=== PATIENT | female | born 2005 | race Caucasian/White ===

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

== ENCOUNTER 2024-06-04 12:37 | Emergency (ER) | payer OTHER, SELFPAY ==
--- NOTE | 2024-06-04 12:45 | ED.URI ---
HPI - URI/Sore Throat General Chief Complaint: Upper Respiratory Infection Stated Complaint: URI Time Seen by Provider: 06/04/24 12:44 Source: patient Mode of arrival: ambulatory Limitations: no limitations History of Present Illness HPI Narrative: Patient is a 18-year-old female with cough and congestion and sore throat for the past week. 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 No chest pain or shortness of breath. MD elicited complaint: cough, sore throat, rhinorrhea and nasal congestion Pertinent past history: other ( None) Onset (ago): week(s) (1) Consistency: constant Severity: mild Pain scale (0-10): 0 Description of mucous: clear and watery Able to tolerate fluids by mouth: Yes Exacerbating factors: nothing Relieving factors: nothing Context: other ( patient has symptoms for the past week and specifically sore throat and came to ER) Associated symptoms: voice changes, rhinorrhea, nasal congestion, sore throat and cough Treatments prior to arrival: none Related Data Home Medications ?Medication ?Instructions ?Recorded ?Confirmed ?Last Taken ?Type betaxolol 10 mg tablet 5 mg PO HS 06/23/20 06/04/24 Unknown History Allergies Allergy/AdvReac Type Severity Reaction Status Date / Time bupropion (From Wellbutrin) Allergy Unknown Verified 06/04/24 12:43 ibuprofen AdvReac Other Verified 06/04/24 12:43 Review of Systems Review of Systems: All systems reviewed & are unremarkable except as noted in HPI and below Constitutional: Constitutional: Reports no additional constitutional complaints Eyes: Eyes: Reports no additional eye complaints ENT: Reports system reviewed and no additional complaints, except as documented Cardiovascular: Cardiovascular: Reports no additional cardiovascular complaints Respiratory: Respiratory: Reports no additional respiratory complaints Gastrointestinal: Gastrointestinal: Reports no additional gastrointestinal complaints Genitourinary: Genitourinary: Reports no additional female genitourinary complaints Musculoskeletal: Musculoskeletal: Reports no additional musculoskeletal complaints Integumentary/Breasts: Skin/Breast: Reports system reviewed and no additional complaints, except as docu Neurologic: Reports system reviewed and no additional complaints, except as documented Psychiatric: Psychiatric: Reports no additional psychiatric complaints Endocrine: Endocrine: Reports no additional endocrine complaints Hematologic/Lymphatic: Hematologic/Lymphatic: Reports no additional hematologic/lymphatic complaints Allergic/Immunologic: Allergic/Immunologic: Reports no additional allergic/immunologic complaints COUNT INCLUDES THE [facility] Past Medical History Medical History Long QT syndrome Surgical History Surgical History History of loop recorder Social History Social History Smoking status: Never smoker Exam Const: General: healthy appearing Nutritional Appearance: well nourished Orientation/consciousness: patient oriented x3 Limitations: no limitations HENMT: Head: normal to inspection Ears: external ears normal Face/Nose/Sinus: Normal external nose present Other: red oropharynx with bilateral 1+ tonsillar hypertrophy without pus Eyes: Conjunctivae: conjunctivae normal Pupils: Equal, round and reactive pupils present EOM: EOMs intact bilaterally Direct Ophthalmoscopy: no photophobia Neck: Neck: normal visual inspection Chest: Chest palpation & inspection: normal inspection of the chest Resp: Effort & Inspection: normal respiratory effort and not labored Auscultation: clear to auscultation bilaterally and no crackles Cardio: Rate: regular rate Rhythm: regular rhythm Heart sounds: no murmurs GI: Inspection: non-distended GI Palp: Yes Soft to palpation and No Tenderness to palpation present (GI) Auscultation: normal bowel sounds : General: Yes bladder normal to palpation Back/Spine/Pelvis: Back: no CVA tenderness Skin: General skin exam: normal color Rashes: no rashes Wounds: no wounds Neuro: General: patient oriented x3 Cranial nerves: Yes Nystagmus not present Speech: normal speech Gait exam (Neuro): Normal gait present Extrem: General: normal to inspection Psych: Mental Status: mental status grossly normal Affect: normal affect Attitude: cooperative Course Vital Signs Vital signs: Vital Signs Oxygen Delivery Room Air 06/04/24 12:40 Temperature 36.6 C 06/04/24 12:46 Pulse Rate 94 06/04/24 12:46 Respiratory Rate 18 06/04/24 12:46 Blood Pressure 108/78 06/04/24 12:46 Pulse Oximetry 100 06/04/24 12:46 Oxygen Delivery Room Air 06/04/24 12:46 MDM - URI/Sore Throat MDM Narrative Medical decision making narrative: patient is a 18-year-old female with upper respiratory symptoms in here for evaluation. We will do COVID panel testing. RSV positive. Lab Data Attestation: I reviewed the patient's lab results. Labs: Lab Results 06/04/24 Range/Units 12:45 Influenza A (RT-PCR) Negative (Negative) Influenza B (RT-PCR) Negative (Negative) RSV (RT-PCR) Positive A (Negative) SARS-CoV-2 RNA (RT-PCR) Negative (Negative) Group A Strep (PCR) Not detected (Negative) Discharge Plan Discharge Clinical Impression: Respiratory syncytial virus (RSV) Qualifiers: RSV infection type: acute bronchiolitis Qualified Code(s): J21.0 - Acute bronchiolitis due to respiratory syncytial virus Pharyngitis Qualifiers: Pharyngitis/tonsillitis etiology: other specified organisms Qualified Code(s): J02.8 - Acute pharyngitis due to other specified organisms Patient Disposition: Home, Self-Care Condition: Stable Instructions: Pharyngitis (ED), RSV (Respiratory Syncytial Virus) Infection (ED) Additional Instructions: please follow-up with the primary doctor in the next week. You may start the antibiotics tomorrow if continued sore throat. Patient Language: Micronesian Prescriptions: New amoxicillin-pot clavulanate [Augmentin] 500-125 mg tablet 1 tablet PO BID 10 Days Qty: 20 0RF No Action betaxolol 10 mg tablet 5 mg PO HS Follow-up/Referrals: Anthony Bruno MD [Primary Care Provider] - Stand Alone Forms: Work/School Release IP Time of Disposition: 13:49
[2024-06-04 12:46] VITALS: BP 108/78; PULSE 94; RESP 18; TEMP 36.6; O2SAT 100
--- NOTE | 2024-06-04 12:49 | PC.NURSE ---
Covid culture sent to lab
[2024-06-04 13:13] LABS: Strep Group A RT-PCR NOT DETECTED (Negative)
[2024-06-04 13:22] LABS: SARS-CoV-2 RNA PCR Negative (Negative)
[2024-06-04 13:30] LABS: Influenza A QL RT-PCR Negative (Negative); Influenza B QL RT-PCR Negative (Negative); RSV RNA, RT-PCR Positive (Negative)
[2024-06-04] MEDS: predniSONE 20 MG TABLET PO (14:01)
[2024-06-04 14:05] VITALS: BP 110/70; PULSE 78; RESP 18; O2SAT 98
--- OUTSIDE RECORDS SUMMARY | 2024-06-11 08:23 | XMS_ITS | Continuity of Care Document ---
Author Name [facility] Organization [facility] Care Team Providers Care Cupola Patcher Helper Name Role Phone [facility] Unavailable Unavailable Problems Combined list of problems from Department of Defense and Veterans Affairs facilities. It does not include entries that were removed or entered in error. Problem Status Onset Date Problem Type Date of Resolution Comments Source otitis externa acute right ear Inactive Condition DoD eustachian tube dysfunction Active Condition DoD Need For Vaccination Hepatitis B Inactive Condition DoD pharyngitis Inactive Condition DoD routine history and physical preschool (3 - 6 yrs) Active Condition DoD visit for: administrative purpose Active Condition DoD skin abscess of buttocks Inactive Condition DoD visit for: well child visit Active Condition DoD Need For Vaccination Polio Active Condition DoD visit for: issue repeat prescription for medication Inactive Condition zytrec one tsp daily DoD Need For Vaccination Against DTP Active Condition DoD Need For Vaccination Hepatitis A Active Condition DoD otitis media suppurative right ear Inactive Condition DoD visit for: 12-month visit Inactive Condition normal examination. RTC in 3-6 months. DoD Need For Vaccination MMR Active Condition DoD Need For Vaccination Chickenpox (Active) Active Condition DoD sinusitis acute Inactive Condition DoD Fever Inactive Condition DoD otitis media left ear Inactive Condition Discussed possible viral nature of illness. Discussed option of Abx for AOM. Parents understand and request Abx. Pt to f/u in 2-3 wks to re-eval ear. Dr Conway available. Ensure adequate hydration, use humidifier in room, return precautions given. DoD Need For Vaccination Haemophilus Influenzae Type B Inactive Condition DoD Need For Vaccination Against Combinations Of Diseases Inactive Condition DoD Need For Vaccination Pneumococcal Inactive Condition DoD Parent Education: Immunizations Active Condition DoD routine history and physical well-baby (28 days - 2 yrs) Inactive Condition DoD upper respiratory infection Inactive Condition DoD Medications Combined list of outpatient medications from Department of Defense and Veterans Affairs facilities.Medications provided include 1) outpatient medications from the last 15 months, and 2) patient-reported medications. Medication Details Route Status Patient Instructions Prescription Expires Prescription Number Last Dispense Date Ordering Provider Order Date Order Qty Source BETAXOLOL HCL (BETAXOLOL HCL), 10MG, TABLET, ORAL, STACK [employer] 100 ea. BOTTLE Active [id number] 2023 45 Pharmac y Data Transac tion Service Facilit y BETAXOLOL HCL (BETAXOLOL HCL), 10MG, TABLET, ORAL, [employer] 100 ea. BOTTLE Active [id number] 2023 45 Pharmac y Data Transac tion Service Facilit y Allergies, Adverse Reactions, Alerts Combined list of allergies from Department of Defense and Veterans Affairs facilities. It does not include entries that were removed or entered in error. Substance Category Reaction Severity Reaction type Status Date Reported Comments Source NO OUTPUT FOR NCID [id number] Drug allergy (disorder) active 02/05/2007 [facility] Immunizations Combined list of available immunizations from the Department of Defense and Veterans Affairs facilities. Immunization Series Date Given Administered By Site Reaction Lot Number CVX Code Drug Water Treatment Plant Operator Status Comments Source COVID-19, mRNA, LNP-S, PF, 30 mcg/0.3 mL dose 2021 AL[facility], () Not Given COVID-19, mRNA, LNP-S, PF, 30 mcg/0.3 mL dose DoD COVID-19, mRNA, LNP-S, PF, 30 mcg/0.3 mL dose 2021 ALUL, () Not Given COVID-19, mRNA, LNP-S, PF, 30 mcg/0.3 mL dose DoD COVID-19, mRNA, LNP-S, PF, 30 mcg/0.3 mL dose 2020 [facility], () Not Given COVID-19, mRNA, LNP-S, PF, 30 mcg/0.3 mL dose DoD hepatitis B vaccine, pediatric or pediatric/ado lescent dosage 1 2009 RAE DERAS [id number] Asl Analytical (B) complet ed hepatitis B vaccine, pediatric or pediatric /adolesce nt dosage DoD measles, mumps and rubella virus vaccine 1 2008 ALLA ARITA [id number] Merck (MSD) complet ed measles, mumps and rubella virus vaccine DoD poliovirus vaccine, inactivated 1 2008 ALLA ARITA [id number] Sanofi Pasteur ([facility]) complet ed polioviru s vaccine, inactivat ed DoD diphtheria, tetanus toxoids and acellular pertu is vaccine 2 2008 ALLA ARITA [id number] 20 SmithKline (SKB) complet ed diphtheri a, tetanus toxoids and acellular pertussis vaccine DoD varicella virus vaccine 1 2008 ALLA ARITA [id number] 21 Merck (MSD) complet ed varicella virus vaccine DoD hepatitis A vaccine, pediatric dosage, unspecified formulation 1 2008 ALLA ARITA [id number] 31 SmithKline (SKB) complet ed hepatitis A vaccine, pediatric dosage, unspecifi ed formulati on DoD hepatitis A vaccine, pediatric/ado lescent dosage, 2 dose schedule 1 2006 DINAH HYATT [id number] [id number] 83 SmithKline (SKB) complet ed hepatitis A vaccine, pediatric /adolesce nt dosage, 2 dose schedule DoD diphtheria, tetanus toxoids and acellular pertu is vaccine 1 2006 DINAH HYATT [id number] 20 SmithKline (SKB) complet ed diphtheri a, tetanus toxoids and acellular pertussis vaccine DoD Haemophilus influenzae type b vaccine, PRP-OMP conjugate 2 2006 DINAH HYATT [id number] 49 Merck (MSD) complet ed Haemophil us influenza e type b vaccine, PRP-OMP conjugate DoD Haemophilus influenzae type b vaccine, PRP-OMP conjugate 1 2004 Unknown, Provider [id number] 49 Merck (MSD) complet ed Haemophil us influenza e type b vaccine, PRP-OMP conjugate DoD pneumococcal conjugate vaccine, 7 valent 1 2004 DINAH HYATT [id number] GiovannyIla ([facility]) complet ed pneumococ gi conjugate vaccine, 7 valent DoD DTaP-hepatiti s B and poliovirus vaccine 1 2004 DINAH HYATT [id number] [id number] 110 SmithKline (SKB) complet ed DTaP-hepa titis B and polioviru s vaccine DoD Encounters Combined list of: 1) Encounters from Department of Veterans Affairs facilities going back up to thelast 18 months. 2) Encounters from the Department of Defense facilities going back up to 280 months. Location Location Details Encounter Type Encounter Number Reason For Visit Attending Provider ADM Date DC Date Status Disposition Source [facility]PENDING S[facility] TO [facility] M05A [facility] Dut) OUTPATIENT [id number] WELL BABY/PH YSICAL EXAM/SC FRANKO QUINCY GE 11/24 Released w/o Limitations [facility]AM H M05A [facility] Dut) [facility]PENDING [facility] M05A [facility] Dut) OUTPATIENT [id number] WELL BABY CHECK/6 [facility] QUINCY GE 02/10 Released w/o Limitations [facility]AM H M05A [facility] Dut) [facility]PENDING SALE TO [facility] M05A WFM Dut) OUTPATIENT [id number] Immuniz STEVE Smith Surya 02/24 Released w/o Limitations [facility]AM H M05A W[facility] Dut) [facility]PENDING SALE TO [facility] M05A WFM Dut) OUTPATIENT [id number] COUGH/F EVER KAI CAICEDO 05/25 Released w/o Limitations [facility])(AM H M05A WFM Dut) [facility] AMI Cl) TELE CONSULT [id number] Fever LUCIA PABON 06/17 [facility] AMIC Cl) [facility]PEND[facility] S[facility] M05A WFM Dut) OUTPATIENT [id number] fever 103 QUINCY GE 06/27 Released w/o Limitations [facility]AM H M05A WFM Dut) [facility]PEND[facility] S[facility] TO [facility] M05A WFM Dut) OUTPATIENT [id number] 12month WBC JOY PARTIDA 09/04 Released w/o Limitations [facility]AM H M05A W[facility] Dut) [facility]PEND[facility] S[facility] M05D WFM Int) OUTPATIENT [id number] fever ear pain QUINCY GE 07/16 Released w/o Limitations [facility]AM H M05D WFM Int) [facility] [employer]) OUTPATIENT [id number] IMMElza MATHISALLA Elio 08/20 Released w/o Limitations [facility] ) [facility] M05D WFM Int) TELE CONSULT [id number] Prescri ption request QUINCY GE 02/05 [facility]AM H M05D WFM Int) [facility] M05A [facility] Dut) OUTPATIENT [id number] imm [place]IR[place] ADAIRSTACY Torres 10/02 Released w/o Limitations [facility]AM H M05A W[facility] Dut) [facility] M05D WFM Int) OUTPATIENT [id number] QUINCY Gaspar 01/19 Released w/o Limitations [facility]AM H M05D WFM Int) [facility] M05D WFM Int) OUTPATIENT [id number] rash on buttock s QUINCY GE 03/26 Released w/o Limitations [facility]AM H M05D WFM Int) [facility] M05D WFM Int) TELE CONSULT [id number] labs QUINCY GE 03/29 [facility]AM H M05D WFM Int) [facility] M05D WFM Int) TELE CONSULT [id number] Pt's father called and asked for meds for leg infecti on NIRU DANIEL S 07/20 [facility]AM [facility] M05D WFM Int) [facility] M[facility]D WFM Int) TELE CONSULT [id number] Infecte d bug bite NIRU DANIEL S 10/11 [facility]AM H M05D WFM Int) [facility] M05D WFM Int) OUTPATIENT [id number] REBOOK/ KINDERG ARTEN PHYSICA L NIRU DANIEL S 12/09 Released w/o Limitations [facility]AM H M05D WFM Int) [facility] Cl) OUTPATIENT [id number] 4 yr old female w/fever ;sore throat DARIUS WOOD 01/19 Released w/o Limitations [facility] Cl) [facility]PENDING SALE TO [facility] M05A WFM Dut) OUTPATIENT [id number] hep B RAE DERAS 02/21 Released w/o Limitations [facility]AM H M05A WFM Dut) [facility]PEND[facility] S[facility] M05D WFM Int) OUTPATIENT [id number] sore throat and fever NIRU DANIEL S 07/05 Released w/o Limitations [facility]AM H M05D WFM Int) [facility]PEND[facility] S[facility] M05D WFM Int) OUTPATIENT [id number] congest ion QUINCY GE 11/15 Released w/o Limitations [facility]AM H M05D WFM Int) [facility]PEND[facility] S[facility] M05D WFM Int) TELE CONSULT [id number] right ear pain MINA QUINCY MON 11/28 [facility]AM H M05D WFM Int) Procedures Combined list of: 1) Procedures from Department of Veterans Affairs facilities going back up to thelast 18 months, not all VA non-surgical procedures are included; 2) All procedures from the Department of Defense facilities. Procedure Procedure Type Code Date Perfomer Comments Sourc e Hepatitis B Vaccine (Active); [place] To 11 Years Hepatitis B Vaccine (Active); To 11 Years 25719 02/22/20 10 RAE DERAS Immunization Administration By Injection, One Vaccine Immunization Administration By Injection, One Vaccine 66660 02/22/20 10 RAE DERAS [facility] Vaccines Viral Polio, Inactivated Vaccines Viral Polio, Inactivated 29457 10/03/19 09 ALLA ARITA [facility] Vaccines Viral Measles, Mumps and Rubella, Live Vaccines Viral Measles, Mumps and Rubella, Live 18025 10/03/19 09 ALLA ARITA [facility] DTaP Vaccine DTaP Vaccine 01631 10/03/19 09 ALLA ARITA Vaccines Viral Varicella (Active) Vaccines Viral Varicella (Active) 58669 10/03/19 09 ALLA ARITA Hepatitis A Vaccine Adult Dosage (Intramuscular Use) Hepatitis A Vaccine Adult Dosage (Intramuscular Use) 74162 10/03/19 09 ALLA ARITA Immunization Administration By Injection, Each Additional Vaccine 10/03/19 09 ALLA ARITA [facility] Immunization Administration By Injection, One Vaccine Immunization Administration By Injection, One Vaccine 66952 10/03/19 ALLA ARITA Hep A Vac Ped/Adol Dosage (Intramusc Use) 2 Dose Schedule Hep A Vac Ped/Adol Dosage (Intramusc Use) 2 Dose Schedule 00023 08/21/19 07 TACHO, DINAH given by Ms Hyatt [facility] Immunization Administration By Injection, Each Additional Vaccine 08/21/19 07 DINAH TITUS DTaP Vaccine DTaP Vaccine 36189 08/21/19 TACHO, DINAH given by Ms LemosHyatt [facility] Immunization Administration By Injection, One Vaccine Immunization Administration By Injection, One Vaccine 16840 08/21/19 TACHO, DINAH [facility] Hemophil Influ B Vac PRP-OMP Conjugate (3 Dose) For IM Use Hemophil Influ B Vac PRP-OMP Conjugate (3 Dose) For IM Use 72489 08/21/19 TACHO, DINAH given By Ms Hyatt [facility] Vaccines Viral Measles, Mumps and Rubella, Live Vaccines Viral Measles, Mumps and Rubella, Live 41963 09/05/19 06 CHANG JASON [facility] Vaccines Viral Varicella (Active) Vaccines Viral Varicella (Active) 79858 09/05/19 06 CHANG JASON Pt given the following shots SQ as directed for 12 months well baby visit: MMR 0.5ml Varivax 0.5ml DoD Immunization Administration By Injection, One Vaccine Immunization Administration By Injection, One Vaccine 96441 02/25/20 TACHO, DINAH Barragan DTaP + Hep B + IPV DTaP + Hep B + IPV 97121 05 TACHO DINAH [facility] Immunization Administration By Injection, Each Additional Vaccine 02/25/20 05 TACHODINAH Yung Pneumococcal Conjugate Vaccine, Polyvalent, IM Use Pneumococcal Conjugate Vaccine, Polyvalent, IM Use 39199 02/25/20 05 TACHODINAH Yung Hemophil Influ B Vac PRP-OMP Conjugate (3 Dose) For IM Use Hemophil Influ B Vac PRP-OMP Conjugate (3 Dose) For IM Use 04750 02/25/20 05 DINAH TITUS 6 moths vaccine given mother verified patient id mother no know any drug allergies Pediarix 0.5ml im RT leg Hib 0.5 ml im left leg Prevnar 0.5 ml im left thigh patient edcation given to mother patient left clinic after been monitor for 15 minutes zero adverse reaction noted DoD DTaP + Hep B + IPV DTaP + Hep B + IPV 40850 05 TACHO DINAH Barragan Pneumococcal Conjugate Vaccine, Polyvalent, IM Use Pneumococcal Conjugate Vaccine, Polyvalent, IM Use 25470 11/25/19 05 DINAH TITUS Hemophil Influ B Vac PRP-OMP Conjugate (3 Dose) For IM Use Hemophil Influ B Vac PRP-OMP Conjugate (3 Dose) For IM Use 22151 11/25/19 05 IDNAH TITUS patient here for 4 months immunization. patient identification verified per mother. 1530Pediarix 0.5ml im rigth leg, Hib 0.5ml im right thigh. prevnar 0.5ml im left leg,patient tolerated all vaccine well. Mother instructed to remin in clinic for 15. 1545 patient left from clinic in stable condition zero adverse reaction noted DoD Social History Combined list of available smoking, tobacco, and other social history from Department of Defense and Veterans Affairs facilities. Social History Type Response Date Comment Sour e This section is an empty social history section. DoD
--- OUTSIDE RECORDS SUMMARY | 2024-06-11 08:24 | XMS_ITS | Encounter Summary ---
Author Organization [facility] Address [address] [place] [address] Phone Care Team Providers Care Griddle Cook Name Role Phone Anthony Bruno MD Primary Care Provider [phone] Ethel Casanova MD Unavailable [phone] Encounter Details Date Type Department Care Team (Late st Contact Info) Description 12/12/2021 Orders Only [facility] Pediatric Cardiology One [facility] 2nd [place] [address] [place] [address] Alyson Conner PA 1 [facility] [address] [place], [place] [id number] Social History Tobacco Use Types Packs/Day Years Used Date Smoking Tobacco: Light Smoker Cigarettes Vaping Smokeless Tobacco: Never Comments:smokes/vapes only o ccasionally with friends Alcohol Use Standard Drinks/Week Comments Not Currently 0 (1 standard drink = 0.6 oz pur e alcohol) Comments No Sex and Gender Information Value Date Recorded Sex Assigned at Not on file Legal 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 Gender Identity Not on file Sexual Orientation Not on file documented as of this encounter Plan of Treatment Not on file documented as of this encounter Procedures Procedure Name Priority Date/Time Associated Diagnosis Comments PED DEVICE CHECK - REMOTE Routine 12/12/2021 4:56 AM CDT documented in this encounter Results * Pediatric Device Check - Remote (12/12/2021 4:56 AM CDT) Anatomical Region Laterality Modality Other 12/12/2021 4:56 AM CDT Narrative 12/13/2021 3:50 PM CDT see PDF for result Procedure Note Alyson Conner PA - 12/13/2021 see PDF for result Alyson BONILLA [facility] PROCEDU RES Final Result documented in this encounter Visit Diagnoses Not on filedocumented in this encounter Care Teams Griddle Cook Relationship Specialty Start Date End Date Anthony Bruno MD PCP - General 05/16/17 Ethel Casanova MD 1 [facility] [place] [address] Referring Physician Cardiology 05/12/21 documented as of this encounter
--- OUTSIDE RECORDS SUMMARY | 2024-06-11 08:24 | XMS_ITS | Encounter Summary ---
Author Organization [facility] Address [address] [place] [address] Phone Care Team Providers Care Vamp Presser Name Role Phone Anthony Bruno MD Primary Care Provider Ethel Casanova MD Unavailable [phone] Reason for Referral * Cardiology (Routine) - Closed Specialty Diagnoses / Procedures Referred By Adrianoac t Referred To Contact Diagnoses Long Q-T syndrome Palpitations Procedures Pediatric Device Check - In Office Ethel Casanova MD [address] [address] Phone: tel: fax: [facility] (All Locations) Referral ID Status Reason Start Date Expiration Date Visits Re quested Visits Authorized [id number] Closed 02/27/2022 03/29/2023 1 1 * Cardiology (Routine) - Closed Specialty Diagnoses / Procedures Referred By Contgeorgina sims Referred To Contact Diagnoses Long Q-T syndrome Palpitations Procedures ECG 12 lead Ethel Casanova MD [address] [address] Phone: tel: fax: [facility] (All Locations) Referral ID Status Reason Start Date Expiration Date Visits Re quested Visits Authorized [id number] Closed 02/27/2022 03/29/2023 1 1 Reason for Visit * Cardiology (Routine) - Closed Specialty Diagnoses / Procedures Referred By Cristopher t Referred To Contact Diagnoses Long Q-T syndrome Palpitations Procedures ECG 12 lead Ethel Casanova MD [address] [place] [address] [address] [place] [address] Phone: tel: fax: [facility] (All Locations) Referral ID Status Reason Start Date Expiration Date Visits Re quested Visits Authorized [id number] Closed 02/27/2022 03/29/2023 1 1 Encounter Details Date Type Department Care Team (Latest Contact Info) Description 03/02/2022 1:00 PM CDT - 03/02/2022 11:59 PM CDT Hospital Encounter [facility] Pediatric Cardiology One [facility] [address] [place] [phone] Long Q-T syndrome; Palpitations Discharge Disposition: Discharge to home or self care Social History Tobacco Use Types Packs/Day Years Used Date Smoking Tobacco: Light Smoker Cigarettes Vaping Smokeless Tobacco: Never Comments:smokes/vapes only o ccasionally with friends Alcohol Use Standard Drinks/Week Comments Not Currently 0 (1 standard drink = 0.6 oz pur e alcohol) Comments No Sex and Gender Information Value Date Recorded Sex Assigned at Not on file 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 Gender Identity Not on file Sexual Orientation Not on file documented as of this encounter Medications at Time of Discharge drospirenone-ethi nyl estradioL (ELIAS,GIANVI) 3-0.02 mg per tablet 02/14/2021 betaxoloL (KERLONE) 10 mg tabletIndications :hypertension Take 0.5 tablets (5 mg total) by mouth nightly 45 tablet 03/02/2022 07/17/2022 documented as of this encounter Discharge Disposition Disposition Code Departure Means Destination Discharge to home or self care documented in this encounter Plan of Treatment Not on file documented as of this encounter Procedures Procedure Name Priority Date/Time Associated Diagnosis Comments ECG 12-LEAD Routine 03/02/2022 1:42 PM CDT Long Q-T syndrome Palpitations PED DEVICE CHECK - IN OFFICE Routine 03/02/2022 1:15 PM CDT Long Q-T syndrome Palpitations documented in this encounter Results * ECG 12 lead (03/02/2022 1:42 PM CDT) Ventricular Rate EKG/Min [address] [facility] Atrial Rate 64 BPM [facility] SC-Interval (MSEC) 136 ms [facility] QRS-Interval (MSEC) 82 ms [facility] QT-Interval (MSEC) 420 ms [facility] QTc 445 ms [facility] P Mesa 64 degrees [facility] R Mesa 66 degrees [facility] T Mesa 51 degrees [facility] Diagnosis Normal sinus rhythm with sinus arrhythmia Normal ECG When compared with ECG of 03-MAR-2021 14:57, No significant change was found Confirmed by MD CASANOVA JENNIFER ([id number]) on 03/02/2022 1:29:57 PM [facility] 03/02/2022 1:04 PM CDT 03/02/2022 1:29 PM CDT us Ethel Casanova MD ECG ORDERABLES Final Resul t [facility] * Pediatric Device Check - In Office (03/02/2022 1:15 PM CDT) Anatomical Region Laterality Modality Other 03/02/2022 2:00 AM CDT Narrative 03/02/2022 1:21 PM CDT Interpretation Summary: Provider Comments: MODEL: Medtronic, LINQ SERIAL:[id number] /IMPLANTED ON: 01/31/[address] Ethel Casanova HISTORY: Long QT IMPLANT SITE EXAM: (L): pre pectoral, left breast BATTERY STATUS: ??OK PROGRAMMED SETTINGS Auto records for 75 sec for the following: -heart rates >200 bpm for 16 consecutive beats -heart rates < 30 bpm for 4 consecutive beats -pauses of 3 sec or more ?? EPISODES Symptoms - 0 Tachy - 0 Fran - 0 Pause - 0 AT/AF - 0 Interpretation: ??No events Interpretation by: Shital Conner PA-C Procedure Note Alyson Conner PA - 03/02/2022 Interpretation Summary: Provider Comments: MODEL: Medtronic, LINQ SERIAL:[id number] /IMPLANTED ON: 01/31/[address] Ethel Casanova HISTORY: Long QT IMPLANT SITE EXAM: (L): pre pectoral, left breast BATTERY STATUS: OK PROGRAMMED SETTINGS Auto records for 75 sec for the following: -heart rates >200 bpm for 16 consecutive beats -heart rates < 30 bpm for 4 consecutive beats -pauses of 3 sec or more EPISODES Symptoms - 0 Tachy - 0 Fran - 0 Pause - 0 AT/AF - 0 Interpretation: No events Interpretation by: Shital Conner PA-C us Ethel Casanova MD [facility] C[facility] PROCEDU RES Final Result documented in this encounter Visit Diagnoses Diagnosis Long Q-T syndrome Long QT syndrome Palpitations documented in this encounter Care Teams Vamp Presser Relationship Specialty Start Date End Date Anthony Bruno MD PCP - General 05/16/17 Ethel Casanova MD 1 [facility] [place] [address] Referring Physician Cardiology 05/12/21 documented as of this encounter
--- OUTSIDE RECORDS SUMMARY | 2024-06-11 08:24 | XMS_ITS | Encounter Summary ---
Author Organization [facility] Address [address] [place] [address] Phone Care Team Providers Care Unmanned Aircraft Systems Roboticist Name Role Phone Anthony Bruno MD Primary Care Provider [phone] Ethel Casanova MD Unavailable [phone] Encounter Details Date Type Department Care Team (Late st Contact Info) Description 02/02/2023 Orders Only [facility] Pediatric Cardiology One [facility] 2nd [place] [address] [place] [address] Alyson Conner PA 1 [facility] [address] [place] [address] Long QT syndrome (Primary Dx) Social History Tobacco Use Types Packs/Day Years Used Date Smoking Tobacco: Light Smoker Cigarettes Vaping Smokeless Tobacco: Never Comments:smokes/vapes only o ccasionally with friends Alcohol Use Standard Drinks/Week Comments Not Currently 0 (1 standard drink = 0.6 oz pur e alcohol) Comments No Sex and Gender Information Value Date Recorded Sex Assigned at Not on file 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 [employer] Gender Identity Not on file Sexual Orientation Not on file documented as of this encounter Plan of Treatment Not on file documented as of this encounter Visit Diagnoses Diagnosis Long QT syndrome- Primary documented in this encounter Orders Case Request Count Last Ordered Date First Orde red Date CASE REQUEST EP LAB 1 02/02/2023 documented in this encounter Care Teams Unmanned Aircraft Systems Roboticist Relationship Specialty Start Date End Date Anthony Bruno MD PCP - General 05/16/17 Ethel Casanova MD 1 [facility] [place] [address] Referring Physician Cardiology 05/12/21 documented as of this encounter
--- OUTSIDE RECORDS SUMMARY | 2024-06-11 08:24 | XMS_ITS | Encounter Summary ---
Author Organization [facility] Address [address] [place] [address] Phone Care Team Providers Care Boat Deckhand Name Role Phone Anthony Bruno MD Primary Care Provider [phone] Ethel Casanova MD Unavailable [phone] Reason for Referral * Cardiology (Routine) - Closed Specialty Diagnoses / Procedures Referred By Adrianoac t Referred To Contact Diagnoses Long Q-T syndrome Palpitations Procedures Pediatric Device Check - In Office Ethel Casanova MD [address] [address] Phone: tel: fax: [facility] (All Locations) Referral ID Status Reason Start Date Expiration Date Visits Re quested Visits Authorized [id number] Closed 02/27/2022 03/29/2023 1 1 * Cardiology (Routine) - Closed Specialty Diagnoses / Procedures Referred By Contgeorgina sims Referred To Contact Diagnoses Long Q-T syndrome Palpitations Procedures ECG 12 lead Ethel Casanova MD [address] [address] Phone: tel: fax: [facility] (All Locations) Referral ID Status Reason Start Date Expiration Date Visits Re quested Visits Authorized [id number] Closed 02/27/2022 03/29/2023 1 1 Reason for Visit * Cardiology (Routine) - Closed Specialty Diagnoses / Procedures Referred By Cristopher t Referred To Contact Pediatric Cardiology Diagnoses Long Q-T syndrome 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 Palpitations Abnormal electrocardiography Long QT syndrome Anthony Bruno MD Phone: tel: fax: [facility] Pediatric Cardiology One [facility] 2nd [place] [address] [place] [address] Phone: tel: fax: Referral ID Status Reason Start Date Expiration Date V isits Requested Visits Authorized [id number] Closed Continuity of Care 02/25/2021 03/27/2022 4 4 Encounter Details Date Type Department Care Team (Late st Contact Info) Description 03/02/2022 1:20 PM CDT Office Visit [facility] Pediatric Cardiology [facility] 2nd [place] [address] [place] [address] Ethel Casanova MD 1 [facility] [address] [place] [address] Long Q-T syndrome (Primary Dx); Palpitations Social History Tobacco Use Types Packs/Day Years Used Date Smoking Tobacco: Light Smoker Cigarettes Vaping Smokeless Tobacco: Never Comments:smokes/vapes only o ccasionally with friends Alcohol Use Standard Drinks/Week Comments Not Currently 0 (1 standard drink = 0.6 oz pur e alcohol) Comments No Sex and Gender Information Value Date Recorded Sex Assigned at Not on file Legal Sex Female 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 Gender Identity Not on file Sexual Orientation Not on file documented as of this encounter Last Filed Vital Signs Vital Sign Reading Time Taken Comments Blood Pressure 106/76 03/02/2022 1:06 PM CDT Pulse 93 03/02/2022 1:06 PM CDT Temperature 36.8 ??C (98.2 ??F) 03/02/2022 1:06 PM CD T Respiratory Rate 20 03/02/2022 1:06 PM CDT Oxygen Saturation 99% 03/02/2022 1:06 PM CDT Inhaled Oxygen Concentration - - Weight 56 kg (123 lb 7.3 oz) 03/02/2022 1:06 PM CDT Height 165.6 cm (5' 5.2 ) 03/02/2022 1:06 PM CDT Body Mass Index 20.42 03/02/2022 1:06 PM CDT Body Mass Index Percentile 40.39% 03/02/2022 1:0 6 PM CDT Growth Chart: FOR[facility] NAMED [facility] (Girls, 2- 20 Years) documented in this encounter Patient Instructions * Patient Instructions* Ethel Casanova MD - 03/02/2022 1:20 PM CDT Tests & Labs: I personally reviewed the following data: 1. ELECTROCARDIOGRAM. 03/02/2022: NSR. QTc 445msec 03/03/2021: NSR at 70 bpm, QT 430msec 01/22/2020: NSR at 67 bpm, a borderline prolonged QT at 431msec 02/14/2019: NSR at 83 bpm, a borderline prolonged QT at 448msec (down from a previous ECG QTc of 457msec). 2. DEVICE CHECK. MODEL: OrSense, LINQ SERIAL:[id number] /IMPLANTED ON: 01/31/[address] Ethel Casanova [...] 0 Pause - 0 AT/AF - 0 PARENT INFORMATION: Please continue to send monthly and symptomatic transmissions. Assessment: 1. FHx SCD (brother) -- suspicion for LQTS for Grecia Ballard. Maintained on betaxolol B. Has ICM in place -- no documented arrhythmias Plan: Grecia is a now 16 y.o. who I am deeply suspicious of LQTS, s/p ICM generator change in 2019. Shehas a family history of sudden arrhythmic of her brother and abnormal ECGs c/w that diagnosis. She is maintained on beta- blockers, currently on betaxolol 5mg PO qDay. My plan for Grecia is: 1) Continue Betaxolol 5mg PO qDay. Refills were ordered today. 2) Grecia is restricted from timed or coached sports or PE activities. She may participate in PE activities that allow her to stop at her own level of activity tolerance. A note for school was given to family. 3) There is a list of medications to avoid for people with Long QT. I gave family the website for this list today. It is: www.qtdrugs.org 4) Follow up in 12 months. 5) If the ICM battery expires, we have talked about removal versus removal & replacement of theICM. Parents will discuss with Grecia and get back to me with their thoughts. Thank you very much for allowing me to be involved in the care of this young lady. Please feel freeto call me if you have any questions. Thank you for allowing me to participate in the care of your patient. If there are any additional questions or concerns, please do not hesitate to call our office at [phone]. Cardiovascular instructions and follow-up: SBE Prophylaxis (antibiotics): No RSV Prophylaxis Recommended: N/A Patient Cleared For: Anesthesia, Dental Work and Surgery--continue to avoid drugs that push out theQT interval Activity: May participate in entire physical education program but restricted from varsity athletics and strenuous activity Pending Tests: None Tests Next Visit: EKG and ILR download Does patient qualify for adolescent management protocol: No documented in this encounter Ordered Prescriptions Prescription Sig Dispense Quantity Refills Last Filled Start Date End Date betaxoloL (KERLONE) 10 mg tabletIndications: hypertension Take 0.5 tablets (5 mg total) by mouth nightly 45 tablet 03/02/2022 3 documented in this encounter Progress Notes * Ethel Casanova MD - 03/02/2022 1:20 PM CDT HPI: I had the pleasure of seeing Grecia Villa who is a 16 y.o. female here for a return visitfor what I suspect to be LQTS. Grecia was seen today, 03/02/22 at the [facility] father. She is here today with her parents. Please allow me to review for my records. Grecia's family relocated to the [facility] from [place]. Sadly, her brother suddenly in July 2014 of suspected cardiac arrhythmia. He was 14yr old at the time with no previous history concerning for cardiac disease or arrhythmia. He was anathlete and had past ECGs that were read as normal. Parents tell me Juan did have an autopsy; no genetic testing was done to their knowledge. They say his heart was sent to a pathology lab and no abnormalities were identified. As such they called his cause of was Sudden Arrhythmic Syndrome. He was not on any routine medications or sick at the time of . He had taken one Sudafed the day he for sinus pressure after being outside sledding all day. He had received his 3rd Gardasil vaccination 17 days prior to his . Grecia had an extensive cardiac evaluation at [facility] in [facility] last September. Anechocardiogram showed a structurally normal heart with normal coronary arteries. An electrocardiogram showed normal sinus rhythm and there was no suspicion reported for cardiac channelopathy. A 24 hour Holter monitor showed normal sinus rhythm with normal heart rate variability. There was one ventricular couplet at maximum heart rate of 193 bpm. An exercise test was subsequently performed which showed normal response to exercise with no arrhythmias. Cardiac follow up was recommended in 6 months. Here in [facility], she has had serially abnormal ECGs demosntrating LQT intervals, and an epinephrine challenge showed abnormal paradoxial prolongation of the QT interval. She was implanted with an ILR (06/22/2015) and started on nadolol. On 01/31/2019, she had her previous ILR explanted and new ILR implanted. Today, Grecia and her parents deny a history of palpitations, chest pain (with or without exercise), dizziness, syncope, or seizure for Grecia. She is taking her betaxolol well without concerns. No side effects of medication. She is also taking Paxil--Dad reports that it is helping. Grecia isnot able to tell the difference. There are no new cardiac concerns to speak of. ROS: General: negative with no weight loss or weight gain Cardiac: negative with no murmur, no palpitations, no chest pain, no pre- syncope, no syncope Pulmonary: negative with no history of asthma, no respiratory issues GI: negative with no constipation or diarrhea. Renal: negative with no change in urine output. No history of kidney abnormalities Heme: negative with no easy bruising or prolonged bleeding Neuro: Negative with no history of seizures, developmental delay or brain abnormalities Skin: negative with no rash, jaundice or cyanosis HEENT: negative with no ear or eye abnormalities, normal dentition Musculoskeletal: negative, no joint deformities or edema. History: Allergies Allergen Reactions Wellbutrin [Bupropion] Hives Current Outpatient Medications Medication Sig Dispense Refill betaxoloL (KERLONE) 10 mg tablet Take 0.5 tablets (5 mg total) by mouth nightly 45 tablet 0 drospirenone-ethinyl estradioL (ELIAS,GIANVI) 3-0.02 mg per tablet PARoxetine (PAXIL) 20 mg tablet Take 1 tablet (20 mg total) by mouth nightly 30 tablet 11 No current facility-administered medications for this visit. Past Medical History: Diagnosis Date Abnormal electrocardiogram Abnormal ECG - (Added by TW Conv) Anxiety Depression Genetic susceptibility to other disease 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 - (Added by TW Conv) Long Q-T syndrome Palpitations Palpitations - (Added by TW Conv) Self-injurious behavior Suicide attempt (CMS/HCC) (HCC) No past surgical history on file. Family History Problem Relation Age of Onset Sudden Cardiac Brother 14 sudden arrhythmic Bipolar disorder Father's Sister Depression Mother's Brother Depression Maternal Grandmother Bipolar disorder Paternal Grandmother Family history of premature ventricular contractions: Mother (V17.49) (Z82.49) Family history of sudden cardiac (SCD): Brother (V17.41) (Z82.41) Other than her brother, Juan, there is no family history of sudden . They deny family historyof congenital deafness, drowning or near drowning, single car accidents or seizure disorder. Grecia's maternal grandfather had atrial fibrillation that was diagnosed when he was in his 70s. He last week of advanced prostrate cancer. A maternal grandmother has a h/o hypercholesterolemia and coronary artery disease after age 60. Paternal grandfather had some type of congenital heart disease; dad said an artery leaving his heart was too small and was surgically repaired. PGF had an OR at age 42 and had hypercholesterolemia; he had a pacemaker implanted at age 64. Grecia's mother,Kacy, has a history of PVCs. She is unsure of the burden percentage; she feels them frequently onsome days but not at all other times. She has never had dizzy spells, syncope, or prolonged tachycardia. Social History Socioeconomic History Marital status: Single Spouse name: Not on file Number of children: Not on file Years of education: Not on file Highest education level: Not on file Occupational History Not on file Tobacco Use Smoking status: Light Tobacco Smoker Types: Cigarettes, Vaping Smokeless tobacco: Never Used Tobacco comment: smokes/vapes only occasionally with friends Vaping Use Vaping Use: Some days Passive vaping exposure Yes Substance and Sexual Activity Alcohol use: Not Currently Drug use: Yes Types: Marijuana Comment: 1x every few months or so Sexual activity: Not Currently Partners: Male control/protection: None Other Topics Concern Not on file Social History Narrative Lives with parents : (Added by ELVA Conv) Brother : (Added by ELVA Conv) Social Determinants of Health Financial Resource Strain: Difficulty of Paying Living Expenses: Not on file Food Insecurity: Worried About Running Out of Food in the Last Year: Not on file Ran Out of Food in the Last Year: Not on file Transportation Needs: Lack of Transportation (Medical): Not on file Lack of Transportation (Non-Medical): Not on file Physical Activity: Days of Exercise per Week: Not on file Minutes of Exercise per Session: Not on file Stress: Feeling of Stress : Not on file Intimate Partner Violence: Fear of Current or Ex-Partner: Not on file Emotionally Abused: Not on file Physically Abused: Not on file Sexually Abused: Not on file Physical Exam: BP 106/76 (BP Location: Right arm, Patient Position: Sitting) Pulse 93 Temp 36.8 ??C (98.2 ??F)(Temporal) Resp 20 Ht 165.6 cm (5' 5.2 ) Wt 56 kg (123 lb 7.3 oz) SpO2 99% BMI 20.42 kg/m?? Weight: 56 kg (123 lb 7.3 oz) Height: 165.6 cm (5' 5.2 ) General: non-dysmorphic, no distress HEENT: normocephalic, atraumatic, normal external nose, normally set ears, normal sclerae, conjunctivae and lids Neck: Supple, no masses cyanosis, clubbing or edema. Chest: The chest wall was symmetric and tender to palpitation. There was well healed ILR implant scar . Steristrips were removed today. Lungs: Normal work of breathing. Lungs clear to auscultation bilaterally with good aeration. No rales, no retractions. Cardiac: There was quiet precordial activity. The heart rate was regular with a normal S1 and normal S2. She had no systolic murmur and no diastolic murmur. There was no click, rub or gallop. The radial and femoral pulses were full and equal. There was no significant cyanosis, clubbing or edema. There was no significant cyanosis, clubbing or edema. Abdomen: The abdomen was benign. Non-distended. The liver was not enlarged. The spleen was not enlarged. No masses. Skin: No rash or cyanosis Extremities: no joint deformities. Musculoskeletal: normal muscle mass and normal strength in extremities. Neurologic: No focal deficits, normal tone, no abnormal movements Tests & Labs: I personally reviewed the following data: 1. ELECTROCARDIOGRAM. 03/02/2022: NSR. QTc 445msec 03/03/2021: NSR at 70 bpm, QT 430msec 01/22/2020: NSR at 67 bpm, a borderline prolonged QT at 431msec 02/14/2019: NSR at 83 bpm, a borderline prolonged QT at 448msec (down from a previous ECG QTc of 457msec). 2. DEVICE CHECK. MODEL: OrSense, LINQ SERIAL:[id number] /IMPLANTED ON: 01/31/[address] Ethel Casanova [...] 0 Pause - 0 AT/AF - 0 PARENT INFORMATION: Please continue to send monthly and symptomatic transmissions. Assessment: 1. FHx SCD (brother) -- suspicion for LQTS for Grecia Blanchard Maintained on betaxolol B. Has ICM in place -- no documented arrhythmias Plan: Grecia is a now 16 y.o. who I am deeply suspicious of LQTS, s/p ICM generator change in 2019. Shehas a family history of sudden arrhythmic of her brother and abnormal ECGs c/w that diagnosis. She is maintained on beta- blockers, currently on betaxolol 5mg PO qDay. My plan for Grecia is: 1) Continue Betaxolol 5mg PO qDay. Refills were ordered today. 2) Grecia is restricted from timed or coached sports or PE activities. She may participate in PE activities that allow her to stop at her own level of activity tolerance. A note for school was given to family. 3) There is a list of medications to avoid for people with Long QT. I gave family the website for this list today. It is: www.qtdrugs.org 4) Follow up in 12 months. 5) If the ICM battery expires, we have talked about removal versus removal & replacement of theICM. Parents will discuss with Grecia and get back to me with their thoughts. Thank you very much for allowing me to be involved in the care of this young lady. Please feel freeto call me if you have any questions. Thank you for allowing me to participate in the care of your patient. If there are any additional questions or concerns, please do not hesitate to call our office at [phone]. Cardiovascular instructions and follow-up: SBE Prophylaxis (antibiotics): No RSV Prophylaxis Recommended: N/A Patient Cleared For: Anesthesia, Dental Work and Surgery--continue to avoid drugs that push out theQT interval Activity: May participate in entire physical education program but restricted from varsity athletics and strenuous activity Pending Tests: None Tests Next Visit: EKG and ILR download Does patient qualify for adolescent management protocol: No documented in this encounter Plan of Treatment Not on file documented as of this encounter Results * ECG 12 lead (03/02/2022 1:42 PM CDT) Ventricular Rate EKG/Min 64 BPM [facility] Atrial Rate 64 BPM [facility] [place]-Interval (MSEC) 136 ms [facility] QRS-Interval (MSEC) 82 ms [facility] QT-Interval (MSEC) 420 ms [facility] QTc 445 ms [facility] P [place] 64 degrees [facility] R [place] 66 degrees [facility] T [place] 51 degrees [facility] Diagnosis Normal sinus rhythm with sinus arrhythmia Normal ECG When compared with ECG of 03-MAR-2021 14:57, No significant change was found Confirmed by MD CASANOVA JENNIFER ([id number]) on 03/02/2022 1:29:57 PM [facility] [employer] 03/02/2022 1:04 PM CDT 03/02/2022 1:29 PM CDT us Ethel Casanova MD ECG ORDERABLES Final Resul t [facility] [employer] [facility] * Pediatric Device Check - In Office (03/02/2022 1:15 PM CDT) Anatomical Region Laterality Modality Other 03/02/2022 2:00 AM CDT Narrative 03/02/2022 1:21 PM CDT Interpretation Summary: Provider Comments: MODEL: Medtronic, LINQ SERIAL:[id number] /IMPLANTED ON: 01/31/[address] Ethel Casanova [...] Interpretation Summary: Provider Comments: MODEL: Medtronic, LINQ SERIAL:[id number] /IMPLANTED ON: 01/31/[address] Ethel Casanova [...] No events Interpretation by: Shital Conner PA-C Ethel Casanova MD [facility] RES Final Result documented in this encounter Visit Diagnoses Diagnosis Long Q-T syndrome- Primary Long QT syndrome Palpitations documented in this encounter Discontinued Medications Medication Sig Discontinue Reason Start Date End Da te betaxoloL (KERLONE) 10 mg tabletIndications:hypert ension Take 0.5 tablets (5 mg total) by mouth nightly Reorder 01/02/2022 03/02/2022 documented as of this encounter Care Teams Boat Deckhand Relationship Specialty Start Date End Date Anthony Bruno MD PCP - General 05/16/17 Ethel Casanova MD 1 [facility] [place] [address] Referring Physician Cardiology 05/12/21 documented as of this encounter
--- OUTSIDE RECORDS SUMMARY | 2024-06-11 08:24 | XMS_ITS | Encounter Summary ---
Author Organization [facility] Address [address] [place] [address] Phone Care Team Providers Care Systems Analyst Engineer Name Role Phone Anthony Bruno MD Primary Care Provider [phone] Ethel Casanova MD Unavailable [phone] Encounter Details Date Type Department Care Team (Late st Contact Info) Description 10/13/2021 Orders Only [facility] Pediatric Cardiology One [facility] 2nd [place] [address] [place] [address] Alyson Conner PA 1 [facility] [address] [place], [place] [id number] Social History Tobacco Use Types Packs/Day Years Used Date Smoking Tobacco: Light Smoker Cigarettes Vaping Smokeless Tobacco: Never Comments:smokes/vapes only o ccasionally with friends Alcohol Use Standard Drinks/Week Comments Not Currently 0 (1 standard drink = 0.6 oz pur e alcohol) Comments No Sex and Gender Information Value Date Recorded Sex Assigned at Not on file 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 Gender Identity Not on file Sexual Orientation Not on file documented as of this encounter Plan of Treatment Not on file documented as of this encounter Procedures Procedure Name Priority Date/Time Associated Diagnosis Comments PED DEVICE CHECK - REMOTE Routine 10/13/2021 4:55 AM CDT documented in this encounter Results * Pediatric Device Check - Remote (10/13/2021 4:55 AM CDT) Anatomical Region Laterality Modality Other 10/13/2021 4:55 AM CDT Narrative 10/13/2021 11:08 AM CDT see PDF for result Procedure Note Alyson Conner PA - 10/13/2021 see PDF for result Alyson BONILLA [facility]ED[facility] RES Final Result documented in this encounter Visit Diagnoses Not on filedocumented in this encounter Care Teams Systems Analyst Engineer Relationship Specialty Start Date End Date Anthony Bruno MD PCP - General 05/16/17 Ethel Casanova MD 1 [facility] [address] Referring Physician Cardiology 05/12/21 documented as of this encounter
--- OUTSIDE RECORDS SUMMARY | 2024-06-11 08:24 | XMS_ITS | Encounter Summary ---
Author Organization [facility] Address [address] [place] [address] Phone Care Team Providers Care Underbaster Name Role Phone Anthony Bruno MD Primary Care Provider [phone] Ethel Casanova MD Unavailable [phone] Encounter Details Date Type Department Care Team (Late st Contact Info) Description 01/11/2022 Orders Only [facility] Pediatric Cardiology One [facility] 2nd [place] [address] [place] [address] Alyson Conner PA [address] [place], [place] [id number] Social History Tobacco Use Types Packs/Day Years Used Date Smoking Tobacco: Light Smoker Cigarettes Vaping Smokeless Tobacco: Never Comments:smokes/vapes only o ccasionally with friends Alcohol Use Standard Drinks/Week Comments Not Currently 0 (1 standard drink = 0.6 oz pur e alcohol) Comments No Sex and Gender Information Value Date Recorded Sex Assigned at Not on file Legal Sex Female 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 Gender Identity Not on file Sexual Orientation Not on file documented as of this encounter Plan of Treatment Not on file documented as of this encounter Procedures Procedure Name Priority Date/Time Associated Diagnosis Comments PED DEVICE CHECK - REMOTE Routine 01/11/2022 5:01 AM CDT documented in this encounter Results * Pediatric Device Check - Remote (01/11/2022 5:01 AM CDT) Anatomical Region Laterality Modality Other 01/11/2022 5:01 AM CDT Narrative 01/12/2022 1:00 PM CDT Interpretation Summary: Battery and Leads (BL) Normal battery parameters Presenting Rhythm (MI) Normal sinus rhythm Arrhythmic events (AE) No new arrhythmic events since last remote monitoring transmission Heart Failure (HF) No significant change in activity level is noted on trending Transmission Information (TI) Implant indication: Suspected VT Device Summary Report Follow Up (FU) Continue remote monitoring with monthly reporting Provider Comments: No arrhythmias detected. Interpretation by: Shital Conner PA-C Procedure Note Alyson Conner PA - 01/12/2022 Interpretation Summary: Battery and Leads (BL) Normal battery parameters Presenting Rhythm (MI) Normal sinus rhythm Arrhythmic events (AE) No new arrhythmic events since last remote monitoring transmission Heart Failure (HF) No significant change in activity level is noted on trending Transmission Information (TI) Implant indication: Suspected VT Device Summary Report Follow Up (FU) Continue remote monitoring with monthly reporting Provider Comments: No arrhythmias detected. Interpretation by: Shital Conner PA-C Alyson BONILLA [facility] PROCEDU RES Final Result documented in this encounter Visit Diagnoses Not on filedocumented in this encounter Care Teams Underbaster Relationship Specialty Start Date End Date Anthony Bruno MD PCP - General 05/16/17 Ethel Casanova MD 1 [facility] [place] [address] Referring Physician Cardiology 05/12/21 documented as of this encounter
--- OUTSIDE RECORDS SUMMARY | 2024-06-11 08:24 | XMS_ITS | Encounter Summary ---
Author Organization [facility] Address [address] [place] [address] Phone Care Team Providers Care Supervisor Lens Generating Name Role Phone Anthony Bruno MD Primary Care Provider [phone] Ethel Casanova MD Unavailable [phone] Encounter Details Date Type Department Care Team (Late st Contact Info) Description 02/10/2022 Orders Only [facility] Pediatric Cardiology One [facility] 2nd [place] [address] [place] [id number] Alyson Conner PA 1 [facility] [address] [place], [place] [id number] Social History Tobacco Use Types Packs/Day Years Used Date Smoking Tobacco: Light Smoker Cigarettes Vaping Smokeless Tobacco: Never Comments:smokes/vapes only o ccasionally with friends Alcohol Use Standard Drinks/Week Comments Not Currently 0 (1 standard drink = 0.6 oz pur e alcohol) Comments No Sex and Gender Information Value Date Recorded Sex Assigned at Not on file Legal Sex Female 11:23 AM JAVA SDET Gender Identity Not on file Sexual Orientation Not on file documented as of this encounter Plan of Treatment Not on file documented as of this encounter Procedures Procedure Name Priority Date/Time Associated Diagnosis Comments PED DEVICE CHECK - REMOTE Routine 02/10/2022 5:00 AM CDT documented in this encounter Results * Pediatric Device Check - Remote (02/10/2022 5:00 AM CDT) Anatomical Region Laterality Modality Other 02/10/2022 5:00 AM CDT Narrative 02/10/2022 1:15 PM CDT Interpretation Summary: Battery and Leads (BL) Normal battery parameters Presenting Rhythm ([place]) Indeterminate rhythm due to baseline noise Arrhythmic events (AE) No new arrhythmic events in monitoring period Transmission Information (TI) Implant indication: Suspected VT Device Summary Report --- 12/31/21-01/23/22 Follow Up (FU) Continue remote monitoring with monthly reporting Provider Comments: noise oversensing on the presenting rhythm Interpretation by: Shital Conner PA-C Procedure Note Alyson Conner PA - 02/10/2022 Interpretation Summary: Battery and Leads (BL) Normal battery parameters Presenting Rhythm (IL) Indeterminate rhythm due to baseline noise Arrhythmic events (AE) No new arrhythmic events in monitoring period Transmission Information (TI) Implant indication: Suspected VT Device Summary Report --- 12/31/21-01/23/22 Follow Up (FU) Continue remote monitoring with monthly reporting Provider Comments: noise oversensing on the presenting rhythm Interpretation by: Shital Conner PA-C Alyson BONILLA [facility] PROCEDU RES Final Result documented in this encounter Visit Diagnoses Not on filedocumented in this encounter Care Teams Supervisor Lens Generating Relationship Specialty Start Date End Date Anthony Bruno MD PCP - General 05/16/17 Ethel Casanova MD 1 [facility] [place] [address] Referring Physician Cardiology 05/12/21 documented as of this encounter
--- OUTSIDE RECORDS SUMMARY | 2024-06-11 08:24 | XMS_ITS | Encounter Summary ---
Author Organization [facility] Address [address] [place] [address] Phone Care Team Providers Care Medical Van Driver Name Role Phone Anthony Bruno MD Primary Care Provider [phone] Ethel Casanova MD Unavailable [phone] Encounter Details Date Type Department Care Team (Late st Contact Info) Description 11/12/2021 Orders Only [facility] Pediatric Cardiology One [facility] 2nd [place] [address] [place] [address] Alyson Conner PA 1 [facility] [address] [place], [place] [id number] Social History Tobacco Use Types Packs/Day Years Used Date Smoking Tobacco: Light Smoker Cigarettes Vaping Smokeless Tobacco: Never Comments:smokes/vapes only o ccasionally with friends Alcohol Use Standard Drinks/Week Comments Not Currently 0 (1 standard drink = 0.6 oz pur e alcohol) Comments No Sex and Gender Information Value Date Recorded Sex Assigned at Not on file 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 Gender Identity Not on file Sexual Orientation Not on file documented as of this encounter Plan of Treatment Not on file documented as of this encounter Procedures Procedure Name Priority Date/Time Associated Diagnosis Comments PED DEVICE CHECK - REMOTE Routine 11/12/2021 4:55 AM CDT documented in this encounter Results * Pediatric Device Check - Remote (11/12/2021 4:55 AM CDT) Anatomical Region Laterality Modality Other 11/12/2021 4:55 AM CDT Narrative 11/17/2021 10:31 AM CDT see PDF for result Procedure Note Alyson Conner PA - 11/17/2021 see PDF for result Alyson BONILLA [facility] PROCEDU RES Final Result documented in this encounter Visit Diagnoses Not on filedocumented in this encounter Care Teams Medical Van Driver Relationship Specialty Start Date End Date Anthony Bruno MD PCP - General 05/16/17 Ethel Casanova MD 1 [facility] [place] [address] Referring Physician Cardiology 05/12/21 documented as of this encounter
--- OUTSIDE RECORDS SUMMARY | 2024-06-11 08:24 | XMS_ITS | Encounter Summary ---
Author Organization [facility] Address [address] [place] [address] Phone Care Team Providers Care Switch Technician Name Role Phone Anthony Bruno MD Primary Care Provider Ethel Casanova MD Unavailable [phone] Encounter Details Date Type Department Care Team (Late st Contact Info) Description 06/03/2021 Orders Only [facility] Pediatric Cardiology One [facility] 2nd [place] [address] [place] [address] Alyson Conner PA 1 [facility] [address] [place], [place] [id number] Social History Tobacco Use Types Packs/Day Years Used Date Smoking Tobacco: Light Smoker Cigarettes Vaping Smokeless Tobacco: Never Comments:smokes/vapes only o ccasionally with friends Alcohol Use Standard Drinks/Week Comments Not Currently 0 (1 standard drink = 0.6 oz pur e alcohol) Comments No Sex and Gender Information Value Date Recorded Sex Assigned at Not on file Legal Sex Female 11:23 AM LAND USE PLANNER Gender Identity Not on file Sexual Orientation Not on file documented as of this encounter Plan of Treatment Not on file documented as of this encounter Procedures Procedure Name Priority Date/Time Associated Diagnosis Comments PED DEVICE CHECK - REMOTE Routine 06/03/2021 2:18 PM LAND USE PLANNER documented in this encounter Results * Pediatric Device Check - Remote (06/03/2021 2:18 PM LAND USE PLANNER) Anatomical Region Laterality Modality Other 06/03/2021 2:18 PM LAND USE PLANNER Narrative 06/09/2021 12:19 PM LAND USE PLANNER see PDF for result Procedure Note Alyson Conner PA - 06/13/2021 see PDF for result us Alyson BONILLA [facility] PROCEDU RES Final Result documented in this encounter Visit Diagnoses Not on filedocumented in this encounter Care Teams Switch Technician Relationship Specialty Start Date End Date Anthony Bruno MD PCP - General 05/16/17 Ethel Casanova MD [address] [facility] [address] Referring Physician Cardiology 05/12/21 documented as of this encounter
--- OUTSIDE RECORDS SUMMARY | 2024-06-11 08:24 | XMS_ITS | Encounter Summary ---
Author Organization [facility] Address [address] [place] [address] Phone Care Team Providers Care Film And Video Editor Name Role Phone Anthony Bruno MD Primary Care Provider [phone] Ethel Casanova MD Unavailable [phone] Encounter Details Date Type Department Care Team (Late st Contact Info) Description 03/12/2022 Orders Only [facility] Pediatric Cardiology One [facility] 2nd [place] [address] [place] [id number] tEhel Casanova MD 1 [facility] [address] [place], [place] [phone] Social History Tobacco Use Types Packs/Day Years Used Date Smoking Tobacco: Light Smoker Cigarettes Vaping Smokeless Tobacco: Never Comments:smokes/vapes only o ccasionally with friends Alcohol Use Standard Drinks/Week Comments Not Currently 0 (1 standard drink = 0.6 oz pur e alcohol) Comments No Sex and Gender Information Value Date Recorded Sex Assigned at Not on file 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 Gender Identity Not on file Sexual Orientation Not on file documented as of this encounter Plan of Treatment Not on file documented as of this encounter Procedures Procedure Name Priority Date/Time Associated Diagnosis Comments PED DEVICE CHECK - REMOTE Routine 03/12/2022 5:05 AM CDT documented in this encounter Results * Pediatric Device Check - Remote (03/12/2022 5:05 AM CDT) Anatomical Region Laterality Modality Other 03/12/2022 5:05 AM CDT Narrative 03/15/2022 8:05 PM CDT Interpretation Summary: Battery and Leads (BL) Normal battery parameters Presenting Rhythm ([place]) Noise Oversensing noted on presenting rhythm Sinus Tachycardia Arrhythmic events (AE) No new arrhythmic events in monitoring period Transmission Information (TI) Device Summary Report Follow Up (FU) Continue remote monitoring with monthly reporting Procedure Note Ethel Casanova MD - 03/15/2022 Interpretation Summary: Battery and Leads (BL) Normal battery parameters Presenting Rhythm ([place]) Noise Oversensing noted on presenting rhythm Sinus Tachycardia Arrhythmic events (AE) No new arrhythmic events in monitoring period Transmission Information (TI) Device Summary Report Follow Up (FU) Continue remote monitoring with monthly reporting us Ethel Casanova MD [facility] PROCEDU RES Final Result documented in this encounter Visit Diagnoses Not on filedocumented in this encounter Care Teams Film And Video Editor Relationship Specialty Start Date End Date Anthony Bruno MD PCP - General 05/16/17 Ethel Casanova MD 1 [facility] [place] [address] Referring Physician Cardiology 05/12/21 documented as of this encounter
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
--- OUTSIDE RECORDS SUMMARY | 2024-06-11 08:24 | XMS_ITS | Encounter Summary ---
Author Organization [facility] Address [address] [place] [address] Phone Care Team Providers Care Swaging Machine Adjuster Name Role Phone Anthony Bruno MD Primary Care Provider [phone] Ethel Casanova MD Unavailable [phone] Encounter Details Date Type Department Care Team (Late st Contact Info) Description 06/15/2021 Orders Only [facility] Pediatric Cardiology One [facility] 2[address] [place] [address] [place] [address] Alyson Conner PA 1 [facility] [address] [place] [address] Social History Tobacco Use Types Packs/Day Years Used Date Smoking Tobacco: Light Smoker Cigarettes Vaping Smokeless Tobacco: Never Comments:smokes/vapes only o ccasionally with friends Alcohol Use Standard Drinks/Week Comments Not Currently 0 (1 standard drink = 0.6 oz pur e alcohol) Comments No Sex and Gender Information Value Date Recorded Sex Assigned at Not on file Legal Sex Female 11:23 AM TRACK LAYER HEAD Gender Identity Not on file Sexual Orientation Not on file documented as of this encounter Plan of Treatment Not on file documented as of this encounter Procedures Procedure Name Priority Date/Time Associated Diagnosis Comments PED DEVICE CHECK - REMOTE Routine 06/15/2021 3:38 AM TRACK LAYER HEAD documented in this encounter Results * Pediatric Device Check - Remote (06/15/2021 3:38 AM TRACK LAYER HEAD) Anatomical Region Laterality Modality Other 06/15/2021 3:38 AM TRACK LAYER HEAD Narrative 06/16/2021 12:45 PM TRACK LAYER HEAD see PDF for result Procedure Note Alyson Conner PA - 06/16/2021 see PDF for result us Alyson [facility]ONILLA [facility] PROCEDU RES Final Result documented in this encounter Visit Diagnoses Not on filedocumented in this encounter Care Teams Swaging Machine Adjuster Relationship Specialty Start Date End Date Anthony Bruno MD PCP - General 05/16/17 Ethel Casanova MD 1 [facility] [place] [address] Referring Physician Cardiology 05/12/21 documented as of this encounter
--- OUTSIDE RECORDS SUMMARY | 2024-06-11 08:24 | XMS_ITS | Encounter Summary ---
Author Organization [facility] Address [address] [place] [address] Phone Care Team Providers Care Colored Liquid Plastic Applier Name Role Phone Anthony Bruno MD Primary Care Provider [phone] Ethel Casanova MD Unavailable [phone] Reason for Referral * Cardiology (Routine) - Closed Specialty Diagnoses / Procedures Referred By Contac t Referred To Contact Diagnoses Long QT syndrome Procedures ECG 12 lead Ethel Casanova MD [address] [place] [address] [address] [place] [address] Phone: tel: fax: [facility] (All Locations) Referral ID Status Reason Start Date Expiration Date Visits Re quested Visits Authorized [id number] Closed 04/25/2023 05/24/2024 1 1 L MACHINE OPERATOR Reason for Visit * Cardiology (Routine) - Closed Specialty Diagnoses / Procedures Referred By Contact Referred To Contact Pediatric Cardiology Diagnoses Long QT syndrome Abnormal electrocardiography Anthony Bruno MD Phone: tel:[phone] fax:[phone] [facility] (All Locations) Referral ID Status Reason Start Date Expiration Date V isits Requested Visits Authorized [id number] Closed Continuity of Care 04/24/2023 05/23/2024 4 4 Encounter Details Date Type Department Care Team (Latest Contact Info) Description 05/03/2023 2:40 PM METAL MACHINE OPERATOR Office Visit [facility] Pediatric Cardiology One [facility] 2nd [place] [address] [place] [address] Ethel Casanova MD 1 [facility] [address] [place] [address] Long QT syndrome (Primary Dx); Abnormal electrocardiography Social History Tobacco Use Types Packs/Day Years Used Date Smoking Tobacco: Light Smoker Cigarettes Vaping Smokeless Tobacco: Never Comments:smokes/vapes only o ccasionally with friends Alcohol Use Standard Drinks/Week Comments Not Currently 0 (1 standard drink = 0.6 oz pur e alcohol) Comments No Sex and Gender Information Value Date Recorded Sex Assigned at Not on file Legal Sex Female 11:23 AM METAL MACHINE OPERATOR Gender Identity Not on file Sexual Orientation Not on file documented as of this encounter Last Filed Vital Signs Vital Sign Reading Time Taken Comments Blood Pressure 102/60 05/03/2023 2:51 PM METAL MACHINE OPERATOR Pulse 81 05/03/2023 2:51 PM METAL MACHINE OPERATOR Temperature - - Respiratory Rate - - Oxygen Saturation 97% 05/03/2023 2:51 PM METAL MACHINE OPERATOR Inhaled Oxygen Concentration - - Weight 68.9 kg (151 lb 14.4 oz) 05/03/2023 2:51 PM METAL MACHINE OPERATOR Height 165.5 cm (5' 5.16 ) 05/03/2023 2:51 PM CS T Body Mass Index 25.16 05/03/2023 2:51 PM METAL MACHINE OPERATOR Body Mass Index Percentile 81.29% 05/03/2023 2:5 1 PM METAL MACHINE OPERATOR Growth Chart: [facility] (Girls, 2- 20 Years) documented in this encounter Patient Instructions * Patient Instructions* Ethel Casanova MD - 05/03/2023 2:40 PM METAL MACHINE OPERATOR Tests & Labs: I personally reviewed the following data: 1. ELECTROCARDIOGRAM. 05/03/2023: NSR. QTc 415msec. 03/02/2022: NSR. QTc 445msec 03/03/2021: NSR at 70 bpm, QT 430msec 01/22/2020: NSR at 67 bpm, a borderline prolonged QT at 431msec 02/14/2019: NSR at 83 bpm, a borderline prolonged QT at 448msec (down from a previous ECG QTc of 457msec). 2. DEVICE CHECK. 05/03/2023: unable to talk to the device today as it is at EOL Assessment: 1. FHx SCD (brother) -- suspicion for LQTS for Grecia A. Maintained on betaxolol B. Has ICM in place -- no documented arrhythmias i. Plan for removal tomorrow Plan: Grecia is a now 17 y.o. who I am deeply suspicious of LQTS, s/p ICM generator change in 2019. Sheis scheduled for an ICM removal tomorrow. She has a family history of sudden arrhythmic of her brother and abnormal ECGs c/w that diagnosis. She is maintained on beta-blockers, currently on betaxolol 5mg PO qDay. My plan for Grecia is: 1) Continue Betaxolol 5mg PO qDay. Refills were ordered today. 2) There is a list of medications to avoid for people with Long QT. I gave family the website for this list today. It is: www.qtdrugs.org 3) Follow up in 12 months. 4) Plan for tomorrow is to remove the ICM. Thank you very much for allowing me to be involved in the care of this young lady. Please feel freeto call me if you have any questions. Thank you for allowing me to participate in the care of your patient. If there are any additional questions or concerns, please do not hesitate to call our office at [phone]. Cardiovascular instructions and follow-up: SBE Prophylaxis (antibiotics): No RSV Prophylaxis Recommended: N/A Patient Cleared For: Anesthesia, Dental Work and Surgery--continue to avoid drugs that push out theQT interval Activity: May participate in entire physical education program but restricted from varsity athletics and strenuous activity Pending Tests: None Tests Next Visit: ECG Does patient qualify for adolescent management protocol: No L MACHINE OPERATOR documented in this encounter Ordered Prescriptions Prescription Sig Dispense Quantity Refills Last Filled Start Date End Date betaxoloL (KERLONE) 10 mg tablet Take 0.5 tablets (5 mg total) by mouth daily 90 tablet 1 05/03/2023 documented in this encounter Progress Notes * Ethel Casanova MD - 05/03/2023 2:40 PM CST HPI: I had the pleasure of seeing Grecia Villa who is a 17 y.o. female here for a return visitfor what I suspect to be LQTS. Grecia was seen today, 05/03/23 at [facility].She is accompanied to [facility] today by her father. She is here today with her parents. Please allow me to review for my records. Grecia's family relocated to the [facility] from [place]. Sadly, her brother suddenly in July 2014 [...] Grecia had an extensive cardiac evaluation at [facility] in [facility] last September. Anechocardiogram showed a structurally [...] was recommended in 6 months. Here in [facility], she has had serially [...] is taking her betaxolol well without concerns. She is also taking Paxil--she thinks that this medication makes her hot. There are no new cardiac concerns to speak of. She is currently not taking any online classes, but is planning on going back to school. ROS: General: negative with no weight loss [...] total) by mouth daily 90 tablet 1 drospirenone-ethinyl estradioL (ELIAS,GIANVI) 3-0.02 mg per tablet [...] TW Conv) Self-injurious behavior Suicide attempt (CMS/HCC) ([facility]) No past surgical history on file. Family [...] and was surgically repaired. PGF had an UT at age 42 and had hypercholesterolemia; he [...] Narrative Lives with parents : (Added by TW Conv) Brother : (Added by TW Conv) Social Determinants of Health Financial Resource [...] Abused: Not on file Physical Exam: BP 102/60 Pulse 81 Ht 165.5 cm (.16 ) Wt 68.9 kg (151 lb 14.4 oz) SpO2 97% BMI 25.16 kg/m?? Weight: 68.9 kg (151 lb 14.4 oz) Height: 165.5 cm (10.17 ) General: non-dysmorphic, no distress HEENT: normocephalic, [...] personally reviewed the following data: 1. ELECTROCARDIOGRAM. 05/03/2023: NSR. QTc 415msec. 03/02/2022: NSR. QTc 445msec 03/03/2021: NSR at 70 bpm, QT 430msec 01/22/2020: NSR at 67 bpm, a borderline prolonged QT at 431msec 02/14/2019: NSR at 83 bpm, a borderline prolonged QT at 448msec (down from a previous ECG QTc of 457msec). 2. DEVICE CHECK. 05/03/2023: unable to talk to the device today as it is at EOL Assessment: 1. FHx SCD (brother) -- suspicion for LQTS for Grecia Blanchard Maintained on betaxolol B. Has ICM in place -- no documented arrhythmias i. Plan for removal tomorrow Plan: Grecia is a now 17 y.o. who I am deeply suspicious of LQTS, s/p ICM generator change in 2019. Sheis scheduled for an ICM removal tomorrow. She has a family history of sudden arrhythmic of her brother and abnormal ECGs c/w that diagnosis. She is maintained on beta-blockers, currently on betaxolol 5mg PO qDay. My plan for Grecia is: 1) Continue Betaxolol 5mg PO qDay. Refills were ordered today. 2) There is a list of medications to avoid for people with Long QT. I gave family the website for this list today. It is: www.qtdrugs.org 3) Follow up in 12 months. 4) Plan for tomorrow is to remove the ICM. Thank you very much for allowing me to be involved in the care of this young lady. Please feel freeto call me if you have any questions. Thank you for allowing me to participate in the care of your patient. If there are any additional questions or concerns, please do not hesitate to call our office at [phone]. Cardiovascular instructions and follow-up: SBE Prophylaxis (antibiotics): No RSV Prophylaxis Recommended: N/A Patient Cleared For: Anesthesia, Dental Work and Surgery--continue to avoid drugs that push out theQT interval Activity: May participate in entire physical education program but restricted from varsity athletics and strenuous activity Pending Tests: None Tests Next Visit: ECG Does patient qualify for adolescent management protocol: No L MACHINE OPERATOR documented in this encounter Plan of Treatment Not on file documented as of this encounter Results * ECG 12 lead (05/03/2023 3:00 PM METAL MACHINE OPERATOR) Ventricular Rate EKG/Min 83 BPM [facility] Atrial Rate 83 BPM [facility] VA-Interval (MSEC) 146 ms [facility] QRS-Interval (MSEC) 78 ms [facility] QT-Interval (MSEC) 350 ms [facility] QTc 415 ms [facility] P [place] 71 degrees [facility] R [place] 56 degrees [facility] T [place] 57 degrees [facility] Diagnosis Normal sinus rhythm with sinus arrhythmia When compared with ECG of 02-MAR-2022 13:04, No significant change was found Confirmed by MD CASANOVA JENNIFER ([id number]) on 05/03/2023 3:20:55 PM [facility] 05/03/2023 2:58 PM METAL MACHINE OPERATOR 05/03/2023 3:20 PM METAL MACHINE OPERATOR us Ethel Casanova MD ECG ORDERABLES Final Resul t [facility] documented in this encounter Visit Diagnoses Diagnosis Long QT syndrome- Primary Abnormal electrocardiography documented in this encounter Discontinued Medications Medication Sig Discontinue Reason Start Date End Da te betaxoloL (KERLONE) 10 mg tablet Take 0.5 tablets (5 mg total) by mouth daily Reorder 07/18/2022 05/03/2023 documented as of this encounter Orders Outpatient Referral Count Last Ordered Date Fir st Ordered Date AMB REFERRAL TO PEDIATRIC CARDIOLOGY 1 04/06 documented in this encounter Care Teams Colored Liquid Plastic Applier Relationship Specialty Start Date End Date Anthony Bruno MD PCP - General 05/16/17 Ethel Casanova MD 1 [facility] [place] [address] Referring Physician Cardiology 05/12/21 documented as of this encounter
--- OUTSIDE RECORDS SUMMARY | 2024-06-11 08:24 | XMS_ITS | Encounter Summary ---
Author Organization [facility] Address [address] [place] [address] Phone Care Team Providers Care Veneer Lathe Operator Name Role Phone Anthony Bruno MD Primary Care Provider [phone] Ethel Casanova MD Unavailable [phone] Encounter Details Date Type Department Care Team (Late st Contact Info) Description 07/15/2021 Orders Only [facility] Pediatric Cardiology One [facility] [[email or web address] 2nd [place] [address] [place] [address] Alyson Conner PA 1 [facility] [address] [place], [place] [id number] Social History Tobacco Use Types Packs/Day Years Used Date Smoking Tobacco: Light Smoker Cigarettes Vaping Smokeless Tobacco: Never Comments:smokes/vapes only o ccasionally with friends Alcohol Use Standard Drinks/Week Comments Not Currently 0 (1 standard drink = 0.6 oz pur e alcohol) Comments No Sex and Gender Information Value Date Recorded Sex Assigned at Not on file Legal Sex Female 11:23 AM INNER TUBE INSERTER Gender Identity Not on file Sexual Orientation Not on file documented as of this encounter Plan of Treatment Not on file documented as of this encounter Procedures Procedure Name Priority Date/Time Associated Diagnosis Comments PED DEVICE CHECK - REMOTE Routine 07/15/2021 3:40 AM INNER TUBE INSERTER documented in this encounter Results * Pediatric Device Check - Remote (07/15/2021 3:40 AM INNER TUBE INSERTER) Anatomical Region Laterality Modality Other 07/15/2021 3:40 AM INNER TUBE INSERTER Narrative 07/15/2021 3:13 PM INNER TUBE INSERTER see PDF for result Procedure Note Alyson Conner PA - 07/15/2021 see PDF for result us Alyson BONILLA [facility] PROCEDU RES Final Result documented in this encounter Visit Diagnoses Not on filedocumented in this encounter Care Teams Veneer Lathe Operator Relationship Specialty Start Date End Date Anthony Bruno MD PCP - General 05/16/17 Ethel Casanova MD 1 [facility] [place] [address] Referring Physician Cardiology 05/12/21 documented as of this encounter
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
--- OUTSIDE RECORDS SUMMARY | 2024-06-11 08:24 | XMS_ITS | Encounter Summary ---
Author Organization [facility] [place] [facility] Address [address] [place] [address] Phone Care Team Providers Care Lead Manufacturing Engineering Tech Name Role Phone Anthony Bruno MD Primary Care Provider [phone] Bebe Casanova MD Unavailable [phone] Reason for Referral * Cardiology (Routine) - Closed Specialty Diagnoses / Procedures Referred By Adrianoac t Referred To Contact Diagnoses Long QT syndrome Procedures ECG 12 lead Bebe Casanova MD [address] [address] Phone: tel: fax: [facility] (All Locations) Referral ID Status Reason Start Date Expiration Date Visits Re quested Visits Authorized [id number] Closed 04/25/2023 05/24/2024 1 1 OYEE WELLNESS/FITNESS COORDINATOR Reason for Visit * Cardiology (Routine) - Closed Specialty Diagnoses / Procedures Referred By Cristopher sims Referred To Contact Diagnoses Long QT syndrome Procedures ECG 12 lead Bebe Casanova MD [address] [address] Phone: tel: fax: [facility] (All Locations) Referral ID Status Reason Start Date Expiration Date Visits Re quested Visits Authorized [id number] Closed 04/25/2023 05/24/2024 1 1 Encounter Details Date Type Department Care Team (Latest Contact Info) Description 05/03/2023 2:53 PM EMPLOYEE WELLNESS/FITNESS COORDINATOR - 05/03/2023 11:59 PM EMPLOYEE WELLNESS/FITNESS COORDINATOR Hospital Encounter [facility] Pediatric Cardiology [address] [facility] [address] [place] [address] Long QT syndrome Discharge Disposition: Discharge to home or self [...] on file Legal Sex Female 11:23 AM EMPLOYEE WELLNESS/FITNESS COORDINATOR Gender Identity Not on file Sexual Orientation Not on file documented as of this encounter Medications at Time of Discharge betaxoloL (KERLONE) 10 mg tablet Take 0.5 tablets (5 mg total) by mouth daily 90 tablet 1 05/03/2023 drospirenone-ethi nyl estradioL (ELIAS,GIANVI) 3-0.02 mg per tablet 02/14/2021 cephalexin (KEFLEX) 500 mg capsule Take 1 capsule (500 mg total) by mouth 3 (three) times a day for 3 days 9 capsule 05/04/2023 05/07/2023 documented as of this encounter Discharge Disposition Disposition Code Departure Means Destination Discharge to home or self care documented in this encounter Plan of Treatment Not on file documented as of this encounter Procedures Procedure Name Priority Date/Time Associated Diagnosis Comments ECG 12-LEAD Routine 05/03/2023 3:00 PM EMPLOYEE WELLNESS/FITNESS COORDINATOR Long QT syndrome documented in this encounter Results * ECG 12 lead (05/03/2023 3:00 PM EMPLOYEE WELLNESS/FITNESS COORDINATOR) Ventricular Rate EKG/Min 83 BPM [facility] Atrial Rate 83 BPM [facility] LA-Interval (MSEC) 146 ms [facility] QRS-Interval (MSEC) 78 ms [facility] QT-Interval (MSEC) 350 ms [facility] QTc 415 ms [facility] P Alleman 71 degrees [facility] R Alleman 56 degrees [facility] T Alleman 57 degrees [facility] Diagnosis Normal sinus rhythm with sinus arrhythmia When compared with ECG of 02-MAR-2022 13:04, No significant change was found Confirmed by MD ELLIOT, BEBE ([id number]) on 05/03/2023 3:20:55 PM [facility] 05/03/2023 2:58 PM EMPLOYEE WELLNESS/FITNESS COORDINATOR 05/03/2023 3:20 PM EMPLOYEE WELLNESS/FITNESS COORDINATOR us Bebe Casanova MD ECG ORDERABLES Final Resul t [facility] documented in this encounter Visit Diagnoses Diagnosis Long QT syndrome documented in this encounter Care Teams Lead Manufacturing Engineering Tech Relationship Specialty Start Date End Date Anthony Bruno MD PCP - General 05/16/17 Bebe Casanova MD [facility] [place] [address] Referring Physician Cardiology 05/12/21 documented as of this encounter
--- OUTSIDE RECORDS SUMMARY | 2024-06-11 08:24 | XMS_ITS | Encounter Summary ---
Author Organization [facility] Address [address] [place] [address] Phone Care Team Providers Care Mis Specialist Name Role Phone Anthony Bruno MD Primary Care Provider [phone] Ethel Casanova MD Unavailable [phone] Encounter Details Date Type Department Care Team (Late st Contact Info) Description 08/14/2021 Orders Only [facility] Pediatric Cardiology [address] [facility] [address] [place] [address] [place] [address] Alyson Conner PA 1 [facility] [address] [place], [place] [id number] Social History Tobacco Use Types Packs/Day Years Used Date Smoking Tobacco: Light Smoker Cigarettes Vaping Smokeless Tobacco: Never Comments:smokes/vapes only o ccasionally with friends Alcohol Use Standard Drinks/Week Comments Not Currently 0 (1 standard drink = 0.6 oz pur e alcohol) Comments No Sex and Gender Information Value Date Recorded Sex Assigned at Not on file Legal Sex Female 11:23 AM LAWN SERVICE WORKER Gender Identity Not on file Sexual Orientation Not on file documented as of this encounter Plan of Treatment Not on file documented as of this encounter Procedures Procedure Name Priority Date/Time Associated Diagnosis Comments PED DEVICE CHECK - REMOTE Routine 08/14/2021 4:44 AM CDT documented in this encounter Results * Pediatric Device Check - Remote (08/14/2021 4:44 AM CDT) Anatomical Region Laterality Modality Other 08/14/2021 4:44 AM CDT Narrative 08/17/2021 12:38 PM CDT see PDF for result Procedure Note Alyson Conner PA - 08/17/2021 see PDF for result Alyson BONILLA [facility] PROCEDU RES Final Result documented in this encounter Visit Diagnoses Not on filedocumented in this encounter Care Teams Mis Specialist Relationship Specialty Start Date End Date Anthony Bruno MD PCP - General 05/16/17 Ethel Casanova MD [facility] [place] [address] Referring Physician Cardiology 05/12/21 documented as of this encounter
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
--- OUTSIDE RECORDS SUMMARY | 2024-06-11 08:24 | XMS_ITS | Encounter Summary ---
Author Organization [facility] Address [address] [place] [address] Phone Care Team Providers Care Embedded Engineer Name Role Phone Anthony Bruno MD Primary Care Provider [phone] Ethel Casanova MD Unavailable [phone] Encounter Details Date Type Department Care Team (Late st Contact Info) Description 01/02/2022 Telephone [facility] Pediatric Cardiology One [facility] 2nd [place] [address] [place] [address] Ethel Casanova MD [address] [place] [address] [address] [place], [place] [id number] Social History Tobacco Use Types Packs/Day Years Used Date Smoking Tobacco: Light Smoker Cigarettes Vaping Smokeless Tobacco: Never Comments:smokes/vapes only o ccasionally with friends Alcohol Use Standard Drinks/Week Comments Not Currently 0 (1 standard drink = 0.6 oz pur e alcohol) Comments No Sex and Gender Information Value Date Recorded Sex Assigned at Not on file Legal Sex Female 11:23 AM DAMAGE ADJUSTER Gender Identity Not on file Sexual Orientation Not on file documented as of this encounter Ordered Prescriptions Prescription Sig Dispense Quantity Refills Last Filled Start Date End Date betaxoloL (KERLONE) 10 mg tabletIndications: hypertension Take 0.5 tablets (5 mg total) by mouth nightly 45 tablet 01/02/2022 2 documented in this encounter Miscellaneous Notes * Telephone Encounter - Liseth Mohr RN - 01/02/2022 1:43 PM CDT RX refilled FU scheduled 03/02/22 * Telephone Encounter - Leonie Bryant B.A. - 01/02/2022 1:38 PM CDT Mom called to get the Betaxolol refilled because she had to change her appt for today to a much later date. documented in this encounter Plan of Treatment Not on file documented as of this encounter Visit Diagnoses Not on filedocumented in this encounter Discontinued Medications Medication Sig Discontinue Reason Start Date End Da te betaxoloL (KERLONE) 10 mg tabletIndications:hypert ension Take 0.5 tablets (5 mg total) by mouth nightly Reorder 04/18/2021 01/02/2022 documented as of this encounter Care Teams Embedded Engineer Relationship Specialty Start Date End Date Anthony Bruno MD PCP - General 05/16/17 Ethel Casanova MD 1 [facility] [place] [address] Referring Physician Cardiology 05/12/21 documented as of this encounter
--- OUTSIDE RECORDS SUMMARY | 2024-06-11 08:24 | XMS_ITS | Encounter Summary ---
Author Organization [facility] Address [address] [place] [address] Phone Care Team Providers Care Call Center Specialist Name Role Phone Anthony Bruno MD Primary Care Provider [phone] Ethel Casanova MD Unavailable [phone] Encounter Details Date Type Department Care Team (Late st Contact Info) Description 09/13/2021 Orders Only [facility] Pediatric Cardiology One [facility] 2nd [place] [address] [place] [address] Alyson Conner PA [address] [facility] [address] [place], [place] [id number] Social History Tobacco Use Types Packs/Day Years Used Date Smoking Tobacco: Light Smoker Cigarettes Vaping Smokeless Tobacco: Never Comments:smokes/vapes only o ccasionally with friends Alcohol Use Standard Drinks/Week Comments Not Currently 0 (1 standard drink = 0.6 oz pur e alcohol) Comments No Sex and Gender Information Value Date Recorded Sex Assigned at Not on file Legal Sex Female 11:23 AM CERTIFIED PHYSICAL THERAPIST ASSISTANT Gender Identity Not on file Sexual Orientation Not on file documented as of this encounter Plan of Treatment Not on file documented as of this encounter Procedures Procedure Name Priority Date/Time Associated Diagnosis Comments PED DEVICE CHECK - REMOTE Routine 09/13/2021 4:48 AM CDT documented in this encounter Results * Pediatric Device Check - Remote (09/13/2021 4:48 AM CDT) Anatomical Region Laterality Modality Other 09/13/2021 4:48 AM CDT Narrative 09/14/2021 10:47 AM CDT see PDF for result Procedure Note Alyson Conner PA - 09/14/2021 see PDF for result Alyson BONILLA [facility] PROCEDU RES Final Result documented in this encounter Visit Diagnoses Not on filedocumented in this encounter Care Teams Call Center Specialist Relationship Specialty Start Date End Date Anthony Bruno MD PCP - General 05/16/17 Ethel Casanova MD 1 [facility] [place] [address] Referring Physician Cardiology 05/12/21 documented as of this encounter
--- OUTSIDE RECORDS SUMMARY | 2024-06-11 08:24 | XMS_ITS | Encounter Summary ---
Author Organization [facility] Healthcare Address [address] [place] [address] Care Team Providers Care Draw String Knotter Name Role Phone Anthony Bruno MD Primary Care Provider [phone] Ethel Casanova MD Unavailable [phone] Reason for Visit * Auth/Cert (Routine) Specialty Diagnoses / Procedures Referred By Contac t Referred To Contact Diagnoses Long QT syndrome Long QT syndrome [I45.81] Procedures AR REMOVAL SUBCUTANEOUS CARDIAC RHYTHM MONITOR IMPLANTABLE CARDIAC EVENT MONITOR REMOVAL [id number] Referral ID Status Reason Start Date Expiration Date Visits Re quested Visits Authorized [id number] 1 1 Encounter Details Date Type Department Care Team (Latest Contact Info) Description 05/04/2023 6:40 AM PLANT RELIABILITY ENGINEER - 05/04/2023 10:15 AM PLANT RELIABILITY ENGINEER Hospital Encounter [facility] Ped [place] [address] [place] [address] Ethel Casanova MD 1 [facility] [address] [place] [address] Long QT syndrome Discharge Disposition: Discharge to [...] on file Legal Sex Female 11:23 AM PLANT RELIABILITY ENGINEER Gender Identity Not on file Sexual Orientation Not on file documented as of this encounter Last Filed Vital Signs Vital Sign Reading Time Taken Comments Blood Pressure 101/64 05/04/2023 9:30 AM PLANT RELIABILITY ENGINEER Pulse 70 05/04/2023 9:30 AM PLANT RELIABILITY ENGINEER Temperature 36 ??C (96.8 ??F) 05/04/2023 8:2 9 AM PLANT RELIABILITY ENGINEER warm blanket placed on patient Respiratory Rate 17 05/04/2023 9:30 AM PLANT RELIABILITY ENGINEER Oxygen Saturation 97% 05/04/2023 9:3 0 AM PLANT RELIABILITY ENGINEER Inhaled Oxygen Concentration - - Weight 67.9 kg (149 lb 11.1 oz) 05/04/2023 7:00 AM PLANT RELIABILITY ENGINEER Height 164 cm (5' 4.57 ) 05/04/2023 7:0 0 AM PLANT RELIABILITY ENGINEER Body Mass Index 25.25 05/04/2023 7:00 AM PLANT RELIABILITY ENGINEER Body Mass Index Percentile 81.73% 05/04 7:00 AM PLANT RELIABILITY ENGINEER Growth Chart: [facility] (Girls, 2- 20 Years) documented in this encounter Discharge Instructions * Discharge Instructions* Dakota Shoemaker, ARIADNA - 05/04/2023 8:32 AM PLANT RELIABILITY ENGINEER Patient Information: ?? DATE/TIME PATIENT WAS ADMITTED TO UNIT 05/04/2023 ?? Attending MD (at time of discharge) Dr. Casanova Hospital Information: Hospital Course/Procedures/Consults: Hospital Procedures ICM explant with general anesthesia Follow Up Appointments: Follow-Up Appointment/Test #1: ?? Clinic Name [facility] ?? MD/MACHINE SHOP REPAIR TECHNICIAN Name ?? Name of Test Office Visit 2 week follow up wound check post device implant/explant ?? Date/Time of Appointment Send us a picture of the incision in 2 weeks via [employer] ?? Location: [facility] ?? Instructions: Diet Instructions [...] pm. After hours and on weekends call [facility] Matte Cutter at and ask for the Head Scorer neon sign servicer. Teaching Tools Cardiac Cath Discharge Tool Activity: Activity Avoid direct blows to incision or swimming until all wounds healed. Unless otherwise specified by physician. Additional Home Medication Instructions: Additional Home Medication Instructions Remember if emesis within 15 minutes, may repeat doses. DO NOT re-dose if spits up (child vomits) after 15 minutes. Continue ANTIBIOTIC (Cephalexin 500 mg by mouth 3 times a day) until all are gone. Information: Tylenol Warning Many prescriptions and over the counter medicines contain Tylenol (acetaminophen). Do not use/give more than one Tylenol containing product at a time. Call your physician/careprovider with questions T RELIABILITY ENGINEER * Attachments The following attachments cannot be sent through Care Everywhere. * General Anesthesia for Children (Discharge Care) (Belarusian) documented in this encounter Medications at Time [...] day for 3 days 9 capsule 05/04/2023 12/04/202 3 documented in this encounter Discharge Disposition Disposition Code Departure Means Destination Comment s Discharge to home or self care documented in this encounter H&P Notes * Brit King MD - 05/04/2023 6:55 AM CST Images from the original note were not included. 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 Family moved to [facility] from [place]. Prior to moving to [facility] [place] had an extensive cardiac evaluation at [facility] in [place] [facility] last September. An echocardiogram showed a structurally [...] TW Conv) Self-injurious behavior Suicide attempt (HCC) Surgical [...] 457msec). No arrhythmia recorded on ICM Assessment/Plan: 1Delmis Paige is a 17 y.o. female with history [...] up with Alyson 05/23/2024 Brit King Pediatric Head Scorer [facility] Cosigned by Ethel Casanova MD at 05/04/2023 7:24 AM PLANT RELIABILITY ENGINEER T RELIABILITY ENGINEER T RELIABILITY ENGINEER T RELIABILITY ENGINEER Associated attestation - Ethel Casanova MD - 05/04/2023 7:24 AM PLANT RELIABILITY ENGINEER I have seen and examined the patient on 05/04/23. I agree with the findings and plan of care as documented in the resident's/fellow's note. documented in this encounter Plan of Treatment Not on file documented as of this encounter Procedures Procedure Name Priority Date/Time Associated Diagnosis Comments ECG 12-LEAD Routine 05/04/2023 9:00 AM PLANT RELIABILITY ENGINEER LOOP RECORDER REMOVAL Routine 05/04/2023 8:21 AM PLANT RELIABILITY ENGINEER Long QT syndrome HCG, URINE, QUALITATIVE Routine 05/04/2023 6:45 AM PLANT RELIABILITY ENGINEER documented in this encounter Results * ECG 12 lead (05/04/2023 9:00 AM PLANT RELIABILITY ENGINEER) Ventricular Rate EKG/Min 70 BPM [facility] Atrial Rate 70 BPM [facility] AR-Interval (MSEC) 140 ms [facility] QRS-Interval (MSEC) 78 ms [facility] QT-Interval (MSEC) 434 ms [facility] QTc 468 ms [facility] P [place] 64 degrees [facility] R [place] 77 degrees [facility] T [place] 71 degrees [facility] Diagnosis Normal sinus rhythm Low voltage QRS Borderline ECG When compared with ECG of 03-MAY-2023 14:58, No significant change was found Confirmed by EDWARD REYES MD, AMANDA ([id number]) on 05/04/2023 5:31:11 PM [facility] 05/04/2023 9:00 AM PLANT RELIABILITY ENGINEER 05/04/2023 5:31 PM PLANT RELIABILITY ENGINEER us Ethel Casanova MD ECG ORDERABLES Final Resul t [facility] * LOOP RECORDER REMOVAL (05/04/2023 8:21 AM PLANT RELIABILITY ENGINEER) Anatomical Region Laterality Modality X-Ray Angiograph y Narrative 05/07/2023 12:32 PM PLANT RELIABILITY ENGINEER Table formatting from the original result was not included. 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 ?? Prior to discharge, the family was instructed on future care. Ethel Casanova MD Alyson BONILLA CV ELECTROPHYSIOLOGY PROCS Final Result * hCG, urine, qualitative (05/04/2023 6:45 AM PLANT RELIABILITY ENGINEER) HCG, ur Negative Negative [facility] Urine 05/04/2023 6:45 AM PLANT RELIABILITY ENGINEER 05/04/2023 7:09 AM PLANT RELIABILITY ENGINEER Juliano Josue NP LAB URINE ORDERABLES Fi nal Result [facility] Department [place] [address] documented in this encounter Visit Diagnoses Diagnosis [...] = 650 mg Given 05/04/2023 9:06 AM PLANT RELIABILITY ENGINEER 650 mg lidocaine 1 % (BUFFERED LIDOCAINE) [...] pain., Indications: PainIndications:Pain Given 05/04/2023 9:41 AM PLANT RELIABILITY ENGINEER 5 mg documented in this encounter Active and Recently Administered Medications Times are shown in PLANT RELIABILITY ENGINEER. Continuous Medication Order 05/02/2023 05/03/2023 05/04/2023 sodium chloride 0.9% infusion 125 mL/hr, intravenous, Continuous, Starting on Sun05/04/23 at 0915, For 6 hours, Phase I 08 (Continued from OR - Provider: Ethel Jin [...] ondansetron (ZOFRAN) injection 4 mg 1 05/04 ROPivacaine (NAROPIN) 2 mg/m L (0.2 %) preservative free injection 1 05/04/2023 sodium chloride 0.9% infusion 1 05/04/2023 Discharge Count Last Ordered Date First Orde red Date DISCHARGE PATIENT 1 05/04/2023 documented in this encounter Care Teams Draw String Knotter Relationship Specialty Start Date End Date Anthony Bruno MD PCP - General 05/16/17 Ethel Casanova MD 1 [facility] [place] [address] Referring Physician Cardiology 05/12/21 documented as of this encounter
--- OUTSIDE RECORDS SUMMARY | 2024-06-11 08:25 | XMS_ITS | Encounter Summary ---
Author Organization [facility] Address [address] [place] [address] Phone Care Team Providers Care Inspector Wire Products Name Role Phone Anthony Bruno MD Primary Care Provider [phone] Reason for Visit * Cardiology (Routine) - Closed Specialty Diagnoses / Procedures Referred By Contgeorgina t Referred To Contact Diagnoses Long Q-T syndrome Procedures Pediatric Device Check - Remote Alyson Conner PA 1 [facility] [address] [place] [address] Phone: tel: fax: [facility] (All Locations) Referral ID Status Reason Start Date Expiration Date Visits Re quested Visits Authorized [id number] Closed 08/30/2020 09/29/2021 1 1 Encounter Details Date Type Department Care Team (Latest Contact Info) Description 08/30/2020 2:00 PM CDT Ancillary Procedure [facility] Pediatric Cardiology [address] [place] [address] Long Q-T syndrome Social History Tobacco Use Types Packs/Day Years Used Date Smoking Tobacco: Light Smoker Cigarettes Vaping Smokeless Tobacco: Never Comments:smokes/vapes only o ccasionally with friends Alcohol Use Standard Drinks/Week Comments Not Currently 0 (1 standard drink = 0.6 oz pur e alcohol) Comments No Sex and Gender Information Value Date Recorded Sex Assigned at Not on file Legal Sex Female 11:23 AM MATH PROFESSOR Gender Identity Not on file Sexual Orientation Not on file documented as of this encounter Plan of Treatment Not on file documented as of this encounter Procedures Procedure Name Priority Date/Time Associated Diagnosis Comments PED DEVICE CHECK - REMOTE Routine 08/30/2020 1:01 PM CDT Long Q-T syndrome documented in this encounter Results * Pediatric Device Check - Remote (08/30/2020 1:01 PM CDT) Anatomical Region Laterality Modality Other Narrative 08/30/2020 4:30 PM CDT REMOTE ILR 30 DAY SUMMARY REPORT MODEL: Medtronic, LINQ SERIAL:[id number] /IMPLANTED ON: 01/31/[address] Ethel Casanova?? HISTORY: Long QT IMPLANT SITE EXAM: (L): pre pectoral, left breast BATTERY STATUS: ??OK ?? PROGRAMMED SETTINGS Auto records for 75 sec for the following: -heart rates >200 bpm for 16 consecutive beats -heart rates <??30 bpm for 4 consecutive beats -pauses of 3 sec or more DATE OF TRANSMISSION: 08/28/2020 EPISODES Symptoms - 0 Tachy - 0 Fran - 0 Pause - 0 AT/AF - 0 PARENT INFORMATION: No events Interrogated by: CHAD Tang Reviewed with: Dr. Ethel Casanova Procedure Note Alyson Conner PA - 08/30/2020 REMOTE ILR 30 DAY SUMMARY REPORT MODEL: Medtronic, LINQ SERIAL:[id number] /IMPLANTED ON: 01/31/[address] Ethel Casanova?? HISTORY: Long QT IMPLANT SITE EXAM: (L): pre pectoral, left breast BATTERY STATUS: ??OK ?? PROGRAMMED SETTINGS Auto records for 75 sec for the following: -heart rates >200 bpm for 16 consecutive beats -heart rates <??30 bpm for 4 consecutive beats -pauses of 3 sec or more DATE OF TRANSMISSION: 08/28/2020 EPISODES Symptoms - 0 Tachy - 0 Fran - 0 Pause - 0 AT/AF - 0 PARENT INFORMATION: No events Interrogated by: CHAD Tang Reviewed with: Dr. Ethel Casanova us Alyson BONILLA CV CARDIAC SERVICES PROCEDU RES Final Result documented in this encounter Visit Diagnoses Diagnosis Long Q-T syndrome Long QT syndrome documented in this encounter Care Teams Inspector Wire Products Relationship Specialty Start Date End Date Anthony Bruno MD PCP - General 05/16/17 documented as of this encounter
--- OUTSIDE RECORDS SUMMARY | 2024-06-11 08:25 | XMS_ITS | Encounter Summary ---
Author Organization [facility] Address [address] [place] [address] Phone Care Team Providers Care Sand Caster Name Role Phone Anthony Bruno MD Primary Care Provider [phone] Encounter Details Date Type Department Care Team (Late st Contact Info) Description 02/24/2020 Orders Only [facility] Pediatric Cardiology One [facility] 2nd [place] [address] [place] [address] Alyson Conner PA [address] [place] [address] [address] [place] [address] Social History Tobacco Use Types Packs/Day Years Used Date Smoking Tobacco: Never Comments Unknown Sex and Gender Information Value Date Recorded Sex Assigned at Not on file Legal Sex Female 11:23 AM GENERAL MAINTENANCE HELPER Gender Identity Not on file Sexual Orientation Not on file documented as of this encounter Plan of Treatment Not on file documented as of this encounter Visit Diagnoses Not on filedocumented in this encounter Care Teams Sand Caster Relationship Specialty Start Date End Date Anthony Bruno MD PCP - General 05/16/17 documented as of this encounter
--- OUTSIDE RECORDS SUMMARY | 2024-06-11 08:25 | XMS_ITS | Encounter Summary ---
Author Organization [facility] Address [address] [place] [address] Phone Care Team Providers Care Measurement And Verification Engineer Name Role Phone Anthony Bruno MD Primary Care Provider [phone] Reason for Referral * Cardiology (Routine) - Closed Specialty Diagnoses / Procedures Referred By Contgeorgina t Referred To Contact Diagnoses Long Q-T syndrome Procedures Pediatric Device Check - Remote Alyson Conner PA 1 [facility] [address] [place] [address] Phone: tel: fax: [facility] (All Locations) Referral ID Status Reason Start Date Expiration Date Visits Re quested Visits Authorized [id number] Closed 08/30/2020 09/29/2021 1 1 Encounter Details Date Type Department Care Team (Late st Contact Info) Description 08/30/2020 Orders Only [facility] Pediatric Cardiology [address] [facility] 2nd [place] [address] [place] [id number] Alyson Conner PA 1 [facility] [address] [place], [place] [id number] Long Q-T syndrome (Primary Dx) Social History Tobacco Use [...] on file Legal Sex Female 11:23 AM SOCIAL SERVICE DIRECTOR Gender Identity Not on file Sexual Orientation Not on file documented as of this encounter Plan of Treatment Not on file documented as of this encounter Results * Pediatric Device Check - Remote (08/30/2020 1:01 PM CDT) Anatomical Region Laterality Modality Other Narrative 08/30/2020 4:30 PM CDT REMOTE ILR 30 DAY SUMMARY REPORT MODEL: Medtronic, LINQ SERIAL:[id number] /IMPLANTED ON: 01/31/[address] Ethel Casanova?? [...] 30 DAY SUMMARY REPORT MODEL: Medtronic, LINQ SERIAL:[id number] /IMPLANTED ON: 01/31/[address] Ethel Casanova?? [...] EPISODES Symptoms - 0 Tachy - 0 Frna - 0 Pause - 0 AT/AF - 0 PARENT INFORMATION: No events Interrogated by: CHAD Tang Reviewed with: Dr. Ethel Casanova Alyson BONILLA CV CARDIAC SERVICES PROCEDU RES Final Result documented in this encounter Visit Diagnoses Diagnosis Long Q-T syndrome- Primary Long QT syndrome Long Q-T syndrome Long QT syndrome documented in this encounter Care Teams Measurement And Verification Engineer Relationship Specialty Start Date End Date Anthony Bruno MD PCP - General 05/16/17 documented as of this encounter
--- OUTSIDE RECORDS SUMMARY | 2024-06-11 08:25 | XMS_ITS | Encounter Summary ---
Author Organization [facility] Address [address] [place] [address] Phone Care Team Providers Care Customer Service Manager Name Role Phone Anthony Bruno MD Primary Care Provider [phone] Reason for Visit * Cardiology (Routine) - Canceled Specialty Diagnoses / Procedures Referred By Contgeorgina t Referred To Contact Diagnoses Long Q-T syndrome Procedures Pediatric Device Check - Remote Alyson Conner PA 1 [facility] [address] [place] [address] Phone: tel: fax: [facility] (All Locations) Referral ID Status Reason Start Date Expiration Date V isits Requested Visits Authorized [id number] Canceled 09/22/2019 04/02/2021 12 12 Encounter Details Date Type Department Care Team (Latest Contact Info) Description 07/28/2020 12:15 PM CHARGE NURSE Ancillary Procedure [facility] Pediatric Cardiology [address] [place] [address] Long Q-T syndrome Social History [...] on file Legal Sex Female 11:23 AM CHARGE NURSE Gender Identity Not on file Sexual Orientation Not on file documented as of this encounter Plan of Treatment Not on file documented as of this encounter Procedures Procedure Name Priority Date/Time Associated Diagnosis Comments PED DEVICE CHECK - REMOTE Routine 07/28/2020 12:10 PM CHARGE NURSE Long Q-T syndrome documented in this encounter Results * Pediatric Device Check - Remote (07/28/2020 12:10 PM CHARGE NURSE) Anatomical Region Laterality Modality Other Narrative 07/28/2020 12:32 PM CHARGE NURSE REMOTE ILR 30 DAY SUMMARY REPORT ?? MODEL: Medtronic, LINQ SERIAL:[id number] /IMPLANTED ON: 01/31/[address] Ethel Casanova?? HISTORY: Long QT IMPLANT SITE EXAM: (L): pre pectoral, left breast BATTERY STATUS: ??OK ?? PROGRAMMED SETTINGS Auto records for 75 sec for the following: -heart rates >200 bpm for 16 consecutive beats -heart rates <??30 bpm for 4 consecutive beats -pauses of 3 sec or more DATE OF TRANSMISSION: 07/28/2020 EPISODES Symptoms - 0 Tachy - 0 Fran - 0 Pause - 0 AT/AF - 0 PARENT INFORMATION: No events Interrogated by: CHAD Tang Reviewed with: Dr. Keara Rashid Procedure Note Alyson Conner PA - 07/28/2020 REMOTE ILR 30 DAY SUMMARY REPORT ?? MODEL: Medtronic, LINQ SERIAL:[id number] /IMPLANTED ON: 01/31/[address] Ethel Casanova?? HISTORY: Long QT IMPLANT SITE EXAM: (L): pre pectoral, left breast BATTERY STATUS: ??OK ?? PROGRAMMED SETTINGS Auto records for 75 sec for the following: -heart rates >200 bpm for 16 consecutive beats -heart rates <??30 bpm for 4 consecutive beats -pauses of 3 sec or more DATE OF TRANSMISSION: 07/28/2020 EPISODES Symptoms - 0 Tachy - 0 Fran - 0 Pause - 0 AT/AF - 0 PARENT INFORMATION: No events Interrogated by: CHAD Tang Reviewed with: Dr. Keara Rashid Alyson BONILLA CV CARDIAC SERVICES PROCEDU RES Final Result documented in this encounter Visit Diagnoses Diagnosis Long Q-T syndrome Long QT syndrome documented in this encounter Care Teams Customer Service Manager Relationship Specialty Start Date End Date Anthony Bruno MD PCP - General 05/16/17 documented as of this encounter
--- OUTSIDE RECORDS SUMMARY | 2024-06-11 08:25 | XMS_ITS | Encounter Summary ---
Author Organization [facility] Address [address] [place] [address] Phone Care Team Providers Care Pattern Hanger Name Role Phone Anthony Bruno MD Primary Care Provider [phone] Reason for Referral * Cardiology (Routine) - Closed Specialty Diagnoses / Procedures Referred By Contac t Referred To Contact Diagnoses Long Q-T syndrome Procedures Pediatric Device Check - In Office Ethel Casanova MD 1 [place] [address] Phone: tel: fax: [facility] (All Locations) Referral ID Status Reason Start Date Expiration Date Visits Re quested Visits Authorized [id number] Closed 02/28/2021 03/30/2022 1 1 * Cardiology (Routine) - Closed Specialty Diagnoses / Procedures Referred By Contac t Referred To Contact Diagnoses Long Q-T syndrome Procedures ECG 12 lead Ethel Casanova MD [address] [address] Phone: tel: fax: [facility] (All Locations) Referral ID Status Reason Start Date Expiration Date Visits Re quested Visits Authorized [id number] Closed 02/28/2021 03/30/2022 1 1 Reason for Visit * Cardiology (Routine) - Closed Specialty Diagnoses / Procedures Referred By Contac t Referred To Contact Diagnoses Long Q-T syndrome Procedures ECG 12 lead tEhel Casanova MD 1 [facility] [address] [place] [address] Phone: tel: fax: [facility] (All Locations) Referral ID Status Reason Start Date Expiration Date Visits Re quested Visits Authorized [id number] Closed 02/28/2021 03/30/2022 1 1 Encounter Details Date Type Department Care Team (Latest Contact Info) Description 03/03/2021 2:59 PM CDT - 03/03/2021 11:59 PM CDT Hospital Encounter [facility] Pediatric Cardiology One [facility] [address] [place] [address] Long Q-T syndrome Discharge Disposition: Discharge to home or [...] on file Legal Sex Female 11:23 AM MANAGER BAKERY Gender Identity Not on file Sexual Orientation Not on file documented as of this encounter Medications at Time of Discharge drospirenone-ethi nyl estradioL (ELIAS,GIANVI) 3-0.02 mg per tablet 02/14/2021 PARoxetine (PAXIL) 20 mg tablet Take 1 tablet (20 mg total) by mouth nightly 30 tablet 11 07/01/2020 betaxoloL (KERLONE) 10 mg tabletIndications :hypertension Take 0.5 tablets (5 mg total) by mouth nightly 15 tablet 2 03/03/2021 04/18/2021 documented as of this encounter Discharge Disposition Disposition Code Departure Means Destination Discharge to home or self care documented in this encounter Plan of Treatment Not on file documented as of this encounter Procedures Procedure Name Priority Date/Time Associated Diagnosis Comments ECG 12-LEAD Routine 03/03/2021 3:10 PM CDT Long Q-T syndrome PED DEVICE CHECK - IN OFFICE Routine 03/03/2021 2:59 PM CDT Long Q-T syndrome documented in this encounter Results * ECG 12 lead (03/03/2021 3:10 PM CDT) Ventricular Rate EKG/Min 70 BPM [facility] Atrial Rate 70 BPM [facility] RI-Interval (MSEC) 138 ms [facility] QRS-Interval (MSEC) 82 ms [facility] QT-Interval (MSEC) 402 ms [facility] QTc 433 ms [facility] P [place] 56 degrees [facility] R [place] 67 degrees [facility] T [place] 46 degrees [facility] Diagnosis Normal sinus rhythm When compared with ECG of 28-JUN-2020 11:57, No significant change was found Confirmed by MD CASANOVA JENNIFER ([id number]) on 03/03/2021 3:31:16 PM [facility] 03/03/2021 2:57 PM CDT 03/03/2021 3:31 PM CDT Ethel Casanova MD ECG ORDERABLES Final Resul t [facility] * Pediatric Device Check - In Office (03/03/2021 2:59 PM CDT) Anatomical Region Laterality Modality Other Narrative 03/03/2021 4:48 PM CDT REMOTE ILR 30 DAY SUMMARY REPORT MODEL: Medtronic, LINQ SERIAL:[id number] /IMPLANTED ON: 01/31/[address] Ethel Casanova?? HISTORY: Long QT IMPLANT SITE EXAM: (L): pre pectoral, left breast BATTERY STATUS: ??OK ?? PROGRAMMED SETTINGS Auto records for 75 sec for the following: -heart rates >200 bpm for 16 consecutive beats -heart rates <??30 bpm for 4 consecutive beats -pauses of 3 sec or more ?? DATE OF TRANSMISSION: 03/02/2021 EPISODES Symptoms - 0 Tachy - 0 Fran - 0 Pause - 0 AT/AF - 0 PARENT INFORMATION: No events Interpreted by: CHAD Tang Reviewed with: Dr. Ethel Casanova us Ethel Casanova MD [facility] PROCEDU RES Final Result documented in this encounter Visit Diagnoses Diagnosis Long Q-T syndrome Long QT syndrome documented in this encounter Care Teams Pattern Hanger Relationship Specialty Start Date End Date Anthony Bruno MD PCP - General 05/16/17 documented as of this encounter
--- OUTSIDE RECORDS SUMMARY | 2024-06-11 08:25 | XMS_ITS | Encounter Summary ---
Author Organization [facility] Address [address] [place] [address] Phone Care Team Providers Care Etcher Apprentice Name Role Phone Anthony Bruno MD Primary Care Provider [phone] Reason for Referral * Cardiology (Routine) - Closed Specialty Diagnoses / Procedures Referred By Cristopher t Referred To Contact Diagnoses Long Q-T syndrome Procedures Pediatric Device Check - Remote Alyson Conner PA 1 [facility] [address] [place] [address] Phone: tel: fax: [facility] (All Locations) Referral ID Status Reason Start Date Expiration Date Visits Re quested Visits Authorized [id number] Closed 12/31/2020 01/30/2022 1 1 Encounter Details Date Type Department Care Team (Late st Contact Info) Description 12/31/2020 Orders Only [facility] Pediatric Cardiology One [facility] 2nd [place] [address] [place] [id number] Alyson Conner PA 1 [facility] [address] [place], [place] [id number] Long Q-T syndrome (Primary Dx) Social History [...] on file Legal 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 Ethel Casanova?? HISTORY: Long QT IMPLANT SITE EXAM: (L): pre pectoral, left breast BATTERY STATUS: ??OK ?? PROGRAMMED SETTINGS Auto records for 75 sec for the following: -heart rates >200 bpm for 16 consecutive beats -heart rates <??30 bpm for 4 consecutive beats -pauses of 3 sec or more DATE OF TRANSMISSION: 12/30/2020 EPISODES Symptoms - 0 Tachy - 0 Fran - 0 Pause - 0 AT/AF - 0 PARENT INFORMATION: No events Interpreted by: CHAD Tang Reviewed with: Dr. Ethel Casanova Procedure Note Alyson Conner PA - 12/31/2020 REMOTE ILR 30 DAY SUMMARY REPORT MODEL: Medtronic, LINQ SERIAL:[id number] /IMPLANTED ON: 01/31/[address] Ethel Casanova?? HISTORY: Long QT IMPLANT SITE EXAM: (L): pre pectoral, left breast BATTERY STATUS: ??OK ?? PROGRAMMED SETTINGS Auto records for 75 sec for the following: -heart rates >200 bpm for 16 consecutive beats -heart rates <??30 bpm for 4 consecutive beats -pauses of 3 sec or more DATE OF TRANSMISSION: 12/30/2020 EPISODES Symptoms - 0 Tachy - 0 [...] syndrome documented in this encounter Care Teams Etcher Apprentice Relationship Specialty Start Date End Date Anthony Bruno MD PCP - General 05/16/17 documented as of this encounter
--- OUTSIDE RECORDS SUMMARY | 2024-06-11 08:25 | XMS_ITS | Encounter Summary ---
Author Organization [facility] Address [address] [place] [address] Phone Care Team Providers Care Shipwright Apprentice Name Role Phone Anthony Bruno MD Primary Care Provider [phone] Reason for Visit * Cardiology (Routine) - Canceled Specialty Diagnoses / Procedures Referred By Cristopher sims Referred To Contact Diagnoses Long Q-T syndrome Procedures Pediatric Device Check - Remote Alyson Conner PA 1 [facility] [address] [place] [address] Phone: tel: fax: [facility] (All Locations) Referral ID Status Reason Start Date Expiration Date V isits Requested Visits Authorized [id number] Canceled 09/22/2019 04/02/2021 12 12 Encounter Details Date Type Department Care Team (Latest Contact Info) Description 02/24/2020 8:30 AM CDT Ancillary Procedure [facility] Pediatric Cardiology [address] [place] [address] Long Q-T syndrome Social History Tobacco Use Types Packs/Day Years Used Date Smoking Tobacco: Never Comments Unknown Sex and Gender Information Value Date Recorded Sex Assigned at Not on file 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 Ethel Casanova?? HISTORY: Long QT IMPLANT SITE EXAM: (L): pre pectoral, left breast BATTERY STATUS: ??OK ?? PROGRAMMED SETTINGS Auto records for 75 sec for the following: -heart rates >200 bpm for 16 consecutive beats -heart rates <??30 bpm for 4 consecutive beats -pauses of 3 sec or more DATE OF TRANSMISSION: 02/24/2020 EPISODES Symptoms - 0 Tachy - 0 Fran - 0 Pause - 0 AT/AF - 0 PARENT INFORMATION: No events. Please continue to send monthly and symptomatic transmissions Interrogated by: CHAD Tang Reviewed with: Dr. Keara Rashid Procedure Note Alyson Conner PA - 02/24/2020 REMOTE ILR SUMMARY REPORT MODEL: Medtronic, LINQ SERIAL:[id number] /IMPLANTED ON: 01/31/[address] Ethel Casanova?? HISTORY: Long QT IMPLANT SITE EXAM: (L): pre pectoral, left breast BATTERY STATUS: ??OK ?? PROGRAMMED SETTINGS Auto records for 75 sec for the following: -heart rates >200 bpm for 16 consecutive beats -heart rates <??30 bpm for 4 consecutive beats -pauses of 3 sec or more DATE OF TRANSMISSION: 02/24/2020 EPISODES Symptoms - 0 Tachy - 0 Fran - 0 Pause - 0 AT/AF - 0 PARENT INFORMATION: No events. Please continue to send monthly andsymptomatic transmissions Interrogated by: CHAD Tang Reviewed with: Dr. Keara Rashid us Alyson BONILLA [facility] PROCEDU RES Final Result documented in this encounter Visit Diagnoses Diagnosis Long Q-T syndrome Long QT syndrome documented in this encounter Care Teams Shipwright Apprentice Relationship Specialty Start Date End Date Anthony Bruno MD PCP - General 05/16/17 documented as of this encounter
--- OUTSIDE RECORDS SUMMARY | 2024-06-11 08:25 | XMS_ITS | Encounter Summary ---
Author Organization [facility] Address [address] [place] [address] Phone Care Team Providers Care Supervisor Public Health Nursing Name Role Phone Anthony Bruno MD Primary Care Provider [phone] Reason for Referral * Cardiology (Routine) - Closed Specialty Diagnoses / Procedures Referred By Cristopher t Referred To Contact Diagnoses Long Q-T syndrome Procedures Pediatric Device Check - Remote Alyson Conner PA [address] [facility] [address] [place] [address] Phone: tel: fax: [facility] (All Locations) Referral ID Status Reason Start Date Expiration Date Visits Re quested Visits Authorized [id number] Closed 05/03/2021 06/02/2022 1 1 PROOF REPRODUCER Encounter Details Date Type Department Care Team (Late st Contact Info) Description 05/03/2021 Orders Only [facility] Pediatric Cardiology One [facility] 2nd [place] [address] [place] [phone] Alyson Conner PA 1 [facility] [address] [place], [place] [phone] Long Q-T syndrome (Primary Dx) Social History [...] on file Legal Sex Female 11:23 AM TYPE PROOF REPRODUCER Gender Identity Not on file Sexual Orientation Not on file documented as of this encounter Plan of Treatment Not on file documented as of this encounter Results * Pediatric Device Check - Remote (05/03/2021 2:18 PM TYPE PROOF REPRODUCER) Anatomical Region Laterality Modality Other Narrative 05/03/2021 3:40 PM TYPE PROOF REPRODUCER REMOTE ILR 30 DAY SUMMARY REPORT MODEL: Medtronic, LINQ SERIAL:[id number] /IMPLANTED ON: 01/31/[address] Ethel Casanova?? HISTORY: Long QT IMPLANT SITE EXAM: (L): pre pectoral, left breast BATTERY STATUS: ??OK ?? PROGRAMMED SETTINGS Auto records for 75 sec for the following: -heart rates >200 bpm for 16 consecutive beats -heart rates <??30 bpm for 4 consecutive beats -pauses of 3 sec or more DATE OF TRANSMISSION: 05/03/2021 EPISODES Symptoms - 0 Tachy - 0 [...] syndrome documented in this encounter Care Teams Supervisor Public Health Nursing Relationship Specialty Start Date End Date Anthony Bruno MD PCP - General 05/16/17 documented as of this encounter
--- OUTSIDE RECORDS SUMMARY | 2024-06-11 08:25 | XMS_ITS | Encounter Summary ---
Author Organization [facility] Address [address] [place] [address] Phone Care Team Providers Care Fire Marshal Refinery Name Role Phone Anthony Bruno MD Primary Care Provider [phone] Reason for Visit * Cardiology (Routine) - Canceled Specialty Diagnoses / Procedures Referred By Cristopher sims Referred To Contact Diagnoses Long Q-T syndrome Procedures Pediatric Device Check - Remote Alyson Conner PA 1 [facility] [address] [place] [address] Phone: tel: fax: [facility] (All Locations) Referral ID Status Reason Start Date Expiration Date V isits Requested Visits Authorized [id number] Canceled 09/22/2019 04/02/2021 12 12 Encounter Details Date Type Department Care Team (Latest Contact Info) Description 04/26/2020 1:00 PM INSPECTOR PROCESS Ancillary Procedure [facility] Pediatric Cardiology [address] [place] [address] Long Q-T syndrome Social History Tobacco Use Types Packs/Day Years Used Date Smoking Tobacco: Never Comments Unknown Sex and Gender Information Value Date Recorded Sex Assigned at Not on file Legal Sex Female 11:23 AM INSPECTOR 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 Gender Identity Not on file Sexual Orientation Not on file documented as of this encounter Plan of Treatment Not on file documented as of this encounter Procedures Procedure Name Priority Date/Time Associated Diagnosis Comments PED DEVICE CHECK - REMOTE Routine 04/26/2020 12:18 PM INSPECTOR PROCESS Long Q-T syndrome documented in this encounter Results * Pediatric Device Check - Remote (04/26/2020 12:18 PM INSPECTOR PROCESS) Anatomical Region Laterality Modality Other Narrative 04/26/2020 12:21 PM INSPECTOR PROCESS REMOTE ILR 30 DAY SUMMARY REPORT MODEL: Medtronic, LINQ SERIAL:[id number] /IMPLANTED ON: 01/31/[address] Ethel Casanova?? HISTORY: Long QT IMPLANT SITE EXAM: (L): pre pectoral, left breast BATTERY STATUS: ??OK ?? PROGRAMMED SETTINGS Auto records for 75 sec for the following: -heart rates >200 bpm for 16 consecutive beats -heart rates <??30 bpm for 4 consecutive beats -pauses of 3 sec or more DATE OF TRANSMISSION: 04/26/2020 EPISODES Symptoms - 0 Tachy - 0 Fran - 0 Pause - 0 AT/AF - 0 PARENT INFORMATION: No events Interrogated by: CHAD Tang Reviewed with: Dr. Keara Rashid Procedure Note Alyson Conner PA - 04/26/2020 REMOTE ILR 30 DAY SUMMARY REPORT MODEL: Medtronic, LINQ SERIAL:[id number] /IMPLANTED ON: 01/31/[address] Ethel Casanova?? HISTORY: Long QT IMPLANT SITE EXAM: (L): pre pectoral, left breast BATTERY STATUS: ??OK ?? PROGRAMMED SETTINGS Auto records for 75 sec for the following: -heart rates >200 bpm for 16 consecutive beats -heart rates <??30 bpm for 4 consecutive beats -pauses of 3 sec or more DATE OF TRANSMISSION: 04/26/2020 EPISODES Symptoms - 0 Tachy - 0 Fran - 0 Pause - 0 AT/AF - 0 PARENT INFORMATION: No events Interrogated by: CHAD Tang Reviewed with: Dr. Keara Rashid us Alyson BONILLA [facility] PROCEDU RES Final Result documented in this encounter Visit Diagnoses Diagnosis Long Q-T syndrome Long QT syndrome documented in this encounter Care Teams Fire Marshal Refinery Relationship Specialty Start Date End Date Anthony Bruno MD PCP - General 05/16/17 documented as of this encounter
--- OUTSIDE RECORDS SUMMARY | 2024-06-11 08:25 | XMS_ITS | Encounter Summary ---
Author Organization [facility] Address [address] [place] [address] Phone Care Team Providers Care Logistics Operations Manager Name Role Phone Anthony Bruno MD Primary Care Provider [phone] Reason for Referral * Cardiology (Routine) - Closed Specialty Diagnoses / Procedures Referred By Contac t Referred To Contact Diagnoses Long Q-T syndrome Procedures Pediatric Device Check - Remote Ethel Casanova MD 1 [facility] [address] [place] [address] Phone: tel: fax: [facility] (All Locations) Referral ID Status Reason Start Date Expiration Date Visits Re quested Visits Authorized [id number] Closed 05/31/2020 06/30/2021 1 1 OUT SUPERVISOR Encounter Details Date Type Department Care Team (Late st Contact Info) Description 05/31/2020 Orders Only [facility] Pediatric Cardiology 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 Ethel Casanova?? HISTORY: Long QT IMPLANT SITE EXAM: (L): pre pectoral, left breast BATTERY STATUS: ??OK ?? PROGRAMMED SETTINGS Auto records for 75 sec for the following: -heart rates >200 bpm for 16 consecutive beats -heart rates <??30 bpm for 4 consecutive beats -pauses of 3 sec or more ?? DATE OF TRANSMISSION: 05/31/2020 ?? EPISODES Symptoms - 0 Tachy - 0 Fran - 0 Pause - 0 AT/AF - 0 ?? PARENT INFORMATION: No events Interrogated by: Dakota Shoemaker RN Reviewed with: Dr. Ethel Casanova Ethel Casanova MD [facility] CARDIAC SERVICES PROCEDU RES Final Result documented in this encounter Visit Diagnoses Diagnosis Long Q-T syndrome- Primary Long QT syndrome Long Q-T syndrome Long QT syndrome documented in this encounter Care Teams Logistics Operations Manager Relationship Specialty Start Date End Date Anthony Bruno MD PCP - General 05/16/17 documented as of this encounter
--- OUTSIDE RECORDS SUMMARY | 2024-06-11 08:25 | XMS_ITS | Encounter Summary ---
Author Organization [facility] Address [address] [place] [address] Phone Care Team Providers Care Heating Systems Installer Name Role Phone Anthony Bruno MD Primary Care Provider [phone] Reason for Referral * Cardiology (Routine) - Closed Specialty Diagnoses / Procedures Referred By Contac t Referred To Contact Diagnoses Long Q-T syndrome Procedures Pediatric Device Check - In Office Ethel Casanova MD 1 [place] [address] Phone: tel: fax: [facility] (All Locations) Referral ID Status Reason Start Date Expiration Date Visits Re quested Visits Authorized [id number] Closed 02/28/2021 03/30/2022 1 1 * Cardiology (Routine) - Closed Specialty Diagnoses / Procedures Referred By Contac t Referred To Contact Diagnoses Long Q-T syndrome Procedures ECG 12 lead Ethel Casanova MD [address] [address] Phone: tel: fax: [facility] (All Locations) Referral ID Status Reason Start Date Expiration Date Visits Re quested Visits Authorized [id number] Closed 02/28/2021 03/30/2022 1 1 Reason for Visit * Cardiology (Routine) - Closed Specialty Diagnoses / Procedures Referred By Contac t Referred To Contact Pediatric Cardiology Diagnoses Long Q-T syndrome 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 Palpitations Abnormal electrocardiography Long QT syndrome Anthony Bruno MD Phone: tel: fax: [facility] Pediatric Cardiology [facility] 2nd [place] [address] [place] [address] Phone: tel: fax: Referral ID Status Reason Start Date Expiration Date V isits Requested Visits Authorized [id number] Closed Continuity of Care 02/25/2021 03/27/2022 4 4 Encounter Details Date Type Department Care Team (Late st Contact Info) Description 03/03/2021 3:00 PM CDT Office Visit [facility] Pediatric Cardiology [facility] 2nd [place] [address] [place] [address] Ethel Casanova MD 1 [facility] [address] [place] [address] Long Q-T syndrome (Primary Dx); [...] on file Legal Sex Female 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 Gender Identity Not on file Sexual Orientation Not on file documented as of this encounter Last Filed Vital Signs Vital Sign Reading Time Taken Comments Blood Pressure 100/68 03/03/2021 2:58 PM CDT Pulse 85 03/03/2021 2:58 PM CDT Temperature - - Respiratory Rate 18 03/03/2021 2:58 PM CDT Oxygen Saturation 96% 03/03/2021 2:58 PM CDT Inhaled Oxygen Concentration - - Weight 56.8 kg (125 lb 3.5 oz) 03/03/2021 2:58 P M CDT Height 165.8 cm (5' 5.28 ) 03/03/2021 2:58 PM CD T Body Mass Index 20.66 03/03/2021 2:58 PM CDT Body Mass Index Percentile 49.06% 03/03/2021 2:5 8 PM CDT Growth Chart: [facility] (Girls, 2- 20 Years) documented in this encounter Patient Instructions * Patient Instructions* Ethel Casanova MD - 03/03/2021 3:00 PM CDT Tests & Labs: I personally reviewed the following data: 1. ELECTROCARDIOGRAM. 03/03/2021: NSR at 70 bpm, QT 430msec 01/22/2020: NSR at 67 bpm, a borderline prolonged QT at 431msec 02/14/2019: NSR at 83 bpm, a borderline prolonged QT at 448msec (down from a previous ECG QTc of 457msec). 2. DEVICE CHECK. MODEL: [employer], LINQ SERIAL:[id number] /IMPLANTED ON: 01/31/[address] Ethel Casanova?? [...] - 0 AT/AF - 0 PARENT INFORMATION: Asymptomatic pause back in March 2019. No active concerns. Please continue tosend monthly and symptomatic transmissions. Assessment: 1. FHx SCD (brother) -- suspicion for LQTS for Grecia A. Maintained on betaxolol B. Has ICM in place -- no documented arrhythmias Plan: Grecia is a now 15 yr old who I am deeply suspicious of LQTS, s/p ICM generator change in 2019. She has a family history of sudden [...] [email or web address] 4) Follow up in 12 months. Thank you very much for allowing me to be involved in the care of this young lady. Please feel freeto call me if you have any questions. Thank you for allowing me to participate in the care of your patient. If there are any additional questions or concerns, please do not hesitate to call our office at [phone]. ?? Cardiovascular instructions and follow-up: SBE Prophylaxis (antibiotics): [...] by mouth nightly 15 tablet 2 03/03/2021 documented in this encounter Progress Notes * Ethel Casanova MD - 03/03/2021 3:00 PM CDT HPI: I had the pleasure of seeing Grecia Villa who is a 15 y.o. female here for a return visitfor what I suspect to be LQTS. Grecia was seen today, 03/03/21 at [facility]. She is here today with her parents. Please allow me to review for my records. Grecia's family relocated to the [place] from [place]. Sadly, her brother suddenly in July 2014 [...] Grecia had an extensive cardiac evaluation at [facility] in [facility] last September. Anechocardiogram showed a structurally normal [...] was recommended in 6 months. Here in [facility], she has had serially abnormal ECGs demosntrating [...] without concerns. No side effects of medication. Mom feels that her mood is much better. Grecia is not sure if it is the medication or wellbutrin. She has felt wellsince her ILR generator change out ~2 weeks ago. Mom is making sure she is taking the medication qHS. There are no new cardiac concerns to [...] deformities or edema. History: Allergies Allergen Reactions ??? Wellbutrin [Bupropion] Hives Current Outpatient Medications Medication Sig Dispense Refill ??? betaxoloL (KERLONE) 10 mg tablet Take 0.5 tablets (5 mg total) by mouth nightly 15 tablet 2 ??? PARoxetine (PAXIL) 20 mg tablet Take 1 tablet (20 mg total) by mouth nightly 30 tablet 11 ??? drospirenone-ethinyl estradioL (ELIAS,GIANVI) 3-0.02 mg per tablet No current facility-administered medications for this visit. Past Medical History: Diagnosis Date ??? Abnormal electrocardiogram Abnormal ECG - (Added by TW Conv) ??? Anxiety ??? Depression ??? 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 Long Q-T syndrome ??? Palpitations Palpitations - (Added by TW Conv) ??? Self-injurious behavior ??? Suicide attempt ([facility]) ([facility]) History reviewed. No pertinent surgical history. Family History Problem Relation Age of Onset ??? Sudden Cardiac Brother 14 sudden arrhythmic ??? Bipolar disorder Father's Sister ??? Depression Mother's Brother ??? Depression Maternal Grandmother ??? Bipolar disorder Paternal Grandmother Family history of [...] or prolonged tachycardia. Social History Socioeconomic History ??? Marital status: Single Spouse name: Not on file ??? Number of children: Not on file ??? Years of education: Not on file ??? Highest education level: Not on file Occupational History ??? Not on file Tobacco Use ??? Smoking status: Light Tobacco Smoker Types: Cigarettes, Vaping ??? Smokeless tobacco: Never Used ??? Tobacco comment: smokes/vapes only occasionally with friends Vaping Use ??? Vaping Use: Some days ??? Passive vaping exposure Yes Substance and Sexual Activity ??? Alcohol use: Not Currently ??? Drug use: Yes Types: Marijuana Comment: 1x every few months or so ??? Sexual activity: Not Currently Partners: Male control/protection: None Other Topics Concern ??? Not on file Social History Narrative Lives with parents : (Added by TW Conv) Brother : (Added by TW Conv) Social Determinants of Health Financial Resource Strain: ??? Difficulty of Paying Living Expenses: Not on file Food Insecurity: ??? Worried About Running Out of Food in the Last Year: Not on file ??? Ran Out of Food in the Last Year: Not on file Transportation Needs: ??? Lack of Transportation (Medical): Not on file ??? Lack of Transportation (Non-Medical): Not on file Physical Activity: ??? Days of Exercise per Week: Not on file ??? Minutes of Exercise per Session: Not on file Stress: ??? Feeling of Stress : Not on file Intimate Partner Violence: ??? Fear of Current or Ex-Partner: Not on file ??? Emotionally Abused: Not on file ??? Physically Abused: Not on file ??? Sexually Abused: Not on file Physical Exam: BP 100/68 Pulse 85 Resp 18 Ht 165.8 cm (5' 5.28 ) Wt 56.8 kg (125 lb 3.5 oz) SpO2 96% BMI 20.66 kg/m?? Weight: 56.8 kg (125 lb 3.5 oz) Height: 165.8 cm (5' 5.28 ) General: non-dysmorphic, no distress HEENT: normocephalic, atraumatic, normal external nose, normally set ears, normal sclerae, conjunctivae and lids Neck: Supple, no masses cyanosis, clubbing or edema. Chest: The chest wall was symmetric and tender to palpitation. There was well healed ILR implant scar. Steristrips were removed today. Lungs: Normal work [...] personally reviewed the following data: 1. ELECTROCARDIOGRAM. 03/03/2021: NSR at 70 bpm, QT 430msec 01/22/2020: NSR at 67 bpm, a borderline prolonged QT at 431msec 02/14/2019: NSR at 83 bpm, a borderline prolonged QT at 448msec (down from a previous ECG QTc of 457msec). 2. DEVICE CHECK. MODEL: [employer], LINQ SERIAL:[id number] /IMPLANTED ON: 01/31/[address] Ethel Casanova?? [...] - 0 AT/AF - 0 PARENT INFORMATION: Asymptomatic pause back in March 2019. No active concerns. Please continue tosend monthly and symptomatic transmissions. Assessment: 1. FHx SCD (brother) -- suspicion for LQTS for Grecia Blanchard Maintained on betaxolol B. Has ICM in place -- no documented arrhythmias Plan: Grecia is a now 15 yr old who I am deeply suspicious of LQTS, s/p ICM generator change in 2019. She has a family history of sudden [...] [email or web address] 4) Follow up in 12 months. Thank you very much for allowing me to be involved in the care of this young lady. Please feel freeto call me if you have any questions. Thank you for allowing me to participate in the care of your patient. If there are any additional questions or concerns, please do not hesitate to call our office at [phone]. ?? Cardiovascular instructions and follow-up: SBE Prophylaxis (antibiotics): [...] PM CDT) Ventricular Rate EKG/Min 70 BPM [facility] Atrial Rate 70 BPM [facility] OR-Interval (MSEC) 138 ms [facility] QRS-Interval (MSEC) 82 ms [facility] QT-Interval (MSEC) 402 ms [facility] QTc 433 ms [facility] P Carson 56 degrees [facility] R Carson 67 degrees [facility] T Carson 46 degrees [facility] Diagnosis Normal sinus rhythm When compared with ECG of 25-MITCHEL-2021 11:57, No significant change was found Confirmed by MD CASANOVA JENNIFER ([id number]) on 03/03/2021 3:31:16 PM [facility] 03/03/2021 2:57 PM CDT 03/03/2021 3:31 PM CDT Ethel Casanova MD ECG ORDERABLES Final Resul t [facility] * Pediatric Device Check - In Office (03/03/2021 2:59 PM CDT) Anatomical Region Laterality Modality Other Narrative 03/03/2021 4:48 PM CDT REMOTE ILR 30 DAY SUMMARY REPORT MODEL: [employer], LINQ SERIAL:[id number] /IMPLANTED ON: 01/31/[address] Ethel Casanova?? [...] Discontinue Reason Start Date End Da te melatonin tablet Take 1 tablet (3 mg total) by mouth nightly as needed for sleep 07/01/2020 03/03/2021 betaxoloL (KERLONE) 10 mg tabletIndications:hypert ension Take 0.5 tablets (5 mg total) by mouth nightly Reorder 01/04/2021 03/03/2021 documented as of this encounter Historical Medications * This list may reflect changes made after this encounter. Medication Sig Dispense Quantity Refills Last Filled Start D ate End Date drospirenone-ethinyl estradioL (RUI GRIFFIN) 3-0.02 mg per tablet 02/14/2021 added in this encounter Orders Outpatient Referral Count Last Ordered Date Fir st Ordered Date AMB REFERRAL TO PEDIATRIC CARDIOLOGY 1 02/04 documented in this encounter Care Teams Heating Systems Installer Relationship Specialty Start Date End Date Anthony Bruno MD PCP - General 05/16/17 documented as of this encounter
--- OUTSIDE RECORDS SUMMARY | 2024-06-11 08:25 | XMS_ITS | Encounter Summary ---
Author Organization [facility] Address [address] [place] [address] Phone Care Team Providers Care Property Adjuster Name Role Phone Anthony Bruno MD Primary Care Provider [phone] Reason for Visit * Cardiology (Routine) - Closed Specialty Diagnoses / Procedures Referred By Contgeorgina t Referred To Contact Diagnoses Long Q-T syndrome Procedures Pediatric Device Check - Remote Alyson Conner PA 1 [facility] [address] [place] [address] Phone: tel: fax: [facility] (All Locations) Referral ID Status Reason Start Date Expiration Date Visits Re quested Visits Authorized [id number] Closed 05/03/2021 06/02/2022 1 1 Encounter Details Date Type Department Care Team (Latest Contact Info) Description 05/03/2021 2:20 PM DINKEY BRAKEMAN Ancillary Procedure [facility] Pediatric Cardiology [address] [place] [address] Long Q-T syndrome Social History [...] on file Legal Sex Female 11:23 AM DINKEY BRAKEMAN Gender Identity Not on file Sexual Orientation Not on file documented as of this encounter Plan of Treatment Not on file documented as of this encounter Procedures Procedure Name Priority Date/Time Associated Diagnosis Comments PED DEVICE CHECK - REMOTE Routine 05/03/2021 2:18 PM DINKEY BRAKEMAN Long Q-T syndrome documented in this encounter Results * Pediatric Device Check - Remote (05/03/2021 2:18 PM DINKEY BRAKEMAN) Anatomical Region Laterality Modality Other Narrative 05/03/2021 3:40 PM DINKEY BRAKEMAN REMOTE ILR 30 DAY SUMMARY REPORT MODEL: Medtronic, LINQ SERIAL:[id number] /IMPLANTED ON: 01/31/[address] Ethel Casanova?? [...] syndrome documented in this encounter Care Teams Property Adjuster Relationship Specialty Start Date End Date Anthony Bruno MD PCP - General 05/16/17 documented as of this encounter
--- OUTSIDE RECORDS SUMMARY | 2024-06-11 08:25 | XMS_ITS | Encounter Summary ---
Author Organization [facility] Address [address] [place] [address] Phone Care Team Providers Care Hand Binder Cutter Name Role Phone Anthony Bruno MD Primary Care Provider [phone] Reason for Referral * Cardiology (Routine) - Closed Specialty Diagnoses / Procedures Referred By Contgeorgina t Referred To Contact Diagnoses Long Q-T syndrome Procedures Pediatric Device Check - Remote Alyson Conner PA 1 [facility] [address] [place] [address] Phone: tel: fax: [facility] (All Locations) Referral ID Status Reason Start Date Expiration Date Visits Re quested Visits Authorized [id number] Closed 11/02/2020 12/02/2021 1 1 Encounter Details Date Type Department Care Team (Late st Contact Info) Description 11/02/2020 Orders Only [facility] Pediatric Cardiology [facility] 2nd [place] [address] [place] [id number] Alyson Conner PA 1 [facility] [address] [place], [place] [id number] Long Q-T syndrome (Primary Dx) Social History [...] on file 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 Ethel Casanova?? HISTORY: Long QT IMPLANT SITE EXAM: (L): pre pectoral, left breast BATTERY STATUS: ??OK ?? PROGRAMMED SETTINGS Auto records for 75 sec for the following: -heart rates >200 bpm for 16 consecutive beats -heart rates <??30 bpm for 4 consecutive beats -pauses of 3 sec or more DATE OF TRANSMISSION: 10/29/2020 EPISODES Symptoms - 0 Tachy - 0 Fran - 0 Pause - 0 AT/AF - 0 PARENT INFORMATION: No events Interrogated by: CHAD Tang Reviewed with: Dr. Ethel Casanova Procedure Note Alyson Conner PA - 11/02/2020 REMOTE ILR 30 DAY SUMMARY REPORT MODEL: Medtronic, LINQ SERIAL:[id number] /IMPLANTED ON: 01/31/[address] Ethel Casanova?? HISTORY: Long QT IMPLANT SITE EXAM: (L): pre pectoral, left breast BATTERY STATUS: ??OK ?? PROGRAMMED SETTINGS Auto records for 75 sec for the following: -heart rates >200 bpm for 16 consecutive beats -heart rates <??30 bpm for 4 consecutive beats -pauses of 3 sec or more DATE OF TRANSMISSION: 10/29/2020 EPISODES Symptoms - 0 Tachy - 0 [...] syndrome documented in this encounter Care Teams Hand Binder Cutter Relationship Specialty Start Date End Date Anthony Bruno MD PCP - General 05/16/17 documented as of this encounter
--- OUTSIDE RECORDS SUMMARY | 2024-06-11 08:25 | XMS_ITS | Encounter Summary ---
Author Organization [facility] Address [address] [place] [address] Phone Care Team Providers Care Pharmacist Apprentice Name Role Phone Anthony Bruno MD Primary Care Provider [phone] Encounter Details Date Type Department Care Team (Late st Contact Info) Description 04/18/2021 Telephone [facility] Pediatric Cardiology One [facility] [address]nd [place] [address] [place] [address] Salma Olivarez Social History Tobacco Use Types Packs/Day Years Used Date Smoking Tobacco: Light Smoker Cigarettes Vaping Smokeless Tobacco: Never Comments:smokes/vapes only o ccasionally with friends Alcohol Use Standard Drinks/Week Comments Not Currently 0 (1 standard drink = 0.6 oz pur e alcohol) Comments No Sex and Gender Information Value Date Recorded Sex Assigned at Not on file Legal Sex Female 11:23 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 AND CLIMATE 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 Gender Identity Not on file Sexual Orientation Not on file documented as of this encounter Ordered Prescriptions Prescription Sig Dispense Quantity Refills Last Filled Start Date End Date betaxoloL (KERLONE) 10 mg tabletIndications: hypertension Take 0.5 tablets (5 mg total) by mouth nightly 15 tablet 10 04/18/2021 2 documented in this encounter Miscellaneous Notes * Telephone Encounter - Kiley Menon - 04/18/2021 3:06 PM CST Refill sent through as requested AL 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 AND CLIMATE CHANGE * Telephone Encounter - Salma Olivarez - 04/18/2021 2:43 PM CST This patients mother called asking to speak with Dr. Casanova's nurse regarding a refill on betaxolol.Please call a refill in to [facility]. If you have questions, mom can be reached [phone]. Thank you. AL 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 AND CLIMATE CHANGE documented in this encounter Plan of Treatment Not on file documented as of this encounter Visit Diagnoses Not on filedocumented in this encounter Discontinued Medications Medication Sig Discontinue Reason Start Date End Da te betaxoloL (KERLONE) 10 mg tabletIndications:hypert ension Take 0.5 tablets (5 mg total) by mouth nightly Reorder 03/03/2021 04/18/2021 documented as of this encounter Care Teams Pharmacist Apprentice Relationship Specialty Start Date End Date Anthony Bruno MD PCP - General 05/16/17 documented as of this encounter
--- OUTSIDE RECORDS SUMMARY | 2024-06-11 08:25 | XMS_ITS | Encounter Summary ---
Author Organization [facility] Address [address] [place] [address] Phone Care Team Providers Care Gun Barrel Finisher Name Role Phone Anthony Bruno MD Primary Care Provider [phone] Encounter Details Date Type Department Care Team (Late st Contact Info) Description 12/22/2020 Telephone [facility] Pediatric Cardiology One [facility] [address]nd [place] [address] [place] [phone] Ethel Casanova MD [address] [place] [address] [address] [place] [address] Social History Tobacco Use Types Packs/Day Years Used Date Smoking Tobacco: Light Smoker Cigarettes Vaping Smokeless Tobacco: Never Comments:smokes/vapes only o ccasionally with friends Alcohol Use Standard Drinks/Week Comments Not Currently 0 (1 standard drink = 0.6 oz pur e alcohol) Comments No Sex and Gender Information Value Date Recorded Sex Assigned at Not on file 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 She is aware order has been faxed. She will send us message through the portal after she has taken Grecia for the EKG so we know to look for result * Telephone Encounter - David Fernández - 12/23/2020 9:02 AM CDT Order faxed to [facility] at [phone]. Message left on mom's voicemail asking her to call me back * Addendum Note - David Fernández - 12/23/2020 8:59 AM CDTAddended by: DAVID FERNÁNDEZ. on: 12/23/2020 08:59 AM Modules accepted: Orders * Telephone Encounter - David Fernández - 12/22/2020 4:40 PM CDT I called mom back, she is aware that she will need an EKG 48 hours post the dosing increase. I will fax the order to [facility]. * Telephone Encounter - Leonie Bryant B.A. - 12/22/2020 4:06 PM CDT Patient's mom called and said that the patients psychatrist wants her to increase her Paxil and wants an EKG done when it was increased. Or is the loop monitor okay w/in [address] of an EKG? documented in this encounter Plan of Treatment Not on file documented as of this encounter Visit Diagnoses Diagnosis Long Q-T syndrome- Primary Long QT syndrome documented in this encounter Care Teams Gun Barrel Finisher Relationship Specialty Start Date End Date Anthony Bruno MD PCP - General 05/16/17 documented as of this encounter
--- OUTSIDE RECORDS SUMMARY | 2024-06-11 08:25 | XMS_ITS | Encounter Summary ---
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 Procedures Pediatric Device Check - In Office Bebe Casanova MD [address] [address] Phone: tel: fax: [facility] (All Locations) Referral ID Status Reason Start Date Expiration Date Visits Re quested Visits Authorized [id number] Closed 01/21/2020 02/19/2021 1 1 * (Routine) - Closed Specialty Diagnoses / Procedures Referred By Contac t Referred To Contact Diagnoses 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 Procedures ECG 12 lead Bebe Casanova MD [address] [address] Phone: tel: fax: [facility] (All Locations) Referral ID Status Reason Start Date Expiration Date Visits Re quested Visits Authorized [id number] Closed 01/21/2020 02/19/2021 1 1 Reason for Visit * (Routine) - Closed Specialty Diagnoses / Procedures Referred By Contac t Referred To Contact Diagnoses 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 Procedures ECG 12 lead Bebe Casanova MD 1 [facility] [address] [place] [address] Phone: tel: fax: [facility] (All Locations) Referral ID Status Reason Start Date Expiration Date Visits Re quested Visits Authorized [id number] Closed 01/21/2020 02/19/2021 1 1 Encounter Details Date Type Department Care Team (Latest Contact Info) Description 01/22/2020 1:30 PM CDT - 01/22/2020 11:59 PM CDT Hospital Encounter [facility] Pediatric Cardiology [facility] [address] [place] [id number] 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; Long Q-T syndrome Discharge Disposition: Discharge to home or self care Social History Tobacco Use Types Packs/Day Years Used Date Smoking Tobacco: Never Comments Unknown Sex and Gender Information Value Date Recorded Sex Assigned at Not on file 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 documented in this encounter Results * ECG 12 lead (01/22/2020 2:20 PM CDT) Ventricular Rate EKG/Min 64 BPM [facility] Atrial Rate 64 BPM [facility] RI-Interval (MSEC) 146 ms [facility] QRS-Interval (MSEC) 78 ms [facility] QT-Interval (MSEC) 418 ms [facility] QTc 431 ms [facility] P [place] 64 degrees [facility] R [place] 49 degrees [facility] T [place] 39 degrees [facility] Diagnosis Normal sinus rhythm with sinus arrhythmia When compared with ECG of 20-FEB-2019 13:10, No significant change was found Confirmed by MD ELLIOT, BEBE ([id number]) on 01/22/2020 1:40:44 PM [facility] 01/22/2020 1:33 PM CDT 01/22/2020 1:40 PM CDT us Bebe Casanova MD ECG ORDERABLES Final Resul t [facility] * Pediatric Device Check - In Office (01/22/2020 1:30 PM CDT) Anatomical Region Laterality Modality Other Narrative 01/22/2020 2:05 PM CDT IN-CLINIC ILR INTERROGATION MODEL: MedGlossyBox, LINQ SERIAL:[id number] /IMPLANTED ON: 01/31/[address] Bebe Casanova?? HISTORY: Long QT IMPLANT SITE EXAM: (L): pre pectoral, left breast BATTERY STATUS: ??OK ?? PROGRAMMED SETTINGS Auto records for 75 sec for the following: -heart rates >200 bpm for 16 consecutive beats -heart rates <??30 bpm for 4 consecutive beats -pauses of 3 sec or more EPISODES Symptoms - 0 Tachy - 0 Fran - 0 Pause - 1 - 5 second pause on 03/06/2019 AT/AF - 0 PARENT INFORMATION: Asymptomatic pause back in March. ??No active concerns. ??Please continue to send monthly and symptomatic transmissions. Interrogated by: CHAD Tang Reviewed with: Dr. Bebe Casanova us Bebe Casanova MD [facility] PROCED[facility] RES Final Result documented in this encounter Visit Diagnoses Diagnosis 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 Genetic susceptibility to other disease Long Q-T syndrome Long QT syndrome documented in this encounter Care Teams Insurance Risk Surveyor Relationship Specialty Start Date End Date Anthony Bruno MD PCP - General 05/16/17 documented as of this encounter
--- OUTSIDE RECORDS SUMMARY | 2024-06-11 08:25 | XMS_ITS | Encounter Summary ---
Author Organization [facility] Address [address] [place] [address] Phone Care Team Providers Care Head Orthopedic Team Physician Name Role Phone Anthony Bruno MD Primary Care Provider [phone] Reason for Visit * (Routine) - Closed Specialty Diagnoses / Procedures Referred By Cristopher sims Referred To Contact Diagnoses Long Q-T syndrome Procedures Pediatric Device Check - Remote Alyson Conner PA 1 [facility] [address] [place] [address] Phone: tel: fax: [facility] (All Locations) Referral ID Status Reason Start Date Expiration Date Visits Re quested Visits Authorized [id number] Closed 12/24/2019 01/22/2021 1 1 Encounter Details Date Type Department Care Team (Latest Contact Info) Description 12/24/2019 9:00 AM CDT Ancillary Procedure [facility] Pediatric Cardiology [address] [place] [address] Long Q-T syndrome Social History Tobacco Use Types Packs/Day Years Used Date Smoking Tobacco: Never Comments Unknown Sex and Gender Information Value Date Recorded Sex Assigned at Not on file 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 Ethel Casanova?? HISTORY: Long QT IMPLANT SITE EXAM: (L): pre pectoral, left breast BATTERY STATUS: ??OK ?? PROGRAMMED SETTINGS Auto records for 75 sec for the following: -heart rates >200 bpm for 16 consecutive beats -heart rates <??30 bpm for 4 consecutive beats -pauses of 3 sec or more DATE OF TRANSMISSION: 12/23/2019 EPISODES Symptoms - 0 Tachy - 0 Fran - 0 Pause - 0 AT/AF - 0 PARENT INFORMATION: No events. ??Please continue to send symptom and monthly transmissions. Interrogated by: CHAD Tang Reviewed with: Dr. Keara Rashid Procedure Note Alyson Conner PA - 12/24/2019 REMOTE ILR SUMMARY REPORT MODEL: Medtronic, LINQ SERIAL:[id number] /IMPLANTED ON: 01/31/[address] Ethel Casanova?? HISTORY: Long QT IMPLANT SITE EXAM: (L): pre pectoral, left breast BATTERY STATUS: ??OK ?? PROGRAMMED SETTINGS Auto records for 75 sec for the following: -heart rates >200 bpm for 16 consecutive beats -heart rates <??30 bpm for 4 consecutive beats -pauses of 3 sec or more DATE OF TRANSMISSION: 12/23/2019 EPISODES Symptoms - 0 Tachy - 0 Fran - 0 Pause - 0 AT/AF - 0 PARENT INFORMATION: No events. Please continue to send symptom andmonthly transmissions. Interrogated by: CHAD Tang Reviewed with: Dr. Keara Rashid us Alyson BONILLA CV CARDIAC SERVICES PROCEDU RES Final Result documented in this encounter Visit Diagnoses Diagnosis Long Q-T syndrome Long QT syndrome documented in this encounter Care Teams Head Orthopedic Team Physician Relationship Specialty Start Date End Date Anthony Bruno MD PCP - General 05/16/17 documented as of this encounter
--- OUTSIDE RECORDS SUMMARY | 2024-06-11 08:25 | XMS_ITS | Encounter Summary ---
Author Organization [facility] Address [address] [place] [address] Phone Care Team Providers Care Exchange Teller Name Role Phone Anthony Bruno MD Primary Care Provider [phone] Reason for Visit * Cardiology (Routine) - Closed Specialty Diagnoses / Procedures Referred By Contgeorgina t Referred To Contact Diagnoses Long Q-T syndrome Procedures Pediatric Device Check - Remote Alyson Conner PA 1 [facility] [address] [place] [address] Phone: tel: fax: [facility] (All Locations) Referral ID Status Reason Start Date Expiration Date Visits Re quested Visits Authorized [id number] Closed 12/31/2020 01/30/2022 1 1 Encounter Details Date Type Department Care Team (Latest Contact Info) Description 12/31/2020 12:50 PM CDT Ancillary Procedure [facility] Pediatric Cardiology [address] [place] [address] Long Q-T syndrome Social History [...] on file 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 Ethel Casanova?? [...] 30 DAY SUMMARY REPORT MODEL: Medtronic, LINQ SERIAL:[id number] /IMPLANTED ON: 01/31/[address] Ethel Casanova?? [...] syndrome documented in this encounter Care Teams Exchange Teller Relationship Specialty Start Date End Date Anthony Bruno MD PCP - General 05/16/17 documented as of this encounter
--- OUTSIDE RECORDS SUMMARY | 2024-06-11 08:25 | XMS_ITS | Encounter Summary ---
Author Organization [facility] Address [address] [place] [address] Phone Care Team Providers Care Scagliola Mechanic Name Role Phone Anthony Bruno MD Primary Care Provider [phone] Reason for Visit * Cardiology (Routine) - Closed Specialty Diagnoses / Procedures Referred By Contgeorgina t Referred To Contact Diagnoses Long Q-T syndrome Procedures Pediatric Device Check - Remote Alyson Conner PA [address] 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 Ethel Casanova?? [...] 30 DAY SUMMARY REPORT MODEL: Medtronic, LINQ SERIAL:[id number] /IMPLANTED ON: 01/31/[address] Ethel Casanova?? [...] syndrome documented in this encounter Care Teams Scagliola Mechanic Relationship Specialty Start Date End Date Anthony Bruno MD PCP - General 05/16/17 documented as of this encounter
--- OUTSIDE RECORDS SUMMARY | 2024-06-11 08:25 | XMS_ITS | Encounter Summary ---
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 Procedures Pediatric Device Check - In Office Ethel Casanova MD [address] [address] Phone: tel: fax: [facility] (All Locations) Referral ID Status Reason Start Date Expiration Date Visits Re quested Visits Authorized [id number] Closed 01/21/2020 02/19/2021 1 1 * (Routine) - Closed Specialty Diagnoses / Procedures Referred By Contac t Referred To Contact Diagnoses 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 Procedures ECG 12 lead Ethel Casanova MD [address] [address] Phone: tel: fax: [facility] (All Locations) Referral ID Status Reason Start Date Expiration Date Visits Re quested Visits Authorized [id number] Closed 01/21/2020 02/19/2021 1 1 Reason for Visit * Pediatric (Routine) - Closed Specialty Diagnoses / Procedures Referred By Contac t Referred To Contact Pediatric Cardiology Diagnoses Long Q-T syndrome Anthony Bruno MD Phone: tel: fax: Ethel Casanova MD 1 [facility] [address] [place] [address] Phone: tel: fax: Referral ID Status Reason Start Date Expiration Date V isits Requested Visits Authorized [id number] Closed Continuity of Care 01/22/2020 02/20/2021 99 99 Encounter Details Date Type Department Care Team (Late st Contact Info) Description 01/22/2020 1:40 PM CDT Office Visit [facility] Pediatric Cardiology 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 Gender Identity Not on file Sexual Orientation Not on file documented as of this encounter Last Filed Vital Signs Vital Sign Reading Time Taken Comments Blood Pressure 100/67 01/22/2020 1:34 PM CDT Pulse 58 01/22/2020 1:34 PM CDT Temperature - - Respiratory Rate 20 01/22/2020 1:34 PM CDT Oxygen Saturation 100% 01/22/2020 1:34 PM CDT Inhaled Oxygen Concentration - - Weight 55.6 kg (122 lb 8 oz) 01/22/2020 1:34 PM CDT Height 165 cm (5' 4.96 ) 01/22/2020 1:34 PM CDT Body Mass Index 20.41 01/22/2020 1:34 PM CDT Body Mass Index Percentile 52.83% 01/22/2020 1:3 4 PM CDT Growth Chart: [facility] (Girls, 2- 20 Years) documented in this encounter Patient Instructions * Patient Instructions* Ethel Casanova MD - 01/22/2020 1:40 PM CDT Tests & Labs: I personally reviewed the following data: 1. ELECTROCARDIOGRAM. 01/22/2020: NSR at 67 bpm, a borderline prolonged QT at 431msec 02/14/2019: NSR at 83 bpm, a borderline prolonged QT at 448msec (down from a previous ECG QTc of 457msec). 2. DEVICE CHECK. MODEL: Medtronic, LINQ SERIAL:[id number] /IMPLANTED ON: 01/31/[address] Ethel Casanova?? [...] PARENT INFORMATION: Asymptomatic pause back in March. No active concerns. Please continue to sendmonthly and symptomatic transmissions. Assessment: Patient Active Problem List Diagnosis Date Noted ??? Long Q-T syndrome 12/20/2018 Priority: High Overview Note: Added automatically from request for surgery [id number] ??? Long QT syndrome 07/14/2015 Class: Chronic ??? 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 Abnormal electrocardiography 06/10/2015 Class: Chronic ??? Palpitations 06/08/2015 Class: Chronic Plan: Grecia is a now 13 yr old who I am deeply suspicious of LQTS, s/p ILR generator change ~1 year ago. She has a family history of sudden arrhythmic of her brother and abnormal ECGs c/w that diagnosis. She is maintained on beta-blockers, currently on betaxolol 5mg PO qDay. My plan for Grecia is: 1) Continue Nadolol 40 mg PO qDay. Refills were ordered today. 2) [...] not hesitate to call our office at [phone]. ?? Cardiovascular instructions and follow-up: SBE Prophylaxis [...] management protocol: No documented in this encounter Progress Notes * Ethel Casanova MD - 01/22/2020 1:40 PM CDT HPI: I had the pleasure of seeing Grecia Villa who is a 14 y.o. female here for a return visitfor what I suspect to be LQTS. Grecia was seen today, 01/22/20 at the [facility]. She is here today with her parents. Please allow me to review for my records. Grecia's family recently relocated to the [facility] from [place]. Sadly, her brother suddenly in July 2014 of suspected cardiac arrhythmia. He was 14 yr old at the time with no previous history concerning for cardiac disease or arrhythmia. He was an athlete and had past [...] time of . He had taken one S udafed the day he for sinus pressure after being outside sledding all day. He had received his3rd Gardasil vaccination 17 days prior to his . Grecia had an extensive cardiac evaluation at [facility] in [facility] last September. Anechocardiogram showed a [...] recommended in 6 months. Here in [facility], she has had serially abnormal ECGs demosntrating [...] better. Grecia is not sure if it isthe medication or wellbutrin. She has felt well since her ILR generator change out ~2 weeks ago. Mom is making sure she is taking the medication qHS. The parents are quite pleased with Grecia's progress. There are no new cardiac concerns to [...] ??? betaxoloL (KERLONE) 10 mg tablet Take 1/2 tablet = 5mg by mouth every evening. 15 tablet 3 No current facility-administered medications for this visit. Past Medical History: Diagnosis Date ??? Abnormal electrocardiogram Abnormal ECG - (Added by TW Conv) ??? 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 Long Q-T syndrome ??? Palpitations Palpitations - (Added by TW Conv) No past surgical history on file. Family History Problem Relation Age of Onset ??? Sudden Cardiac Brother 14 sudden arrhythmic Family history of premature ventricular contractions: Mother [...] and was surgically repaired. PGF had an GA at age 42 and had hypercholesterolemia; he [...] file Occupational History ??? Not on file Social Needs ??? Financial resource strain: Not on file ??? Food insecurity Worry: Not on file Inability: Not on file ??? Transportation needs Medical: Not on file Non-medical: Not on file Tobacco Use ??? Smoking status: Never Smoker Substance and Sexual Activity ??? Alcohol use: Not on file ??? Drug use: Not on file ??? Sexual activity: Not on file Lifestyle ??? Physical activity Days per week: Not on file Minutes per session: Not on file ??? Stress: Not on file Relationships ??? Social connections Talks on phone: Not on file Gets together: Not on file Attends anabaptist service: Not on file Active member of club or organization: Not on file Attends meetings of clubs or organizations: Not on file Relationship status: Not on file ??? Intimate partner violence Fear of current or ex partner: Not on file Emotionally abused: Not on file Physically abused: Not on file Forced sexual activity: Not on file Other Topics Concern ??? Not on file Social History Narrative Lives with parents : (Added by TW Conv) Brother : (Added by TW Conv) Physical Exam: BP 100/67 Pulse 58 Resp 20 Ht 165 cm (5' 4.96 ) Wt 55.6 kg (122 lb 8 oz) SpO2 100% BMI 20.41 kg/m?? Weight: 55.6 kg (122 lb 8 oz) Height: 165 cm (5' 4.96 ) General: non-dysmorphic, no distress HEENT: normocephalic, [...] personally reviewed the following data: 1. ELECTROCARDIOGRAM. 01/22/2020: NSR at 67 bpm, a borderline prolonged QT at 431msec 02/14/2019: NSR at 83 bpm, a borderline prolonged QT at 448msec (down from a previous ECG QTc of 457msec). 2. DEVICE CHECK. MODEL: Medtronic, LINQ SERIAL:[id number] /IMPLANTED ON: 01/31/[address] Ethel Casanova?? [...] PARENT INFORMATION: Asymptomatic pause back in March. No active concerns. Please continue to sendmonthly and symptomatic transmissions. Assessment: Patient Active Problem List Diagnosis Date Noted ??? Long Q-T syndrome 12/20/2018 Priority: High Overview Note: Added automatically from request for surgery [id number] ??? Long QT syndrome 07/14/2015 Class: Chronic ??? 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 Abnormal electrocardiography 06/10/2015 Class: Chronic ??? Palpitations 06/08/2015 Class: Chronic Plan: Grecia is a now 13 yr old who I am deeply suspicious of LQTS, s/p ILR generator change ~1 year ago. She has a family history of sudden arrhythmic of her brother and abnormal ECGs c/w that diagnosis. She is maintained on beta-blockers, currently on betaxolol 5mg PO qDay. My plan for Grecia is: 1) Continue Nadolol 40 mg PO qDay. Refills were ordered today. 2) [...] not hesitate to call our office at [phone]. ?? Cardiovascular instructions and follow-up: SBE Prophylaxis [...] BPM [facility] Atrial Rate 64 BPM [facility] TN-Interval (MSEC) 146 ms [facility] QRS-Interval (MSEC) 78 ms [facility] QT-Interval (MSEC) 418 ms [facility] QTc 431 ms [facility] P [place] 64 degrees [facility] R [place] 49 degrees [facility] T [place] 39 degrees [facility] Diagnosis Normal sinus rhythm with sinus arrhythmia When compared with ECG of 20-FEB-2019 13:10, No significant change was found Confirmed by MD CASANOVA JENNIFER ([id number]) on 01/22/2020 1:40:44 PM [facility] 01/22/2020 1:33 PM CDT 01/22/2020 1:40 PM CDT us Ethel Casanova MD ECG ORDERABLES Final Resul t [facility] * Pediatric Device Check - In Office (01/22/2020 1:30 PM CDT) Anatomical Region Laterality Modality Other Narrative 01/22/2020 2:05 PM CDT IN-CLINIC ILR INTERROGATION MODEL: Medtronic, LINQ SERIAL:[id number] /IMPLANTED ON: 01/31/[address] Ethel Casanova?? [...] Reviewed with: Dr. Ethel Casanova us Ethel Casnaova MD CV CARDIAC SERVICES PROCEDU RES Final Result documented in this encounter Visit Diagnoses Diagnosis 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- Primary Genetic susceptibility to other disease Long Q-T syndrome Long QT syndrome documented in this encounter Orders Outpatient Referral Count Last Ordered Date Fir st Ordered Date AMB REFERRAL TO PEDIATRIC CARDIOLOGY 01/03 documented in this encounter Care Teams Head Of Advertising Relationship Specialty Start Date End Date Anthony Bruno MD PCP - General 05/16/17 documented as of this encounter
--- OUTSIDE RECORDS SUMMARY | 2024-06-11 08:25 | XMS_ITS | Encounter Summary ---
Author Organization [facility] Address [address] [place] [address] Phone Care Team Providers Care Job Change Crew Member Name Role Phone Anthony Bruno MD Primary Care Provider [phone] Encounter Details Date Type Department Care Team (Late st Contact Info) Description 06/28/2020 Orders Only [facility] Pediatric Cardiology One [facility] 2nd [place] [address] [place] [address] Alyson Conner PA 1 [facility] [address] [place] [address] Social History Tobacco Use Types Packs/Day Years Used Date Smoking Tobacco: Light Smoker Cigarettes Vaping Smokeless Tobacco: Never Comments:smokes/vapes only o ccasionally with friends Alcohol Use Standard Drinks/Week Comments Not Currently 0 (1 standard drink = 0.6 oz pur e alcohol) Comments No Sex and Gender Information Value Date Recorded Sex Assigned at Not on file 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
--- OUTSIDE RECORDS SUMMARY | 2024-06-11 08:25 | XMS_ITS | Encounter Summary ---
Author Organization [facility] Address [address] [place] [address] Phone Care Team Providers Care Door Trimmer Name Role Phone Anthony Bruno MD Primary Care Provider [phone] Reason for Referral * Cardiology (Routine) - Closed Specialty Diagnoses / Procedures Referred By Contgeorgina t Referred To Contact Diagnoses Long Q-T syndrome Procedures Pediatric Device Check - Remote Alyson Conner PA 1 [facility] [address] [place] [address] Phone: tel: fax: [facility] (All Locations) Referral ID Status Reason Start Date Expiration Date Visits Re quested Visits Authorized [id number] Closed 11/30/2020 12/30/2021 1 1 Encounter Details Date Type Department Care Team (Late st Contact Info) Description 11/30/2020 Orders Only [facility] Pediatric Cardiology One [facility] 2nd [place] [address] [place] [address] Alyson Conner PA 1 [facility] [address] [place], [place] [id number] Long Q-T syndrome (Primary Dx) Social History [...] on file 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 Ethel Casanova?? HISTORY: Long QT IMPLANT SITE EXAM: (L): pre pectoral, left breast BATTERY STATUS: ??OK ?? PROGRAMMED SETTINGS Auto records for 75 sec for the following: -heart rates >200 bpm for 16 consecutive beats -heart rates <??30 bpm for 4 consecutive beats -pauses of 3 sec or more DATE OF TRANSMISSION: 11/29/2020 EPISODES Symptoms - 0 Tachy - 0 Fran - 0 Pause - 0 AT/AF - 0 PARENT INFORMATION: No events. Interrogated by: CHAD Tang Reviewed with: Dr. Ethel Casanova us Alyson BONILLA [facility] PROCEDU RES Final Result documented in this encounter Visit Diagnoses Diagnosis Long Q-T syndrome- Primary Long QT syndrome Long Q-T syndrome Long QT syndrome documented in this encounter Care Teams Door Trimmer Relationship Specialty Start Date End Date Anthony Bruno MD PCP - General 05/16/17 documented as of this encounter
--- OUTSIDE RECORDS SUMMARY | 2024-06-11 08:25 | XMS_ITS | Encounter Summary ---
Author Organization [facility] Address [address] [place] [address] Phone Care Team Providers Care Postdoctoral Fellow Name Role Phone Anthony Bruno MD Primary Care Provider [phone] Reason for Visit * Cardiology (Routine) - Closed Specialty Diagnoses / Procedures Referred By Contgeorgina t Referred To Contact Diagnoses Long Q-T syndrome Procedures Pediatric Device Check - Remote Alyson Conner PA 1 [facility] [address] [place] [address] Phone: tel: fax: [facility] (All Locations) Referral ID Status Reason Start Date Expiration Date Visits Re quested Visits Authorized [id number] Closed 09/28/2020 10/28/2021 1 1 Encounter Details Date Type Department Care Team (Latest Contact Info) Description 09/30/2020 8:30 AM CDT Ancillary Procedure [facility] Pediatric Cardiology [address] [place] [address] Long Q-T syndrome Social [...] on file 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 Ethel Casanova?? HISTORY: Long QT IMPLANT SITE EXAM: (L): pre pectoral, left breast BATTERY STATUS: ??OK ?? PROGRAMMED SETTINGS Auto records for 75 sec for the following: -heart rates >200 bpm for 16 consecutive beats -heart rates <??30 bpm for 4 consecutive beats -pauses of 3 sec or more DATE OF TRANSMISSION: 09/28/2020 EPISODES Symptoms - 0 Tachy - 0 Fran - 0 Pause - 0 AT/AF - 0 PARENT INFORMATION: No events Interrogated by: CHAD Tang Reviewed with: Dr. Keara Rashid Procedure Note Alyson Conner PA - 09/30/2020 REMOTE ILR 30 DAY SUMMARY REPORT MODEL: Medtronic, LINQ SERIAL:[id number] /IMPLANTED ON: 01/31/[address] Ethel Casanova?? HISTORY: Long QT IMPLANT SITE EXAM: (L): pre pectoral, left breast BATTERY STATUS: ??OK ?? PROGRAMMED SETTINGS Auto records for 75 sec for the following: -heart rates >200 bpm for 16 consecutive beats -heart rates <??30 bpm for 4 consecutive beats -pauses of 3 sec or more DATE OF TRANSMISSION: 09/28/2020 EPISODES Symptoms - 0 Tachy - 0 Fran - 0 Pause - 0 AT/AF - 0 PARENT INFORMATION: No events Interrogated by: CHAD Tang Reviewed with: Dr. Keara Rashid Alyson BONILLA [facility] PROCEDU RES Final Result documented in this encounter Visit Diagnoses Diagnosis Long Q-T syndrome Long QT syndrome documented in this encounter Care Teams Postdoctoral Fellow Relationship Specialty Start Date End Date Anthony Bruno MD PCP - General 05/16/17 documented as of this encounter
--- OUTSIDE RECORDS SUMMARY | 2024-06-11 08:25 | XMS_ITS | Encounter Summary ---
Author Organization [facility] Address [address] [place] [address] Phone Care Team Providers Care Environmental Auditor Name Role Phone Anthony Bruno MD Primary Care Provider [phone] Encounter Details Date Type Department Care Team (Late st Contact Info) Description 07/28/2020 Orders Only [facility] Pediatric Cardiology One [facility] 2nd [place] [address] [place] [address] Alyson Conner PA 1 [facility] [address] [place] [address] Social History Tobacco Use Types Packs/Day Years Used Date Smoking Tobacco: Light Smoker Cigarettes Vaping Smokeless Tobacco: Never Comments:smokes/vapes only o ccasionally with friends Alcohol Use Standard Drinks/Week Comments Not Currently 0 (1 standard drink = 0.6 oz pur e alcohol) Comments No Sex and Gender Information Value Date Recorded Sex Assigned at Not on file 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
--- OUTSIDE RECORDS SUMMARY | 2024-06-11 08:25 | XMS_ITS | Encounter Summary ---
Author Organization [facility] Address [address] [place] [address] Phone Care Team Providers Care Floor Layer Helper Name Role Phone Anthony Bruno MD Primary Care Provider [phone] Reason for Referral * Cardiology (Routine) - Closed Specialty Diagnoses / Procedures Referred By Contgeorgina t Referred To Contact Diagnoses Palpitations Long Q-T syndrome Procedures Pediatric Device Check - Remote Alyson Conner PA 1 [facility] [address] [place] [address] Phone: tel: fax: [facility] (All Locations) Referral ID Status Reason Start Date Expiration Date Visits Re quested Visits Authorized [id number] Closed 04/04/2021 05/04/2022 1 1 Encounter Details Date Type Department Care Team (Late st Contact Info) Description 04/04/2021 Orders Only [facility] Pediatric Cardiology One [facility] 2nd [place] [address] [place] [address] Alyson Conner PA 1 [facility] [address] [place], [place] [id number] Palpitations (Primary Dx); Long Q-T syndrome Social History [...] on file 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 Ethel Casanova?? HISTORY: Long QT IMPLANT SITE EXAM: (L): pre pectoral, left breast BATTERY STATUS: ??OK ?? PROGRAMMED SETTINGS Auto records for 75 sec for the following: -heart rates >200 bpm for 16 consecutive beats -heart rates <??30 bpm for 4 consecutive beats -pauses of 3 sec or more DATE OF TRANSMISSION: 04/02/2021 EPISODES Symptoms - 0 Tachy - 0 Fran - 0 Pause - 0 AT/AF - 0 PARENT INFORMATION: No events Interpreted by: CHAD Tang Reviewed with: Dr. Ethel Casanova Alyson BONILLA CV CARDIAC SERVICES PROCEDU RES Final Result documented in this encounter Visit Diagnoses Diagnosis Palpitations- Primary Long Q-T syndrome Long QT syndrome Palpitations Long Q-T syndrome Long QT syndrome documented in this encounter Care Teams Floor Layer Helper Relationship Specialty Start Date End Date Anthony Bruno MD PCP - General 05/16/17 documented as of this encounter
--- OUTSIDE RECORDS SUMMARY | 2024-06-11 08:25 | XMS_ITS | Encounter Summary ---
Author Organization [facility] Address [address] [place] [address] Phone Care Team Providers Care Stripping Shovel Operator Name Role Phone Anthony Bruno MD Primary Care Provider [phone] Encounter Details Date Type Department Care Team (Late st Contact Info) Description 03/11/2020 Telephone [facility] Pediatric Cardiology One [facility] 2nd [place] [address] [place] [id number] Ethel Casanova MD [address] [place] [address] [address] [place] [address] Social History Tobacco Use Types Packs/Day Years Used Date Smoking Tobacco: Never Comments Unknown Sex and Gender Information Value Date Recorded Sex Assigned at Not on file 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 She is going today to be tested. I discussed with mom that LQT does not put her at a higher risk for symptoms than the general population, and that there is some risk for everyone. They should follow the guidelines for quarantining, social distancing, masks, sanitizing and handwashing. * Telephone Encounter - Leonie Bryant B.A. - 03/11/2020 9:47 AM CDT Patient's mom called and said she is positive w/Covid (asymptomatic) but wanted to know if she is okay to be around the patient who has long qt. documented in this encounter Plan of Treatment Not on file documented as of this encounter Visit Diagnoses Not on filedocumented in this encounter Care Teams Stripping Shovel Operator Relationship Specialty Start Date End Date Anthony Bruno MD PCP - General 05/16/17 documented as of this encounter
--- OUTSIDE RECORDS SUMMARY | 2024-06-11 08:25 | XMS_ITS | Encounter Summary ---
Author Organization [facility] Address [address] [place] [address] Phone Care Team Providers Care Credit Control Officer Name Role Phone Anthony Bruno MD Primary Care Provider [phone] Reason for Visit * Cardiology (Routine) - Closed Specialty Diagnoses / Procedures Referred By Contac t Referred To Contact Diagnoses Long Q-T syndrome Procedures Pediatric Device Check - Remote Ethel Casanova MD 1 [facility] [address] [place] [address] Phone: tel: fax: [facility] (All Locations) Referral ID Status Reason Start Date Expiration Date Visits Re quested Visits Authorized [id number] Closed 05/31/2020 06/30/2021 1 1 Encounter Details Date Type Department Care Team (Latest Contact Info) Description 05/31/2020 5:15 PM 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 SPECIALIST Ancillary Procedure [facility] Pediatric Cardiology [address] [place] [address] Long Q-T syndrome Social History Tobacco Use Types Packs/Day Years Used Date Smoking Tobacco: Never Comments Unknown Sex and Gender Information Value Date Recorded Sex Assigned at Not on file Legal Sex Female 11:23 AM 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 SPECIALIST Gender Identity Not on file Sexual Orientation Not on file documented as of this encounter Plan of Treatment Not on file documented as of this encounter Procedures Procedure Name Priority Date/Time Associated Diagnosis Comments PED DEVICE CHECK - REMOTE Routine 05/31/2020 5:13 PM 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 SPECIALIST Long Q-T syndrome documented in this encounter Results * Pediatric Device Check - Remote (05/31/2020 5:13 PM 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 SPECIALIST) Anatomical Region Laterality Modality Other Narrative 06/02/2020 7:42 AM 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 SPECIALIST REMOTE ILR 30 DAY SUMMARY REPORT MODEL: Medtronic, LINQ SERIAL:[id number] /IMPLANTED ON: 01/31/[address] Ethel Casanova?? [...] syndrome documented in this encounter Care Teams Credit Control Officer Relationship Specialty Start Date End Date Anthony Bruno MD PCP - General 05/16/17 documented as of this encounter
--- OUTSIDE RECORDS SUMMARY | 2024-06-11 08:25 | XMS_ITS | Encounter Summary ---
Author Organization [facility] Address [address] [place] [address] Phone Care Team Providers Care Personnel Specialist Name Role Phone Anthony Bruno MD Primary Care Provider [phone] Reason for Visit * Cardiology (Routine) - Closed Specialty Diagnoses / Procedures Referred By Contgeorgina t Referred To Contact Diagnoses Long Q-T syndrome Procedures Pediatric Device Check - Remote Alyson Conner PA 1 [facility] [address] [place] [address] Phone: tel: fax: [facility] (All Locations) Referral ID Status Reason Start Date Expiration Date Visits Re quested Visits Authorized [id number] Closed 01/31/2021 03/02/2022 1 1 Encounter Details Date Type Department Care Team (Latest Contact Info) Description 01/31/2021 9:30 AM CDT Ancillary Procedure [facility] Pediatric Cardiology [address] [place] [address] Long Q-T syndrome Social History [...] on file 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 Ethel Casanova?? HISTORY: Long QT IMPLANT SITE EXAM: (L): pre pectoral, left breast BATTERY STATUS: ??OK ?? PROGRAMMED SETTINGS Auto records for 75 sec for the following: -heart rates >200 bpm for 16 consecutive beats -heart rates <??30 bpm for 4 consecutive beats -pauses of 3 sec or more DATE OF TRANSMISSION: 01/30/2021 EPISODES Symptoms - 0 Tachy - 0 Fran - 0 Pause - 0 AT/AF - 0 PARENT INFORMATION: no events Interpreted by: CHAD Tang Reviewed with: Dr. Ethel Casanova Procedure Note Alyson Conner PA - 01/31/2021 REMOTE ILR 30 DAY SUMMARY REPORT MODEL: Medtronic, LINQ SERIAL:[id number] /IMPLANTED ON: 01/31/[address] Ethel Casanova?? HISTORY: Long QT IMPLANT SITE EXAM: (L): pre pectoral, left breast BATTERY STATUS: ??OK ?? PROGRAMMED SETTINGS Auto records for 75 sec for the following: -heart rates >200 bpm for 16 consecutive beats -heart rates <??30 bpm for 4 consecutive beats -pauses of 3 sec or more DATE OF TRANSMISSION: 01/30/2021 EPISODES Symptoms - 0 Tachy - 0 Fran - 0 Pause - 0 AT/AF - 0 PARENT INFORMATION: no events Interpreted by: CHAD Tang Reviewed with: Dr. Ethel Casanova Alyson BONILLA CV CARDIAC SERVICES PROCEDU RES Final Result documented in this encounter Visit Diagnoses Diagnosis Long Q-T syndrome Long QT syndrome documented in this encounter Care Teams Personnel Specialist Relationship Specialty Start Date End Date Anthony Bruno MD PCP - General 05/16/17 documented as of this encounter
--- OUTSIDE RECORDS SUMMARY | 2024-06-11 08:25 | XMS_ITS | Encounter Summary ---
Author Organization [facility] Address [address] [place] [address] Phone Care Team Providers Care Group Sales Coordinator Name Role Phone Anthony Bruno MD Primary Care Provider [phone] Reason for Visit * Cardiology (Routine) - Closed Specialty Diagnoses / Procedures Referred By Contgeorgina t Referred To Contact Diagnoses Long Q-T syndrome Procedures Pediatric Device Check - Remote Alyson Conner PA 1 [facility] [address] [place] [address] Phone: tel: fax: [facility] (All Locations) Referral ID Status Reason Start Date Expiration Date Visits Re quested Visits Authorized [id number] Closed 11/30/2020 12/30/2021 1 1 Encounter Details Date Type Department Care Team (Latest Contact Info) Description 11/30/2020 8:05 AM CDT Ancillary Procedure [facility] Pediatric Cardiology [address] [place] [address] Long Q-T syndrome Social History [...] on file 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 Ethel Casanova?? [...] syndrome documented in this encounter Care Teams Group Sales Coordinator Relationship Specialty Start Date End Date Anthony Bruno MD PCP - General 05/16/17 documented as of this encounter
--- OUTSIDE RECORDS SUMMARY | 2024-06-11 08:25 | XMS_ITS | Encounter Summary ---
Author Organization [facility] Address [address] [place] [address] Phone Care Team Providers Care Study Lead Name Role Phone Anthony Bruno MD Primary Care Provider [phone] Encounter Details Date Type Department Care Team (Late st Contact Info) Description 12/31/2020 Telephone [facility] Pediatric Cardiology One 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 Gender Identity Not on file Sexual Orientation Not on file documented as of this encounter Ordered Prescriptions Prescription Sig Dispense Quantity Refills Last Filled Start Date End Date betaxoloL (KERLONE) 10 mg tabletIndications: hypertension Take 0.5 tablets (5 mg total) by mouth nightly 15 tablet 2 12/31/2020 documented in this encounter Miscellaneous Notes * Telephone Encounter - Kiley Menon - 12/31/2020 9:32 AM CDT Refill sent through to last until her next follow up * Telephone Encounter - Salma Olivarez - 12/31/2020 9:01 AM CDT Mom needed to reschedule appt to in person with Dr Casanova. She asked that you renew prescription forbetaxolol to cover until after appointment on 03/03/2021 . Thank you documented in this encounter Plan of Treatment Not on file documented as of this encounter Visit Diagnoses Not on filedocumented in this encounter Discontinued Medications Medication Sig Discontinue Reason Start Date End Da te betaxoloL (KERLONE) 10 mg tabletIndications:hypert ension Take 0.5 tablets (5 mg total) by mouth nightly Reorder 07/01/2020 12/31/2020 documented as of this encounter Care Teams Study Lead Relationship Specialty Start Date End Date Anthony Bruno MD PCP - General 05/16/17 documented as of this encounter
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
--- OUTSIDE RECORDS SUMMARY | 2024-06-11 08:25 | XMS_ITS | Encounter Summary ---
Author Organization [facility] Address [address] [place] [address] Phone Care Team Providers Care Accounts Receivable Assistant Name Role Phone Anthony Bruno MD Primary Care Provider [phone] Reason for Referral * Cardiology (Routine) - Closed Specialty Diagnoses / Procedures Referred By Cristopher t Referred To Contact Diagnoses Long Q-T syndrome Procedures Pediatric Device Check - Remote Alyson Conner PA [address] [facility] [address] [place] [address] Phone: tel: fax: [facility] (All Locations) Referral ID Status Reason Start Date Expiration Date Visits Re quested Visits Authorized [id number] Closed 01/31/2021 03/02/2022 1 1 Encounter Details Date Type Department Care Team (Late st Contact Info) Description 01/31/2021 Orders Only [facility] Pediatric [facility]iology [address] [facility] [address] [place] [address] [place] [id number] Alyson Conner PA 1 [facility] [address] [place], [place] [id number] Long Q-T syndrome (Primary Dx) Social History [...] on file Legal Sex Female 11:23 AM PLATER HOT DIP Gender Identity Not on file Sexual Orientation Not on file documented as of this encounter Plan of Treatment Not on file documented as of this encounter Results * Pediatric Device Check - Remote (01/31/2021 9:26 AM CDT) Anatomical Region Laterality Modality Other Narrative 01/31/2021 1:59 PM CDT REMOTE ILR 30 DAY SUMMARY REPORT MODEL: Medtronic, LINQ SERIAL:[id number] /IMPLANTED ON: 01/31/[address] Ethel Casanova?? [...] 30 DAY SUMMARY REPORT MODEL: Medtronic, LINQ SERIAL:[id number] /IMPLANTED ON: 01/31/[address] Ethel Casanova?? [...] syndrome documented in this encounter Care Teams Accounts Receivable Assistant Relationship Specialty Start Date End Date Anthony Bruno MD PCP - General 05/16/17 documented as of this encounter
--- OUTSIDE RECORDS SUMMARY | 2024-06-11 08:25 | XMS_ITS | Encounter Summary ---
Author Organization [facility] Address [address] [place] [address] Phone Care Team Providers Care Frit Maker Name Role Phone Anthony Bruno MD Primary Care Provider [phone] Reason for Referral * Cardiology (Routine) - Closed Specialty Diagnoses / Procedures Referred By Contgeorgina t Referred To Contact Diagnoses Long Q-T syndrome Procedures Pediatric Device Check - Remote Alyson Conner PA 1 [facility] [address] [place] [address] Phone: tel: fax: [facility] (All Locations) Referral ID Status Reason Start Date Expiration Date Visits Re quested Visits Authorized [id number] Closed 09/28/2020 10/28/2021 1 1 Encounter Details Date Type Department Care Team (Late st Contact Info) Description 09/28/2020 Orders Only [facility] Pediatric Cardiology [facility] [address] [place] [address] [place] [id number] Alyson Conner PA 1 [facility] [address] [place], [place] [id number] Long Q-T syndrome (Primary Dx) Social History [...] on file Legal Sex Female 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 Ethel Casanova?? [...] 30 DAY SUMMARY REPORT MODEL: [employer], LINQ SERIAL:[id number] /IMPLANTED ON: 01/31/[address] Ethel Casanova?? [...] syndrome documented in this encounter Care Teams Frit Maker Relationship Specialty Start Date End Date Anthony Bruno MD PCP - General 05/16/17 documented as of this encounter
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
--- OUTSIDE RECORDS SUMMARY | 2024-06-11 08:25 | XMS_ITS | Encounter Summary ---
Author Organization [facility] Address [address] [place] [address] Phone Care Team Providers Care Cisco Consultant Name Role Phone Anthony Bruno MD Primary Care Provider [phone] Reason for Visit * Cardiology (Routine) - Canceled Specialty Diagnoses / Procedures Referred By Cristopher sims Referred To Contact Diagnoses Long Q-T syndrome Procedures Pediatric Device Check - Remote Alyson Conner PA [address] [facility] [address] [place] [address] Phone: tel: fax: [facility] (All Locations) Referral ID Status Reason Start Date Expiration Date V isits Requested Visits Authorized [id number] Canceled 09/22/2019 04/02/2021 12 12 Encounter Details Date Type Department Care Team (Latest Contact Info) Description 03/26/2020 1:30 PM CDT Ancillary Procedure [facility] Pediatric Cardiology [address] [place] [address] Long Q-T syndrome Social History Tobacco Use Types Packs/Day Years Used Date Smoking Tobacco: Never Comments Unknown Sex and Gender Information Value Date Recorded Sex Assigned at Not on file 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 MODEL: Medtronic, LINQ SERIAL:[id number] /IMPLANTED ON: 01/31/[address] Ethel Casanova?? HISTORY: Long QT IMPLANT SITE EXAM: (L): pre pectoral, left breast BATTERY STATUS: ??OK ?? PROGRAMMED SETTINGS Auto records for 75 sec for the following: -heart rates >200 bpm for 16 consecutive beats -heart rates <??30 bpm for 4 consecutive beats -pauses of 3 sec or more DATE OF TRANSMISSION: 03/26/2020 EPISODES Symptoms - 0 Tachy - 0 Fran - 0 Pause - 0 AT/AF - 0 PARENT INFORMATION: No Events Interrogated by: CHAD Tang Reviewed with: Dr. Keara Rashid Procedure Note Alyson Conner PA - 03/26/2020 REMOTE ILR SUMMARY REPORT ?? MODEL: Medtronic, LINQ SERIAL:[id number] /IMPLANTED ON: 01/31/[address] Ethel Casanova?? HISTORY: Long QT IMPLANT SITE EXAM: (L): pre pectoral, left breast BATTERY STATUS: ??OK ?? PROGRAMMED SETTINGS Auto records for 75 sec for the following: -heart rates >200 bpm for 16 consecutive beats -heart rates <??30 bpm for 4 consecutive beats -pauses of 3 sec or more DATE OF TRANSMISSION: 03/26/2020 EPISODES Symptoms - 0 Tachy - 0 Fran - 0 Pause - 0 AT/AF - 0 PARENT INFORMATION: No Events Interrogated by: CHAD Tang Reviewed with: Dr. Keara Rashid us Alyson BONILLA [facility] PROCEDU RES Final Result documented in this encounter Visit Diagnoses Diagnosis Long Q-T syndrome Long QT syndrome documented in this encounter Care Teams Cisco Consultant Relationship Specialty Start Date End Date Anthony Bruno MD PCP - General 05/16/17 documented as of this encounter
--- OUTSIDE RECORDS SUMMARY | 2024-06-11 08:25 | XMS_ITS | Encounter Summary ---
Author Organization [facility] Address [address] [place] [address] Phone Care Team Providers Care Sole Rounder Name Role Phone Anthony Bruno MD Primary Care Provider [phone] Encounter Details Date Type Department Care Team (Late st Contact Info) Description 06/23/2020 Documentation [facility] Pediatric Cardiology One [facility] 2nd [place] [address] [place] [id number] Khadar Montesinos MD [address] [place] [address] [address] [place] [address] Social History Tobacco Use Types Packs/Day Years Used Date Smoking Tobacco: Never Comments Unknown Sex and Gender Information Value Date Recorded Sex Assigned at Not on file 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 Patient was brought to an ER for Acetaminophen ingestion. score caller with children's direct and Toxicology, patient is stable enough to admit to general pediatric floor. Acetaminophen and NAC are not known to cause QT prolongation. ER obtained ECG which showed a QTc of 431 by report. From cardiac standpoint patient is stable to admit to general pediatrics and be placed on property assessment monitor. There is no telemetry within the hospital including the cardiac unit as it would imply there is a provider watching continuously. The hospital is equipped to allow review of continuous property assessment monitor as needed by cardiology anywhere in the hospital. Therefore we recommend admissionto general pediatrics, with cardiology consult as needed. Would recommend ECG on arrival to [facility] Khadar Montesinso MD Discussed with attending Dr. Warner. AZZO INSTALLER documented in this encounter Plan of Treatment Not on file documented as of this encounter Visit Diagnoses Not on filedocumented in this encounter Care Teams Sole Rounder Relationship Specialty Start Date End Date Anthony Bruno MD PCP - General 05/16/17 documented as of this encounter
--- OUTSIDE RECORDS SUMMARY | 2024-06-11 08:25 | XMS_ITS | Encounter Summary ---
Author Organization [facility] Address [address] [place] [address] Phone Care Team Providers Care Customer Account Representative Name Role Phone Anthony Bruno MD Primary Care Provider [phone] Reason for Visit * Cardiology (Routine) - Closed Specialty Diagnoses / Procedures Referred By Contgeorgina t Referred To Contact Diagnoses Palpitations Long Q-T syndrome Procedures Pediatric Device Check - Remote Alyson Conner PA 1 [facility] [address] [place] [address] Phone: tel: fax: [facility] (All Locations) Referral ID Status Reason Start Date Expiration Date Visits Re quested Visits Authorized [id number] Closed 04/04/2021 05/04/2022 1 1 Encounter Details Date Type Department Care Team (Latest Contact Info) Description 04/04/2021 9:15 AM CDT Ancillary Procedure 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 Ethel Casanova?? [...] documented in this encounter Visit Diagnoses Diagnosis Palpitations Long Q-T syndrome Long QT syndrome documented in this encounter Care Teams Customer Account Representative Relationship Specialty Start Date End Date Anthony Bruno MD PCP - General 05/16/17 documented as of this encounter
--- OUTSIDE RECORDS SUMMARY | 2024-06-11 08:25 | XMS_ITS | Encounter Summary ---
Author Organization [facility] Address [address] [place] [address] Phone Care Team Providers Care Manager Welding Name Role Phone Anthony Bruno MD Primary Care Provider [phone] Encounter Details Date Type Department Care Team (Late st Contact Info) Description 08/20/2020 Telephone [facility] Pediatric Cardiology One [facility] 2nd [place] [address] [place] [id number] Ethel Casanova MD [address] [place] [address] [address] [place] [address] Social History Tobacco Use Types Packs/Day Years Used Date Smoking Tobacco: Light Smoker Cigarettes Vaping Smokeless Tobacco: Never Comments:smokes/vapes only o ccasionally with friends Alcohol Use Standard Drinks/Week Comments Not Currently 0 (1 standard drink = 0.6 oz pur e alcohol) Comments No Sex and Gender Information Value Date Recorded Sex Assigned at Not on file 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 Casanova who proposed: increase the medication as requested with an ECG obtained 48 hours after dosage adjustment. Message relayed- Spoke with Dr. Carlisle. Although she was ok with the plan to increase the meds now and obtain an EKG in 48hrs she really wanted to speak with you, Dr. Casanova. She felt that moving forward she would like to maybe change the medication to something you are comfortable with that would not require frequent follow up EKG???s. Her personal cell is [phone]. Message sent to Dr. Casanova in re: to above No other needs at time. * Telephone Encounter - Liseth Mohr RN - 08/20/2020 1:28 PM CDT See message below: [11:35 AM] Alyson Conner Just sent Rachid a message about Daisy Liseth Mohr * Telephone Encounter - Leonie Bryant B.A. - 08/20/2020 11:[address] Carlisle, patient psychiatrist called to consult about the patients medication (Paxil) and possibly adjusting it. documented in this encounter Plan of Treatment Not on file documented as of this encounter Visit Diagnoses Not on filedocumented in this encounter Care Teams Manager Welding Relationship Specialty Start Date End Date Anthony Bruno MD PCP - General 05/16/17 documented as of this encounter
--- OUTSIDE RECORDS SUMMARY | 2024-06-11 08:25 | XMS_ITS | Encounter Summary ---
Author Organization [facility] Address [address] [place] [address] Phone Care Team Providers Care Superintendent Warehouse Name Role Phone Antohny Bruno MD Primary Care Provider [phone] Reason for Visit * Reason Onset Date Comments prescreen 01/21/2020 Encounter Details Date Type Department Care Team (Late st Contact Info) Description 01/21/2020 Telephone [facility] Pediatric Cardiology [facility] 2nd [place] [address] [place] [address] Azra Medina CMA prescreen Social History Tobacco Use Types Packs/Day Years Used Date Smoking Tobacco: Never Comments Unknown Sex and Gender Information Value Date Recorded Sex Assigned at Not on file Legal Sex Female 11:23 AM MANAGER PHARMACY Gender Identity Not on file Sexual Orientation Not on file documented as of this encounter Miscellaneous Notes * Telephone Encounter - Azra Medina CNA - 01/21/2020 9:42 AM CDT Spoke with Parent/Guardian. Covid-19 prescreen completed. Reviewed arrival procedure, visitor policy and universal masking. Parent/Guardian verbalizes understanding of above. documented in this encounter Plan of Treatment Not on file documented as of this encounter Visit Diagnoses Not on filedocumented in this encounter Care Teams Superintendent Warehouse Relationship Specialty Start Date End Date Anthony Bruno MD PCP - General 05/16/17 documented as of this encounter
--- OUTSIDE RECORDS SUMMARY | 2024-06-11 08:25 | XMS_ITS | Encounter Summary ---
Author Organization [facility] Address [address] [place] [address] Phone Care Team Providers Care Soft Work Cigar Machine Operator Name Role Phone Anthony Bruno MD Primary Care Provider [phone] Reason for Visit * Cardiology (Routine) - Canceled Specialty Diagnoses / Procedures Referred By Contgeorgina t Referred To Contact Diagnoses Long Q-T syndrome Procedures Pediatric Device Check - Remote Alyson Conner PA 1 [facility] [address] [place] [address] Phone: tel: fax: [facility] (All Locations) Referral ID Status Reason Start Date Expiration Date V isits Requested Visits Authorized [id number] Canceled 09/22/2019 04/02/2021 12 12 Encounter Details Date Type Department Care Team (Latest Contact Info) Description 06/28/2020 10:45 AM MALE MODEL Ancillary Procedure [facility] Pediatric Cardiology [address] [place] [address] Long Q-T syndrome Social History [...] on file Legal Sex Female 11:23 AM MALE MODEL Gender Identity Not on file Sexual Orientation Not on file documented as of this encounter Plan of Treatment Not on file documented as of this encounter Procedures Procedure Name Priority Date/Time Associated Diagnosis Comments PED DEVICE CHECK - REMOTE Routine 06/28/2020 10:04 AM MALE MODEL Long Q-T syndrome documented in this encounter Results * Pediatric Device Check - Remote (06/28/2020 10:04 AM MALE MODEL) Anatomical Region Laterality Modality Other Narrative 06/28/2020 10:41 AM MALE MODEL REMOTE ILR 30 DAY SUMMARY REPORT MODEL: Medtronic, LINQ SERIAL:[id number] /IMPLANTED ON: 01/31/[address] Ethel Casanova?? HISTORY: Long QT IMPLANT SITE EXAM: (L): pre pectoral, left breast BATTERY STATUS: ??OK ?? PROGRAMMED SETTINGS Auto records for 75 sec for the following: -heart rates >200 bpm for 16 consecutive beats -heart rates <??30 bpm for 4 consecutive beats -pauses of 3 sec or more DATE OF TRANSMISSION: 06/27/2020 EPISODES Symptoms - 0 Tachy - 0 Fran - 0 Pause - 0 AT/AF - 0 PARENT INFORMATION: No events Interrogated by: CHAD Tang Reviewed with: Dr. Keara Rashid Procedure Note Alyson Conner PA - 06/28/2020 REMOTE ILR 30 DAY SUMMARY REPORT MODEL: Medtronic, LINQ SERIAL:[id number] /IMPLANTED ON: 01/31/[address] Ethel Casanova?? HISTORY: Long QT IMPLANT SITE EXAM: (L): pre pectoral, left breast BATTERY STATUS: ??OK ?? PROGRAMMED SETTINGS Auto records for 75 sec for the following: -heart rates >200 bpm for 16 consecutive beats -heart rates <??30 bpm for 4 consecutive beats -pauses of 3 sec or more DATE OF TRANSMISSION: 06/27/2020 EPISODES Symptoms - 0 Tachy - 0 Fran - 0 Pause - 0 AT/AF - 0 PARENT INFORMATION: No events Interrogated by: CHAD Tang Reviewed with: Dr. Keara Rashid Alyson BONILLA [facility] PROCEDU RES Final Result documented in this encounter Visit Diagnoses Diagnosis Long Q-T syndrome Long QT syndrome documented in this encounter Care Teams Soft Work Cigar Machine Operator Relationship Specialty Start Date End Date Anthony Bruno MD PCP - General 05/16/17 documented as of this encounter
--- OUTSIDE RECORDS SUMMARY | 2024-06-11 08:25 | XMS_ITS | Encounter Summary ---
Author Organization [facility] Address [address] [place] [address] Phone Care Team Providers Care Crew Chief Name Role Phone Anthony Bruno MD Primary Care Provider [phone] Encounter Details Date Type Department Care Team (Late st Contact Info) Description 04/19/2020 Telephone [facility] Pediatric Cardiology [address] [facility] [address] 2nd [place] [address] [place] [address] Salma Olivaerz Social History Tobacco Use Types Packs/Day Years Used Date Smoking Tobacco: Never Comments Unknown Sex and Gender Information Value Date Recorded Sex Assigned at Not on file Legal Sex Female 11:23 AM RADIO HOST Gender Identity Not on file Sexual Orientation Not on file documented as of this encounter Miscellaneous Notes * Telephone Encounter - Alyson Conner PA - 04/19/2020 2:29 PM RADIO HOST Spoke with patient's mother regarding data transmission that was sent overnight. The rhythm strip shows sinus rhythm and there were no events recorded. I advised them to record symptoms with the patient activator for our review should she have the palpitations again. Mother expressed understanding.No further questions. O HOST * Telephone Encounter - Kiley Menon - 04/19/2020 2:01 PM CST Talia Please follow up with mom O HOST * Telephone Encounter - Salma Olivarez - 04/19/2020 1:57 PM CST This patients mother Kacy called. Last Th PCP put her on Paxil for depression and anxiety. In the past 12 hours she has felt her heart was racing two separate times - while resting in bed. Mom wants to know if you can check the Loop Recorder and see if anything was going on. Please call mom at [phone]. Thank you. O HOST documented in this encounter Plan of Treatment Not on file documented as of this encounter Visit Diagnoses Not on filedocumented in this encounter Care Teams Crew Chief Relationship Specialty Start Date End Date Anthony Bruno MD PCP - General 05/16/17 documented as of this encounter
--- OUTSIDE RECORDS SUMMARY | 2024-06-11 08:26 | XMS_ITS | Encounter Summary ---
Author Organization [facility] Address [address] [place] [address] Phone Care Team Providers Care Radiation Protection Specialist Name Role Phone Anthony Bruno MD Primary Care Provider [phone] Encounter Details Date Type Department Care Team (Late st Contact Info) Description 07/12/2018 Orders Only [facility] Pediatric Cardiology [facility] 2nd [place] [address] [place] [address] Ledy Camejo Long Q-T syndrome Social History Tobacco Use Types Packs/Day Years Used Date Smoking Tobacco: Never Comments Unknown Sex and Gender Information Value Date Recorded Sex Assigned at Not on file 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 90 tablet 1 07/12/2018 10/08/2018 documented in this encounter Plan of Treatment Not on file documented as of this encounter Visit Diagnoses Diagnosis Long Q-T syndrome Long QT syndrome documented in this encounter Discontinued Medications Medication Sig Discontinue Reason Start Date End Da te nadolol (CORGARD) 40 mg tabletIndications:Long Q-T syndrome Take 1 tablet (40 mg total) by mouth daily. Reorder 06/11/2018 07/12/2018 documented as of this encounter Care Teams Radiation Protection Specialist Relationship Specialty Start Date End Date Anthony Bruno MD PCP - General 05/16/17 documented as of this encounter
--- OUTSIDE RECORDS SUMMARY | 2024-06-11 08:26 | XMS_ITS | Encounter Summary ---
Author Organization [facility] Address [address] [place] [address] Phone Care Team Providers Care Remote Sensing Specialist Name Role Phone Anthony Bruno MD Primary Care Provider [phone] Reason for Referral * (Routine) - Closed Specialty Diagnoses / Procedures Referred By Contgeorgina t Referred To Contact Diagnoses Long Q-T syndrome Procedures Pediatric Device Check - Remote Alyson Conner PA [facility] [address] [place] [address] Phone: tel: fax: [facility] (All Locations) Referral ID Status Reason Start Date Expiration Date Visits Re quested Visits Authorized [id number] Closed 11/24/2019 06/04/2021 1 1 Encounter Details Date Type Department Care Team (Late st Contact Info) Description 11/24/2019 Orders Only [facility] Pediatric Cardiology One [facility] 2nd [place] [address] [place] [address] Alysno Conner PA 1 [facility] [address] [place] [address] Long Q-T syndrome (Primary Dx) Social History Tobacco Use Types Packs/Day Years Used Date Smoking Tobacco: Never Comments Unknown Sex and Gender Information Value Date Recorded Sex Assigned at Not on file Legal Sex Female 11:23 AM FINANCIAL 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 Ethel Casanova?? HISTORY: Long QT IMPLANT SITE EXAM: (L): pre pectoral, left breast BATTERY STATUS: ??OK ?? PROGRAMMED SETTINGS Auto records for 75 sec for the following: -heart rates >200 bpm for 16 consecutive beats -heart rates <??30 bpm for 4 consecutive beats -pauses of 3 sec or more DATE OF TRANSMISSION: 11/22/2019 EPISODES Symptoms - 0 Tachy - 0 Fran - 0 Pause - 0 AT/AF - 0 PARENT INFORMATION: No concerns at this time, please continue to send monthly transmissions Interrogated by: CHAD Tang Reviewed with: Dr. Keara Rashid Procedure Note Alyson Conner PA - 11/24/2019 REMOTE ILR SUMMARY REPORT MODEL: Medtronic, LINQ SERIAL:[id number] /IMPLANTED ON: 01/31/[address] Ethel Casanova?? HISTORY: Long QT IMPLANT SITE EXAM: (L): pre pectoral, left breast BATTERY STATUS: ??OK ?? PROGRAMMED SETTINGS Auto records for 75 sec for the following: -heart rates >200 bpm for 16 consecutive beats -heart rates <??30 bpm for 4 consecutive beats -pauses of 3 sec or more DATE OF TRANSMISSION: 11/22/2019 EPISODES Symptoms - 0 Tachy - 0 Fran - 0 Pause - 0 AT/AF - 0 PARENT INFORMATION: No concerns at this time, please continue to sendmonthly transmissions Interrogated by: CHAD Tang Reviewed with: Dr. Keara Rashid Alyson BONILLA [facility] PROCEDU RES Final Result documented in this encounter Visit Diagnoses Diagnosis Long Q-T syndrome- Primary Long QT syndrome Long Q-T syndrome Long QT syndrome documented in this encounter Care Teams Remote Sensing Specialist Relationship Specialty Start Date End Date Anthony Bruno MD PCP - General 05/16/17 documented as of this encounter
--- OUTSIDE RECORDS SUMMARY | 2024-06-11 08:26 | XMS_ITS | Encounter Summary ---
Author Organization [facility] Address [address] [place] [address] Phone Care Team Providers Care Seo Consultant Name Role Phone Anthony Bruno MD Primary Care Provider [phone] Encounter Details Date Type Department Care Team (Late st Contact Info) Description 08/07/2019 Telephone [facility] Pediatric Cardiology [facility] 2nd [place] [address] [place] [address] Ethel Casanova MD [address] [place] [address] [address] [place] [address] Social History Tobacco Use Types Packs/Day Years Used Date Smoking Tobacco: Never Comments Unknown Sex and Gender Information Value Date Recorded Sex Assigned at Not on file Legal Sex Female 11:23 AM PRODUCTION 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 Mom would like to know what she can or can't take with LQTS. I discussed with mom that there are so many medications to treat the symptoms and we are not familiar with them. Many of those meds are symptom specific and what works for one does not fit all. I told mom to see what the PCP suggests and let us know. We will search [facility] site for the specific med and let her know recommendations. Mom agreeable and will call back. UCTION SOUND MIXER * Telephone Encounter - Leonie Bryant B.A. - 08/07/2019 10:27 AM CST Patient's mom called and said the patient has been suffering from a lot of anxiety and depression. She's going to the PCP tomorrow and mom wants to know if she can or can not take any medication or what she can take. UCTION SOUND MIXER documented in this encounter Plan of Treatment Not on file documented as of this encounter Visit Diagnoses Not on filedocumented in this encounter Care Teams Seo Consultant Relationship Specialty Start Date End Date Anthony Bruno MD PCP - General 05/16/17 documented as of this encounter
--- OUTSIDE RECORDS SUMMARY | 2024-06-11 08:26 | XMS_ITS | Encounter Summary ---
Author Organization [facility] Healthcare Address [address] [place] [address] Care Team Providers Care Service Delivery Supervisor Name Role Phone Anthony Bruno MD Primary Care Provider [phone] Encounter Details Date Type Department Care Team (Late st Contact Info) Description 01/31/2019 10:30 AM CDT - 01/31/2019 12:30 PM CDT Surgery [facility] Ped [place] [address] [place] [address] Sharif Rashid DO 1 [facility] [address] [place] [address] IMPLANTABLE CARDIAC EVENT MONITOR REMOVAL [id number] AND IMPLANT OF A NEW ILR Surgery Details Date/Time Status Location OR Service Patient Class Case Class Case Type Trauma Case? 01/31/2019 10:30 AM Posted [facility] EP LAB Lab B Cardiovascular Outpatient Elective Panel 1 Procedure LRB Anes Op Region Wound Class Comments IMPLANTABLE CARDIAC EVENT MONITOR REMOVAL 08612 AND IMPLANT OF A NEW ILR N/A Cardiac left message for mom to call and schedule Surgeon Surgeon Role Service Panel Sharif Rashid DO Primary Cardiovascular 1 documented in this encounter Social History Tobacco Use Types Packs/Day Years Used Date Smoking Tobacco: Never Comments Unknown Sex and Gender Information Value Date Recorded Sex Assigned at Not on file Legal Sex Female 11:23 AM ROLL FORGER Gender Identity Not on file Sexual Orientation Not on file documented as of this encounter Last Filed Vital Signs Vital Sign Reading Time Taken Comments Blood Pressure 85/54 01/31/2019 12:30 PM CDT Pulse 63 01/31/2019 12:30 PM CDT Temperature 36.6 ??C (97.9 ??F) 01/31/2019 9:50 AM CD T Respiratory Rate 17 01/31/2019 12:3 0 PM CDT Oxygen Saturation 100% 01/31/2019 12: 30 PM CDT Inhaled Oxygen Concentration - - Weight 52.8 kg (116 lb 6.5 oz) 01/31/2019 9:49 A M CDT Height 165 cm (5' 4.96 ) 01/31/2019 9:36 AM CDT Body Mass Index 19.39 01/31/2019 9:36 AM CDT Body Mass Index Percentile 46.39% 01/31/2019 9:4 9 AM CDT Growth Chart: [facility] (Girls, 2- 20 Years) documented in this encounter Discharge Instructions * Discharge Instructions* Alize Nam, RT - 01/31/2019 1:41 PM CDT Patient Information: ?? DATE/TIME PATIENT WAS ADMITTED TO UNIT 01/31/2019 ?? Attending MD (at time of discharge) Dr. Rashid [facility] Information: Hospital Course/Procedures/Consults: Hospital Procedures ILR explant/implant with general anesthesia Follow Up Appointments: Follow-Up Appointment/Test #1: ?? Clinic Name [facility] ?? MD/CRIME ANALYST Name Dr. Casanova ?? Name of Test Office Visit 2 week follow up wound check post device implant ?? Date/Time of Appointment February 20 at 1:00pm ?? Location: [facility] ?? Instructions: Diet Instructions [...] pm. After hours and on weekends call [facility] Freedom Of Information Officer at and ask for the Forming Roll Operator community relations assistant. Teaching Tools Cardiac Cath Discharge Tool Activity: Activity No contact sports or swimming until all wounds healed. Return to School: Return to School 02/04/19 Additional Home Medication Instructions: Additional Home Medication Instructions Remember if emesis within 15 minutes, may repeat doses. DO NOT re-dose if infant spits up (child vomits) after 15 minutes. Information: Tylenol Warning Many prescriptions and over the counter medicines contain Tylenol (acetaminophen). Do not use/give more than one Tylenol containing product at a time. Call your physician/careprovider with questions documented in this encounter Medications at Time of Discharge nadolol (CORGARD) 40 mg tabletIndications :Long Q-T syndrome Take 1 tablet (40 mg total) by mouth daily 90 tablet 2 10/08/2018 02/20/2019 documented as of this encounter Discharge Disposition Disposition Code Departure Means Destination Discharge to home or self care documented in this encounter Progress Notes * Patrica Stephens MD - 01/31/2019 12:05 PM CDT Brief EP Post Procedure Note: Patient name: Grecia Villa :2005 Date of Service: 01/31/19 Location: [facility] Elect[facility]iology [facility] Procedural Attending: Sharif Rashid DO Diagnosis: Long QT Syndrome Procedure: ILR Explant and ILR Implant (Medtronic Linq ILR) Access: PIV Result: Successful placement of ILR in L upper chest. R waves 0.21 mV, Detection settings: HR > 200 bpm, HR < 30 bpm Post procedure exam: Vitals: 01/31/19 0950 BP: 98/67 Pulse: 85 Resp: 20 Temp: 36.6 ??C (97.9 ??F) SpO2: 96% Weight: General: sleeping and emerging from anesthesia. HEENT: NC/AT. Extubated. Nares patent. Cardiovascular: Regular rate and rhythm. Normal S1, S2, no murmurs, rubs, or gallops. Distal pulses2+ b/l. Respiratory: Clear to ascultation bilaterally. Easy work of breathing. Abdomen: non-distended, non-tender. soft. Musculoskeletal: No deformities. No evidence erythema on either heels. Skin: ILR device incision site on L upper chest covered with dressing, c/d/i Complications: none EBL: <5 mL Condition on discharge from Quality Intern: stable Follow up plan: Admit to Cardiac recovery. ECG prior to discharge. Follow up with referring physician: Ethel Casanova MD in 2 weeks for wound check Nate Stephens MD Fellow, Division of Pediatric Cardiology [facility] Pager #: [phone] Cosigned by Sharif Rashid DO at 01/31/2019 12:27 PM CDT documented in this encounter H&P Notes * Patrica Stephens MD - 01/31/2019 8:47 AM CDT Images from the original note were not included. Electrophysiology pre-procedural Brief History and Physical Patient Name: Grecia Villa : 2005 Date: 01/31/19 Referring yard demurrage clerk: Jocelyne HPI: Grecia Villa who is a 13 y.o. female with a history of phenotype positive, genotype unknown Long QT Syndrome with family history notable for sudden arrhythmic of her brother. She was [facility] at [facility] 2014, which included a normal echocar diogram, a normal 24-hour Holter monitor, and a normal response to exercise during an exercise stress test. Over the past 4 years, Grecia has had serially abnormal ECGs with lengthening QT intervals and an epinephrine challenge showing abnormal paradoxical QT prolongation. She was implanted with an ILR on 06/22/2015 and started on nadolol. She has otherwise remained asymptomatic from a cardiac perspective without palpitations, chest pain, or presyncopal/syncopal episodes and has not had detected tachyarrhythmias from her ILR. Her device is approaching CORNELIA and she presents to the EP lab for ILR removal and re-implantation. . ROS: General: negative with no weight loss or weight gain Cardiac: negative with no murmur, no palpitations, no chest pain, no pre- syncope, no syncope Pulmonary: positive for congestion (seasonal allergies per family) negative with no history of asthma, no [...] Musculoskeletal: negative, no joint deformities or edema. Allergies: No Known Allergies Current Medications: Current Facility-Administered Medications Medication Dose Route Frequency Provider Last Rate Last Dose ??? sodium chloride 0.9% flush 3 mL 3 mL intravenous PRN Berna Villalobos NP Past medical History: Past Medical History: Diagnosis Date ??? Abnormal electrocardiogram Abnormal ECG - (Added by TW Conv) ??? 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 Long Q-T syndrome ??? Palpitations Palpitations - (Added by TW Conv) Surgical History: History reviewed. No pertinent surgical history. Family History: Family history of premature ventricular contractions: Mother (V17.49) (Z82.49) Family history of sudden cardiac (SCD): Brother (V17.41) (Z82.41) Other than her brother, Juan, there is no family history of sudden . They deny family historyof congenital deafness, drowning or near drowning, single car accidents or seizure disorder. Grecia's maternal grandfather had atrial fibrillation that was diagnosed when he was in his 70s. ??He last week of advanced prostrate cancer. A maternal grandmother has a h/o hypercholesterolemia and coronary artery disease after age 60. Paternal grandfather had some type of congenital heartdisease; dad said an artery leaving his heart was too small and was surgically repaired. PGF had anMI at age 42 and had hypercholesterolemia; he had a pacemaker implanted at age 64. Grecia's ??mother, Kacy, has a history of PVCs. She is unsure of the burden percentage; she feels them frequently on some days but not at all other times. She has never had dizzy spells, syncope, or prolonged tachycardia. Physical Exam: BP 98/67 Pulse 85 Temp 36.6 ??C (97.9 ??F) Resp 20 Ht 165 cm (5' 4.96 ) Wt 52.8 kg (116 lb 6.5 oz) SpO2 96% BMI 19.39 kg/m?? General: non-dysmorphic, no distress. Pleasant and coooperative. HEENT: normocephalic, atraumatic, normal external nose, normally [...] & Labs: Available EKG and echocardiogram reviewed. ECG (08/14/2018): Normal sinus rhythm, QTc 449 msec Echo (06/10/2015): normal segmental anatomy, normal cardiac structure with normal function, no atriallevel shunts Urine hcg: (-) negative Assessment/Plan: Yogi Paige is a 13 y.o. female with phenotype positive, genotype unknown LQTS who is presenting today for ILR explantation and new ILR implantation. Plan: Medtronic LINQ ILR removal and re-implantation Access: [facility] Meds: Ancef Anesthesia: per cardiac anesthesia Fire Risk Assessment Score: 1 Post: CCLR, then home Nate Stephens MD Fellow, Division of Pediatric Cardiology [facility] Pager #: [phone] Cosigned by Sharif Rashid DO at 01/31/2019 10:45 AM CDT Associated attestation - Sharif Rashid DO - 01/31/2019 10:45 AM CDT I have seen and examined the patient on 01/31/19. I agree with the findings and plan of care as documented in the resident's/fellow's note. documented in this encounter Plan of Treatment Not on file documented as of this encounter Procedures Procedure Name Priority Date/Time Associated Diagnosis Comments ECG 12-LEAD Routine 01/31/2019 2:06 PM CDT LOOP RECORDER REMOVAL Routine 01/31/2019 12:05 PM CDT 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 HCG, URINE, QUALITATIVE STAT 01/31/2019 9:36 AM CDT documented in this encounter Results * ECG 12 lead (01/31/2019 2:06 PM CDT) Ventricular Rate EKG/Min Ventricular Rate:59 BPM [facility] Atrial Rate Atrial Rate:59 BPM [facility] VT-Interval (MSEC) P-R Interval:140 ms [facility] QRS-Interval (MSEC) QRS Duration:80 ms [facility] QT-Interval (MSEC) Q-T Interval:440 ms [facility] QTc QTC Calculation(Ba zett):420 ms [facility] P Meridian P Meridian:62 degrees [facility] R Meridian R Meridian:53 degrees [facility] T Meridian T Meridian:45 degrees [facility] Diagnosis Diagnosis:Sinu s bradycardia with sinus arrhythmia Low voltage QRS When compared with ECG of 14-AUG-2018 10:22, Confirmed by SHARIF RASHID ([id number]) on 01/31/2019 2:21:16 PM [facility] 01/31/2019 2:06 PM CDT 01/31/2019 2:21 PM CDT us Notinfile Unknown ECG ORDERABLES Final Result [facility] * LOOP RECORDER REMOVAL (01/31/2019 12:05 PM CDT) Anatomical Region Laterality Modality X-Ray Angiograph y Narrative 02/04/2019 1:10 PM CDT Location of Procedure: [facility] Date of procedure: ??01/31/19 Proceduralist: Sharif Rashid, DO Rifle Case Repairer: ??Peter Shoemaker RN; ??Nate Stephens MD HISTORY OF PRESENT ILLNESS: ?? Grecia Villa is a 13 y.o. female with a history of phenotype positive, genotype unknown Long QT Syndrome with family history notable for sudden arrhythmic of her brother. She was originally evaluated at [facility] in 2014, which included a normal echocardiogram, a normal 24-hour Holter monitor, and a normal response to exercise during an exercise stress test. Over the past 4 years, Grecia has had serially abnormal ECGs with lengthening QT intervals and an epinephrine challenge showing abnormal paradoxical QT prolongation. She was implanted with an ILR on 06/22/2015 and started on nadolol. She has otherwise remained asymptomatic from a cardiac perspective without palpitations, chest pain, or presyncopal/syncopal episodes and has not had detected tachyarrhythmias from her ILR. ?? Her device is approaching CORNELIA and she presents to the EP lab for ILR removal and re-implantation Grecia is presenting today for an implantable loop recorder PREPROCEDURE DIAGNOSES Patient Active Problem List Diagnosis ? ? 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 ? ? Palpitations ? ? Abnormal electrocardiography ? ? Long QT syndrome ? ? Long Q-T syndrome POSTPROCEDURE DIAGNOSES Patient Active Problem List Diagnosis ? ? 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 ? ? Palpitations ? ? Abnormal electrocardiography ? ? Long QT syndrome ? ? Long Q-T syndrome s/p ILR explant and implant ESTIMATED BLOOD LOSS Less than 2 mL. PROCEDURE DETAILS The patient was transported to the electrophysiology lab in a fasting state. General anesthesia was induced. A team timeout was performed. ?? Grecia received a single dose of intravenous Ancef prior to the 1st incision. Using a 15 blade, 1.5cm incision was made in the left upper chest, near the site of the previous incision site. ?? Bleeding was controlled via Bovie. ??Using the Bovie for dissection within the subcuntaneous tissue, the old device was identified and freed from the capsule. ??The old device was a LNQ11 Reveal LINQ, [id number], [facility] Using the custom insertion tool, the ILR device was inserted into the previous site. ?? 10mL of local ropivicaine was infused. ?? The subcutaneous tissue was approximated using 3-0 Vicryl suture. ??The skin was then further approximated with Steri-strips. ??The implanted device was a Medtronic LINQ, model # LNQ11, serial # [id number]. ?? The settings on the device were tachy detection at 200 beats/minute for 16 beats, bertram at 30 beats/minute for 3 beats and pause for greater than 3 seconds and symptoms were set at four 7.5min episodes. Sensitivity was set at 0.03 millivolts. ?? R waves were 0.21mV Grecia tolerated the procedure well and will be discharged later today. ?? She will follow up with her primary yard demurrage clerk, Dr. Casanova, for wound check in 1-2 weeks. ?? Prior to discharge, the family was instructed on how to use the implantable loop recorder and all tracings will be sent to and followed by [facility]. 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 Long Q-T syndrome Long QT syndrome 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 Genetic susceptibility to other disease Long Q-T syndrome Long QT syndrome documented in this encounter Admitting Diagnoses Diagnosis 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 Genetic susceptibility to other disease Long Q-T syndrome Long QT syndrome documented in this encounter Administered Medications Inactive Administered Medications - up to 3 most recent administrations Medication Order MAR Action Action Date Dose Rate Site acetaminophen (TYLENOL) tablet 650 mg 650 mg, oral, Once as needed, other, Please administer before ibuprofen, if co-ordered AND if last dose given 4 hours or greater, Starting on Sun01/31/19 at 1212, For 1 dose, Phase I, Maximum dose = 650 mg, Indications: PainIndications:Pain Given 01/31/2019 2:29 PM CDT 650 mg ropivacaine (NAROPIN) 2 mg/mL (0.2 %) preservative free injection As needed, Starting on Sun01/31/19 at 1149, Intra-Procedure (CV) Given 01/31/2019 11:47 AM CDT 10 mL Left Chest sodium chloride 0.9% flush 3 mL 3 mL, intravenous, As needed, line care, Starting on Sun01/31/19 at 0933, Pre-Procedure (CV) sodium chloride 0.9% infusion 92 mL/hr, intravenous, Continuous, Starting on Sun01/31/19 at 1300, Phase I Restarted 01/31/2019 12:12 PM CDT 92 mL/hr 92 mL/hr documented in this encounter Active and Recently Administered Medications Times are shown in CDT. Continuous Medication Order 01/29/2019 01/30/2019 01/31/2019 sodium chloride 0.9% infusion 92 mL/hr, intravenous, Continuous, Starting on Sun01/31/19 at 1300, Phase I 1212 (Restarted - Pr ovider: Myrna Kan RN) PRN Medication Order 01/29/2019 01/30/2019 01/31/2019 acetaminophen (TYLENOL) tablet 650 mg (COMPLETED) 650 mg, oral, Once as needed, other, Please administer before ibuprofen, if co-ordered AND if last dose given 4 hours or greater, Starting on Sun01/31/19 at 1212, For 1 dose, Phase I, Maximum dose = 650 mg, Indications: Pain 1429 (Given - Provid er: Myrna Kan RN) HYDROmorphone (DILAUDID) injection 0.265 mg 0.265 mg (rounded from 0.264 mg = 0.005 mg/kg ? 52.8 kg), intravenous, Administer over 5 Minutes, Every 5 min PRN, other, may administer up to 3 doses for acute pain management, Starting on Sun01/31/19 at 1212, Phase I, Maximum total dose = 1 mg oxyCODONE (ROXICODONE) tablet 5 mg 5 mg (rounded from 5.28 mg = 0.1 mg/kg ? 52.8 kg), oral, Once as needed, other, for non-acute pain only after treatment of pain with non-opioid pain medication, if co-ordered, Starting on Sun01/31/19 at 1212, For 1 dose, Phase I, Maximum dose = 10 mg; may repeat in 2-4 hours as needed for continued ongoing pain., Indications: Pain ropivacaine (NAROPIN) 2 mg/mL (0.2 %) preservative free injection (CANCELED) As needed, Starting on Sun01/31/19 at 1149, Intra-Procedure (CV) 1147 (Given - Provid er: Sharif Rashid DO) sodium chloride 0.9% flush 3 mL(Linked Group 1) 3 mL, intravenous, As needed, line care, Starting on Sun01/31/19 at 0933, Pre-Procedure (CV) Linked Groups Order Group 1: Insert peripheral IV (CANCELED) STAT, Once (Routine), On Sun01/31/19 at 0934, For 1 occurrence, Pre-Procedure (CV) And Maintain IV access (CANCELED) Routine, Once (Routine), On Sun01/31/19 at 0934, For 1 occurrence, Pre-Procedure (CV) And Saline lock IV (CANCELED) Routine, Once (Routine), On Sun01/31/19 at 0934, For 1 occurrence, Pre-Procedure (CV) And sodium chloride 0.9% flush 3 mLJump to med 3 mL, intravenous, As needed, line care, Starting on Sun01/31/19 at 0933, Pre-Procedure (CV) documented in this encounter Orders Medications Ordered That Rigoberto ht Not Have Been Administered Count Last Ordered Date First Ordered Date HYDROmorphone (DILAUDID) inj ection 0.265 mg 1 01/31/2019 oxyCODONE (ROXICODONE) tablet 5 mg 1 2018 sodium chloride 0.9% flush 3 mL 1 9 EKG Orders Without Results Count Last Ordered D ate First Ordered Date ECG 12-LEAD 1 01/31/2019 documented in this encounter Care Teams Service Delivery Supervisor Relationship Specialty Start Date End Date Anthony Bruno MD PCP - General 05/16/17 documented as of this encounter
--- OUTSIDE RECORDS SUMMARY | 2024-06-11 08:26 | XMS_ITS | Encounter Summary ---
Author Organization [facility] Address [address] [place] [address] Phone Care Team Providers Care Compo Caster Name Role Phone Anthony Bruno MD Primary Care Provider [phone] Reason for Visit * Cardiology (Routine) - Canceled Specialty Diagnoses / Procedures Referred By Cristopher sims Referred To Contact Diagnoses Long Q-T syndrome Procedures Pediatric Device Check - Remote Alyson Conner PA 1 [facility] [address] [place] [address] Phone: tel: fax: [facility] (All Locations) Referral ID Status Reason Start Date Expiration Date V isits Requested Visits Authorized [id number] Canceled 09/22/2019 04/02/2021 12 12 Encounter Details Date Type Department Care Team (Latest Contact Info) Description 09/22/2019 9:15 AM CDT Ancillary Procedure [facility] Pediatric Cardiology [address] [place] [address] Long Q-T syndrome Social History Tobacco Use Types Packs/Day Years Used Date Smoking Tobacco: Never Comments Unknown Sex and Gender Information Value Date Recorded Sex Assigned at Not on file Legal Sex Female 11:23 AM EXPENSE CLERK Gender Identity Not on file Sexual Orientation Not on file documented as of this encounter Plan of Treatment Not on file documented as of this encounter Procedures Procedure Name Priority Date/Time Associated Diagnosis Comments PED DEVICE CHECK - REMOTE Routine 09/22/2019 9:01 AM CDT Long Q-T syndrome documented in this encounter Results * Pediatric Device Check - Remote (09/22/2019 9:01 AM CDT) Anatomical Region Laterality Modality Other Narrative 09/22/2019 11:05 AM CDT REMOTE ILR SUMMARY REPORT MODEL: Medtronic, LINQ SERIAL:[id number] /IMPLANTED ON: 01/31/[address] Ethel Casanova HISTORY: Long QT IMPLANT SITE EXAM: (L): pre pectoral, left breast BATTERY STATUS: ??OK PROGRAMMED SETTINGS Auto records for 75 sec for the following: -heart rates >200 bpm for 16 consecutive beats -heart rates < 30 bpm for 4 consecutive beats -pauses of 3 sec or more DATE OF TRANSMISSION: 09/21/2019 EPISODES Symptoms - 0 Tachy - 0 Fran - 0 Pause - 0 AT/AF - 0 PARENT INFORMATION: No Concerns at this time. ??Please continue to send Monthly transmissions Interrogated by: CHAD Tang Reviewed with: Dr. Keara Rashid us Alyson BONILLA [facility] PROCEDU RES Final Result documented in this encounter Visit Diagnoses Diagnosis Long Q-T syndrome Long QT syndrome documented in this encounter Care Teams Compo Caster Relationship Specialty Start Date End Date Anthony Bruno MD PCP - General 05/16/17 documented as of this encounter
--- OUTSIDE RECORDS SUMMARY | 2024-06-11 08:26 | XMS_ITS | Encounter Summary ---
Author Organization [facility] Address [address] [place] [address] Phone Care Team Providers Care Websphere Process Server Developer Name Role Phone Anthony Bruno MD Primary Care Provider [phone] Reason for Referral * (Routine) - Closed Specialty Diagnoses / Procedures Referred By Contgeorgina t Referred To Contact Diagnoses Long Q-T syndrome Procedures Pediatric Device Check - Remote Alyson Conner PA [facility] [address] [place] [address] Phone: tel: fax: [facility] (All Locations) Referral ID Status Reason Start Date Expiration Date Visits Re quested Visits Authorized [id number] Closed 10/23/2019 05/03/2021 1 1 Encounter Details Date Type Department Care Team (Late st Contact Info) Description 10/23/2019 Orders Only [facility] Pediatric Cardiology One [facility] 2nd [place] [address] [place] [id number] Alyson Conner PA [address] [facility] [address] [place] [address] Long Q-T syndrome (Primary Dx) Social History Tobacco Use Types Packs/Day Years Used Date Smoking Tobacco: Never Comments Unknown Sex and Gender Information Value Date Recorded Sex Assigned at Not on file Legal Sex Female 11:23 AM GAMEPLAY PROGRAMMER Gender Identity Not on file Sexual Orientation Not on file documented as of this encounter Plan of Treatment Not on file documented as of this encounter Results * Pediatric Device Check - Remote (10/23/2019 8:01 AM CDT) Anatomical Region Laterality Modality Other Narrative 10/23/2019 4:10 PM CDT REMOTE ILR SUMMARY REPORT MODEL: Medtronic, LINQ SERIAL:[id number] /IMPLANTED ON: 01/31/[address] Ethel Casanova HISTORY: Long QT IMPLANT SITE EXAM: (L): pre pectoral, left breast BATTERY STATUS: ??OK ?? PROGRAMMED SETTINGS Auto records for 75 sec for the following: -heart rates >200 bpm for 16 consecutive beats -heart rates < 30 bpm for 4 consecutive beats -pauses of 3 sec or more DATE OF TRANSMISSION: 10/22/2019 EPISODES Symptoms - 0 Tachy - 0 Fran - 0 Pause - 0 AT/AF - 0 PARENT INFORMATION: no concerns at this time. ??Please continue to send monthly transmissions Interrogated by: CHAD Tang Reviewed with: Dr. Keara Rashid us Alyson BONILLA CV CARDIAC SERVICES PROCEDU RES Final Result documented in this encounter Visit Diagnoses Diagnosis Long Q-T syndrome- Primary Long QT syndrome Long Q-T syndrome Long QT syndrome documented in this encounter Care Teams Websphere Process Server Developer Relationship Specialty Start Date End Date Anthony Bruno MD PCP - General 05/16/17 documented as of this encounter
--- OUTSIDE RECORDS SUMMARY | 2024-06-11 08:26 | XMS_ITS | Encounter Summary ---
Author Organization [facility] Address [address] [place] [address] Phone Care Team Providers Care Sales Audit Clerk Name Role Phone Anthony Bruno MD Primary Care Provider [phone] Encounter Details Date Type Department Care Team (Late st Contact Info) Description 01/21/2019 Telephone [facility] Pediatric Cardiology One [facility] 2nd [place] [address] [place] [address] Ethel Casanova MD [address] [place] [address] [address] [place] [address] Social History Tobacco Use Types Packs/Day Years Used Date Smoking Tobacco: Never Comments Unknown Sex and Gender Information Value Date Recorded Sex Assigned at Not on file Legal Sex Female 11:23 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 What a shame for aron Paige. * Telephone Encounter - Kiley Menon - 01/21/2019 11:19 AM CDT School nurse aware that I will put an extra copy of the letter in the envelope that I give to dad this afternoon for Grecia to bring to school with her tomorrow. School nurse will have mom sign the release at the meeting scheduled next week. School nurse aware if there are any questions regarding activity restrictions on Grecia to pleasecall our office and we will be happy to speak with her once we get the release next week. * Telephone Encounter - Kiley Menon - 01/21/2019 10:27 AM CDT Mom states that she has spent all summer working on making sure that the high school is aware of Grecia's heart condition and the family history of her brother passing away. She has given them the physical activity note from Dr. Casanova at the last clinic visit and lots of information on Long QT. Mom states that yesterday the morphology teacher told Grecia that she had to do the state pacer test and run a mile as fast as she could. Grecia told the morphology teacher that she is not allowed to do that dueto her underlying heart condition. Grecia was then sent up to the school nurse. The school nurse then walked back down to the gym with Grecia and all the paperwork that had beensent to the principal, morphology teacher, and school nurse and reminded the morphology teacher of Grecia's underlying heart condition. Mom states that the morphology teacher then told Grecia if you had a real heart condition, it would be different Mom is very upset and now there is a meeting with the high school and the school district next Sunday and mom wants us to be aware they may be calling to speak with Dr. Casanova. Mom aware Dr. Casanova will be happy to speak with anyone at the school regarding Long QT. Mom states she has signed a release for us to speak with them (I asked mom to have the school fax us that release as we did not have it in her chart.) Mom aware I will write up a letter regarding LQT and her activity restrictions for dad to pickle maker this afternoon. * Telephone Encounter - Klarissa Givens - 01/21/2019 10:19 AM CDT Nurse is calling because the patient needs a more detailed note for what Grecia can and can't do in gym. They do a lot of things and gym is an actual credit and so more details are needed. If we want to just fax more details the number is * Telephone Encounter - Leonie Bryant B.A. - 01/21/2019 10:02 AM CDT Patient's mom called and said that they were having some issues w/high school P.E. And the school will be contacting Dr. Casanova to see what restrictions the patient actually has, but mom wanted to share some information before they called. documented in this encounter Plan of Treatment Not on file documented as of this encounter Visit Diagnoses Not on filedocumented in this encounter Care Teams Sales Audit Clerk Relationship Specialty Start Date End Date Anthony Bruno MD PCP - General 05/16/17 documented as of this encounter
--- OUTSIDE RECORDS SUMMARY | 2024-06-11 08:26 | XMS_ITS | Encounter Summary ---
Author Organization [facility] Address [address] [place] [address] Phone Care Team Providers Care Screw Eye Assembler Name Role Phone Anthony Bruno MD Primary Care Provider [phone] Encounter Details Date Type Department Care Team (Late st Contact Info) Description 10/15/2018 Telephone [facility] Pediatric Cardiology One [facility] 2nd [place] [address] [place] [address] Khadijah Higgins CPhT Social History Tobacco Use Types Packs/Day Years Used Date Smoking Tobacco: Never Comments Unknown Sex and Gender Information Value Date Recorded Sex Assigned at Not on file Legal Sex Female 11:23 AM 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 Eloina states they have that note and is aware that we haven not seen her since that time. * Telephone Encounter - Khadijah Higgins CPhT - 10/15/2018 3:01 PM CDT [facility] called requesting patient most recent office visit notes to be fax to [phone] documented in this encounter Plan of Treatment Not on file documented as of this encounter Visit Diagnoses Not on filedocumented in this encounter Care Teams Screw Eye Assembler Relationship Specialty Start Date End Date Anthony Bruno MD PCP - General 05/16/17 documented as of this encounter
--- OUTSIDE RECORDS SUMMARY | 2024-06-11 08:26 | XMS_ITS | Encounter Summary ---
Author Organization [facility] Address [address] [place] [address] Phone Care Team Providers Care Tafe Registrar Name Role Phone Anthony Bruno MD Primary Care Provider [phone] Reason for Referral * (Routine) - Closed Specialty Diagnoses / Procedures Referred By Contac t Referred To Contact Diagnoses Long Q-T syndrome Procedures ECG 12 lead Ethel Casanova MD Phone: tel: fax: [facility] (All Locations) Referral ID Status Reason Start Date Expiration Date Visits Re quested Visits Authorized [id number] Closed 02/14/2019 08/25/2020 1 1 Reason for Visit * Cardiology (Routine) - Closed Specialty Diagnoses / Procedures Referred By Contac t Referred To Contact Cardiology / Pediatric Cardiology Diagnoses F/U Long QT Procedures RETURN Anthony Bruno MD Phone: tel: fax: Ethel Casanova MD [address] [place] [address] [address] [place] [address] Phone: tel: fax: Referral ID Status Reason Start Date Expiration Date Visits Re quested Visits Authorized [id number] Closed 02/20/2019 08/31/2020 1 1 Encounter Details Date Type Department Care Team (Late st Contact Info) Description 02/20/2019 1:00 PM CDT Office Visit [facility] Pediatric Cardiology One 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 Gender Identity Not on file Sexual Orientation Not on file documented as of this encounter Last Filed Vital Signs Vital Sign Reading Time Taken Comments Blood Pressure 89/68 02/20/2019 1:11 PM CDT Pulse 78 02/20/2019 1:11 PM CDT Temperature 36.8 ??C (98.3 ??F) 02/20/2019 1:11 PM CD T Respiratory Rate 20 02/20/2019 1:11 PM CDT Oxygen Saturation 99% 02/20/2019 1:11 PM CDT Inhaled Oxygen Concentration - - Weight 52.8 kg (116 lb 8 oz) 02/20/2019 1:11 PM CDT Height 165 cm (5' 4.96 ) 02/20/2019 1:11 PM CDT Body Mass Index 19.41 02/20/2019 1:11 PM CDT Body Mass Index Percentile 46.24% 02/20/2019 1:1 1 PM CDT Growth Chart: [facility] (Girls, 2- 20 Years) documented in this encounter Patient Instructions * Patient Instructions* Ethel Casanova MD - 02/20/2019 1:00 PM CDT Plan: Grecia is a now 13 yr old who I am deeply suspicious of LQTS, s/p ILR generator change ~2 weeks ago. She has a family history of sudden arrhythmic of her brother and abnormal ECGs c/w that diagnosis. She is maintained on beta-blockers. My plan for Grecia is: 1) Continue [...] not hesitate to call our office at [phone]. ?? Cardiovascular instructions and follow-up: SBE Prophylaxis [...] total) by mouth daily 90 tablet 2 02/20/2019 09/29/2019 documented in this encounter Progress Notes * Ethel Casanova MD - 02/20/2019 1:00 PM CDT HPI: I had the pleasure of seeing Grecia Villa who is a 13 y.o. female here for a return visitfor what I suspect to be LQTS. Grecia was seen today, 02/20/[facility] at [facility]. She is here today with her parents. Please allow me to review for my records. Grecia's family recently relocated to the [facility] from [place]. Sadly, her brother suddenly in July 2014 [...] had an extensive cardiac evaluation at [facility] in [facility] last September. Anechocardiogram showed a structurally [...] was recommended in 6 months. Here in [facility], she has had serially abnormal ECGs demosntrating [...] seizure for Grecia. She is taking her nadolol well without concerns. Noside effects of medication. She has felt well since her ILR generator change out ~2 weeks ago. Mom is making sure she is taking the medication qHS. The parents are quite pleased with Grecia's progre ss. There are no new cardiac concerns to speak of. She is currently in 9th grade. ROS: General: negative with no weight loss [...] negative, no joint deformities or edema. History: No Known Allergies Current Outpatient Medications Medication Sig Dispense Refill ??? nadolol (CORGARD) 40 mg tablet Take 1 tablet (40 mg total) by mouth daily 90 tablet 2 No current facility-administered medications for this visit. [...] Age of Onset ??? Sudden Cardiac Brother Family history of sudden cardiac (SCD) - (Added by TW Conv) Family history of premature ventricular contractions: Mother [...] and was surgically repaired. PGF had an ID at age 42 and had hypercholesterolemia; he [...] resource strain: Not on file ??? Food insecurity: Worry: Not on file Inability: Not on file ??? Transportation needs: Medical: Not on file Non-medical: Not on file Tobacco Use ??? Smoking status: Never Smoker Substance and Sexual Activity ??? Alcohol use: Not on file ??? Drug use: Not on file ??? Sexual activity: Not on file Lifestyle ??? Physical activity: Days per week: Not on file Minutes per session: Not on file ??? Stress: Not on file Relationships ??? Social connections: Talks on phone: Not on file Gets together: Not on file Attends church service: Not on file Active member of club or organization: Not on file Attends meetings of clubs or organizations: Not on file Relationship status: Not on file ??? Intimate partner violence: Fear of current or ex partner: Not on file Emotionally abused: Not on file Physically abused: Not on file Forced sexual activity: Not on file Other Topics Concern ??? Not on file Social History Narrative Lives with parents : (Added by TW Conv) Brother : (Added by TW Conv) Physical Exam: BP (!) 89/68 (BP Location: Right arm, Patient Position: Sitting) Pulse 78 Temp 36.8 ??C (98.3 ??F) (Oral) Resp 20 Ht 165 cm (5' 4.96 ) Wt 52.8 kg (116 lb 8 oz) SpO2 99% BMI 19.41 kg/m?? Weight: 52.8 kg (116 lb 8 oz) Height: 165 cm (5' [...] movements Tests & Labs: I personally reviewed today's electrocardiogram. It showed NSR at 83 bpm, a borderline prolonged QTat 448msec (down from a previous ECG QTc of 457 msec). ILR interrogation showed no documented arrhythmia, no symptom events, no automatic downloads. She does have intermittent noise on her device. Assessment: Patient Active Problem List Diagnosis Date Noted ??? Long Q-T syndrome 12/20/2018 Priority: High Overview Note: Added automatically from request for surgery [id number] ??? Long QT syndrome 07/14/2015 Class: Chronic ??? 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 Abnormal electrocardiography 06/10/2015 Class: Chronic ??? Palpitations 06/08/2015 Class: Chronic Plan: Grecia is a now 13 yr old who I am deeply suspicious of LQTS, s/p ILR generator change ~2 weeks ago. She has a family history of sudden arrhythmic of her brother and abnormal ECGs c/w that diagnosis. She is maintained on beta-blockers. My plan for Grecia is: 1) Continue [...] not hesitate to call our office at [phone]. ?? Cardiovascular instructions and follow-up: SBE Prophylaxis [...] this encounter Results * ECG 12 lead (02/20/2019 1:38 PM CDT) Ventricular Rate EKG/Min Ventricular Rate:74 BPM [facility] Atrial Rate Atrial Rate:74 BPM [facility] [place]-Interval (MSEC) P-R Interval:144 ms [facility] QRS-Interval (MSEC) QRS Duration:76 ms [facility] QT-Interval (MSEC) Q-T Interval:404 ms [facility] QTc QTC Calculation(Ba zett):448 ms [facility] P [place] P [place]:63 degrees [facility] R [place] R [place]:55 degrees [facility] T [place] T [place]:48 degrees [facility] Diagnosis Diagnosis:Norm al sinus rhythm When compared with ECG of 31-JAN-2019 14:06, No significant change was found Confirmed by MD CASANOVA JENNIFER ([id number]) on 02/20/2019 1:35:09 PM [facility] 02/20/2019 1:10 PM CDT 02/20/2019 1:35 PM CDT us Ethel Casanova MD ECG ORDERABLES Final Resul t [facility] documented in this encounter Visit Diagnoses Diagnosis Long Q-T syndrome- Primary Long QT syndrome documented in this encounter Discontinued Medications Medication Sig Discontinue Reason Start Date End Da te nadolol (CORGARD) 40 mg tabletIndications:Long Q-T syndrome Take 1 tablet (40 mg total) by mouth daily Reorder 10/08/2018 02/20/2019 documented as of this encounter Care Teams Tafe Registrar Relationship Specialty Start Date End Date Anthony Bruno MD PCP - General 05/16/17 documented as of this encounter
--- OUTSIDE RECORDS SUMMARY | 2024-06-11 08:26 | XMS_ITS | Encounter Summary ---
Author Organization [facility] Address [address] [place] [address] Phone Care Team Providers Care Test Data Developer Name Role Phone Anthony Bruno MD Primary Care Provider [phone] Encounter Details Date Type Department Care Team (Late st Contact Info) Description 12/18/2018 Orders Only [facility] Pediatric Cardiology One [facility] 2nd [place] [address] [place] [address] Ethel Casanova MD [address] [place] [address] [address] [place] [address] 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 (Primary Dx); Long Q-T syndrome Social History Tobacco Use Types Packs/Day Years Used Date Smoking Tobacco: Never Comments Unknown Sex and Gender Information Value Date Recorded Sex Assigned at Not on file Legal Sex Female 11:23 AM BILINGUAL MEDICAL 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 Gender Identity Not on file Sexual Orientation Not on file documented as of this encounter Plan of Treatment Not on file documented as of this encounter Visit Diagnoses Diagnosis 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- Primary Genetic susceptibility to other disease Long Q-T syndrome Long QT syndrome documented in this encounter Orders Case Request Count Last Ordered Date First Orde red Date CASE REQUEST CONTRACT LAW SPECIALIST 1 12/18/2018 documented in this encounter Care Teams Test Data Developer Relationship Specialty Start Date End Date Anthony Bruno MD PCP - General 05/16/17 documented as of this encounter
--- OUTSIDE RECORDS SUMMARY | 2024-06-11 08:26 | XMS_ITS | Encounter Summary ---
Author Organization [facility] Address [address] [place] [address] Phone Care Team Providers Care Gore Inserter Name Role Phone Anthony Bruno MD Primary Care Provider [phone] Reason for Referral * (Routine) - Closed Specialty Diagnoses / Procedures Referred By Contgeorgina t Referred To Contact Diagnoses Long Q-T syndrome Procedures Pediatric Device Check - Remote [facility]ner [facility] [address] [place] [address] Phone: tel: fax: [facility] (All Locations) Referral ID Status Reason Start Date Expiration Date Visits Re quested Visits Authorized [id number] Closed 12/24/2019 01/22/2021 1 1 Encounter Details Date Type Department Care Team (Late st Contact Info) Description 12/24/2019 Orders Only [facility] Pediatric Cardiology One [facility] 2nd [place] [address] [place] [address] Alyson Conner PA [address] [facility] [address] [place] [address] Long Q-T syndrome (Primary Dx) Social History Tobacco Use Types Packs/Day Years Used Date Smoking Tobacco: Never Comments Unknown Sex and Gender Information Value Date Recorded Sex Assigned at Not on file Legal Sex Female 11:23 AM COOK SPECIALTY FOREIGN 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 Ethel Casanova?? [...] REMOTE ILR SUMMARY REPORT MODEL: Medtronic, LINQ SERIAL:[id number] /IMPLANTED ON: 01/31/[address] Ehtel Casanova?? HISTORY: Long QT IMPLANT SITE EXAM: [...] syndrome documented in this encounter Care Teams Gore Inserter Relationship Specialty Start Date End Date Anthony Bruno MD PCP - General 05/16/17 documented as of this encounter
--- OUTSIDE RECORDS SUMMARY | 2024-06-11 08:26 | XMS_ITS | Encounter Summary ---
Author Organization [facility] Address [address] [place] [address] Phone Care Team Providers Care Farmworker Egg Producing Farm Name Role Phone Anthony Bruno MD Primary Care Provider [phone] Reason for Referral * Cardiology (Routine) - Closed Specialty Diagnoses / Procedures Referred By Contac t Referred To Contact Diagnoses 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 Abnormal electrocardiography Procedures Pediatric Device Check - Remote Berna Villalobos NP Phone: tel: fax: [facility] (All Locations) Referral ID Status Reason Start Date Expiration Date Visits Re quested Visits Authorized [id number] Closed 10/10/2018 04/20/2020 1 1 Encounter Details Date Type Department Care Team (Late st Contact Info) Description 10/10/2018 Telephone [facility] Pediatric Cardiology One [facility] 2nd [place] [address] [place] [address] Berna Villalobos NP [address] [place] [address] [address] [place] [address] Social History Tobacco Use Types Packs/Day Years Used Date Smoking Tobacco: Never Comments Unknown Sex and Gender Information Value Date Recorded Sex Assigned at Not on file Legal Sex Female 11:23 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 Called home #and LM for the [facility] documented in this encounter Plan of Treatment Not on file documented as of this encounter Results * Pediatric Device Check - Remote (10/10/2018 4:14 PM CDT) Anatomical Region Laterality Modality Other Narrative 10/10/2018 4:18 PM CDT See documents scanned into Media. us Berna Villalobos NP CV CARDIAC SERVICES PROCEDURE S Final Result documented in this encounter Visit Diagnoses Diagnosis 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- Primary Genetic susceptibility to other disease Abnormal electrocardiography 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 Genetic susceptibility to other disease Abnormal electrocardiography documented in this encounter Care Teams Farmworker Egg Producing Farm Relationship Specialty Start Date End Date Anthony Bruno MD PCP - General 05/16/17 documented as of this encounter
--- OUTSIDE RECORDS SUMMARY | 2024-06-11 08:26 | XMS_ITS | Encounter Summary ---
Author Organization [facility] Address [address] [place] [address] Phone Care Team Providers Care Brake Operator Heavy Duty Name Role Phone Anthony Bruno MD Primary Care Provider [phone] Encounter Details Date Type Department Care Team (Late st Contact Info) Description 10/28/[address] [facility] Pediatric Cardiology One [facility] 2nd [place] [address] [place] [address] Ethel Casanova MD [address] [place] [address] [address] [place] [address] Social History Tobacco Use Types Packs/Day Years Used Date Smoking Tobacco: Never Comments Unknown Sex and Gender Information Value Date Recorded Sex Assigned at Not on file Legal Sex Female 11:23 AM BOTTOM POLISHER Gender Identity Not on file Sexual Orientation Not on file documented as of this encounter Ordered Prescriptions Prescription Sig Dispense Quantity Refills Last Filled Start Date End Date betaxoloL (KERLONE) 10 mg tabletIndications: hypertension Take 1/2 tablet = 5mg by mouth every evening. 15 tablet 3 10/28/2019 02/24/2020 documented in this encounter Miscellaneous Notes * Addendum Note - Ledy Camejo - 10/28/2019 11:04 AM CDTAddended by: LEDY CAMEJO on: 10/28/2019 11:04 AM Modules accepted: Orders * Telephone Encounter - Ledy Camejo - 10/28/2019 11:04 AM CDT Refills faxed as requested. * Telephone Encounter - Leonie Bryant B.A. - 10/28/2019 10:18 AM CDT Patient's mom said the patient needs a refill on the Betaxolol that will get them to the January appt. The pharmacy's name is [facility] in [place], [place]. [phone] documented in this encounter Plan of Treatment Not on file documented as of this encounter Visit Diagnoses Diagnosis Long Q-T syndrome Long QT syndrome documented in this encounter Discontinued Medications Medication Sig Discontinue Reason Start Date End Da te nadolol (CORGARD) 40 mg tabletIndications:Long Q-T syndrome Take 1 tablet (40 mg total) by mouth daily Alternate therapy 02/20/2019 09/29/2019 betaxoloL (KERLONE) 10 mg tabletIndications:hyper tension Stop Nadolol. Start Betaxolol 24 hours after last dose of Nadolol. Take 1/2 tablet = 5mg by mouth every evening. Reorder 09/30/2019 10/28/2019 documented as of this encounter Care Teams Brake Operator Heavy Duty Relationship Specialty Start Date End Date Anthony Bruno MD PCP - General 05/16/17 documented as of this encounter
--- OUTSIDE RECORDS SUMMARY | 2024-06-11 08:26 | XMS_ITS | Encounter Summary ---
Author Organization [facility] Address [address] [place] [address] Phone Care Team Providers Care Director Of Sustainable Design Name Role Phone Anthony Bruno MD Primary Care Provider [phone] Encounter Details Date Type Department Care Team (Late st Contact Info) Description 11/07/2018 Telephone [facility] Pediatric Cardiology [address] [facility] [address]nd [place] [address] [place] [address] Khadijah Higgins CPhT Social History Tobacco Use Types Packs/Day Years Used Date Smoking Tobacco: Never Comments Unknown Sex and Gender Information Value Date Recorded Sex Assigned at Not on file Legal Sex Female 11:23 AM LOCKSTITCH POCKET SETTER Gender Identity Not on file Sexual Orientation Not on file documented as of this encounter Miscellaneous Notes * Telephone Encounter - Kiley Menon - 11/07/2018 9:32 AM CDT Letter sent as requested * Telephone Encounter - Khadijah Higgins CPhT - 11/07/2018 8:57 AM CDT Mom called requesting a letter stating patient restrictions on what patient can or can't do during PE class for the school year [id number] please fax letter to [phone] att: school nurse school [employer]. documented in this encounter Plan of Treatment Not on file documented as of this encounter Visit Diagnoses Not on filedocumented in this encounter Care Teams Director Of Sustainable Design Relationship Specialty Start Date End Date Anthony Bruno MD PCP - General 05/16/17 documented as of this encounter
--- OUTSIDE RECORDS SUMMARY | 2024-06-11 08:26 | XMS_ITS | Encounter Summary ---
Author Organization [facility] Address [address] [place] [address] Phone Care Team Providers Care Finished Garment Inspector Name Role Phone Anthony Bruno MD Primary Care Provider [phone] Encounter Details Date Type Department Care Team (Late st Contact Info) Description 08/19/2018 Telephone [facility] Pediatric Cardiology One [facility] 2nd [place] [address] [place] [address] Khadijah Higgins CPhT Social History Tobacco Use Types Packs/Day Years Used Date Smoking Tobacco: Never Comments Unknown Sex and Gender Information Value Date Recorded Sex Assigned at Not on file 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 I thought this family was moving to [place]? * Telephone Encounter - Juani Jaquez NP - 08/19/2018 10:06 AM CDT Reviewed with mom that QTC from last week was 449. In May QTC was 457. Dr. Casanova's last note stated follow up in 6-12 months. We will confirm with Dr. Casanova plan for follow up. * Telephone Encounter - Khadijah Higgins CPhT - 08/19/2018 8:41 AM CDT Mom called wanting to know if provider read ECG results from patient appointment last week and if so she wants to know what are the provider thoughts on them. documented in this encounter Plan of Treatment Not on file documented as of this encounter Visit Diagnoses Not on filedocumented in this encounter Care Teams Finished Garment Inspector Relationship Specialty Start Date End Date Anthony Bruno MD PCP - General 05/16/17 documented as of this encounter
--- OUTSIDE RECORDS SUMMARY | 2024-06-11 08:26 | XMS_ITS | Encounter Summary ---
Author Organization [facility] Address [address] [place] [address] Phone Care Team Providers Care Manager Orange Name Role Phone Anthony Bruno MD Primary Care Provider [phone] Reason for Visit * (Routine) - Closed Specialty Diagnoses / Procedures Referred By Contgeorgina t Referred To Contact Diagnoses Long Q-T syndrome Procedures ECG 12 lead Keara Rashid DO Phone: tel: fax: [facility] [place] Referral ID Status Reason Start Date Expiration Date Visits Re quested Visits Authorized [id number] Closed 05/16/2018 11/25/2019 1 1 Encounter Details Date Type Department Care Team (Latest Contact Info) Description 08/14/2018 10:45 AM CDT Ancillary Procedure [facility] Pediatric Cardiology [facility] [address] [place] [address] [address] [place] [phone] Long Q-T syndrome Social History Tobacco Use Types Packs/Day Years Used Date Smoking Tobacco: Never Comments Unknown Sex and Gender Information Value Date Recorded Sex Assigned at Not on file 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 Gender Identity Not on file Sexual Orientation Not on file documented as of this encounter Plan of Treatment Not on file documented as of this encounter Procedures Procedure Name Priority Date/Time Associated Diagnosis Comments ECG 12-LEAD Routine 08/14/2018 11:54 AM CDT Long Q-T syndrome documented in this encounter Results * ECG 12 lead (08/14/2018 11:54 AM CDT) Ventricular Rate EKG/Min Ventricular Rate:78 BPM [facility] Atrial Rate Atrial Rate:78 BPM [facility] UT-Interval (MSEC) P-R Interval:144 ms [facility] QRS-Interval (MSEC) QRS Duration:82 ms [facility] QT-Interval (MSEC) Q-T Interval:394 ms [facility] QTc QTC Calculation(Be zet):449 ms [facility] P [employer] P [employer]:72 degrees [facility] R [employer] R [employer]:40 degrees [facility] T [employer] T [employer]:34 degrees [facility] Diagnosis Diagnosis: * Pediatric ECG Analysis * Normal sinus rhythm Low voltage QRS Borderline QT interval Borderline ECG PEDIATRIC ANALYSIS - MANUAL COMPARISON REQUIRED When compared with ECG of 15-MAY-2018 12:14, No significant change was found Confirmed by EDWARD REYES MD, GEORGE ([id number]) on 08/15/2018 7:25:24 AM [facility] 08/14/2018 10:2 2 AM CDT 08/15/2018 7:25 AM CDT us Keara Rashid DO ECG ORDERABLES Final Resu lt [facility] documented in this encounter Visit Diagnoses Diagnosis Long Q-T syndrome Long QT syndrome documented in this encounter Care Teams Manager Orange Relationship Specialty Start Date End Date Anthony Bruno MD PCP - General 05/16/17 documented as of this encounter
--- OUTSIDE RECORDS SUMMARY | 2024-06-11 08:26 | XMS_ITS | Encounter Summary ---
Author Organization [facility] Address [address] [place] [address] Phone Care Team Providers Care Poultry Husbandman Name Role Phone Anthony Bruno MD Primary Care Provider [phone] Reason for Referral * (Routine) - Closed Specialty Diagnoses / Procedures Referred By Contac t Referred To Contact Diagnoses Long Q-T syndrome Procedures ECG 12 lead Bebe Casanova MD Phone: tel: fax: [facility] (All Locations) Referral ID Status Reason Start Date Expiration Date Visits Re quested Visits Authorized [id number] Closed 02/14/2019 08/25/2020 1 1 Reason for Visit * (Routine) - Closed Specialty Diagnoses / Procedures Referred By Contac t Referred To Contact Diagnoses Long Q-T syndrome Procedures ECG 12 lead Bebe Casanova MD Phone: tel: fax: [facility] (All Locations) Referral ID Status Reason Start Date Expiration Date Visits Re quested Visits Authorized [id number] Closed 02/14/2019 08/25/2020 1 1 Encounter Details Date Type Department Care Team (Latest Contact Info) Description 02/20/2019 1:00 PM CDT - 02/20/2019 11:59 PM CDT Hospital Encounter [facility] Pediatric Cardiology One [facility] [address] [place] [address] Long Q-T syndrome Discharge Disposition: Discharge to home or self care Social History Tobacco Use Types Packs/Day Years Used Date Smoking Tobacco: Never Comments Unknown Sex and Gender Information Value Date Recorded Sex Assigned at Not on file 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 Gender Identity Not on file Sexual Orientation Not on file documented as of this encounter Medications at Time of Discharge nadolol (CORGARD) 40 mg tabletIndications :Long Q-T syndrome Take 1 tablet (40 mg total) by mouth daily 90 tablet 2 02/20/2019 09/29/2019 documented as of this encounter Discharge Disposition Disposition Code Departure Means Destination Discharge to home or self care documented in this encounter Plan of Treatment Not on file documented as of this encounter Procedures Procedure Name Priority Date/Time Associated Diagnosis Comments ECG 12-LEAD Routine 02/20/2019 1:38 PM CDT Long Q-T syndrome documented in this encounter Results * ECG 12 lead (02/20/2019 1:38 PM CDT) Ventricular Rate EKG/Min Ventricular Rate:[address] [facility] Atrial Rate Atrial Rate:74 BPM [facility] SD-Interval (MSEC) P-R Interval:144 ms [facility] QRS-Interval (MSEC) QRS Duration:76 ms [facility] QT-Interval (MSEC) Q-T Interval:404 ms [facility] QTc QTC Calculation(Ba zett):448 ms [facility] P Shohola P Shohola:63 degrees [facility] R [place] R [place]ohola:55 degrees [facility] T [place] T [place]ola:48 degrees [facility] Diagnosis Diagnosis:Norm al sinus rhythm When compared with ECG of 31-JAN-2019 14:06, No significant change was found Confirmed by MD ELLIOT, BEBE ([id number]) on 02/20/2019 1:35:09 PM [facility] 02/20/2019 1:10 PM CDT 02/20/2019 1:35 PM CDT us Bebe Casanova MD ECG ORDERABLES Final Resul t [facility] documented in this encounter Visit Diagnoses Diagnosis Long Q-T syndrome Long QT syndrome documented in this encounter Care Teams Poultry Husbandman Relationship Specialty Start Date End Date Anthony Bruno MD PCP - General 05/16/17 documented as of this encounter
--- OUTSIDE RECORDS SUMMARY | 2024-06-11 08:26 | XMS_ITS | Encounter Summary ---
Author Organization [facility] Address [address] [place] [address] Phone Care Team Providers Care Director Of Dietary Name Role Phone Anthony Bruno MD Primary Care Provider [phone] Reason for Visit * (Routine) - Closed Specialty Diagnoses / Procedures Referred By Cristopher sims Referred To Contact Diagnoses Long Q-T syndrome Procedures Pediatric Device Check - Remote Alyson Conner PA [address] [facility] [address] [place] [address] Phone: tel: fax: [facility] (All Locations) Referral ID Status Reason Start Date Expiration Date Visits Re quested Visits Authorized [id number] Closed 11/24/2019 06/04/2021 1 1 Encounter Details Date Type Department Care Team (Latest Contact Info) Description 11/24/2019 8:15 AM CDT Ancillary Procedure [facility] Pediatric Cardiology [address] [place] [address] Long Q-T syndrome Social History Tobacco Use Types Packs/Day Years Used Date Smoking Tobacco: Never Comments Unknown Sex and Gender Information Value Date Recorded Sex Assigned at Not on file 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 Ethel Casanova?? [...] REMOTE ILR SUMMARY REPORT MODEL: Medtronic, LINQ SERIAL:[id number] /IMPLANTED ON: 01/31/[address] Ethel Casanova?? [...] syndrome documented in this encounter Care Teams Director Of Dietary Relationship Specialty Start Date End Date Anthony Bruno MD PCP - General 05/16/17 documented as of this encounter
--- OUTSIDE RECORDS SUMMARY | 2024-06-11 08:26 | XMS_ITS | Encounter Summary ---
Author Organization [facility] Address [address] [place] [address] Phone Care Team Providers Care College Or University Faculty Member Name Role Phone Anthony Bruno MD Primary Care Provider [phone] Reason for Visit * (Routine) - Closed Specialty Diagnoses / Procedures Referred By Cristopher sims Referred To Contact Diagnoses Long QT syndrome Procedures Pediatric Device Check - Remote Berna Villalobos NP Phone: tel: fax: [facility] (All Locations) Referral ID Status Reason Start Date Expiration Date Visits Re quested Visits Authorized [id number] Closed 08/15/2018 02/24/2020 1 1 Encounter Details Date Type Department Care Team (Latest Contact Info) Description 08/15/2018 3:30 PM CDT Ancillary Procedure [facility] Pediatric Cardiology [address] [place] [address] Long QT syndrome Social History Tobacco Use Types Packs/Day Years Used Date Smoking Tobacco: Never Comments Unknown Sex and Gender Information Value Date Recorded Sex Assigned at Not on file 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 us Berna Villalobos FIRE SUPPORT MAN [facility] PROCEDURE S Final Result documented in this encounter Visit Diagnoses Diagnosis Long QT syndrome documented in this encounter Care Teams College Or University Faculty Member Relationship Specialty Start Date End Date Anthony Bruno MD PCP - General 05/16/17 documented as of this encounter
--- OUTSIDE RECORDS SUMMARY | 2024-06-11 08:26 | XMS_ITS | Encounter Summary ---
Author Organization [facility] Address [address] [place] [address] Phone Care Team Providers Care Ship Unloader Name Role Phone Anthony Bruno MD Primary Care Provider [phone] Reason for Referral * (Routine) - Closed Specialty Diagnoses / Procedures Referred By Cristopher sims Referred To Contact Diagnoses Long QT syndrome Procedures Pediatric Device Check - Remote Berna Villalobos NP Phone: tel: fax: [facility] (All Locations) Referral ID Status Reason Start Date Expiration Date Visits Re quested Visits Authorized [id number] Closed 08/15/2018 02/24/2020 1 1 Encounter Details Date Type Department Care Team (Late st Contact Info) Description 08/15/2018 Orders Only [facility] Pediatric Cardiology [facility] 2nd [place] [address] [place] [address] Berna Villalobos NP [address] [place] [address] [address] [place] [address] Long QT syndrome (Primary Dx) Social History Tobacco Use Types Packs/Day Years Used Date Smoking Tobacco: Never Comments Unknown Sex and Gender Information Value Date Recorded Sex Assigned at Not on file 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 us Berna Villalobos BILL CHECKER [facility] CARDIAC SERVICES PROCEDURE S Final Result documented in this encounter Visit Diagnoses Diagnosis Long QT syndrome- Primary Long QT syndrome documented in this encounter Care Teams Ship Unloader Relationship Specialty Start Date End Date Anthony Bruno MD PCP - General 05/16/17 documented as of this encounter
--- OUTSIDE RECORDS SUMMARY | 2024-06-11 08:26 | XMS_ITS | Encounter Summary ---
Author Organization [facility] Address [address] [place] [address] Phone Care Team Providers Care Traffic Police Officer Name Role Phone Anthony Bruno MD Primary Care Provider [phone] Encounter Details Date Type Department Care Team (Late st Contact Info) Description 10/08/2018 Telephone [facility] Pediatric Cardiology One [facility] 2nd [place] [address] [place] [address] Ethel Casanova MD [address] [place] [address] [address] [place] [address] Social History Tobacco Use Types Packs/Day Years Used Date Smoking Tobacco: Never Comments Unknown Sex and Gender Information Value Date Recorded Sex Assigned at Not on file 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 Casanova's reply to call back in August. She should continue with her dosing of Nadolol and follow up in one years time. Mom aware I will send in for refills to [facility] at this time. Mom states they are not moving, but does wish they were moving to the [place]!! * Telephone Encounter - Leonie Bryant B.A. - 10/08/2018 11:43 AM CDT Patient's mom called and said that they were in in August and did an EKG and hadn't heard from Dr Casanova on the EKG. Someone else did call with info on it but said they would have Dr Casanova call back. Also, the prescription nadolol was only for 6 months and will need a refill in about 2 months. documented in this encounter Plan of Treatment Not on file documented as of this encounter Visit Diagnoses Diagnosis Long Q-T syndrome Long QT syndrome documented in this encounter Discontinued Medications Medication Sig Discontinue Reason Start Date End Da te nadolol (CORGARD) 40 mg tabletIndications:Long Q-T syndrome Take 1 tablet (40 mg total) by mouth daily. Reorder 07/12/2018 10/08/2018 documented as of this encounter Care Teams Traffic Police Officer Relationship Specialty Start Date End Date Anthony Bruno MD PCP - General 05/16/17 documented as of this encounter
--- OUTSIDE RECORDS SUMMARY | 2024-06-11 08:26 | XMS_ITS | Encounter Summary ---
Author Organization [facility] Address [address] [place] [address] Phone Care Team Providers Care Building Wrecker Name Role Phone Anthony Bruno MD Primary Care Provider [phone] Encounter Details Date Type Department Care Team (Late st Contact Info) Description 02/06/2019 Telephone [facility] Pediatric Cardiology [address] [facility] [address] [place] [address] [place] [address] Khadijah Higgins CPhT Social History Tobacco Use Types Packs/Day Years Used Date Smoking Tobacco: Never Comments Unknown Sex and Gender Information Value Date Recorded Sex Assigned at Not on file 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 Sepideh @ the HS stated on the phone to the medical scheduler answering calls that the information was misplaced. Nurse team will fax both again to the fax number given. Mom aware. * Telephone Encounter - Khadijah Higgins CPhT - 02/06/2019 9:03 AM CDT [facility] called requesting a letter stating patient PE retrictions please fax letter to [phone] documented in this encounter Plan of Treatment Not on file documented as of this encounter Visit Diagnoses Not on filedocumented in this encounter Care Teams Building Wrecker Relationship Specialty Start Date End Date Anthony Bruno MD PCP - General 05/16/17 documented as of this encounter
--- OUTSIDE RECORDS SUMMARY | 2024-06-11 08:26 | XMS_ITS | Encounter Summary ---
Author Organization [facility] Address [address] [place] [address] Phone Care Team Providers Care Blood Typer Name Role Phone Anthony Bruno MD Primary Care Provider [phone] Encounter Details Date Type Department Care Team (Late st Contact Info) Description 09/22/2019 Orders Only [facility] Pediatric Cardiology One [facility] 2nd [place] [address] [place] [address] Alyson Conner PA [address] [place] [address] [address] [place] [address] Long Q-T syndrome (Primary Dx) Social History Tobacco Use Types Packs/Day Years Used Date Smoking Tobacco: Never Comments Unknown Sex and Gender Information Value Date Recorded Sex Assigned at Not on file 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
--- OUTSIDE RECORDS SUMMARY | 2024-06-11 08:26 | XMS_ITS | Encounter Summary ---
Author Organization [facility] Address [address] [place] [address] Phone Care Team Providers Care Roping Machine Tender Name Role Phone Anthony Bruno MD Primary Care Provider [phone] Encounter Details Date Type Department Care Team (Late st Contact Info) Description 09/29/2019 Telephone [facility] Pediatric Cardiology [address] [facility] [address] 2nd [place] [address] [place] [address] Khadijah Higgins CPhT Social History Tobacco Use Types Packs/Day Years Used Date Smoking Tobacco: Never Comments Unknown Sex and Gender Information Value Date Recorded Sex Assigned at Not on file Legal Sex Female 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 Start Betaxolol 24 hours after last dose of Nadolol. Take 1/2 tablet = 5mg by mouth every evening. 15 tablet 1 09/30/2019 0 documented in this encounter Miscellaneous Notes * Telephone Encounter - Ledy Camejo - 10/15/2019 10:57 AM CDT I spoke with mom and we discussed that the nightmares may just be part of what Grecia is going through right now, but if she really doesn't feel like she wants to continue with it we will discuss with Dr casanova. Mom wants Grecia to get back with her therapist and see if it can be worked out thatway first. * Telephone Encounter - Ethel Casanova MD - 10/14/2019 5:08 PM CDT Hi, I have not heard of that. Super odd. Many thanks, j * Telephone Encounter - Ledy Camejo - 10/14/2019 4:22 PM CDT I followed up with mom after starting the Betaxolol. Mom says she has been in a fairly good mood the last few weeks but had a pretty good depressive bout the other day. She has agreed to start her therapy sessions which will begin . They will also discuss what she can take as the Welbutrin gave her hives. Nazanin, mom did mention that Grecia has been feeling better but since the Betaxolol she has been having scary dreams just about every night. Have you heard of this from anyone else? I did not see it listed as a side effect * Addendum Note - Ledy Camejo - 09/30/2019 9:59 AM CDTAddended by: LEDY CAMEJO. on: 09/30/2019 09:59 AM Modules accepted: Orders * Telephone Encounter - Ledy Camejo - 09/30/2019 9:44 AM CDT I spoke with mom about starting Betaxolol 5mg once daily and she would like to try. We discussed that we have had better results with Betaxolol and the kids not really having the down or blue feelings as much or at all on this med. Pharmacy is [facility] in [facility]. Confirmed that Wellbutrin is only med allergy(hives). Grecia takes her Nadolol at 6:30PM, they will stop this Nadolol and start the Betaxolol at this same time when the pick it up. Mom knows not to give both medications in the same day. I will f/u with mom in 1-2 weeks to see how Grecia is feeling. * Telephone Encounter - Ethel Casanova MD - 09/29/2019 4:50 PM CDT Yes, absolutely. Can we try betaxolol? Let's start at 5mg PO qDay. * Telephone Encounter - Gail Mei LPN - 09/29/2019 9:18 AM CDT Contacted Kacy regarding Grecia being depressed. Grecia has been taking nadolol 40 mg PO daily. Grecia has been experiencing depression for the past 6-8 months according to Kacy. She was recently prescribed Wellbutrin by her PCP due to her self harming. Her depression is very short lived but very frequent. After two weeks on the Wellbutrin she development an allergy and broke out in hives, medication discontinued. After Kacy did further research she thought maybe her nadolol is causing some of her depression. Kacy is aware that some of Grecia's depression is from losing her brother five years ago to Long QT and now she has passed him in age. Before COVID-19 Grecia was seeing a therapist and has plans to see a Psychiatrist. Is there anyway Grecia could try another medication to see if it helps with her depression? * Telephone Encounter - Khadijah Higgins CPhT - 09/29/2019 8:46 AM CDT Mom called stating that patient is suffering from depression and mom want to know if that medication nadolol is the cause. documented in this encounter Plan of Treatment Not on file documented as of this encounter Visit Diagnoses Diagnosis Long Q-T syndrome- Primary Long QT syndrome documented in this encounter Care Teams Roping Machine Tender Relationship Specialty Start Date End Date Anthony Bruno MD PCP - General 05/16/17 documented as of this encounter
--- OUTSIDE RECORDS SUMMARY | 2024-06-11 08:26 | XMS_ITS | Encounter Summary ---
Author Organization [facility] Address [address] [place] [address] Care Team Providers Care Weapons Engineer Name Role Phone Anthony Bruno MD Primary Care Provider [phone] Encounter Details Date Type Department Care Team (Latest Contact Info) Description 01/31/2019 9:16 AM CDT - 01/31/2019 2:34 PM CDT Hospital Encounter [facility] [place] [address] Ethel Casanova MD [address] 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 Gender Identity Not on file Sexual Orientation Not on file documented as of this encounter Last Filed Vital Signs Vital Sign Reading Time Taken Comments Blood Pressure 83/53 01/31/2019 1:45 PM CDT Pulse 72 01/31/2019 2:00 PM CDT Temperature 36.6 ??C (97.9 ??F) 01/31/2019 9:50 AM CD T Respiratory Rate 21 01/31/2019 2:00 PM CDT Oxygen Saturation 100% 01/31/2019 2:00 PM CDT Inhaled Oxygen Concentration - - Weight 52.8 kg (116 lb 6.5 oz) 01/31/2019 9:49 A M CDT Height 165 cm (5' 4.96 ) 01/31/2019 9:36 AM CDT Body Mass Index 19.39 01/31/2019 9:36 AM CDT Body Mass Index Percentile 46.39% 01/31/2019 9:4 9 AM CDT Growth Chart: CDC (Girls, 2- 20 Years) documented in this encounter Discharge Diagnoses Diagnosis Long QT syndrome - LONG QT SYNDROME Genetic susceptibility to other disease - GENETIC SUSCEPTIBILITY TO OTHER DISEASE Family history of sudden cardiac - FAMILY HISTORY OF SUDDEN CARDIAC Palpitations - PALPITATIONS Family history of ischemic heart disease and other diseases of the circulatory system - FAMILY HISTORY OF ISCHEMIC HEART DISEASE AND OTHER DISEASES OF THE CIRCULATORY SYSTEM documented in this encounter Discharge Instructions * Discharge Instructions* Alize Nam, RT - 01/31/2019 1:41 PM CDT Patient Information: ?? DATE/TIME PATIENT WAS ADMITTED TO UNIT 01/31/2019 ?? Attending MD (at time of discharge) Dr. Rashid [facility] Information: Hospital Course/Procedures/Consults: Hospital Procedures ILR explant/implant with general anesthesia Follow Up Appointments: Follow-Up Appointment/Test #1: ?? Clinic Name [facility]iology [facility] ?? MD/LICSW Name Dr. Casanova ?? Name of Test Office Visit 2 week follow up wound check post device implant ?? Date/Time of Appointment February 20 at 1:00pm ?? Location: [facility]iology [facility] ?? Instructions: Diet Instructions [...] pm. After hours and on weekends call [facility] Social Insurance Administrator at and ask for the Mobile Security Specialist consumer attorney. Teaching Tools Cardiac Cath Discharge Tool Activity: [...] Villa :2005 Date of Service: 01/31/19 Location: [facility] Electrophysiology Lab Procedural Attending: Sharif Rashid DO [...] EBL: <5 mL Condition on discharge from Market Intelligence Consultant: stable Follow up plan: Admit to Cardiac recovery. ECG prior to discharge. Follow up with referring physician: Ethel Casanova MD in 2 weeks for wound check Nate Stephens MD Fellow, Division of Pediatric Cardiology [facility] Pager #: [phone] Cosigned by Sharif Rashid DO at 01/31/2019 12:27 PM CDT documented in this encounter H&P Notes * Patrica Stephens MD - 01/31/2019 8:47 AM CDT Images from the original note were not included. Electrophysiology pre-procedural Brief History and Physical Patient Name: Grecia Villa : 2005 Date: 01/31/19 Referring folding machine tender: Jocelyne HPI: Grecia Villa who is a 13 y.o. female with a history of phenotype positive, genotype unknown Long QT Syndrome with family history notable for sudden arrhythmic of her brother. She was [facility] at [facility] in 2014, which included a normal [...] Medtronic LINQ ILR removal and re-implantation Access: PIV Meds: Ancef Anesthesia: per cardiac anesthesia Fire Risk Assessment Score: 1 Post: CCLR, then home Nate Stephens MD Fellow, Division of Pediatric Cardiology [facility] Pager #: [phone] Cosigned by Sharif Rashid DO at 01/31/2019 [...] CDT) Ventricular Rate EKG/Min Ventricular Rate:59 BPM [facility] Atrial Rate Atrial Rate:59 BPM [facility] HI-Interval (MSEC) P-R Interval:140 ms [facility] QRS-Interval (MSEC) QRS Duration:80 ms [facility] QT-Interval (MSEC) Q-T Interval:440 ms [facility] QTc QTC Calculation(Ba zett):420 ms [facility] P [place] P [place]:62 degrees [facility] R [place] R [place]:53 degrees [facility] T [place] T [place]:45 degrees [facility] Diagnosis Diagnosis:Sinu s bradycardia with sinus arrhythmia Low voltage QRS When compared with ECG of 14-AUG-2018 10:22, Confirmed by SHARIF RASHID ([id number]) on 01/31/2019 2:21:16 PM [facility] 01/31/2019 2:06 PM CDT 01/31/2019 2:21 PM CDT us Notinfile Unknown ECG ORDERABLES Final Result [facility] * LOOP RECORDER REMOVAL (01/31/2019 12:05 PM CDT) Anatomical Region Laterality Modality X-Ray Angiograph y Narrative 02/04/2019 1:10 PM CDT Location of Procedure: [facility] Electrophysiology Lab Date of procedure: ??01/31/19 Proceduralist: Sharif Rashid, DO Pigment Making Supervisor: ??Peter Shoemaker RN; ??Nate Stephens MD HISTORY OF PRESENT ILLNESS: ?? Grecia Villa is a 13 y.o. female with a history of phenotype positive, genotype unknown Long QT Syndrome with family history notable for sudden arrhythmic of her brother. She was originally evaluated at [facility] in 2014, which included a normal echocardiogram, [...] old device was a LNQ11 Reveal LINQ, [id number], implanted 06/22/15 ([facility], Jocelyne) Using the custom insertion tool, the ILR device was inserted into the previous site. ?? 10mL of local ropivicaine was infused. ?? The subcutaneous tissue was approximated using 3-0 Vicryl suture. ??The skin was then further approximated with Steri-strips. ??The implanted device was a Medtronic LINQ, model # LNQ11, serial # [id number]. ?? The settings on the device were [...] She will follow up with her primary folding machine tender, Dr. Casanova, for wound check in 1-2 weeks. ?? Prior to discharge, the family was instructed on how to use the implantable loop recorder and all tracings will be sent to and followed by [facility]. Sharif Rashid, Ethel Casanova MD CV ELECTROPHYSIOLOGY PROCS Final Result * hCG, urine, qualitative (01/31/2019 9:36 AM CDT) HCG, ur Negative Negative [facility] Urine 01/31/2019 9:36 AM CDT 01/31/2019 9:48 AM CDT us Berna Villalobos [facility] LAB URINE ORDERABLES Final Re sult [facility] Department [place] [address] documented in this encounter Visit Diagnoses Diagnosis [...] Given 01/31/2019 2:29 PM CDT 650 mg sodium chloride 0.9% flush 3 mL 3 mL, intravenous, As needed, line care, Starting on Sun01/31/19 at 0933, Pre-Procedure (CV) sodium chloride 0.9% infusion 92 mL/hr, intravenous, Continuous, Starting on Sun01/31/19 at 1300, Phase I Restarted 01/31/2019 12:12 PM CDT 92 mL/hr 92 mL /hr documented in this encounter Active and Recently [...] oxyCODONE (ROXICODONE) tablet 5 mg 1 2018 ropivacaine (NAROPIN) 2 mg/m L (0.2 %) preservative free injection 1 01/31/2019 sodium chloride 0.9% flush 3 mL 1 9 EKG Orders Without Results Count Last Ordered D ate First Ordered Date ECG 12-LEAD 1 01/31/2019 documented in this encounter Care Teams Weapons Engineer Relationship Specialty Start Date End Date Anthony Bruno MD PCP - General 05/16/17 documented as of this encounter
--- OUTSIDE RECORDS SUMMARY | 2024-06-11 08:26 | XMS_ITS | Encounter Summary ---
Author Organization [facility] Address [address] [place] [address] Phone Care Team Providers Care Hose Wrapper Name Role Phone Anthony Bruno MD Primary Care Provider [phone] Reason for Visit * (Routine) - Closed Specialty Diagnoses / Procedures Referred By Cristopher sims Referred To Contact Diagnoses Long Q-T syndrome Procedures Pediatric Device Check - Remote Alyson Conner PA 1 [facility] [address] [place] [address] Phone: tel: fax: [facility] (All Locations) Referral ID Status Reason Start Date Expiration Date Visits Re quested Visits Authorized [id number] Closed 10/23/2019 05/03/2021 1 1 Encounter Details Date Type Department Care Team (Latest Contact Info) Description 10/23/2019 8:15 AM CDT Ancillary Procedure [facility] Pediatric Cardiology [address] [place] [address] Long Q-T syndrome Social History Tobacco Use Types Packs/Day Years Used Date Smoking Tobacco: Never Comments Unknown Sex and Gender Information Value Date Recorded Sex Assigned at Not on file Legal Sex Female 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 Ethel Casanova [...] syndrome documented in this encounter Care Teams Hose Wrapper Relationship Specialty Start Date End Date Anthony Bruno MD PCP - General 05/16/17 documented as of this encounter
--- OUTSIDE RECORDS SUMMARY | 2024-06-11 08:26 | XMS_ITS | Encounter Summary ---
Author Organization [facility] Address [address] [place] [address] Phone Care Team Providers Care Manager Oracle Name Role Phone Anthony Bruno MD Primary Care Provider [phone] Encounter Details Date Type Department Care Team (Late st Contact Info) Description 07/31/2019 Telephone [facility] Pediatric Cardiology One [facility] 2nd [place] [address] [place] [address] Khadijah Higgins CPhT Social History Tobacco Use Types Packs/Day Years Used Date Smoking Tobacco: Never Comments Unknown Sex and Gender Information Value Date Recorded Sex Assigned at Not on file Legal Sex Female 11:23 AM REVERSING MILL ROLLER Gender Identity Not on file Sexual Orientation Not on file documented as of this encounter Miscellaneous Notes * Telephone Encounter - Evie Morrison RN - 07/31/2019 10:54 AM REVERSING MILL ROLLER Sent through a voice mail tree to [facility] PCP's, Anthony Bruno MD office. Left the messagemarci Paige is not restricted from driving a care. Left request for c/b for any further questions. RSING MILL ROLLER * Telephone Encounter - Keara Rashid DO - 07/31/2019 10:20 AM REVERSING MILL ROLLER It looks like this pause occurred during sleep. (10:30pm?) Looks like she was asymptomatic. She shouldn't need to be restricted from driving. RSING MILL ROLLER * Telephone Encounter - Alyson Conner PA - 07/31/2019 10:18 AM REVERSING MILL ROLLER Images from the original note were not included. Reviewed chart: Patient is a 14 yo with PMH of Long QT with second ILR placed 01/2019. [facility] reviewed - 1 Lifetime event which was a 5 second pause on 04/03/2019. Pertinent family history: brother passed from [facility] in 2015 from presumed arrhythmia. Patient is currently on Nadolol 40mg daily. Previous ILR noted episodic ST, no pauses. Patient has not had any syncopal episodes. RSING MILL ROLLER * Telephone Encounter - Evie Morrison RN - 07/31/2019 9:[address] Casanova, Is Grecia restricted from driving a car? RSING MILL ROLLER * Telephone Encounter - Khadijah Higgins CPhT - 07/31/2019 9:05 AM CST pcp office called requesting clarity on if its safe for patient to drive? RSING MILL ROLLER documented in this encounter Plan of Treatment Not on file documented as of this encounter Visit Diagnoses Not on filedocumented in this encounter Care Teams Manager Oracle Relationship Specialty Start Date End Date Anthony Bruno MD PCP - General 05/16/17 documented as of this encounter
--- OUTSIDE RECORDS SUMMARY | 2024-06-11 08:26 | XMS_ITS | Encounter Summary ---
Author Organization [facility] Address [address] [place] [address] Phone Care Team Providers Care Engineering Manager Name Role Phone Anthony Bruno MD Primary Care Provider [phone] Encounter Details Date Type Department Care Team (Late st Contact Info) Description 08/12/[address] 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 She did not feel that she needed to havean EKG after starting as Welbutrin does not prolong the QTI, but if Dr Bruno felt he wanted one itwas fine with her. Eloina stated she would let Dr Bruno know. * Telephone Encounter - Ledy Camejo - 08/13/2019 10:37 AM CDT IVA left on Eloina's work VM requesting a c/b to discuss Dr Casanova's response. * Telephone Encounter - Ethel Casanova MD - 08/13/2019 9:14 AM CDT Fine to try! * Telephone Encounter - Ledy Camejo - 08/12/2019 12:15 PM CDT VM left on nurse Eloina's line that call was returned. (I will ask Dr Casanova to review the reportson Welbutrin and give her recommendations). [employer] search for Wellbutrin shows: Wellbutrin (Bupropion) - Not Classified: This drug has been reviewed by [employer] but the evidence available at this time did not result in a decision for it to be placed in any of the four QT risk categories. This is not an indication that this drug is free of a risk of QT prolongation or torsades de pointes since it may not have been adequately tested for these risks in patients. Please see disclaimer below. Nazanin, Please let me know your thoughts on Welbutrin and let me know. Thanks. * Telephone Encounter - Leonie Bryant B.A. - 08/12/2019 11:[address] Bruno's office called and wanted to know if they could start the patient on Wellbutrin for depression. documented in this encounter Plan of Treatment Not on file documented as of this encounter Visit Diagnoses Not on filedocumented in this encounter Care Teams Engineering Manager Relationship Specialty Start Date End Date Anthony Bruno MD PCP - General 05/16/17 documented as of this encounter
--- OUTSIDE RECORDS SUMMARY | 2024-06-11 08:26 | XMS_ITS | Encounter Summary ---
Author Organization [facility] Address [address] [place] [address] Phone Care Team Providers Care Vocational Examiner Name Role Phone Anthony Bruno MD Primary Care Provider [phone] Encounter Details Date Type Department Care Team (Late st Contact Info) Description 07/12/2018 Telephone [facility] Pediatric Cardiology One [facility] 2nd [place] [address] [place] [address] Klarissa Givens Social History Tobacco Use Types Packs/Day Years Used Date Smoking Tobacco: Never Comments Unknown Sex and Gender Information Value Date Recorded Sex Assigned at Not on file Legal Sex Female 11:23 AM ENVIRONMENTAL EMERGENCIES PLANNER Gender Identity Not on file Sexual Orientation Not on file documented as of this encounter Miscellaneous Notes * Telephone Encounter - Ledy Camejo - 07/12/2018 3:13 PM CST Mom states that she received a letter today from [facility] that they have been unable to refill her medication because they have not received authorization from her MD. Letter stated that it could be submitted electronically or called to [phone]. Mom aware that we have not received any information but that I would resend the prescription through now. RONMENTAL EMERGENCIES PLANNER * Telephone Encounter - Klarissa Givens - 07/12/2018 2:48 PM CST Mom is calling because patient needs a new rx for medication and the last rx wasn't filled because auth was needed RONMENTAL EMERGENCIES PLANNER documented in this encounter Plan of Treatment Not on file documented as of this encounter Visit Diagnoses Not on filedocumented in this encounter Care Teams Vocational Examiner Relationship Specialty Start Date End Date Anthony Bruno MD PCP - General 05/16/17 documented as of this encounter
--- OUTSIDE RECORDS SUMMARY | 2024-06-11 08:26 | XMS_ITS | Encounter Summary ---
Author Organization [facility] Healthcare Address [address] [place] [address] Care Team Providers Care Director Nicu Name Role Phone Anthony Bruno MD Primary Care Provider [phone] Encounter Details Date Type Department Care Team (Late st Contact Info) Description 01/31/2019 11:06 AM CDT Anesthesia Event [facility] Ped [place] [address] Malick Valenzuela MD [address] [place] [address] Berna Villalobos NP [address] [facility] [address] [place] [address] Anesthesia Record Procedure Summary Procedure Name Responsible Anesthesiologist Anesthesia Start Time Anesthesia Stop Time IMPLANTABLE CARDIAC EVENT MONITOR REMOVAL 27309 AND IMPLANT OF A NEW ILR Malick Valenzuela MD 01/31/19 1106 01/31/19 1218 Events Date Time Event Comment 01/31/2019 1045 1106 An Start 1109 An Start Data 1114 An Induction The patient was reevaluated immediately before moderate or deep sedation use and before anesthesia induction. 1117 An Intubation 1130 Anesthesia Ready 1205 An Extubation 1210 an stop data 1218 Handoff to RN I completed my handoff [...] Patient disposition at the time of handoff: PACU 1218 An Stop Meds Name Total fentaNYL 25 mcg lidocaine 1 % PF 30 mg propofol 300 mg propofol 35.9 mg dexamethasone 4 mg/ml 4 mg ketorolac 25.5 mg midazolam PF 2 mg ceFAZolin 1,580 mg NS 0.9% 500 mL * Agents Name N2O O2 Air Sevoflurane Inspired Sevoflurane * Blood No blood administrations on file. Lines, Drains, and Airways Type Details Placement Removal Peripheral IV Placement Date: 01/31/19; Placement Time: 1039; Catheter Size: 22 G; Orientation: Left; Location: Antecubital; Site Prep: Chlorhexidine; Inserted by: Myrna Kan RN; Insertion Attempts: 1; Patient Tolerance: Anxious; Removal Date: 01/31/19; Removal Time: 1430; Removal Reason: Therapy completed 01/31/19 1039 by Myrna Kan RN 01/31/19 1430 by Myrna Kan RN Supraglottic Airway Placement Date: 01/31/19; Placement Time: 1131 (created via procedure documentation); Mask Ventilation: 1; Size: 4; Insertion Attempts: 2; Removal Date: 01/31/19; Removal Time: 1205 01/31/19 1131 by Sorin Coello CRNA 01/31/19 1205 by Sorin Coello CRNA documented in this encounter Social History Tobacco Use Types Packs/Day Years Used Date Smoking Tobacco: Never Comments Unknown Sex and Gender Information Value Date Recorded Sex Assigned at Not on file Legal Sex Female 11:23 AM STUBBER Gender Identity Not on file Sexual Orientation Not on file documented as of this encounter OR Notes * Anesthesia Postprocedure Evaluation - Malick Valenzuela MD - 01/31/2019 2:00 PM CDT Patient: Grecia Villa Procedure Summary Date: 01/31/19 Room / Location: [facility] LAB B / [facility] EP LAB Anesthesia Start: 1106 Anesthesia Stop: 1218 Procedure: IMPLANTABLE CARDIAC EVENT MONITOR REMOVAL 28240 AND IMPLANT OF A NEW ILR (N/A ) Diagnosis: 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 (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 [Z15.89]) (Long Q-T syndrome [I45.81]) Provider: Keara Rashid DO Responsible Provider: Malick Valenzuela MD Anesthesia Type: general ASA Status: 2 Anesthesia Type: general Last vitals BP (!) 85/54 Pulse 63 Temp 36.6 ??C (97.9 ??F) Resp 17 SpO2 100% Anesthesia Post Evaluation Patient location during evaluation: PACU Patient participation: complete - patient participated Level of consciousness: fully awake Pain score: 0 Pain management: satisfactory to patient Airway patency: adequate and patent Evidence of recall: no Anesthetic complications: no Cardiovascular status: acceptable and hemodynamically stable Respiratory status: acceptable and room air Hydration status: euvolemic Pt is: normothermic Nausea/Vomiting status: none * Anesthesia Procedure Notes - Sorin Coello CRNA - 01/31/2019 11:31 AM CDT Associated Order(s): Airway Airway Patient location: OR Urgency: elective Indications for airway management: anesthesia Difficult airway: no Staff: Supervising provider: Malick Valenzuela MD Placed by: GRAIN II FARMWORKER: Sorin Coello CRNA Emergent airway documentation: Risks and benefits discussed: yes Consent obtained: yes Consent given by: parent Airway prep: Preoxygenated: yes Patient position: sniffing Mask difficulty assessment: 1 - vent by mask Sedation level during airway: GA Final airway details: Final airway type: supraglottic airway Final supraglottic airway: classic SGA size: 4 Number of attempts: 2 * Anesthesia Preprocedure Evaluation - Malick Valenzuela MD - 01/21/2019 11:30 AM CDT Anesthesia Evaluation Grecia Villa is a 13 y.o. female who is s/p ILR implant (06/22/2015) for arrhythmia/symptom monitoring. Her brother suddenly at age 14 yr. in July 2014 of suspected cardiac arrhythmia. Grecia had serially abnormal ECGs demosntrating LQT intervals, and an epinephrine challenge showed abnormal paradoxial prolongation of the QT interval. ??She takes daily nadolol. She is here forpre evaluation prior to ILR removal and ILR reimplantation. Grecia currently has a stuffy nose related to allergies. No recent fever, cough, n/v/d or sick contacts. No h/o RAD. Procedure(s): IMPLANTABLE CARDIAC EVENT MONITOR REMOVAL 70728 AND IMPLANT OF A NEW ILR Pre-Op Diagnosis Codes: * 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 [Z15.89] * Long Q-T syndrome [I45.81] HISTORY Past Medical History Information obtained from: patient, guardian and chart. Neurological Neuro/Psych system: negative Neurological system: negative Cardiovascular + Rhythm disturbances - long QT syndrome Respiratory Pertinent negatives: recent URI; sleep apnea (ROBIN) and negative history of asthma/RAD Hepatic Hepatic system: negative Hematological / Oncological Hematological/Oncological system: negative Gastrointestinal Pertinent negatives: GERD Renal / Renal/ system: negative Endocrine / Other Endocrine/Other system: negative Growth / Development Growth/Development system: negative Review of Systems Pertinent negatives: wheezing; fever; palpitations; heartburn; nausea and chipped/loose teeth PAT Summary and Plans Anesthesia plan discussed: general anesthesia. Additional comments: DOS Physical Exam Additional comments: 06/10/2015: Normal ECHO. : ILR implant with GA/LMA. Plan to start PIV in CCLR pre procedure. . Patient Active Problem List Diagnosis ??? 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 ??? Palpitations ??? Abnormal electrocardiography ??? Long QT syndrome ??? Long Q-T syndrome Past Medical History: Diagnosis Date ??? Abnormal electrocardiogram Abnormal ECG - (Added by TW Conv) ??? 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 Long Q-T syndrome ??? Palpitations Palpitations - (Added by TW Conv) History reviewed. No pertinent surgical history. OB History None No Known Allergies HOME MEDICATIONS : nadolol (CORGARD) 40 mg tablet Social History Tobacco Use Smoking Status Never Smoker Substance and Sexual Activity Alcohol Use Not on file Substance and Sexual Activity Drug Use Not on file Family History Problem Relation Age of Onset ??? Sudden Cardiac Brother Family history of sudden cardiac (SCD) - (Added by TW Conv) Vitals: 01/31/19 0950 BP: 98/67 Pulse: 85 Resp: 20 Temp: 36.6 ??C (97.9 ??F) SpO2: 96% DOS Physical Exam Medical history, medications, and allergies reviewed. Attestation: This PAT evaluation 01/31/2019. Airway Exam: Mallampati: I TM distance: normal Cardiovascular Exam: Rate: regular Rhythm: regular Pulmonary Exam: LCTA, bilat Current state: Patient's current state is interactive and cooperative. Lines/Drains/Tubes/Devices Lines in situ (piv): Additional comments: 06/10/2015: Normal ECHO. : ILR implant with GA/LMA. Anesthesia Plan ASA 2 My patient is approved for the Anesthesia Controlled Medication protocol when under care of a GRAIN II FARMWORKER Planned anesthesia: General Team communication plan: LMA Induction: Induction: intravenous. Postoperative Plan: No postoperative mechanical ventilation intended. Patient's planned disposition post procedure is Obs. unit. Informed Consent: Discussed plan with GRAIN II FARMWORKER. Anesthesia plan and risks discussed with mother, patient and father. Consent and Attending signature: I and/or my designee have discussed the anesthesia plan, benefits, possible alternatives, parental presence at time of induction (if indicated), and clinically relevant risks that may include dental injury, unintentional awareness, and/or other complications. The patient and/or parent/legal guardian understand, and agree to proceed. All questions answered. documented in this encounter Plan of Treatment Not on file documented as of this encounter Procedures Procedure Name Priority Date/Time Associated Diagnosis Comments OR AN PROCEDURE PLACEHOLDER Routine 01/31/2019 11:31 AM CDT Procedure Note - Sorin Coello CRNA - 01/31/2019 11:31 AM CDTThis note is in progress. Airway Patient location: OR Urgency: elective Indications for airway management: anesthesia Difficult airway: no Staff: Supervising provider: Malick Valenzuela MD Placed by: GRAIN II FARMWORKER: Sorin Coello CRNA Emergent airway documentation: Risks and benefits discussed: yes Consent obtained: yes Consent given by: parent Airway prep: Preoxygenated: yes Patient position: sniffing Mask difficulty assessment: 1 - vent by mask Sedation level during airway: GA Final airway details: Final airway type: supraglottic airway Final supraglottic airway: classic SGA size: 4 Number of attempts: 2 OR AN ELECTIVE SUPRAGLOTTIC AIRWAY Routine 01/31/2019 11:31 AM CDT Procedure Note - Sorin Coello CRNA - 01/31/2019 11:31 AM CDTThis note is in progress. Airway Patient location: OR Urgency: elective Indications for airway management: anesthesia Difficult airway: no Staff: Supervising provider: Malick Valenzuela MD Placed by: GRAIN II FARMWORKER: Sorin Coello CRNA Emergent airway documentation: Risks and benefits discussed: yes Consent obtained: yes Consent given by: parent Airway prep: Preoxygenated: yes Patient position: sniffing Mask difficulty assessment: 1 - vent by mask Sedation level during airway: GA Final airway details: Final airway type: supraglottic airway Final supraglottic airway: classic SGA size: 4 Number of attempts: 2 documented in this encounter Visit Diagnoses Not on filedocumented in this encounter Administered Medications Inactive Administered Medications - up to 3 most recent administrations Medication Order MAR Action Action Date Dose Rate Site ceFAZolin (ANCEF) injection As needed, Starting on Sun01/31/19 at 1130, Anesthesia Intra-op Given 01/31/2019 11:30 AM CDT 1,580 mg dexamethasone (DECADRON) 4 mg/mL injection Administer over 30 Minutes, As needed, Starting on Sun01/31/19 at 1140, Anesthesia Intra-op Given 01/31/2019 11:40 AM CDT 4 mg fentaNYL (SUBLIMAZE) preservative free injection As needed, Starting on Sun01/31/19 at 1125, Anesthesia Intra-op Given 01/31/2019 11:25 AM CDT 25 mcg ketorolac (TORADOL) 15 mg/mL injection Administer over 5 Minutes, As needed, Starting on Sun01/31/19 at 1200, Anesthesia Intra-op Given 01/31/2019 12:00 PM CDT 25.5 mg lidocaine PF (XYLOCAINE) 10 mg/mL (1 %) preservative free injection As needed, Starting on Sun01/31/19 at 1114, Anesthesia Intra-op Given 01/31/2019 11:14 AM CDT 30 mg midazolam (VERSED) preservative free injection Administer over 2 Minutes, As needed, Starting on Sun01/31/19 at 1106, Anesthesia Intra-op Given 01/31/2019 11:06 AM CDT 2 mg propofol (DIPRIVAN) IV As needed, Starting on Sun01/31/19 at 1116, Anesthesia Intra-op Given 01/31/2019 11:16 AM CDT 100 mg Given 01/31/2019 11:14 AM CDT 200 mg propofol (DIPRIVAN) IV Continuous PRN, Starting on Sun01/31/19 at 1124, Anesthesia Intra-op New Bag 01/31/2019 11:24 AM CDT 20 mcg/kg/min 6.34 mL/hr sodium chloride 0.9% infusion Continuous PRN, Starting on Sun01/31/19 at 1106, Anesthesia Intra-op New Bag 01/31/2019 11:06 AM CDT documented in this encounter Orders Procedures Count Last Ordered Date First Orde red Date Airway 1 01/31/2019 documented in this encounter Care Teams Director Nicu Relationship Specialty Start Date End Date Anthony Bruno MD PCP - General 05/16/17 documented as of this encounter
--- OUTSIDE RECORDS SUMMARY | 2024-06-11 08:26 | XMS_ITS | Encounter Summary ---
Author Organization [facility] Address [address] [place] [address] Phone Care Team Providers Care Block Making Machine Operator Name Role Phone Anthony Bruno MD Primary Care Provider [phone] Reason for Visit * Cardiology (Routine) - Closed Specialty Diagnoses / Procedures Referred By Contac t Referred To Contact Diagnoses 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 Abnormal electrocardiography Procedures Pediatric Device Check - Remote Berna Villalobos NP Phone: tel: fax: [facility] (All Locations) Referral ID Status Reason Start Date Expiration Date Visits Re quested Visits Authorized [id number] Closed 10/10/2018 04/20/2020 1 1 Encounter Details Date Type Department Care Team (Latest Contact Info) Description 10/10/2018 5:15 PM CDT Ancillary Procedure [facility] Pediatric Cardiology [address] [place] [address] 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; Abnormal electrocardiography Social History Tobacco Use Types Packs/Day Years Used Date Smoking Tobacco: Never Comments Unknown Sex and Gender Information Value Date Recorded Sex Assigned at Not on file Legal Sex Female 11:23 AM MANAGER APPLICATION DEVELOPMENT Gender Identity Not on file Sexual Orientation Not on file documented as of this encounter Plan of Treatment Not on file documented as of this encounter Procedures Procedure Name Priority Date/Time Associated Diagnosis Comments PED DEVICE CHECK - REMOTE Routine 10/10/2018 4:14 PM CDT 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 Abnormal electrocardiography documented in this encounter Results * Pediatric [...] electrocardiography documented in this encounter Care Teams Block Making Machine Operator Relationship Specialty Start Date End Date Anthony Bruno MD PCP - General 05/16/17 documented as of this encounter
--- OUTSIDE RECORDS SUMMARY | 2024-06-11 08:26 | XMS_ITS | Encounter Summary ---
Author Organization [facility] Healthcare Address [facility] [place] [address] Care Team Providers Care Electronics Inspector Name Role Phone Anthony Bruno MD Primary Care Provider [phone] Encounter Details Date Type Department Care Team (Late st Contact Info) Description 08/22/2019 Documentation [facility] [place] [address] Dakota Shoemaker, RN Social History Tobacco Use Types Packs/Day Years Used Date Smoking Tobacco: Never Comments Unknown Sex and Gender Information Value Date Recorded Sex Assigned at Not on file Legal Sex Female 11:23 AM STEAM ROOM ATTENDANT Gender Identity Not on file Sexual Orientation Not on file documented as of this encounter Progress Notes * Dakota Shoemaker, RN - 08/22/2019 1:55 PM CDT Images from the original note were not included. REMOTE ILR INTERROGATION Carelink transmission: 08/21/2019 Note date: 08/22/2019 MODEL: [employer], LINQ SERIAL: [id number] /IMPLANTED ON: 01/31/[address] Keara Rashid HISTORY: channelopathy IMPLANT SITE EXAM: (L): pre pectoral, left breast BATTERY STATUS: OK PROGRAMMED SETTINGS Auto records for 75 sec for the following: -heart rates >200 bpm for 16 consecutive beats -heart rates < 30 bpm for 4 consecutive beats -pauses of 3 sec or more PATIENT ACTIVATED SYMPTOMS: records for 7.5 min. Observations: No symptom or auto triggered episodes. EPISODES Symptoms - 0 Tachy - 0 Fran - 0 Pause - 0 AT/AF - 0 documented in this encounter Plan of Treatment Not on file documented as of this encounter Visit Diagnoses Not on filedocumented in this encounter Care Teams Electronics Inspector Relationship Specialty Start Date End Date Anthony Bruno MD PCP - General 05/16/17 documented as of this encounter
--- OUTSIDE RECORDS SUMMARY | 2024-06-11 08:27 | XMS_ITS | Encounter Summary ---
Author Organization [facility] Address [address] [place] [address] Phone Care Team Providers Care Manager Organizational Name Role Phone Anthony Bruno MD Primary Care Provider [phone] Encounter Details Date Type Department Care Team (Late st Contact Info) Description 02/22/2018 Telephone [facility] Pediatric Cardiology One [facility] [address] [place] [address] [place] [address] Ethel Casanova MD [address] [place] [address] [address] [place] [address] Social History Tobacco Use Types Packs/Day Years Used Date Smoking Tobacco: Never Comments Unknown Sex and Gender Information Value Date Recorded Sex Assigned at Not on file Legal Sex Female 11:23 AM PAPER MAKER Gender Identity Not on file Sexual Orientation Not on file documented as of this encounter Miscellaneous Notes * Telephone Encounter - Evie Morrison RN - 02/22/2018 4:29 PM CDT 90d supply 0 refill sent to [facility] (40mg Nadolol qd). No answer @ contact number given. Left VM message stating Rx refill sent as noted. * Telephone Encounter - Leonie Bryant - 02/22/2018 4:13 PM CDT In rescheduling appt that Provider cancelled, mom wanted to know if the patient's medication (Nadolol) could be refilled sooner, because the patient will be out of medication by the end of Mar or beginning of April. Appointment was rescheduled for 05/15. documented in this encounter Plan of Treatment Not on file documented as of this encounter Visit Diagnoses Not on filedocumented in this encounter Care Teams Manager Organizational Relationship Specialty Start Date End Date Anthony Bruno MD PCP - General 05/16/17 documented as of this encounter
--- OUTSIDE RECORDS SUMMARY | 2024-06-11 08:27 | XMS_ITS | Encounter Summary ---
Author Organization [facility] Address [address] [place] [address] Phone Care Team Providers Care Motorcycle Racer Name Role Phone Anthony Bruno MD Primary Care Provider [phone] Reason for Visit * (Routine) - Closed Specialty Diagnoses / Procedures Referred By Cristopher sims Referred To Contact Diagnoses Palpitations Procedures Pediatric Device Check - Remote Berna Villalobos NP Phone: tel: fax: [facility] (All Locations) Referral ID Status Reason Start Date Expiration Date Visits Re quested Visits Authorized [id number] Closed 06/17/2018 12/27/2019 1 1 Encounter Details Date Type Department Care Team (Late st Contact Info) Description 06/18/2018 10:15 AM FISHING CAPTAIN Ancillary Procedure [facility] Pediatric Cardiology [address] [place] [address] Palpitations Social History Tobacco Use Types Packs/Day Years Used Date Smoking Tobacco: Never Comments Unknown Sex and Gender Information Value Date Recorded Sex Assigned at Not on file Legal Sex Female 11:23 AM FISHING CAPTAIN Gender Identity Not on file Sexual Orientation Not on file documented as of this encounter Plan of Treatment Not on file documented as of this encounter Procedures Procedure Name Priority Date/Time Associated Diagnosis Comments PED DEVICE CHECK - REMOTE Routine 06/18/2018 8:35 AM FISHING CAPTAIN Palpitations documented in this encounter Results * Pediatric Device Check - Remote (06/18/2018 8:35 AM FISHING CAPTAIN) Anatomical Region Laterality Modality Other Narrative 06/18/2018 9:50 AM FISHING CAPTAIN See documents scanned into media us Berna Villalobos NP [facility] PROCEDURE S Final Result documented in this encounter Visit Diagnoses Diagnosis Palpitations documented in this encounter Care Teams Motorcycle Racer Relationship Specialty Start Date End Date Anthony Bruno MD PCP - General 05/16/17 documented as of this encounter
--- OUTSIDE RECORDS SUMMARY | 2024-06-11 08:27 | XMS_ITS | Encounter Summary ---
Author Organization [facility] Address [address] [place] [address] Phone Care Team Providers Care Medical Malpractice Paralegal Name Role Phone Anthony Bruno MD Primary Care Provider [phone] Reason for Referral * (Routine) - Closed Specialty Diagnoses / Procedures Referred By Contac t Referred To Contact Diagnoses Long Q-T syndrome Procedures ECG 12 lead Keara Rashid DO Phone: tel: fax: [facility] Specialty Care [facility] Referral ID Status Reason Start Date Expiration Date Visits Re quested Visits Authorized [id number] Closed 05/16/2018 11/25/2019 1 1 RTRAIN CONTROL SYSTEMS ENGINEER Encounter Details Date Type Department Care Team (Late st Contact Info) Description 05/16/2018 Telephone [facility] Pediatric Cardiology One [facility] [address] [place] [address] [place] [address] Klarissa Givens Social History Tobacco Use Types Packs/Day Years Used Date Smoking Tobacco: Never Comments Unknown Sex and Gender Information Value Date Recorded Sex Assigned at Not on file Legal Sex Female 11:23 AM POWERTRAIN CONTROL SYSTEMS ENGINEER Gender Identity Not on file Sexual Orientation Not on file documented as of this encounter Miscellaneous Notes * Telephone Encounter - Kiley Menon - 05/16/2018 10:43 AM CST Grecia needs to have an EKG done at the [facility]. Mom states any day in August is fine except August 21. Per Trang, they can walk in on any day and get an EKG done. I called mom, she asked for the EKG to be done on August 14. Mom aware I will put order in and she should just go to the front office manager on August 14 and tell them she is there for an EKG only. RTRAIN CONTROL SYSTEMS ENGINEER * Telephone Encounter - Klarissa Givens - 05/16/2018 10:08 AM CST MOM IS CALLING TO ASK IF HER EKG CAN BE DONE AT THE [facility] TOMORROW RTRAIN CONTROL SYSTEMS ENGINEER documented in this encounter Plan of Treatment Not on file documented as of this encounter Results * ECG 12 lead (08/14/2018 11:54 AM CDT) Ventricular Rate EKG/Min Ventricular Rate:78 BPM [facility] Atrial Rate Atrial Rate:78 BPM [facility] DE-Interval (MSEC) P-R Interval:144 ms [facility] QRS-Interval (MSEC) QRS Duration:82 ms [facility] QT-Interval (MSEC) Q-T Interval:394 ms [facility] QTc QTC Calculation(Be zet):449 ms [facility] P Pompeii P Pompeii:72 degrees [facility] R Pompeii R Pompeii:40 degrees [facility] T Pompeii T Pompeii:34 degrees [facility] Diagnosis Diagnosis: * Pediatric ECG Analysis * Normal sinus rhythm Low voltage QRS Borderline QT interval Borderline ECG PEDIATRIC ANALYSIS - MANUAL COMPARISON REQUIRED When compared with ECG of 15-MAY-2018 12:14, No significant change was found Confirmed by EDWARD REYES MD, GEORGE ([id number]) on 08/15/2018 7:25:24 AM [facility] 08/14/2018 10:2 2 AM CDT 08/15/2018 7:25 AM CDT us Keara Rashid DO ECG ORDERABLES Final Resu lt [facility] documented in this encounter Visit Diagnoses Diagnosis Long Q-T syndrome- Primary Long QT syndrome documented in this encounter Care Teams Medical Malpractice Paralegal Relationship Specialty Start Date End Date Anthony Bruno MD PCP - General 05/16/17 documented as of this encounter
--- OUTSIDE RECORDS SUMMARY | 2024-06-11 08:27 | XMS_ITS | Encounter Summary ---
Author Organization [facility] Address [address] [place] [address] Phone Care Team Providers Care Ip Architect Name Role Phone Anthony Bruno MD Primary Care Provider Encounter Details Date Type Department Care Team (Late st Contact Info) Description 07/09/2018 Telephone [facility] Pediatric Cardiology [facility] 2nd [place] [address] [place] [id number] Berna Villalobos NP [address] [place] [address] [address] [place] [address] Social History Tobacco Use Types Packs/Day Years Used Date Smoking Tobacco: Never Comments Unknown Sex and Gender Information Value Date Recorded Sex Assigned at Not on file Legal Sex Female 11:23 AM MANAGER DECISION SUPPORT Gender Identity Not on file Sexual Orientation Not on file documented as of this encounter Miscellaneous Notes * Telephone Encounter - Berna Villalobos NP - 07/09/2018 4:35 PM CST Remote ilr download has no new events recorded. Battery life good. Called home # and LM GER DECISION SUPPORT documented in this encounter Plan of Treatment Not on file documented as of this encounter Visit Diagnoses Not on filedocumented in this encounter Care Teams Ip Architect Relationship Specialty Start Date End Date Anthony Bruno MD PCP - General 05/16/17 documented as of this encounter
--- OUTSIDE RECORDS SUMMARY | 2024-06-11 08:27 | XMS_ITS | Encounter Summary ---
Author Organization [facility] Address [address] [place] [address] Phone Care Team Providers Care Accounting Office Manager Name Role Phone Anthony Bruno MD Primary Care Provider [phone] Reason for Referral * (Routine) - Closed Specialty Diagnoses / Procedures Referred By Contac t Referred To Contact Diagnoses Long QT syndrome Procedures Pediatric Device Check - In Office Ethel Casanova MD Phone: tel: fax: [facility] (All Locations) Referral ID Status Reason Start Date Expiration Date Visits Re quested Visits Authorized [id number] Closed 05/13/2018 11/22/2019 1 1 FITTER * (Routine) - Closed Specialty Diagnoses / Procedures Referred By Contac t Referred To Contact Diagnoses Long QT syndrome Procedures ECG 12 lead Ethel Casanova MD Phone: tel: fax: Referral ID Status Reason Start Date Expiration Date Visits Re quested Visits Authorized [id number] Closed 05/13/2018 11/22/2019 1 1 FITTER Encounter Details Date Type Department Care Team (Latest Contact Info) Description 05/15/2018 10:40 AM LOCK FITTER Office Visit [facility] Pediatric Cardiology [address] [facility] [address] [place] [id number] Ethel Casanova MD [address] [facility] [address] [place] [address] Long QT syndrome (Primary Dx); 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; Abnormal electrocardiography Social History Tobacco Use Types Packs/Day Years Used Date Smoking Tobacco: Never Comments Unknown Sex and Gender Information Value Date Recorded Sex Assigned at Not on file Legal Sex Female 11:23 AM LOCK FITTER Gender Identity Not on file Sexual Orientation Not on file documented as of this encounter Last Filed Vital Signs Vital Sign Reading Time Taken Comments Blood Pressure 100/70 05/15/2018 10:59 AM LOCK FITTER Pulse 80 05/15/2018 10:59 AM LOCK FITTER Temperature 36.6 ??C (97.9 ??F) 05/15/2018 1 0:59 AM LOCK FITTER Respiratory Rate 16 05/15/2018 10:5 9 AM LOCK FITTER Oxygen Saturation - - Inhaled Oxygen Concentration - - Weight 61.3 kg (135 lb 2.3 oz) 05/15/20 18 10:59 AM LOCK FITTER Height 164.8 cm (5' 4.88 ) 05/15/2018 1 0:59 AM LOCK FITTER Body Mass Index 22.57 05/15/2018 10:59 AM LOCK FITTER Body Mass Index Percentile 81.81% 05/15 10:59 AM LOCK FITTER Growth Chart: [facility] (Girls, 2- 20 Years) documented in this encounter Patient Instructions * Patient Instructions* Ethel Casanova MD - 05/15/2018 10:40 AM LOCK FITTER Plan: Grecia is a now 12 yr old who I am deeply suspicious of LQTS. She has a family history of sudden arrhythmic of her brother and abnormal ECGs c/w that diagnosis. She is maintained on beta-blockers. My plan for Grecia is: 1) Continue Nadolol 40 mg PO qDay. 2) Grecia is restricted from timed or [...] this list today. It is: www.qtdrugs.org 4) A repeat ECG in 3 months to recheck the QT interval. 5) Follow up in 6-12 months. Thank you very much for allowing me to be involved in the care of this young lady. Please feel freeto call me if you have any questions. Thank you for allowing me to participate in the care of your patient. If there are any additional questions or concerns, please do not hesitate to call our office at [phone]. ?? Cardiovascular instructions and follow-up: SBE Prophylaxis (antibiotics): No RSV Prophylaxis Recommended: N/A Patient Cleared For: Anesthesia, Dental Work and Surgery--continue to avoid drugs that push out theQT interval Activity: May participate in entire physical education program but restricted from varsity athletics and strenuous activity Pending Tests: None Tests Next Visit: EKG and ILR download Does patient qualify for adolescent management protocol: No FITTER documented in this encounter Progress Notes * Ethel Casanova MD - 05/15/2018 10:40 AM CST HPI: I had the pleasure of seeing Grecia Villa who is a 12 y.o. female here for a return visitfor what I suspect to be LQTS. Grecia [facility] today, [facility]. She is here today with her parents. Please allow me to review for my records. Grecia's family recently relocated to the [facility] from [place]. Sadly, her brother suddenly in July 2014 [...] had an extensive cardiac evaluation at [facility] in [place] last September. Anechocardiogram showed a structurally normal [...] recommended in 6 months. Here in [facility], she has had serially abnormal ECGs demosntrating LQT intervals, and an epinephrine challenge showed abnormal paradoxial prolongation of the QT interval. She was implanted with an ILR (06/22/2015) and started on nadolol. Today, Grecia and her parents deny a history of palpitations, chest pain (with or without exercise), dizziness, syncope, or seizure for Grecia. She is taking her nadolol well without concerns. Noside effects of medication. Mom is making sure she is taking the medication qHS. The parents are quite pleased with Grecia's progress. She is currently in 8th grade, and next year moves to high school. ROS: General: negative with no weight [...] edema. History: No Known Allergies Current Outpatient Prescriptions Medication Sig Dispense Refill ??? nadolol (CORGARD) 40 mg tablet Take 1 tablet (40 mg total) by mouth daily. 90 tablet 0 No current facility-administered medications for this visit. Past Medical History: Diagnosis Date ??? Abnormal electrocardiogram Abnormal ECG - (Added by TW Conv) ??? 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 Palpitations Palpitations - (Added by TW [...] and was surgically repaired. PGF had an OH at age 42 and had hypercholesterolemia; he had a pacemaker implanted at age 64. Grecia's mother,Kacy, has a history of PVCs. She is unsure of the burden percentage; she feels them frequently onsome days but not at all other times. She has never had dizzy spells, syncope, or prolonged tachycardia. Social History Social History ??? Marital status: Single Spouse name: N/A ??? Number of children: N/A ??? Years of education: N/A Occupational History ??? Not on file. Social History Main Topics ??? Smoking status: Never Smoker ??? Smokeless tobacco: Not on file ??? Alcohol use Not on file ??? Drug use: Unknown ??? Sexual activity: Not on file Other Topics Concern ??? Not on file Social History Narrative Lives with parents : (Added by TW Conv) Brother : (Added by ELVA Conv) Physical Exam: BP 100/70 (BP Location: Right arm, Patient Position: Sitting) Pulse 80 Temp 36.6 ??C (97.9 ??F)(Oral) Resp 16 Ht 164.8 cm (5' 4.88 ) Wt 61.3 kg (135 lb 2.3 oz) BMI 22.57 kg/m?? Weight: 61.3 kg (135 lb 2.3 oz) Height: 164.8 cm (5' 4.88 ) General: non-dysmorphic, no distress HEENT: normocephalic, atraumatic, normal external nose, normally set ears, normal sclerae, conjunctivae and lids Neck: Supple, no masses cyanosis, clubbing or edema. Chest: The chest wall was symmetric and tender to palpitation. There was well healed ILR implant scar. Lungs: Normal work of breathing. Lungs clear [...] at 83 bpm, a borderline prolonged QTat 457msec with nonspecific T wave changes. This is different from her previous ECG with a QT of 439msec on 05/16/2017. ILR interrogation showed no documented arrhythmia, no symptom events, no automatic downloads. She does have intermittent noise on her device. Assessment: Patient Active Problem List Diagnosis Date Noted ??? Long QT syndrome 07/14/2015 Class: Chronic ??? 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 Abnormal electrocardiography 06/10/2015 Class: Chronic ??? Palpitations 06/08/2015 Class: Chronic Plan: Grecia is a now 12 yr old who I am deeply suspicious of LQTS. She has a family history of sudden arrhythmic of her brother and abnormal ECGs c/w that diagnosis. She is maintained on beta-blockers. My plan for Grecia is: 1) Continue Nadolol 40 mg PO qDay. 2) Grecia is restricted from timed or [...] this list today. It is: www.qtdrugs.org 4) A repeat ECG in 3 months to recheck the QT interval. 5) Follow up in 6-12 months. Thank you very much for allowing me to be involved in the care of this young lady. Please feel freeto call me if you have any questions. Thank you for allowing me to participate in the care of your patient. If there are any additional questions or concerns, please do not hesitate to call our office at [phone]. ?? Cardiovascular instructions and follow-up: SBE Prophylaxis (antibiotics): No RSV Prophylaxis Recommended: N/A Patient Cleared For: Anesthesia, Dental Work and Surgery--continue to avoid drugs that push out theQT interval Activity: May participate in entire physical education program but restricted from varsity athletics and strenuous activity Pending Tests: None Tests Next Visit: EKG and ILR download Does patient qualify for adolescent management protocol: No FITTER documented in this encounter Plan of Treatment Pending Results Name Type Priority Associated Diagnoses Date /Time Pediatric Device Check - In Office Cardiac Services Routine Long QT syndrome 05/15/2018 10:29 AM LOCK FITTER Scheduled Orders Name Type Priority Associated Diagnoses Orde r Schedule Pediatric Device Check - In Office Cardiac Services Routine Long QT syndrome Expected: 05/15/2018, Expires: 05/13/2019 documented as of this encounter Results * ECG 12 lead (05/15/2018 11:17 AM LOCK FITTER) Ventricular Rate EKG/Min Ventricular Rate:83 BPM [facility] Atrial Rate Atrial Rate:83 BPM [facility] [place]-Interval (MSEC) P-R Interval:142 ms [facility] QRS-Interval (MSEC) QRS Duration:74 ms [facility] QT-Interval (MSEC) Q-T Interval:398 ms [facility] QTc QTC Calculation(Be zet):457 ms [facility] P [place] P [place]:69 degrees [facility] R [place] R [place]:39 degrees [facility] T [place] T [place]:23 degrees [facility] Diagnosis Diagnosis:Norm al sinus rhythm Low voltage QRS Borderline Prolonged QT Nonspecific T wave abnormality When compared with ECG of 16-MAY-2017 11:49, QT has lengthened Confirmed by MD CASANOVA JENNIFER ([id number]) on 05/15/2018 11:24:43 AM [facility] 05/15/2018 12:1 4 PM LOCK FITTER 05/15/2018 11:24 AM LOCK FITTER us Ethel Casanova MD ECG ORDERABLES Final Resul t [facility] documented in this encounter Visit Diagnoses Diagnosis Long QT syndrome- Primary 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 Genetic susceptibility to other disease Abnormal electrocardiography documented in this encounter Care Teams Accounting Office Manager Relationship Specialty Start Date End Date Anthony Bruno MD PCP - General 05/16/17 documented as of this encounter
--- OUTSIDE RECORDS SUMMARY | 2024-06-11 08:27 | XMS_ITS | Encounter Summary ---
Author Organization [facility] Address [address] [place] [address] Phone Care Team Providers Care Medical Auditor Name Role Phone Antohny Bruno MD Primary Care Provider [phone] Reason for Referral * (Routine) - Closed Specialty Diagnoses / Procedures Referred By Cristopher sims Referred To Contact Diagnoses Abnormal EKG Procedures Pediatric Device Check - Remote Berna Villalobos NP Phone: tel: fax: [facility] (All Locations) Referral ID Status Reason Start Date Expiration Date Visits Re quested Visits Authorized [id number] Closed 04/22/2018 11/01/2019 1 1 ING SHOW HOST Encounter Details Date Type Department Care Team (Late st Contact Info) Description 04/22/2018 Orders Only [facility] Pediatric Cardiology [facility] 2nd [place] [address] [place] [address] Berna Villalobos NP [address] [place] [address] [address] [place] [address] Abnormal EKG (Primary Dx) Social History Tobacco Use Types Packs/Day Years Used Date Smoking Tobacco: Never Comments Unknown Sex and Gender Information Value Date Recorded Sex Assigned at Not on file Legal Sex Female 11:23 AM COOKING SHOW HOST Gender Identity Not on file Sexual Orientation Not on file documented as of this encounter Plan of Treatment Not on file documented as of this encounter Results * Pediatric Device Check - Remote (04/23/2018 8:03 AM COOKING SHOW HOST) Anatomical Region Laterality Modality Other Narrative 04/23/2018 8:43 AM COOKING SHOW HOST See documents scanned into media. us Berna Villalobos VITICULTURE TEACHER [facility] PROCEDURE S Final Result documented in this encounter Visit Diagnoses Diagnosis Abnormal EKG- Primary Nonspecific abnormal electrocardiogram (ECG) (EKG) Abnormal EKG Nonspecific abnormal electrocardiogram (ECG) (EKG) documented in this encounter Care Teams Medical Auditor Relationship Specialty Start Date End Date Anthony Bruno MD PCP - General 05/16/17 documented as of this encounter
--- OUTSIDE RECORDS SUMMARY | 2024-06-11 08:27 | XMS_ITS | Encounter Summary ---
Author Organization [facility] Address [address] [place] [address] Phone Care Team Providers Care Salesperson Jewelry Name Role Phone Anthony Bruno MD Primary Care Provider [phone] Encounter Details Date Type Department Care Team (Late st Contact Info) Description 02/22/[address] [facility] Pediatric Cardiology [facility] 2nd [place] [address] [place] [id number] Evie Morrison RN Long Q-T syndrome (Primary Dx) Social History Tobacco Use Types Packs/Day Years Used Date Smoking Tobacco: Never Comments Unknown Sex and Gender Information Value Date Recorded Sex Assigned at Not on file Legal Sex Female 11:23 AM SOLO MUSICIAN Gender Identity Not on file Sexual Orientation Not on file documented as of this encounter Ordered Prescriptions Prescription Sig Dispense Quantity Refills Last Filled Start Date End Date nadolol (CORGARD) 40 mg tabletIndications: Long Q-T syndrome Take 1 tablet (40 mg total) by mouth daily. 90 tablet 02/22/2018 06/11/2018 documented in this encounter Plan of Treatment Not on file documented as of this encounter Visit Diagnoses Diagnosis Long Q-T syndrome- Primary Long QT syndrome documented in this encounter Care Teams Salesperson Jewelry Relationship Specialty Start Date End Date Anthony Bruno MD PCP - General 05/16/17 documented as of this encounter
--- OUTSIDE RECORDS SUMMARY | 2024-06-11 08:27 | XMS_ITS | Encounter Summary ---
Author Organization [facility] Facility Care Team Providers Care Property Assessment Monitor Name Role Phone Unavailable Primary Care Provider Unavailabl e Encounter Details Date Type Department Care Team (Latest Contact Info) Description 06/22/2015 9:44 AM TRAVEL OCCUPATIONAL THERAPIST - 06/22/2015 5:00 PM TRAVEL OCCUPATIONAL THERAPIST Hospital Encounter [facility] CLINCONV Long QT syndrome; Family history of sudden cardiac Social History Tobacco Use Types Packs/Day Years Used Date Smoking Tobacco: Never Comments Unknown Sex and Gender Information Value Date Recorded Sex Assigned at Not on file Legal Sex Female 11:23 AM TRAVEL OCCUPATIONAL THERAPIST Gender Identity Not on file Sexual Orientation Not on file documented as of this encounter Last Filed Vital Signs Vital Sign Reading Time Taken Comments Blood Pressure - - Pulse - - Temperature - - Respiratory Rate - - Oxygen Saturation - - Inhaled Oxygen Concentration - - Weight 55 kg (121 lb 4.1 oz) 06/17/2015 3:29 PM TRAVEL OCCUPATIONAL THERAPIST Height 155 cm (5' 1.02 ) 06/17/2015 3:29 PM TRAVEL OCCUPATIONAL THERAPIST Body Mass Index 22.89 06/17/2015 3:29 PM TRAVEL OCCUPATIONAL THERAPIST Body Mass Index Percentile 92.84% 06/17/2015 3:2 9 PM TRAVEL OCCUPATIONAL THERAPIST Growth Chart: CDC (Girls, 2- 20 Years) documented in this encounter Plan of Treatment Not on file documented as of this encounter Procedures Procedure Name Priority Date/Time Associated Diagnosis Comments SPECIMEN TRACKING Routine 06/22/2015 2:2 4 PM TRAVEL OCCUPATIONAL THERAPIST URINE CHORIONIC GONADOTROPIN (HCG) Routine 06/22/2015 10:11 AM TRAVEL OCCUPATIONAL THERAPIST DISCHARGE LABORATORY CUMULATIVE REPORT 06/22/2015 DIAGNOSTIC ELECTROPHYSIOLOGY (EP) STUDIES Routine 06/22/2015 12:00 AM TRAVEL OCCUPATIONAL THERAPIST CYTOGENETICS AND GENOMICS 06/11/2015 documented in this encounter Results * Specimen Tracking (06/22/2015 2:24 PM TRAVEL OCCUPATIONAL THERAPIST) Specimen type Blood HISTOR ICAL RESULTS Specimen sent Cytogenetics HIS TORICAL RESULTS Collection Date 06/22/2015 HISTORICAL RESULTS Miscellaneous 06/22/2015 2:2 4 PM TRAVEL OCCUPATIONAL THERAPIST [facility] Provider MD LAB BLOOD ORDERABLES Cherry l Result HISTORICAL RESULTS * Urine chorionic gonadotropin (HCG) (06/22/2015 10:11 AM TRAVEL OCCUPATIONAL THERAPIST) HCG, ur Negative Negative HISTORICAL RESULTS Urine 06/22/2015 10:1 1 AM TRAVEL OCCUPATIONAL THERAPIST [facility] Provider MD LAB BLOOD ORDERABLES Cherry l Result Performing Organization Address [facility]/ZIP Co de Phone Number HISTORICAL RESULTS * DISCHARGE LABORATORY CUMULATIVE REPORT (06/22/2015) Narrative 06/22/2015 Ordered by an unspecified provider. [facility] Provider MD LAB BLOOD ORDERABLES Cherry l Result * Diagnostic Electrophysiology (EP) Studies (06/22/2015 12:00 AM TRAVEL OCCUPATIONAL THERAPIST) Anatomical Region Laterality Modality Cardiac Electrop hysiology 06/22/2015 Narrative 07/04/2015 10:55 AM TRAVEL OCCUPATIONAL THERAPIST PATIENT NAME: ??HERMELINDO VILLA : ? 2005 [facility] #: ?[id number] ?DATE OF STUDY: ?06/22/2015 ELECTROPHYSIOLOGY REPORT HISTORY: Hermelindo is a 8-year-old girl with a family history of sudden (her brother was 14 years old and had a sudden cardiac arrest about 1 year ago) and presented to clinic for cardiac evaluation. ??She was found to have a prolonged QT interval and there was significant concern for long QT syndrome. ??As such, she is brought today to the ammunition assembly laborer for IV epinephrine challenge and a loop recorder implantation. PROCEDURE: Hermelindo was brought to the cardiac ammunition assembly laborer in a fasting state. ??An IV epinephrine challenge was performed using the [place] protocol with escalating doses of intravenous epinephrine starting at 0.05 mcg/kg/min and escalating to 0.2 mcg/kg/min. ??At baseline, her QTc was approximately 490 ms with slightly abnormal T-waves. ??With administration of epinephrine, her heart rate slowed and her QT actually shortened down to approximately 460 ms. ??At 0.2 on epinephrine, her QTc was approximately 450 ms. ??Upon termination of epinephrine, 5 minutes post, her QT paradoxically prolonged to approximately 520 ms and at 10 minutes post epinephrine, it was 490 ms. ??As such, we elected to implant the loop recorder. Hermelindo was put to sleep by the Cardiac Anesthesia Service. ??The left prepectoral area was prepped and draped in the usual sterile manner. ??A [employer] Reveal LINQ LNQ11 serial #[id number] was implanted in the left prepectoral area. ??R-wave measured between 0.4 and 0.7 with visible P-waves. The device was programmed for the high rate of 182 beats per minute and a low rate of 30 beats per minute. ??The pocket was closed with three 3-0 Vicryl sutures and Dermabond was applied to the top of the incision. ??A sterile dressing was placed. Hermelindo was transferred back to cath recovery in stable condition. ??She may be discharged home later today. ??She should follow with me in 2 weeks for a wound check and loop recorder download. ??We additionally have seen blood for possible genetic testing today. ??We will make sure a preauthorization is obtained before the genetic test is run. Thank you so very much for allowing me to participate in Hermelindo's care. ??If you have any further questions or concerns, please do not hesitate to contact me. Ethel Casanova MD Signed Ethel Casanova MD 07/04/2015 10:55 A BILLY:keturah D: ??06/22/2015 02:11 P [id number] T: ??06/23/2015 11:25 A#[id number] Procedure Note Provider, MD Breann - 10/03/2016 PATIENT NAME: HERMELINDO VILLA : 2005 [facility] #: [id number] DATE OF STUDY: 06/22/2015 ELECTROPHYSIOLOGY REPORT HISTORY: Hermelindo is a 8-year-old girl with a family history of sudden (her brother was 14 years old and had a sudden cardiac arrest about 1 year ago)and presented to clinic for cardiac evaluation. She was found to have aprolonged QT interval and there was significant concern for long QT syndrome. Assuch, she is brought today to the ammunition assembly laborer for IV epinephrine challenge and aloop recorder implantation. PROCEDURE: Hermelindo was brought to the cardiac ammunition assembly laborer in a fasting state. An IV epinephrine challenge was performed using the [place] protocol withescalating doses of intravenous epinephrine starting at 0.05 mcg/kg/min andescalating to 0.2 mcg/kg/min. At baseline, her QTc was approximately 490 ms withslightly abnormal T-waves. With administration of epinephrine, her heart rateslowed and her QT actually shortened down to approximately 460 ms. At 0.2 on epinephrine, her QTc was approximately 450 ms. Upon termination of epinephrine, 5 minutes post, her QT paradoxically prolonged toapproximately 520 ms and at 10 minutes post epinephrine, it was 490 ms. As such, weelected to implant the loop recorder. Hermelindo was put to sleep by the Cardiac Anesthesia Service. The left prepectoral area was prepped and draped in the usual sterile manner. A Medtronic Reveal LINQ LNQ11 serial #[id number] was implanted in the left prepectoral area. R-wave measured between 0.4 and 0.7 with visibleP-waves. The device was programmed for the high rate of 182 beats per minute and alow rate of 30 beats per minute. The pocket was closed with three 3-0Vicryl sutures and Dermabond was applied to the top of the incision. A sterile dressing was placed. Hermelindo was transferred back to cath recovery in stable condition. Shemay be discharged home later today. She should follow with me in 2 weeks for awound check and loop recorder download. We additionally have seen blood forpossible genetic testing today. We will make sure a preauthorization is obtainedbefore the genetic test is run. Thank you so very much for allowing me to participate in Hermelindo's care.If you have any further questions or concerns, please do not hesitate tocontact me. Ethel Casanova MD Signed Ethel Casanova MD 07/04/2015 10:55 A JNS:[email or web address] P [id number] A#[id number] Historical Provider CV ELECTROPHYSIOLOGY PROC S Final Result * CLINICAL AND TRANSLATIONAL GENOMICS (06/11/2015) Narrative 06/11/2015 Ordered by an unspecified provider. Historical Provider LAB GENETIC TESTING Final Result documented in this encounter Visit Diagnoses Diagnosis Long QT syndrome Family history of sudden cardiac documented in this encounter
--- OUTSIDE RECORDS SUMMARY | 2024-06-11 08:27 | XMS_ITS | Encounter Summary ---
Author Organization [facility] Address [address] [place] [address] Phone Care Team Providers Care Commercial Real Estate Paralegal Name Role Phone Anthony Bruno MD Primary Care Provider [phone] Reason for Visit * (Routine) - Closed Specialty Diagnoses / Procedures Referred By Cristopher sims Referred To Contact Diagnoses Abnormal EKG Procedures Pediatric Device Check - Remote Berna Villalobos NP Phone: tel: fax: [facility] (All Locations) Referral ID Status Reason Start Date Expiration Date Visits Re quested Visits Authorized [id number] Closed 04/22/2018 11/01/2019 1 1 Encounter Details Date Type Department Care Team (Late st Contact Info) Description 04/23/2018 9:30 AM SENIOR FIELD ENGINEER Ancillary Procedure [facility] Pediatric Cardiology [address] [place] [address] Abnormal EKG Social History Tobacco Use Types Packs/Day Years Used Date Smoking Tobacco: Never Comments Unknown Sex and Gender Information Value Date Recorded Sex Assigned at Not on file Legal Sex Female 11:23 AM SENIOR FIELD ENGINEER Gender Identity Not on file Sexual Orientation Not on file documented as of this encounter Plan of Treatment Not on file documented as of this encounter Procedures Procedure Name Priority Date/Time Associated Diagnosis Comments PED DEVICE CHECK - REMOTE Routine 04/23/2018 8:03 AM SENIOR FIELD ENGINEER Abnormal EKG documented in this encounter Results * Pediatric Device Check - Remote (04/23/2018 8:03 AM SENIOR FIELD ENGINEER) Anatomical Region Laterality Modality Other Narrative 04/23/2018 8:43 AM SENIOR FIELD ENGINEER See documents scanned into media. us Berna Villalobos NP CV CARDIAC SERVICES PROCEDURE S Final Result documented in this encounter Visit Diagnoses Diagnosis Abnormal EKG Nonspecific abnormal electrocardiogram (ECG) (EKG) documented in this encounter Care Teams Commercial Real Estate Paralegal Relationship Specialty Start Date End Date Anthony Bruno MD PCP - General 05/16/17 documented as of this encounter
--- OUTSIDE RECORDS SUMMARY | 2024-06-11 08:27 | XMS_ITS | Encounter Summary ---
Author Organization [facility] Address [address] [place] [address] Phone Care Team Providers Care Division Manager Name Role Phone Anthony Bruno MD Primary Care Provider [phone] Encounter Details Date Type Department Care Team (Late st Contact Info) Description 12/10/2017 Telephone [facility] Pediatric Cardiology [address] [place] [address] [place] [address] Klarissa Givens Social History Tobacco Use Types Packs/Day Years Used Date Smoking Tobacco: Never Comments Unknown Sex and Gender Information Value Date Recorded Sex Assigned at Not on file Legal Sex Female 11:23 AM DOCUMENTATION CLERK Gender Identity Not on file Sexual Orientation Not on file documented as of this encounter Miscellaneous Notes * Telephone Encounter - Kiley Menon - 12/10/2017 1:59 PM CDT Mom called and notified that Melatonin is okay to take. * Telephone Encounter - Ethel Casanova MD - 12/10/2017 1:46 PM CDT Xander Cao, That is fine. Melatonin is okay for the patients with LQTS. Thanks for checking! --j * Telephone Encounter - Kiley Menon - 12/10/2017 12:51 PM CDT Mom aware I will check with Dr. Casanova and get back with her. Since this is an herb and not an FDA approved medication, it is not listed on the long QT website and I am not sure if safe for her to take. * Telephone Encounter - Klarissa Givens - 12/10/2017 11:47 AM CDT Patient is having problems sleeping and wants to know if she can take melatonin documented in this encounter Plan of Treatment Not on file documented as of this encounter Visit Diagnoses Not on filedocumented in this encounter Care Teams Division Manager Relationship Specialty Start Date End Date Anthony Bruno MD PCP - General 05/16/17 documented as of this encounter
--- OUTSIDE RECORDS SUMMARY | 2024-06-11 08:27 | XMS_ITS | Encounter Summary ---
Author Organization [facility] Address [address] [place] [address] Phone Care Team Providers Care Corrugator Supervisor Name Role Phone Anthony Bruno MD Primary Care Provider [phone] Reason for Visit * (Routine) - Closed Specialty Diagnoses / Procedures Referred By Contac t Referred To Contact Diagnoses Long QT syndrome Procedures ECG 12 lead Bebe Casanova MD Phone: tel: fax: Referral ID Status Reason Start Date Expiration Date Visits Re quested Visits Authorized [id number] Closed 05/13/2018 11/22/2019 1 1 Encounter Details Date Type Department Care Team (Latest Contact Info) Description 05/15/2018 10:45 AM PLACEMENT SPECIALIST Ancillary Procedure [facility] Pediatric Cardiology [facility] [address] [place] [address] [address] [place] [address] Long QT syndrome Social History Tobacco Use Types Packs/Day Years Used Date Smoking Tobacco: Never Comments Unknown Sex and Gender Information Value Date Recorded Sex Assigned at Not on file Legal Sex Female 11:23 AM PLACEMENT SPECIALIST Gender Identity Not on file Sexual Orientation Not on file documented as of this encounter Plan of Treatment Not on file documented as of this encounter Procedures Procedure Name Priority Date/Time Associated Diagnosis Comments ECG 12-LEAD Routine 05/15/2018 11:17 AM PLACEMENT SPECIALIST Long QT syndrome documented in this encounter Results * ECG 12 lead (05/15/2018 11:17 AM PLACEMENT SPECIALIST) Ventricular Rate EKG/Min Ventricular Rate:83 BPM [facility] Atrial Rate Atrial Rate:83 BPM [facility] WI-Interval (MSEC) P-R Interval:142 ms [facility] QRS-Interval (MSEC) QRS Duration:74 ms [facility] QT-Interval (MSEC) Q-T Interval:398 ms [facility] QTc QTC Calculation(Be zet):457 ms [facility] P [place] P [place]:69 degrees [facility] R [place] R [place]:39 degrees [facility] T [place] T [place]:23 degrees [facility] Diagnosis Diagnosis:Norm al sinus rhythm Low voltage QRS Borderline Prolonged QT Nonspecific T wave abnormality When compared with ECG of 16-MAY-2017 11:49, QT has lengthened Confirmed by MD ELLIOT, BEBE ([id number]) on 05/15/2018 11:24:43 AM [facility] 05/15/2018 12:1 4 PM PLACEMENT SPECIALIST 05/15/2018 11:24 AM PLACEMENT SPECIALIST us Bebe Casanova MD ECG ORDERABLES Final Resul t [facility] documented in this encounter Visit Diagnoses Diagnosis Long QT syndrome documented in this encounter Care Teams Corrugator Supervisor Relationship Specialty Start Date End Date Anthony Bruno MD PCP - General 05/16/17 documented as of this encounter
--- OUTSIDE RECORDS SUMMARY | 2024-06-11 08:27 | XMS_ITS | Encounter Summary ---
Author Organization [facility] Address [address] [place] [address] Phone Care Team Providers Care Supervisor Green End Department Name Role Phone Anthony Bruno MD Primary Care Provider [phone] Reason for Visit * (Routine) - Closed Specialty Diagnoses / Procedures Referred By Cristopher sims Referred To Contact Diagnoses Abnormal electrocardiogram Procedures Pediatric Device Check - Remote Berna Villalobos NP Phone: tel: fax: [facility] (All Locations) Referral ID Status Reason Start Date Expiration Date Visits Re quested Visits Authorized [id number] Closed 07/09/2018 01/18/2020 1 1 Encounter Details Date Type Department Care Team (Latest Contact Info) Description 07/10/2018 10:45 AM FLIGHT NURSE Ancillary Procedure [facility] Pediatric Cardiology [address] [place] [address] Abnormal electrocardiogram Social History Tobacco Use Types Packs/Day Years Used Date Smoking Tobacco: Never Comments Unknown Sex and Gender Information Value Date Recorded Sex Assigned at Not on file Legal Sex Female 11:23 AM FLIGHT NURSE Gender Identity Not on file Sexual Orientation Not on file documented as of this encounter Plan of Treatment Not on file documented as of this encounter Procedures Procedure Name Priority Date/Time Associated Diagnosis Comments PED DEVICE CHECK - REMOTE Routine 07/10/2018 10:39 AM FLIGHT NURSE Abnormal electrocardiogram documented in this encounter Results * Pediatric Device Check - Remote (07/10/2018 10:39 AM FLIGHT NURSE) Anatomical Region Laterality Modality Other Narrative 07/10/2018 12:19 PM FLIGHT NURSE See documents scanned into Media. us Berna Villalobos NP CV CARDIAC SERVICES PROCEDURE S Final Result documented in this encounter Visit Diagnoses Diagnosis Abnormal electrocardiogram Nonspecific abnormal electrocardiogram (ECG) (EKG) documented in this encounter Care Teams Supervisor Green End Department Relationship Specialty Start Date End Date Anthony Bruno MD PCP - General 05/16/17 documented as of this encounter
--- OUTSIDE RECORDS SUMMARY | 2024-06-11 08:27 | XMS_ITS | Encounter Summary ---
Author Organization [facility] Address [address] [place] [address] Phone Care Team Providers Care Member Certification Manager Name Role Phone Anthony Bruno MD Primary Care Provider [phone] Reason for Referral * (Routine) - Closed Specialty Diagnoses / Procedures Referred By Contac t Referred To Contact Diagnoses Abnormal electrocardiogram Procedures Pediatric Device Check - Remote Berna Villalobos NP Phone: tel: fax: [facility] (All Locations) Referral ID Status Reason Start Date Expiration Date Visits Re quested Visits Authorized [id number] Closed 07/09/2018 01/18/2020 1 1 SH NURSE Encounter Details Date Type Department Care Team (Late st Contact Info) Description 07/09/2018 Orders Only [facility] Pediatric Cardiology [address] [facility] [address] [place] [address] [place] [address] Berna Villalobos NP [address] [place] [address] [address] [place] [address] Abnormal electrocardiogram (Primary Dx) Social History Tobacco Use Types Packs/Day Years Used Date Smoking Tobacco: Never Comments Unknown Sex and Gender Information Value Date Recorded Sex Assigned at Not on file Legal Sex Female 11:23 AM PARISH NURSE Gender Identity Not on file Sexual Orientation Not on file documented as of this encounter Plan of Treatment Not on file documented as of this encounter Results * Pediatric Device Check - Remote (07/10/2018 10:39 AM PARISH NURSE) Anatomical Region Laterality Modality Other Narrative 07/10/2018 12:19 PM PARISH NURSE See documents scanned into Media. us Berna Villalobos DRIVE WORKER CV CARDIAC SERVICES PROCEDURE S Final Result documented in this encounter Visit Diagnoses Diagnosis Abnormal electrocardiogram- Primary Nonspecific abnormal electrocardiogram (ECG) (EKG) Abnormal electrocardiogram Nonspecific abnormal electrocardiogram (ECG) (EKG) documented in this encounter Care Teams Member Certification Manager Relationship Specialty Start Date End Date Anthony Bruno MD PCP - General 05/16/17 documented as of this encounter
--- OUTSIDE RECORDS SUMMARY | 2024-06-11 08:27 | XMS_ITS | Encounter Summary ---
Author Organization [facility] Address [address] [place] [address] Phone Care Team Providers Care Spiral Tube Winder Name Role Phone Anthony Bruno MD Primary Care Provider [phone] Encounter Details Date Type Department Care Team (Late st Contact Info) Description 06/11/2018 Telephone [facility] Pediatric Cardiology [address] [facility] [address] [place] [address] [place] [address] Ethel Casanova MD [address] [place] [address] [address] [place] [address] Social History Tobacco Use Types Packs/Day Years Used Date Smoking Tobacco: Never Comments Unknown Sex and Gender Information Value Date Recorded Sex Assigned at Not on file Legal Sex Female 11:23 AM SKIN PILER Gender Identity Not on file Sexual Orientation Not on file documented as of this encounter Ordered Prescriptions Prescription Sig Dispense Quantity Refills Last Filled Start Date End Date nadolol (CORGARD) 40 mg tabletIndications: Long Q-T syndrome Take 1 tablet (40 mg total) by mouth daily. 90 tablet 1 06/11/2018 07/12/2018 documented in this encounter Miscellaneous Notes * Telephone Encounter - Kiley Menon - 06/11/2018 9:43 AM CST Refill sent through to [facility]. Mom called and notified. PILER * Telephone Encounter - Leonie Bryant - 06/11/2018 9:13 AM CST Patient's mom called and said they need the Prescription refilled through [facility]...[id number] mg PILER documented in this encounter Plan of Treatment Not on file documented as of this encounter Visit Diagnoses Diagnosis Long Q-T syndrome Long QT syndrome documented in this encounter Discontinued Medications Medication Sig Discontinue Reason Start Date End Da te nadolol (CORGARD) 40 mg tabletIndications:Long Q-T syndrome Take 1 tablet (40 mg total) by mouth daily. Reorder 02/22/2018 06/11/2018 documented as of this encounter Care Teams Spiral Tube Winder Relationship Specialty Start Date End Date Anthony Bruno MD PCP - General 05/16/17 documented as of this encounter
--- OUTSIDE RECORDS SUMMARY | 2024-06-11 08:27 | XMS_ITS | Encounter Summary ---
Author Organization [facility] Address [address] [place] [address] Phone Care Team Providers Care Critical Care Nurse Practitioner Name Role Phone Anthony Bruno MD Primary Care Provider [phone] Reason for Visit * (Routine) - Closed Specialty Diagnoses / Procedures Referred By Contgeorgina t Referred To Contact Diagnoses Long QT syndrome Procedures Pediatric Device Check - In Office Ethel Casanova MD Phone: tel: fax: [facility] (All Locations) Referral ID Status Reason Start Date Expiration Date Visits Re quested Visits Authorized [id number] Closed 05/13/2018 11/22/2019 1 1 Encounter Details Date Type Department Care Team (Latest Contact Info) Description 05/15/2018 10:45 AM HOG RINGER Ancillary Procedure [facility] Pediatric Cardiology [facility] [address] [place] [address] [address] [place] [address] Long QT syndrome Social History Tobacco Use Types Packs/Day Years Used Date Smoking Tobacco: Never Comments Unknown Sex and Gender Information Value Date Recorded Sex Assigned at Not on file Legal Sex Female 11:23 AM HOG RINGER Gender Identity Not on file Sexual Orientation Not on file documented as of this encounter Plan of Treatment Pending Results Name Type Priority Associated Diagnoses Date /Time Pediatric Device Check - In Office Cardiac Services Routine Long QT syndrome 05/15/2018 10:29 AM HOG RINGER documented as of this encounter Visit Diagnoses Diagnosis Long QT syndrome documented in this encounter Care Teams Critical Care Nurse Practitioner Relationship Specialty Start Date End Date Anthony Bruno MD PCP - General 05/16/17 documented as of this encounter
--- OUTSIDE RECORDS SUMMARY | 2024-06-11 08:27 | XMS_ITS | Encounter Summary ---
Author Organization [facility] Address [address] [place] [address] Phone Care Team Providers Care Rubber Tire Curer Name Role Phone Anthony Bruno MD Primary Care Provider [phone] Encounter Details Date Type Department Care Team (Late st Contact Info) Description 05/20/2018 Telephone [facility] Pediatric Cardiology [address] 2nd [place] [address] [place] [address] Klarissa Givens Social History Tobacco Use Types Packs/Day Years Used Date Smoking Tobacco: Never Comments Unknown Sex and Gender Information Value Date Recorded Sex Assigned at Not on file Legal Sex Female 11:23 AM GANG WORKER Gender Identity Not on file Sexual Orientation Not on file documented as of this encounter Miscellaneous Notes * Telephone Encounter - Kiley Menon - 05/20/2018 4:[address] Casanova, this note is okay to send. Mom aware I have faxed this note off to the school. WORKER * Telephone Encounter - Kiley Menon - 05/20/2018 12:46 PM CST I spoke with mom, she states she forgot to ask for a note for PE. She also wants to be certain that Grecia can participate in PE with her QT interval a little bit longer on the recent EKG and she will be the age that her brother was when he . Mom aware I will check with Dr. Casanova to confirm she can participate in PE, no coached sports, no timed activities, she must be allowed to participate at her own level and be allowed to rest whenevershe feels she needs to rest. Nazanin- let me know and I will get back with mom. WORKER * Telephone Encounter - Klarissa Givens - 05/20/2018 12:33 PM CST MOM IS CALLING TO LET THE DOCTOR KNOW SHE NEEDS A NOTE FAXED TO THE SCHOOL TO GIVE ALL RESTRICTIONSFOR WHAT SHE CAN AND CAN'T DO IN GYM [phone] [place] [address] [employer] WORKER documented in this encounter Plan of Treatment Not on file documented as of this encounter Visit Diagnoses Not on filedocumented in this encounter Care Teams Rubber Tire Curer Relationship Specialty Start Date End Date Anthony Bruno MD PCP - General 05/16/17 documented as of this encounter
--- OUTSIDE RECORDS SUMMARY | 2024-06-11 08:27 | XMS_ITS | Encounter Summary ---
Author Organization [facility] Address [address] [place] [address] Phone Care Team Providers Care Plant Control Operator Name Role Phone Anthony Bruno MD Primary Care Provider [phone] Reason for Referral * (Routine) - Closed Specialty Diagnoses / Procedures Referred By Cristopher sims Referred To Contact Diagnoses Palpitations Procedures Pediatric Device Check - Remote Berna Villalobos NP Phone: tel: fax: [facility] (All Locations) Referral ID Status Reason Start Date Expiration Date Visits Re quested Visits Authorized [id number] Closed 06/17/2018 12/27/2019 1 1 Y EQUIPMENT SUPERVISOR Encounter Details Date Type Department Care Team (Late st Contact Info) Description 06/17/2018 Orders Only [facility] Pediatric Cardiology [facility] 2nd [place] [address] [place] [address] Berna Villalobos NP [address] [place] [address] [address] [place] [address] Palpitations (Primary Dx) Social History Tobacco Use Types Packs/Day Years Used Date Smoking Tobacco: Never Comments Unknown Sex and Gender Information Value Date Recorded Sex Assigned at Not on file Legal Sex Female 11:23 AM HEAVY EQUIPMENT SUPERVISOR Gender Identity Not on file Sexual Orientation Not on file documented as of this encounter Plan of Treatment Not on file documented as of this encounter Results * Pediatric Device Check - Remote (06/18/2018 8:35 AM HEAVY EQUIPMENT SUPERVISOR) Anatomical Region Laterality Modality Other Narrative 06/18/2018 9:50 AM HEAVY EQUIPMENT SUPERVISOR See documents scanned into media us Berna Villalobos FRENCH INSTRUCTOR [facility] C[facility] PROCEDURE S Final Result documented in this encounter Visit Diagnoses Diagnosis Palpitations- Primary Palpitations documented in this encounter Care Teams Plant Control Operator Relationship Specialty Start Date End Date Anthony Bruno MD PCP - General 05/16/17 documented as of this encounter
--- OUTSIDE RECORDS SUMMARY | 2024-06-11 10:31 | XMS_ITS | Continuity of Care Document ---
Author Name [facility] Organization [facility] Care Team Providers Care Program Schedule Clerk Name Role Phone [facility] Unavailable Unavailable Problems [...] BETAXOLOL HCL (BETAXOLOL HCL), 10MG, TABLET, ORAL, [employer] 100 ea. BOTTLE Active [id number] 4 2023 45 Pharmac y Data Transac tion Service Facilit y BETAXOLOL HCL (BETAXOLOL HCL), 10MG, TABLET, ORAL, [employer] 100 ea. BOTTLE Active [id number] 4 2023 45 Pharmac y Data Transac tion Service Facilit y Allergies, Adverse Reactions, Alerts Combined list of allergies from Department of Defense and Veterans Affairs facilities. It does not include entries that were removed or entered in error. Substance Category Reaction Severity Reaction type Status Date Reported Comments Source NO OUTPUT FOR NCID 134760 Drug allergy (disorder) active 02/05/2007 [facility] Immunizations Combined list of available immunizations from the Department of Defense and Veterans Affairs facilities. Immunization Series Date Given Administered By Site Reaction Lot Number CVX Code Drug Game Room Attendant Status Comments Source COVID-19, mRNA, LNP-S, PF, [...] 1 2009 RAE DERAS [id number] 3AA 08 [employer] (B) complet ed hepatitis B vaccine, pediatric or pediatric /adolesce nt dosage DoD measles, mumps and rubella virus vaccine 1 2008 ALLA ARITA [id number] 03 Merck (MSD) complet ed measles, mumps and rubella virus vaccine DoD poliovirus vaccine, inactivated 1 2008 ALLA ARITA [id number] 10 Sanofi Pasteur ([facility]) complet ed polioviru s vaccine, inactivat ed DoD diphtheria, tetanus toxoids and acellular pertu is vaccine 2 2008 ALLA ARITA [id number] 5BA 20 SmithKline (SKB) complet ed diphtheri [...] pertu is vaccine 1 2006 DINAH HYATT [id number] 20 SmithKline (SKB) complet ed diphtheri [...] vaccine, 7 valent 1 2004 DINAH HYATT [id number] GiovannyIla ([facility]) complet ed pneumococ gi conjugate vaccine, 7 valent DoD DTaP-hepatiti s B and poliovirus vaccine 1 2004 DINAH HYATT [id number] 5aa 110 SmithKline (SKB) complet ed DTaP-hepa [...] Date Status Disposition Source [employer] [facility] M05A [facility] Dut) OUTPATIENT [id number] WELL BABY/PH YSICAL EXAM/SC FRANKO QUINCY GE 11/24 Released w/o Limitations [employer] [facility] Dut) [employer] [facility] M05A [facility] Dut) OUTPATIENT [id number] WELL BABY CHECK/[facility] QUINCY GE 02/10 Released w/o Limitations [employer] [facility] M[facility]A [facility] Dut) [employer] [facility] M05A [facility] Dut) OUTPATIENT [id number] Immuniz STEVE Smith Surya 02/24 Released w/o Limitations [employer] [facility] M[facility]A [facility] Dut) [employer] [facility] M05A [facility] Dut) OUTPATIENT [id number] COUGH/F EVER KAI CAICEDO 05/25 Released w/o Limitations [employer] [facility]AM [facility] M[facility]A [facility] Dut) [employer] [facility] AMI Cl) TELE CONSULT [id number] Fever LUCIA PABON 06/17 [employer] [facility] Cl) [employer] [facility] M05A [facility] Dut) OUTPATIENT [id number] fever 103 QUINCY GE 06/27 Released w/o Limitations [employer] [facility] M[facility]A [facility] Dut) [employer] [facility] M05A [facility] Dut) OUTPATIENT [id number] 12month WBC JOY PARTIDA 09/04 Released w/o Limitations [employer] [facility] M[facility]A [facility] Dut) [employer] [facility] M05D WFM Int) OUTPATIENT [id number] fever ear pain QUINCY GE 07/16 Released w/o Limitations [employer] [facility] M[facility]D W[facility] Int) [employer] [facility] [employer]) OUTPATIENT [id number] IMMElza MATHISALLA Elio 08/20 Released w/o Limitations [employer] [facility] ) [employer] [facility] Int) TELE CONSULT [id number] Prescri ption request QUINCY GE 02/05 [employer] [facility] Int) [employer] [facility]ut) OUTPATIENT [id number] imm [place] ADAIRSTACY Torres 10/02 Released w/o Limitations [employer] [facility] M[facility]A [facility] Dut) [employer] [facility] Int) OUTPATIENT [id number] QUINCY Gaspar 01/19 Released w/o Limitations [employer] [facility]AM [facility] M[facility]D WFM Int) [employer] [facility] Int) OUTPATIENT [id number] rash on buttock s QUINCY GE 03/26 Released w/o Limitations [employer] [facility] M[facility]D W[facility] Int) [employer] [facility] Int) TELE CONSULT [id number] labs QUINCY GE 03/29 [employer] [facility] M[facility] W[facility] Int) [facility] [facility] Int) TELE CONSULT [id number] Pt's father called and asked for meds for leg infecti on NIRU DANIEL S 07/20 [facility] [facility] Int) [facility] [facility] Int) TELE CONSULT [id number] Infecte d bug bite NIRU DANIEL S 10/11 [employer] [facility] Int) [employer] [facility] Int) OUTPATIENT [id number] REBOOK/ [employer] PHYSICA L NIRU DANIEL S 12/09 Released w/o Limitations [employer] [facility] M[facility]D W[facility] Int) [employer] [facility] Cl) OUTPATIENT [id number] 4 yr old female w/fever ;sore throat DARIUS WOOD 01/19 Released w/o Limitations [employer] [facility] Cl) [employer] [facility] M[facility]A [facility] Dut) OUTPATIENT [id number] hep B RAE DERAS 02/21 Released w/o Limitations [employer] [facility] M[facility]A [facility] Dut) [employer] [facility] M[facility]D WFM Int) OUTPATIENT [id number] sore throat and fever NIRU DANIEL S 07/05 Released w/o Limitations [employer] [facility] M[facility] W[facility] Int) [employer] [facility] M[facility]D WFM Int) OUTPATIENT [id number] congest ion QUINCY GE 11/15 Released w/o Limitations [employer] [facility] M[facility] W[facility] Int) [employer] [facility] M[facility]D WFM Int) TELE CONSULT [id number] right ear pain MINA QUINCY MON 11/28 [employer] [facility] M[facility] Int) Procedures Combined list of: 1) Procedures from Department of Veterans Affairs facilities going back up to thelast 18 months, not all VA non-surgical procedures are included; 2) All procedures from the Department of Defense facilities. Procedure Procedure Type Code Date Perfomer Comments Sourc e Hepatitis B Vaccine (Active); Elizabeth To 11 Years Hepatitis B Vaccine (Active); To 11 Years 60679 02/22/20 10 RAE DERAS Immunization Administration By Injection, One Vaccine Immunization Administration By Injection, One Vaccine 01036 02/22/[address] [facility] Vaccines Viral Polio, Inactivated Vaccines Viral Polio, Inactivated 14484 10/03/[address] [facility] Vaccines Viral Measles, Mumps and Rubella, Live Vaccines Viral Measles, Mumps and Rubella, Live 84149 10/03/[address] [facility] DTaP Vaccine DTaP Vaccine 26807 10/03/19 09 ALLA ARITA Vaccines Viral Varicella (Active) Vaccines Viral Varicella (Active) 16325 10/03/19 09 ALLA ARITA Hepatitis A Vaccine Adult Dosage (Intramuscular Use) Hepatitis A Vaccine Adult Dosage (Intramuscular Use) 95671 10/03/19 09 ALLA ARITA Immunization Administration By Injection, Each Additional Vaccine 10/03/[address] [facility] Immunization Administration By Injection, One Vaccine Immunization Administration By Injection, One Vaccine 78936 10/03/19 ALLA ARITA Hep A Vac Ped/Adol Dosage (Intramusc Use) 2 Dose Schedule Hep A Vac Ped/Adol Dosage (Intramusc Use) 2 Dose Schedule 13234 08/21/19 07 TAHCO, DINAH given by Ms Hyatt [facility] Immunization Administration By Injection, Each Additional Vaccine 08/21/19 07 DINAH TITUS DTaP Vaccine DTaP Vaccine 17024 08/21/19 TACHO, DINAH given by Ms LemosHyatt [facility] Immunization Administration By Injection, One Vaccine Immunization Administration By Injection, One Vaccine 31542 08/21/19 TACHO, DINAH [facility] Hemophil Influ B Vac PRP-OMP Conjugate (3 Dose) For IM Use Hemophil Influ B Vac PRP-OMP Conjugate (3 Dose) For IM Use 71534 08/21/19 TACHO, DINAH given By Ms Hyatt [facility] Vaccines Viral Measles, Mumps and Rubella, Live Vaccines Viral Measles, Mumps and Rubella, Live 87403 09/05/[address] [facility] Vaccines Viral Varicella (Active) Vaccines Viral Varicella (Active) 91511 09/05/19 06 CHANG JASON Pt given the following shots SQ as directed for 12 months well baby visit: MMR 0.5ml Varivax 0.5ml DoD Immunization Administration By Injection, One Vaccine Immunization Administration By Injection, One Vaccine 92586 02/25/20 TACHO, DINAH Barragan DTaP + Hep B + IPV DTaP + Hep B + IPV [address] [facility] Immunization Administration By Injection, Each Additional Vaccine 02/25/20 05 TACHODINAH Yung Pneumococcal Conjugate Vaccine, Polyvalent, IM Use Pneumococcal Conjugate Vaccine, Polyvalent, IM Use 19604 02/25/20 05 TACHODINAH Yung Hemophil Influ B Vac PRP-OMP Conjugate (3 Dose) For IM Use Hemophil Influ B Vac PRP-OMP Conjugate (3 Dose) For IM Use 34725 02/25/20 05 DINAH TITUS 6 moths vaccine [...] IPV DTaP + Hep B + IPV 88649 05 TACHO DINAH Barragan Pneumococcal Conjugate Vaccine, Polyvalent, IM Use Pneumococcal Conjugate Vaccine, Polyvalent, IM Use 20221 11/25/19 05 DINAH TITUS Hemophil Influ B Vac PRP-OMP Conjugate (3 Dose) For IM Use Hemophil Influ B Vac PRP-OMP Conjugate (3 Dose) For IM Use 30403 11/25/19 05 DINAH TITUS patient here for 4 months immunization. [...]
--- OUTSIDE RECORDS SUMMARY | 2024-06-11 10:31 | XMS_ITS | Continuity of Care Document ---
Author Name [facility] Organization [facility] Care Team Providers Care Follow Up Rep Name Role Phone [facility] Unavailable Unavailable Problems [...] BETAXOLOL HCL (BETAXOLOL HCL), 10MG, TABLET, ORAL, [employer] 100 ea. BOTTLE Active [id number] 2023 45 Pharmac y Data Transac tion Service Facilit y BETAXOLOL HCL (BETAXOLOL HCL), 10MG, TABLET, ORAL, [employer] 100 ea. BOTTLE Active [id number] 4 2023 45 Pharmac y Data Transac tion Service Facilit y Allergies, Adverse Reactions, Alerts Combined list of allergies from Department of Defense and Veterans Affairs facilities. It does not include entries that were removed or entered in error. Substance Category Reaction Severity Reaction type Status Date Reported Comments Source NO OUTPUT FOR NCID 129055 Drug allergy (disorder) active 02/05/2007 [facility] Immunizations Combined list of available immunizations from the Department of Defense and Veterans Affairs facilities. Immunization Series Date Given Administered By Site Reaction Lot Number CVX Code Drug Help Desk Team Leader Status Comments Source COVID-19, mRNA, LNP-S, PF, [...] 1 2009 RAE DERAS [id number] 3AA 08 [employer] (B) complet ed hepatitis B vaccine, pediatric or pediatric /adolesce nt dosage DoD measles, mumps and rubella virus vaccine 1 2008 ALLA ARITA 1671X 03 Merck (MSD) complet ed measles, mumps and rubella virus vaccine DoD poliovirus vaccine, inactivated 1 2008 ALLA ARITA A1060 10 Sanofi Pasteur ([facility]) complet ed polioviru s vaccine, inactivat ed DoD diphtheria, tetanus toxoids and acellular pertu is vaccine 2 2008 ALLA ARITA [id number] 5BA 20 SmithKline (SKB) complet ed diphtheri [...] pertu is vaccine 1 2006 DINAH HYATT [id number] 0ca 20 SmithKline (SKB) complet ed diphtheri [...] vaccine, 7 valent 1 2004 DINAH HYATT [id number] GiovannyIla ([facility]) complet ed pneumococ gi conjugate vaccine, 7 valent DoD DTaP-hepatiti s B and poliovirus vaccine 1 2004 DINAH HYATT [id number] 5aa 110 SmithKline (SKB) complet ed DTaP-hepa [...] Date Status Disposition Source [employer] [facility] M05A W[facility] Dut) OUTPATIENT [id number] WELL BABY/PH YSICAL EXAM/SC FRANKO QUINCY GE 11/24 Released w/o Limitations [facility] [facility] M[facility]A [facility] Dut) [employer] [facility] M05A W[facility] Dut) OUTPATIENT [id number] WELL BABY CHECK/[facility] QUINCY GE 02/10 Released w/o Limitations [employer] [facility] M[facility]A [facility] Dut) [employer] [facility] M05A W[facility] Dut) OUTPATIENT [id number] Immuniz STEVE Smith Surya 02/24 Released w/o Limitations [employer] [facility]AM [facility] M[facility]A [facility] Dut) [employer] [facility] M05A W[facility] Dut) OUTPATIENT [id number] COUGH/F EVER KAI CAICEDO 05/25 Released w/o Limitations [employer] [facility]AM H M[facility]A [facility] Dut) [employer] [facility] AMI Cl) TELE CONSULT [id number] Fever LUCIA PABON 06/17 [employer] [facility] AMIC Cl) [employer] [facility] M05A W[facility] Dut) OUTPATIENT [id number] fever 103 QUINCY GE 06/27 Released w/o Limitations [employer] [facility]AM [facility] M[facility]A [facility] Dut) [employer] [facility] M05A W[facility] Dut) OUTPATIENT [id number] 12month WBC JOY PARTIDA 09/04 Released w/o Limitations [employer] [facility] M[facility]A [facility] Dut) [employer] [facility] M05D WFM Int) OUTPATIENT [id number] fever ear pain QUINCY GE 07/16 Released w/o Limitations [employer] [facility] M[facility]D W[facility] Int) [employer] [facility] [employer]) OUTPATIENT [id number] IMMElza MATHISALLA Elio 08/20 Released w/o Limitations [employer] [facility] ) [employer] [facility] Int) TELE CONSULT [id number] Prescri ption request QUINCY GE 02/05 [employer] [facility] M[facility] W[facility] Int) [employer] [facility] Dut) OUTPATIENT [id number] imm RAMIR[place]INST[place] ADAIRSTACY Torres 10/02 Released w/o Limitations [employer] [facility]AM [facility] M[facility]A [facility] Dut) [employer] [facility] M[facility] Int) OUTPATIENT [id number] QUINCY Gaspar 01/19 Released w/o Limitations [employer] [facility] M[facility]D WFM Int) [employer] [facility] Int) OUTPATIENT [id number] rash on buttock s QUINCY GE 03/26 Released w/o Limitations [employer] [facility] M[facility] W[facility] Int) [employer] [facility] M[facility] Int) TELE CONSULT [id number] labs QUINCY GE 03/29 [facility] [facility] M[facility] W[facility] Int) [facility] [facility] Int) TELE CONSULT [id number] Pt's father called and asked for meds for leg infecti on NIRU DANIEL S 07/20 [facility] [facility] Int) [facility] [facility] Int) TELE CONSULT [id number] Infecte d bug bite NIRU DANIEL S 10/11 [facility] [facility]AM [facility] M[facility]D W[facility] Int) [facility] [facility] M[facility] Int) OUTPATIENT [id number] REBOOK/ [employer] PHYSICA L NIRU DANIEL S 12/09 Released w/o Limitations [facility] [facility]AM [facility] M[facility]D WFM Int) [facility] [facility] Cl) OUTPATIENT [id number] 4 yr old female w/fever ;sore throat DARIUS WOOD 01/19 Released w/o Limitations [employer] [facility] Cl) [employer] [facility] M05A WFM Dut) OUTPATIENT [id number] hep B RAE DERAS 02/21 Released w/o Limitations [facility] [facility]AM H M[facility]A W[facility] Dut) [facility] [facility] M05D WFM Int) OUTPATIENT [id number] sore throat and fever NIRU DANIEL S 07/05 Released w/o Limitations [facility] [facility]AM [facility] M[facility]D WFM Int) [facility] [facility] M05D WFM Int) OUTPATIENT [id number] congest ion QUINCY GE 11/15 Released w/o Limitations [facility] [facility]AM H M[facility]D WFM Int) [facility] [facility] M05D WFM Int) TELE CONSULT [id number] right ear pain MINA QUINCY MON 11/28 [facility] [facility] M[facility]D W[facility] Int) Procedures Combined list of: 1) Procedures from Department of Veterans Affairs facilities going back up to thelast 18 months, not all VA non-surgical procedures are included; 2) All procedures from the Department of Defense facilities. Procedure Procedure Type Code Date Perfomer Comments Sourc e Hepatitis B Vaccine (Active); Lyman To 11 Years Hepatitis B Vaccine (Active); To 11 Years 99674 02/22/20 10 RAE DERAS Immunization Administration By Injection, One Vaccine Immunization Administration By Injection, One Vaccine 45568 02/22/[address] [facility] Vaccines Viral Polio, Inactivated Vaccines Viral Polio, Inactivated 61608 10/03/[address] [facility] Vaccines Viral Measles, Mumps and Rubella, Live Vaccines Viral Measles, Mumps and Rubella, Live 10894 10/03/[address] [facility] DTaP Vaccine DTaP Vaccine 83062 10/03/19 09 ALLA ARITA Vaccines Viral Varicella (Active) Vaccines Viral Varicella (Active) 63272 10/03/19 09 ALLA ARITA Hepatitis A Vaccine Adult Dosage (Intramuscular Use) Hepatitis A Vaccine Adult Dosage (Intramuscular Use) 77483 10/03/19 09 ALLA ARITA Immunization Administration By Injection, Each Additional Vaccine 10/03/[address] [facility] Immunization Administration By Injection, One Vaccine Immunization Administration By Injection, One Vaccine 39062 10/03/19 ALLA ARITA Hep A Vac Ped/Adol Dosage (Intramusc Use) 2 Dose Schedule Hep A Vac Ped/Adol Dosage (Intramusc Use) 2 Dose Schedule 74830 08/21/19 07 TACHO, DINAH given by Ms Hyatt [facility] Immunization Administration By Injection, Each Additional Vaccine 08/21/19 07 DINAH TITUS DTaP Vaccine DTaP Vaccine 41362 08/21/19 TACHO, DINAH given by Ms LemosHyatt [facility] Immunization Administration By Injection, One Vaccine Immunization Administration By Injection, One Vaccine 99612 08/21/19 TACHO, DINAH [facility] Hemophil Influ B Vac PRP-OMP Conjugate (3 Dose) For IM Use Hemophil Influ B Vac PRP-OMP Conjugate (3 Dose) For IM Use 12057 08/21/19 TACHO, DINAH given By Ms Hyatt [facility] Vaccines Viral Measles, Mumps and Rubella, Live Vaccines Viral Measles, Mumps and Rubella, Live 53401 09/05/[address] [facility] Vaccines Viral Varicella (Active) Vaccines Viral Varicella (Active) 60484 09/05/19 06 CHANG JASON Pt given the following shots SQ as directed for 12 months well baby visit: MMR 0.5ml Varivax 0.5ml DoD Immunization Administration By Injection, One Vaccine Immunization Administration By Injection, One Vaccine 11508 02/25/20 TACHO, DINAH Barragan DTaP + Hep B + IPV DTaP + Hep B + IPV [address] [facility] Immunization Administration By Injection, Each Additional Vaccine 02/25/20 05 TACHODINAH Yung Pneumococcal Conjugate Vaccine, Polyvalent, IM Use Pneumococcal Conjugate Vaccine, Polyvalent, IM Use 48044 02/25/20 05 TACHODINAH Yung Hemophil Influ B Vac PRP-OMP Conjugate (3 Dose) For IM Use Hemophil Influ B Vac PRP-OMP Conjugate (3 Dose) For IM Use 10960 02/25/20 05 DINAH TITUS 6 moths vaccine [...] IPV DTaP + Hep B + IPV 52195 05 TACHO DINAH Barragan Pneumococcal Conjugate Vaccine, Polyvalent, IM Use Pneumococcal Conjugate Vaccine, Polyvalent, IM Use 25215 11/25/19 05 DINAH TITUS Hemophil Influ B Vac PRP-OMP Conjugate (3 Dose) For IM Use Hemophil Influ B Vac PRP-OMP Conjugate (3 Dose) For IM Use 05373 11/25/19 05 DINAH TITUS patient here for [...]
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
--- OUTSIDE RECORDS SUMMARY | 2024-06-11 10:33 | XMS_ITS | Encounter Summary ---
Author Organization [facility] Address [address] [place] [address] Phone Care Team Providers Care News Cameraman Name Role Phone Anthony Bruno MD Primary Care Provider [phone] Ethel Casanova MD Unavailable [phone] Reason for Referral * Cardiology (Routine) - Closed Specialty Diagnoses / Procedures Referred By Contac t Referred To Contact Diagnoses Long QT syndrome Procedures ECG 12 lead Ethel Casanova MD [address] [place] [address] [address] [place] [address] Phone: tel: fax: [facility] (All Locations) Referral ID Status Reason Start Date Expiration Date Visits Re quested Visits Authorized [id number] Closed 04/25/2023 05/24/2024 1 1 CHIPPER OPERATOR Reason for Visit * Cardiology (Routine) - Closed Specialty Diagnoses / Procedures Referred By Contact Referred To Contact Pediatric Cardiology Diagnoses Long QT syndrome Abnormal electrocardiography Anthony Bruno MD Phone: tel:[phone] fax:[phone] [facility] (All Locations) Referral ID Status Reason Start Date Expiration Date V isits Requested Visits Authorized [id number] Closed Continuity of Care 04/24/2023 05/23/2024 4 4 Encounter Details Date Type Department Care Team (Latest Contact Info) Description 05/03/2023 2:40 PM LOG CHIPPER OPERATOR Office Visit [facility] Pediatric Cardiology [facility] [address]nd [place] [address] [place] [address] Ethel Casanova MD 1 [facility] [address] [place] [address] Long QT syndrome (Primary Dx); Abnormal electrocardiography [...] on file Legal Sex Female 11:23 AM LOG CHIPPER OPERATOR Gender Identity Not on file Sexual Orientation Not on file documented as of this encounter Last Filed Vital Signs Vital Sign Reading Time Taken Comments Blood Pressure 102/60 05/03/2023 2:51 PM LOG CHIPPER OPERATOR Pulse 81 05/03/2023 2:51 PM LOG CHIPPER OPERATOR Temperature - - Respiratory Rate - - Oxygen Saturation 97% 05/03/2023 2:51 PM LOG CHIPPER OPERATOR Inhaled Oxygen Concentration - - Weight 68.9 kg (151 lb 14.4 oz) 05/03/2023 2:51 PM LOG CHIPPER OPERATOR Height 165.5 cm (5' 5.16 ) 05/03/2023 2:51 PM CS T Body Mass Index 25.16 05/03/2023 2:51 PM LOG CHIPPER OPERATOR Body Mass Index Percentile 81.29% 05/03/2023 2:5 1 PM LOG CHIPPER OPERATOR Growth Chart: [facility] (Girls, 2- 20 Years) documented in this encounter Patient Instructions * Patient Instructions* Ethel Casanova MD - 05/03/2023 2:40 PM LOG CHIPPER OPERATOR Tests & Labs: I personally reviewed [...] not hesitate to call our office at [phone]. Cardiovascular instructions and follow-up: SBE Prophylaxis (antibiotics): No RSV Prophylaxis Recommended: N/A Patient Cleared For: Anesthesia, Dental Work and Surgery--continue to avoid drugs that push out theQT interval Activity: May participate in entire physical education program but restricted from varsity athletics and strenuous activity Pending Tests: None Tests Next Visit: ECG Does patient qualify for adolescent management protocol: No CHIPPER OPERATOR documented in this encounter Ordered Prescriptions [...] Grecia was seen today, 05/03/23 at [facility].She is accompanied to [facility] today by her father. She is here today with her parents. Please allow me to review for my records. Grecia's family relocated to the [facility] from [place]. Sadly, her brother suddenly in July 2014 [...] Grecia had an extensive cardiac evaluation at [facility] in [facility] last September. Anechocardiogram showed a structurally normal [...] was recommended in 6 months. Here in [facility], she has had serially abnormal ECGs [...] TW Conv) Self-injurious behavior Suicide attempt (CMS/HCC) ([facility]) No past surgical history on file. Family [...] and was surgically repaired. PGF had an TX at age 42 and had hypercholesterolemia; he [...] not hesitate to call our office at [phone]. Cardiovascular instructions and follow-up: SBE Prophylaxis (antibiotics): No RSV Prophylaxis Recommended: N/A Patient Cleared For: Anesthesia, Dental Work and Surgery--continue to avoid drugs that push out theQT interval Activity: May participate in entire physical education program but restricted from varsity athletics and strenuous activity Pending Tests: None Tests Next Visit: ECG Does patient qualify for adolescent management protocol: No CHIPPER OPERATOR documented in this encounter Plan of Treatment Not on file documented as of this encounter Results * ECG 12 lead (05/03/2023 3:00 PM LOG CHIPPER OPERATOR) Ventricular Rate EKG/Min 83 BPM [facility] Atrial Rate 83 BPM [facility] ID-Interval (MSEC) 146 ms [facility] QRS-Interval (MSEC) 78 ms [facility] QT-Interval (MSEC) 350 ms [facility] QTc 415 ms [facility] P [place] 71 degrees [facility] R [place] 56 degrees [facility] T [place] 57 degrees [facility] Diagnosis Normal sinus rhythm with sinus arrhythmia When compared with ECG of 02-MAR-2022 13:04, No significant change was found Confirmed by MD CASANOVA JENNIFER ([id number]) on 05/03/2023 3:20:55 PM [facility] 05/03/2023 2:58 PM LOG CHIPPER OPERATOR 05/03/2023 3:20 PM LOG CHIPPER OPERATOR us Ethel Casanova MD ECG ORDERABLES Final Resul t [facility] documented in this encounter Visit [...] 04/06 documented in this encounter Care Teams News Cameraman Relationship Specialty Start Date End Date Anthony Bruno MD PCP - General 05/16/17 Ethel Casanova MD 1 [facility] [place] [address] Referring Physician Cardiology 05/12/21 documented as of this encounter
--- OUTSIDE RECORDS SUMMARY | 2024-06-11 10:33 | XMS_ITS | Encounter Summary ---
Author Organization [facility] Address [address] [place] [address] Care Team Providers Care Chief Fishery Division Name Role Phone Anthony Bruno MD Primary Care Provider [phone] Ethel Casanova MD Unavailable [phone] Reason for Visit * Auth/Cert (Routine) Specialty Diagnoses / Procedures Referred By Contac t Referred To Contact Diagnoses Long QT syndrome Long QT syndrome [I45.81] Procedures NV REMOVAL SUBCUTANEOUS CARDIAC RHYTHM MONITOR IMPLANTABLE CARDIAC EVENT MONITOR REMOVAL [id number] Referral ID Status Reason Start Date Expiration Date Visits Re quested Visits Authorized [id number] 1 1 Encounter Details Date Type Department Care Team (Late st Contact Info) Description 05/04/2023 7:43 AM FLOOR SUPERVISOR Anesthesia Event [facility] Ped [place] [address] Camden Olmstead MD [address] [place] [address] Juliano Josue NP [address] [place] [address] Anesthesia Record Procedure Summary Procedure Name Responsible Anesthesiologist Anesthesia Start Time Anesthesia Stop Time IMPLANTABLE CARDIAC EVENT MONITOR REMOVAL [id number] Camden Olmstead MD 05/04/23 0743 05/04/23 0833 [...] ILR removal; 05/06/24 (Retired LDA, Removed/Completed by [facility] with LDA Utility); 1213 (Retired LDA, Removed/Completed by [facility] with LDA Utility) 05/04/23 0818 by Nuvia [...] on file Legal Sex Female 11:23 AM FLOOR SUPERVISOR Gender Identity Not on file Sexual Orientation Not on file documented as of this encounter OR Notes * Anesthesia Postprocedure Evaluation - Camden Olmstead MD - 05/04/2023 8:33 AM CST Patient: Grecia Villa Procedure Summary Date: 05/04/23 Room / Location: [facility] / [facility] Anesthesia Start: 742 Anesthesia Stop: 832 Procedure: IMPLANTABLE CARDIAC EVENT MONITOR REMOVAL [id number] Diagnosis: Long QT syndrome (Long QT syndrome [...] Nausea/Vomiting status: none No notable events documented. R SUPERVISOR * Anesthesia Procedure Notes - Camden Olmstead MD - 05/04/2023 8:10 AM FLOOR SUPERVISOR Associated Order(s): Airway Airway Patient location: OR [...] SGA size: 1 Number of attempts: 1 R SUPERVISOR * Anesthesia Preprocedure Evaluation - Camden Olmstead [...] dizziness, syncope, or seizure. Grecia presents to [facility] for ILR removal. No recent cold, cough, fever, n/v/d. Procedure(s): IMPLANTABLE CARDIAC EVENT MONITOR REMOVAL [id number] Pre-Op Diagnosis Codes: * Long QT syndrome [...] tablet () -- 07/01/20 07/01/21 Mary Ordoñez, TENTS ASSEMBLER Take 1 tablet (20 mg total) by [...] Medication protocol when under care of a VESSEL SCRAPPER Planned anesthesia: General Team communication plan: LMA [...] and agree to proceed. All questions answered. R SUPERVISOR R SUPERVISOR R SUPERVISOR documented in this encounter Plan of Treatment Not on file documented as of this encounter Procedures Procedure Name Priority Date/Time Associated Diagnosis Comments NV AN PROCEDURE PLACEHOLDER Routine 05/04/2023 8:10 AM FLOOR SUPERVISOR NV AN ELECTIVE SUPRAGLOTTIC AIRWAY Routine 05/04/2023 8:10 AM FLOOR SUPERVISOR documented in this encounter Results * NV AN ELECTIVE SUPRAGLOTTIC AIRWAY, NV AN PROCEDURE PLACEHOLDER (05/04/2023 8:10 AM FLOOR SUPERVISOR) Narrative Camden Olmstead MD - 05/04/2023 8:10 AM FLOOR SUPERVISOR Camden Olmstead MD ? 05/04/2023 ??8:13 AM [...] 0803, Anesthesia Intra-op Given 05/04/2023 8:03 AM FLOOR SUPERVISOR 2,000 mg dexAMETHasone (DECADRON) 4 mg/mL injection intravenous, Administer over 30 Minutes, As needed, Starting on Sun05/04/23 at 0800, Anesthesia Intra-op Given 05/04/2023 8:00 AM FLOOR SUPERVISOR 4 mg fentaNYL (SUBLIMAZE) preservative free syringe intravenous, As needed, Starting on Sun05/04/23 at 0745, Anesthesia Intra-op Given 05/04/2023 7:45 AM FLOOR SUPERVISOR 100 mcg lidocaine PF (XYLOCAINE) 10 mg/mL (1 %) preservative free injection intravenous, As needed, Starting on Sun05/04/23 at 0755, Anesthesia Intra-op Given 05/04/2023 7:55 AM FLOOR SUPERVISOR 30 mg phenylephrine (KATHIA-SYNEPHRINE) 1 mg/10 mL (100 mcg/mL) in sodium chloride 0.9% (premix) intravenous, As needed, Starting on Sun05/04/23 at 0756, Anesthesia Intra-op Given 05/04/2023 7:56 AM FLOOR SUPERVISOR 200 mcg propofoL (DIPRIVAN) 10 mg/mL IV intravenous, As needed, Starting on Sun05/04/23 at 0755, Anesthesia Intra-op Given 05/04/2023 7:55 AM FLOOR SUPERVISOR 200 mg sodium chloride 0.9% infusion intravenous, Continuous PRN, Starting on Sun05/04/23 at 0750, Anesthesia Intra-op New Bag 05/04/2023 7:50 AM FLOOR SUPERVISOR documented in this encounter Care Teams Chief Fishery Division Relationship Specialty Start Date End Date Anthony Bruno MD PCP - General 05/16/17 Ethel Casanova MD 1 [facility] [place] [address] Referring Physician Cardiology 05/12/21 documented as of this encounter
--- OUTSIDE RECORDS SUMMARY | 2024-06-11 10:33 | XMS_ITS | Encounter Summary ---
Author Organization [facility] Address [address] [place] [address] Phone Care Team Providers Care Paraprofessional Aide Name Role Phone Anthony Bruno MD Primary Care Provider [phone] Ethel Casanova MD Unavailable [phone] Encounter Details Date Type Department Care Team (Late st Contact Info) Description 10/13/2021 Orders Only [facility] Pediatric Cardiology One [facility] 2nd [place] [address] [place] [address] Alyson Conner PA 1 [facility] [address] [place], [place] [id number] Social History Tobacco Use Types Packs/Day Years Used Date Smoking Tobacco: Light Smoker Cigarettes Vaping Smokeless Tobacco: Never Comments:smokes/vapes only o ccasionally with friends Alcohol Use Standard Drinks/Week Comments Not Currently 0 (1 standard drink = 0.6 oz pur e alcohol) Comments No Sex and Gender Information Value Date Recorded Sex Assigned at Not on file Legal Sex Female 11:23 AM LIQUOR DEPARTMENT MANAGER Gender Identity Not on file Sexual [...] on filedocumented in this encounter Care Teams Paraprofessional Aide Relationship Specialty Start Date End Date Anthony Bruno MD PCP - General 05/16/17 Ethel Casanova MD 1 [facility] [place] [address] Referring Physician Cardiology 05/12/21 documented as of this encounter
--- OUTSIDE RECORDS SUMMARY | 2024-06-11 10:33 | XMS_ITS | Encounter Summary ---
Author Organization [facility] Address [address] [place] [address] Phone Care Team Providers Care Warehouse Picker Name Role Phone Anthony Bruno MD Primary Care Provider [phone] Ethel Casanova MD Unavailable [phone] Encounter Details Date Type Department Care Team (Late st Contact Info) Description 07/15/2021 Orders Only [facility] Pediatric Cardiology One [facility] 2nd [place] [address] [place] [address] Alyson Conner PA 1 [facility] [address] [place], [place] [id number] Social History Tobacco Use Types Packs/Day Years Used Date Smoking Tobacco: Light Smoker Cigarettes Vaping Smokeless Tobacco: Never Comments:smokes/vapes only o ccasionally with friends Alcohol Use Standard Drinks/Week Comments Not Currently 0 (1 standard drink = 0.6 oz pur e alcohol) Comments No Sex and Gender Information Value Date Recorded Sex Assigned at Not on file Legal Sex Female 11:23 AM LOAN COUNSELOR Gender Identity Not on file Sexual Orientation Not on file documented as of this encounter Plan of Treatment Not on file documented as of this encounter Procedures Procedure Name Priority Date/Time Associated Diagnosis Comments PED DEVICE CHECK - REMOTE Routine 07/15/2021 3:40 AM LOAN COUNSELOR documented in this encounter Results * Pediatric Device Check - Remote (07/15/2021 3:40 AM LOAN COUNSELOR) Anatomical Region Laterality Modality Other 07/15/2021 3:40 AM LOAN COUNSELOR Narrative 07/15/2021 3:13 PM LOAN COUNSELOR see PDF for result Procedure Note Alyson Conner PA - 07/15/2021 see PDF for result us Alyson BONILLA [facility] PROCEDU RES Final Result documented in this encounter Visit Diagnoses Not on filedocumented in this encounter Care Teams Warehouse Picker Relationship Specialty Start Date End Date Anthony Bruno MD PCP - General 05/16/17 Ethel Casanova MD 1 [facility] [place] [address] Referring Physician Cardiology 05/12/21 documented as of this encounter
--- OUTSIDE RECORDS SUMMARY | 2024-06-11 10:33 | XMS_ITS | Encounter Summary ---
Author Organization [facility] Address [address] [place] [address] Phone Care Team Providers Care Bender Helper Name Role Phone Anthony Bruno MD Primary Care Provider [phone] Ethel Casanova MD Unavailable [phone] Reason for Referral * Cardiology (Routine) - Closed Specialty Diagnoses / Procedures Referred By Adrianoac t Referred To Contact Diagnoses Long Q-T syndrome Palpitations Procedures Pediatric Device Check - In Office Ethel Casanova MD [address] [address] Phone: tel: fax: [facility] (All Locations) Referral ID Status Reason Start Date Expiration Date Visits Re quested Visits Authorized [id number] Closed 02/27/2022 03/29/2023 1 1 * Cardiology (Routine) - Closed Specialty Diagnoses / Procedures Referred By Contgeorgina sims Referred To Contact Diagnoses Long Q-T syndrome Palpitations Procedures ECG 12 lead Ethel Casanova MD [address] [address] Phone: tel: fax: [facility] (All Locations) Referral ID Status Reason Start Date Expiration Date Visits Re quested Visits Authorized [id number] Closed 02/27/2022 03/29/2023 1 1 Reason for Visit * Cardiology (Routine) - Closed Specialty Diagnoses / Procedures Referred By Cristopher t Referred To Contact Pediatric Cardiology Diagnoses Long Q-T syndrome 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 Palpitations Abnormal electrocardiography Long QT syndrome Anthony Bruno MD Phone: tel: fax: [facility] Pediatric Cardiology [facility] 2nd [place] [address] [place] [address] Phone: tel: fax: Referral ID Status Reason Start Date Expiration Date V isits Requested Visits Authorized [id number] Closed Continuity of Care 02/25/2021 03/27/2022 4 4 Encounter Details Date Type Department Care Team (Late st Contact Info) Description 03/02/2022 1:20 PM CDT Office Visit [facility] Pediatric Cardiology [facility] 2nd [place] [address] [place] [address] Ethel Casanova MD 1 [facility] [address] [place] [address] Long Q-T syndrome (Primary Dx); [...] on file Legal Sex Female 11:23 AM SOLAR SALES REPRESENTATIVE AND ASSESSOR Gender Identity Not on file Sexual Orientation [...] 03/02/2022 1:0 6 PM CDT Growth Chart: [facility] (Girls, 2- 20 Years) documented [...] QTc of 457msec). 2. DEVICE CHECK. MODEL: Gratci, LINQ SERIAL:[id number] /IMPLANTED ON: 01/31/[address] Ethel Casanova [...] not hesitate to call our office at [phone]. Cardiovascular instructions and follow-up: SBE Prophylaxis (antibiotics): [...] Grecia was seen today, 03/02/22 at the [facility].She is accompanied to [facility] today by her father. She is here today with her parents. Please allow me to review for my records. Grecia's family relocated to the [facility] from [place]. Sadly, her brother suddenly in July 2014 [...] Grecia had an extensive cardiac evaluation at [facility] in [facility] last September. Anechocardiogram showed a structurally [...] was recommended in 6 months. Here in [facility], she has had serially abnormal ECGs demosntrating [...] and was surgically repaired. PGF had an LA at age 42 and had hypercholesterolemia; he [...] QTc of 457msec). 2. DEVICE CHECK. MODEL: Gratci, LINQ SERIAL:[id number] /IMPLANTED ON: 01/31/[address] Ethel Casanova [...] not hesitate to call our office at [phone]. Cardiovascular instructions and follow-up: SBE Prophylaxis (antibiotics): [...] BPM [facility] Atrial Rate 64 BPM [facility] [place]-Interval (MSEC) 136 ms [facility] QRS-Interval (MSEC) 82 ms [facility] QT-Interval (MSEC) 420 ms [facility] QTc 445 ms [facility] P [place] 64 degrees [facility] R [place] 66 degrees [facility] T [place] 51 degrees [facility] Diagnosis Normal sinus rhythm with sinus arrhythmia Normal ECG When compared with ECG of 03-MAR-2021 14:57, No significant change was found Confirmed by MD CASANOVA JENNIFER ([id number]) on 03/02/2022 1:29:57 PM [facility] [place] 03/02/2022 1:04 PM CDT 03/02/2022 1:29 PM CDT us Ethel Casanova MD ECG ORDERABLES Final Resul t [facility] [place] [facility] * Pediatric Device Check - In Office (03/02/2022 1:15 PM CDT) Anatomical Region Laterality Modality Other 03/02/2022 2:00 AM CDT Narrative 03/02/2022 1:21 PM CDT Interpretation Summary: Provider Comments: MODEL: Medtronic, LINQ SERIAL:[id number] /IMPLANTED ON: 01/31/[address] Ethel Casanova [...] Interpretation Summary: Provider Comments: MODEL: Medtronic, LINQ SERIAL:[id number] /IMPLANTED ON: 01/31/[address] Ethel Casanova [...] documented as of this encounter Care Teams Bender Helper Relationship Specialty Start Date End Date Anthony Bruno MD PCP - General 05/16/17 Ethel Casanova MD 1 [facility] [address] Referring Physician Cardiology 05/12/21 documented as of this encounter
--- OUTSIDE RECORDS SUMMARY | 2024-06-11 10:33 | XMS_ITS | Encounter Summary ---
Author Organization [facility] Address [address] [place] [address] Phone Care Team Providers Care Furniture Inspector Name Role Phone Anthony Bruno MD Primary Care Provider [phone] Ethel Casanova MD Unavailable [phone] Encounter Details Date Type Department Care Team (Late st Contact Info) Description 02/02/[address] [facility] Pediatric Cardiology [facility] 2nd [place] [address] [place] [address] Alyson Conner PA 1 [facility] [address] [place] [address] Long QT syndrome (Primary Dx) Social History [...] on file Legal Sex Female 11:23 AM PANEL GLUER Gender Identity Not on file Sexual Orientation Not on file documented as of this encounter Plan of Treatment Not on file documented as of this encounter Visit Diagnoses Diagnosis Long QT syndrome- Primary documented in this encounter Orders Case Request Count Last Ordered Date First Orde red Date CASE REQUEST EP LAB 1 02/02/2023 documented in this encounter Care Teams Furniture Inspector Relationship Specialty Start Date End Date Anthony Bruno MD PCP - General 05/16/17 Ethel Casanova MD 1 [facility] [place] [address] Referring Physician Cardiology 05/12/21 documented as of this encounter
--- OUTSIDE RECORDS SUMMARY | 2024-06-11 10:33 | XMS_ITS | Encounter Summary ---
Author Organization [facility] Address [address] [place] [address] Phone Care Team Providers Care Horse Racing Manager Name Role Phone Anthony Bruno MD Primary Care Provider [phone] Ethel Casanova MD Unavailable [phone] Encounter Details Date Type Department Care Team (Late st Contact Info) Description 08/14/2021 Orders Only [facility] Pediatric Cardiology [facility] 2nd [place] [address] [place] [address] Alyson Conner PA 1 [facility] [address] [place], [place] [id number] Social History Tobacco Use Types Packs/Day Years Used Date Smoking Tobacco: Light Smoker Cigarettes Vaping Smokeless Tobacco: Never Comments:smokes/vapes only o ccasionally with friends Alcohol Use Standard Drinks/Week Comments Not Currently 0 (1 standard drink = 0.6 oz pur e alcohol) Comments No Sex and Gender Information Value Date Recorded Sex Assigned at Not on file Legal Sex Female 11:23 AM CRIME SCENE EXAMINER Gender Identity Not on file Sexual [...] on filedocumented in this encounter Care Teams Horse Racing Manager Relationship Specialty Start Date End Date Anthony Bruno MD PCP - General 05/16/17 Ethel Casanova MD 1 [facility] [place] [address] Referring Physician Cardiology 05/12/21 documented as of this encounter
--- OUTSIDE RECORDS SUMMARY | 2024-06-11 10:33 | XMS_ITS | Encounter Summary ---
Author Organization [facility] Address [address] [place] [address] Care Team Providers Care Elevator Constructor Hydraulic Name Role Phone Anthony Bruno MD Primary Care Provider [phone] Ethel Casanova MD Unavailable [phone] Reason for Visit * Auth/Cert (Routine) Specialty Diagnoses / Procedures Referred By Contac t Referred To Contact Diagnoses Long QT syndrome Long QT syndrome [I45.81] Procedures [facility] REMOVAL SUBCUTANEOUS CARDIAC RHYTHM MONITOR IMPLANTABLE CARDIAC EVENT MONITOR REMOVAL [id number] Referral ID Status Reason Start Date Expiration Date Visits Re quested Visits Authorized [id number] 1 1 Encounter Details Date Type Department Care Team (Late st Contact Info) Description 05/04/2023 8:00 AM METAL FABRICATOR WELDER - 05/04/2023 9:20 AM METAL FABRICATOR WELDER Surgery [facility] [place] [address] Ethel Casanova MD 1 [facility] [address] [place] [address] IMPLANTABLE CARDIAC EVENT MONITOR REMOVAL [id number] Surgery Details Date/Time Status Location OR Service Patient Class Case Class Case Type Trauma Case? 05/04/2023 8:00 AM Posted [facility] EP LAB Lab B Cardiovascular Outpatient Elective Panel 1 Procedure LRB Anes Op Region Wound Class Comments IMPLANTABLE CARDIAC EVENT MONITOR REMOVAL 53113 N/A Cardiac Need to corrdinate with clinic [...] file Legal Sex Female 11:23 AM METAL FABRICATOR WELDER Gender Identity Not on file Sexual Orientation Not on file documented as of this encounter Last Filed Vital Signs Vital Sign Reading Time Taken Comments Blood Pressure 103/69 05/04/2023 9:15 AM METAL FABRICATOR WELDER Pulse 74 05/04/2023 9:15 AM METAL FABRICATOR WELDER Temperature 36 ??C (96.8 ??F) 05/04/2023 8:2 9 AM METAL FABRICATOR WELDER warm blanket placed on patient Respiratory Rate 15 05/04/2023 9:15 AM METAL FABRICATOR WELDER Oxygen Saturation 97% 05/04/2023 9:1 5 AM METAL FABRICATOR WELDER Inhaled Oxygen Concentration - - Weight 67.9 kg (149 lb 11.1 oz) 05/04/2023 7:00 AM METAL FABRICATOR WELDER Height 164 cm (5' 4.57 ) 05/04/2023 7:0 0 AM METAL FABRICATOR WELDER Body Mass Index 25.25 05/04/2023 7:00 AM METAL FABRICATOR WELDER Body Mass Index Percentile 81.73% 05/04 7:00 AM METAL FABRICATOR WELDER Growth Chart: CDC (Girls, 2- 20 Years) documented in this encounter Discharge Instructions * Discharge Instructions* Dakota Shoemaker, RN - 05/04/2023 8:32 AM METAL FABRICATOR WELDER Patient Information: ?? DATE/TIME PATIENT WAS ADMITTED TO UNIT 05/04/2023 ?? Attending MD (at time of discharge) Dr. Casanova Hospital Information: Hospital Course/Procedures/Consults: Hospital Procedures ICM explant with general anesthesia Follow Up Appointments: Follow-Up Appointment/Test #1: ?? Clinic Name [facility] Pediatric Cardiology [facility] ?? MD/PLANT TECHNICIAN Name ?? Name of Test Office Visit 2 week follow up wound check post device implant/explant ?? Date/Time of Appointment Send us a picture of the incision in 2 weeks via MyChart ?? Location: [facility] ?? Instructions: Diet Instructions [...] pm. After hours and on weekends call [facility] Producer Arborist Manager at and ask for the Cloth Printing Inspector loss prevention guard. Teaching Tools Cardiac Cath Discharge Tool Activity: [...] a time. Call your physician/careprovider with questions L FABRICATOR WELDER * Attachments The following attachments cannot be sent through Care Everywhere. * General Anesthesia for Children (Discharge Care) (Guatemalan) documented in this encounter Medications at Time [...] Grecia Villa : 2005 Date: 05/04/23 Referring tin recovery worker: HPI: 15 year old female who???s history [...] was Sudden Arrhythmic Syndrome. Family moved to [facility] from [place]. Prior to moving to [place] SF had an extensive cardiac evaluation at [facility] in [facility] last September. An echocardiogram showed [...] up with Alyson 05/23/2024 Brit King Pediatric Cloth Printing Inspector [facility] Cosigned by Ethel Casanova MD at 05/04/2023 7:24 AM METAL FABRICATOR WELDER L FABRICATOR WELDER L FABRICATOR WELDER L FABRICATOR WELDER Associated attestation - Ethel Casanova MD - 05/04/2023 7:24 AM METAL FABRICATOR WELDER I have seen and examined the patient on 05/04/23. I agree with the findings and plan of care as documented in the resident's/fellow's note. documented in this encounter Plan of Treatment Not on file documented as of this encounter Procedures Procedure Name Priority Date/Time Associated Diagnosis Comments ECG 12-LEAD Routine 05/04/2023 9:00 AM METAL FABRICATOR WELDER LOOP RECORDER REMOVAL Routine 05/04/2023 8:21 AM METAL FABRICATOR WELDER Long QT syndrome HCG, URINE, QUALITATIVE Routine 05/04/2023 6:45 AM METAL FABRICATOR WELDER documented in this encounter Results * ECG 12 lead (05/04/2023 9:00 AM METAL FABRICATOR WELDER) Ventricular Rate EKG/Min 70 BPM [facility] Atrial Rate 70 BPM [facility] VA-Interval (MSEC) 140 ms [facility] QRS-Interval (MSEC) 78 ms [facility] QT-Interval (MSEC) 434 ms [facility] QTc 468 ms [facility] P [place] 64 degrees [facility] R [place] 77 degrees [facility] T [place] 71 degrees [facility] Diagnosis Normal sinus rhythm Low voltage QRS Borderline ECG When compared with ECG of 03-MAY-2023 14:58, No significant change was found Confirmed by EDWARD REYES MD, AMANDA ([id number]) on 05/04/2023 5:31:11 PM [facility] 05/04/2023 9:00 AM METAL FABRICATOR WELDER 05/04/2023 5:31 PM METAL FABRICATOR WELDER us Ethel Casanova MD ECG ORDERABLES Final Resul t [facility] * LOOP RECORDER REMOVAL (05/04/2023 8:21 AM METAL FABRICATOR WELDER) Anatomical Region Laterality Modality X-Ray Angiograph y Narrative 05/07/2023 12:32 PM METAL FABRICATOR WELDER Table formatting from the original result was not included. Location of Procedure: [facility] Electrophysiology Lab Date of procedure: ??05/04/23 Proceduralist: Ethel Casanova MD Teacher Early Childhood Development: ??Dakota Shoemaker RN HISTORY OF PRESENT ILLNESS: [...] She will follow up with her primary tin recovery worker for wound check in 1-2 weeks. ?? Prior to discharge, the family was instructed on future care. Ethel Casanova MD Alyson BONILLA CV ELECTROPHYSIOLOGY PROCS Final Result * hCG, urine, qualitative (05/04/2023 6:45 AM METAL FABRICATOR WELDER) HCG, ur Negative Negative [facility] Urine 05/04/2023 6:45 AM METAL FABRICATOR WELDER 05/04/2023 7:09 AM METAL FABRICATOR WELDER Juliano Josue NP LAB URINE ORDERABLES Fi nal Result [facility] Department [place] [address] documented in this encounter Visit [...] = 650 mg Given 05/04/2023 9:06 AM METAL FABRICATOR WELDER 650 mg lidocaine 1 % (BUFFERED LIDOCAINE) [...] pain., Indications: PainIndications:Pain Given 05/04/2023 9:41 AM METAL FABRICATOR WELDER 5 mg ROPivacaine (NAROPIN) 2 mg/mL (0.2 %) preservative free injection Code/trauma/sedation medication, Starting on Sun05/04/23 at 0817, Intra-Procedure (CV) Given 05/04/2023 8:17 AM METAL FABRICATOR WELDER 10 mL Left Chest documented in this encounter Active and Recently Administered Medications Times are shown in METAL FABRICATOR WELDER. Continuous Medication Order 05/02/2023 05/03/2023 05/04/2023 sodium [...] 05/04/2023 documented in this encounter Care Teams Elevator Constructor Hydraulic Relationship Specialty Start Date End Date Anthony Bruno MD PCP - General 05/16/17 Ethel Casanova MD 1 [facility] [place] [address] Referring Physician Cardiology 05/12/21 documented as of this encounter
--- OUTSIDE RECORDS SUMMARY | 2024-06-11 10:33 | XMS_ITS | Encounter Summary ---
Author Organization [facility] Healthcare Address [address] [place] [address] Care Team Providers Care Director Of Clinical Trials Name Role Phone Anthony Bruno MD Primary Care Provider Ethel Casanova MD Unavailable [phone] Reason for Visit * Auth/Cert (Routine) Specialty Diagnoses / Procedures Referred By Contac t Referred To Contact Diagnoses Long QT syndrome Long QT syndrome [I45.81] Procedures [place] REMOVAL SUBCUTANEOUS CARDIAC RHYTHM MONITOR IMPLANTABLE CARDIAC EVENT MONITOR REMOVAL [id number] Referral ID Status Reason Start Date Expiration Date Visits Re quested Visits Authorized [id number] 1 1 Encounter Details Date Type Department Care Team (Latest Contact Info) Description 05/04/2023 6:40 AM CHEMICAL UNIT OPERATOR - 05/04/2023 10:15 AM CHEMICAL UNIT OPERATOR Hospital Encounter [facility] [place] [address] Ethel Casanova MD 1 [facility] [address] [place] [address] Long QT syndrome Discharge Disposition: [...] on file Legal Sex Female 11:23 AM CHEMICAL UNIT OPERATOR Gender Identity Not on file Sexual Orientation Not on file documented as of this encounter Last Filed Vital Signs Vital Sign Reading Time Taken Comments Blood Pressure 101/64 05/04/2023 9:30 AM CHEMICAL UNIT OPERATOR Pulse 70 05/04/2023 9:30 AM CHEMICAL UNIT OPERATOR Temperature 36 ??C (96.8 ??F) 05/04/2023 8:2 9 AM CHEMICAL UNIT OPERATOR warm blanket placed on patient Respiratory Rate 17 05/04/2023 9:30 AM CHEMICAL UNIT OPERATOR Oxygen Saturation 97% 05/04/2023 9:3 0 AM CHEMICAL UNIT OPERATOR Inhaled Oxygen Concentration - - Weight 67.9 kg (149 lb 11.1 oz) 05/04/2023 7:00 AM CHEMICAL UNIT OPERATOR Height 164 cm (5' 4.57 ) 05/04/2023 7:0 0 AM CHEMICAL UNIT OPERATOR Body Mass Index 25.25 05/04/2023 7:00 AM CHEMICAL UNIT OPERATOR Body Mass Index Percentile 81.73% 05/04 7:00 AM CHEMICAL UNIT OPERATOR Growth Chart: [facility] (Girls, 2- 20 Years) documented in this encounter Discharge Instructions * Discharge Instructions* Dakota Shoemaker, ARIADNA - 05/04/2023 8:32 AM CHEMICAL UNIT OPERATOR Patient Information: ?? DATE/TIME PATIENT WAS ADMITTED TO UNIT 05/04/2023 ?? Attending MD (at time of discharge) Dr. Casanova Hospital Information: Hospital Course/Procedures/Consults: Hospital Procedures ICM explant with general anesthesia Follow Up Appointments: Follow-Up Appointment/Test #1: ?? Clinic Name [facility] Pediatric Cardiology Clinic ?? MD/TRAVELING INVENTORY ASSOCIATE Name ?? Name of Test Office Visit 2 week follow up wound check post device implant/explant ?? Date/Time of Appointment Send us a picture of the incision in 2 weeks via Break30t ?? Location: [facility] Pediatric Cardiology Clinic ?? Instructions: Diet [...] pm. After hours and on weekends call [facility] Supervisor Park Workers at and ask for the Engineering Inspector aviation electrical technician. Teaching Tools Cardiac Cath Discharge Tool Activity: [...] a time. Call your physician/careprovider with questions ICAL UNIT OPERATOR * Attachments The following attachments cannot be sent through Care Everywhere. * General Anesthesia for Children (Discharge Care) (Mexican) documented in this encounter Medications at Time [...] Grecia Villa : 2005 Date: 05/04/23 Referring surgical first assistant: HPI: 15 year old female who???s history [...] was Sudden Arrhythmic Syndrome. Family moved to [facility] from [place]. Prior to moving to [facility] SF had an extensive cardiac evaluation at [facility] in [facility] last September. An echocardiogram showed a structurally [...] up with Alyson 05/23/2024 Brit King Pediatric Engineering Inspector [facility] Cosigned by Ethel Casanova MD at 05/04/2023 7:24 AM CHEMICAL UNIT OPERATOR ICAL UNIT OPERATOR ICAL UNIT OPERATOR ICAL UNIT OPERATOR Associated attestation - Ethel Casanova MD - 05/04/2023 7:24 AM CHEMICAL UNIT OPERATOR I have seen and examined the patient on 05/04/23. I agree with the findings and plan of care as documented in the resident's/fellow's note. documented in this encounter Plan of Treatment Not on file documented as of this encounter Procedures Procedure Name Priority Date/Time Associated Diagnosis Comments ECG 12-LEAD Routine 05/04/2023 9:00 AM CHEMICAL UNIT OPERATOR LOOP RECORDER REMOVAL Routine 05/04/2023 8:21 AM CHEMICAL UNIT OPERATOR Long QT syndrome HCG, URINE, QUALITATIVE Routine 05/04/2023 6:45 AM CHEMICAL UNIT OPERATOR documented in this encounter Results * ECG 12 lead (05/04/2023 9:00 AM CHEMICAL UNIT OPERATOR) Ventricular Rate EKG/Min 70 BPM [facility] Atrial Rate 70 BPM [facility] [place]-Interval (MSEC) 140 ms [facility] QRS-Interval (MSEC) 78 ms [facility] QT-Interval (MSEC) 434 ms [facility] QTc 468 ms [facility] P [place] 64 degrees [facility] R [place] 77 degrees [facility] T [place] 71 degrees [facility] Diagnosis Normal sinus rhythm Low voltage QRS Borderline ECG When compared with ECG of 03-MAY-2023 14:58, No significant change was found Confirmed by EDWARD REYES MD, AMANDA ([id number]) on 05/04/2023 5:31:11 PM [facility] 05/04/2023 9:00 AM CHEMICAL UNIT OPERATOR 05/04/2023 5:31 PM CHEMICAL UNIT OPERATOR us Ethel Casanova MD ECG ORDERABLES Final Resul t [facility] * LOOP RECORDER REMOVAL (05/04/2023 8:21 AM CHEMICAL UNIT OPERATOR) Anatomical Region Laterality Modality X-Ray Angiograph y Narrative 05/07/2023 12:32 PM CHEMICAL UNIT OPERATOR Table formatting from the original result was not included. Location of Procedure: [facility] Electrophysiology Lab Date of procedure: ??05/04/23 Proceduralist: Ethel Casanova MD School Bus Operator: ??Dakota Shoemaker RN HISTORY OF PRESENT ILLNESS: [...] She will follow up with her primary surgical first assistant for wound check in 1-2 weeks. ?? Prior to discharge, the family was instructed on future care. Ethel Casanova MD Alyson BONILLA CV ELECTROPHYSIOLOGY PROCS Final Result * hCG, urine, qualitative (05/04/2023 6:45 AM CHEMICAL UNIT OPERATOR) HCG, ur Negative Negative [facility] Urine 05/04/2023 6:45 AM CHEMICAL UNIT OPERATOR 05/04/2023 7:09 AM CHEMICAL UNIT OPERATOR Juliano Josue NP LAB URINE ORDERABLES Fi nal Result [facility] Department [place] [address] documented in this encounter Visit Diagnoses Diagnosis [...] = 650 mg Given 05/04/2023 9:06 AM CHEMICAL UNIT OPERATOR 650 mg lidocaine 1 % (BUFFERED LIDOCAINE) [...] pain., Indications: PainIndications:Pain Given 05/04/2023 9:41 AM CHEMICAL UNIT OPERATOR 5 mg documented in this encounter Active and Recently Administered Medications Times are shown in CHEMICAL UNIT OPERATOR. Continuous Medication Order 05/02/2023 05/03/2023 05/04/2023 sodium [...] 05/04/2023 documented in this encounter Care Teams Director Of Clinical Trials Relationship Specialty Start Date End Date Anthony Bruno MD PCP - General 05/16/17 Ethel Casanova MD [facility] [place] [address] Referring Physician Cardiology 05/12/21 documented as of this encounter
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
--- OUTSIDE RECORDS SUMMARY | 2024-06-11 10:33 | XMS_ITS | Encounter Summary ---
Author Organization [facility] Address [address] [place] [address] Phone Care Team Providers Care Senior Outside Sales Representative Name Role Phone Anthony Bruno MD Primary Care Provider [phone] Ethel Casanova MD Unavailable [phone] Encounter Details Date Type Department Care Team (Late st Contact Info) Description 11/12/2021 Orders Only [facility] Pediatric Cardiology One [facility] 2nd [place] [address] [place] [address] Alyson Conner PA 1 [facility] [address] [place], [place] [id number] Social History Tobacco Use Types Packs/Day Years Used Date Smoking Tobacco: Light Smoker Cigarettes Vaping Smokeless Tobacco: Never Comments:smokes/vapes only o ccasionally with friends Alcohol Use Standard Drinks/Week Comments Not Currently 0 (1 standard drink = 0.6 oz pur e alcohol) Comments No Sex and Gender Information Value Date Recorded Sex Assigned at Not on file Legal Sex Female 11:23 AM MUSEUM ATTENDANT Gender Identity Not on file Sexual [...] see PDF for result Procedure Note Alyson Conenr PA - 11/17/2021 see PDF for result Alyosn BONILLA [facility] CARDIAC [facility] PROCEDU RES Final Result documented in this encounter Visit Diagnoses Not on filedocumented in this encounter Care Teams Senior Outside Sales Representative Relationship Specialty Start Date End Date Anthony Bruno MD PCP - General 05/16/17 Ethel Casanova MD 1 [facility] [place] [address] Referring Physician Cardiology 05/12/21 documented as of this encounter
--- OUTSIDE RECORDS SUMMARY | 2024-06-11 10:33 | XMS_ITS | Encounter Summary ---
Author Organization [facility] Address [address] [place] [address] Phone Care Team Providers Care Bottom Finisher Name Role Phone Anthony Bruno MD Primary Care Provider [phone] Ethel Casanova MD Unavailable [phone] Encounter Details Date Type Department Care Team (Late st Contact Info) Description 01/02/2022 Telephone [facility] Pediatric Cardiology One [facility] 2nd [place] [address] [place] [address] Ethel Casanova MD [address] [place] [address] [address] [place], [place] [id number] Social History Tobacco Use Types Packs/Day Years Used Date Smoking Tobacco: Light Smoker Cigarettes Vaping Smokeless Tobacco: Never Comments:smokes/vapes only o ccasionally with friends Alcohol Use Standard Drinks/Week Comments Not Currently 0 (1 standard drink = 0.6 oz pur e alcohol) Comments No Sex and Gender Information Value Date Recorded Sex Assigned at Not on file Legal Sex Female 11:23 AM ASSISTANT TO THE CEO Gender Identity Not on file Sexual Orientation [...] documented as of this encounter Care Teams Bottom Finisher Relationship Specialty Start Date End Date Anthony Bruno MD PCP - General 05/16/17 Ethel Casanova MD [address] [facility] [place] [address] Referring Physician Cardiology 05/12/21 documented as of this encounter
--- OUTSIDE RECORDS SUMMARY | 2024-06-11 10:33 | XMS_ITS | Encounter Summary ---
Author Organization [facility] Address [address] [place] [address] Phone Care Team Providers Care Professor Of Theatre Name Role Phone Anthony Bruno MD Primary Care Provider [phone] Ethel Casanova MD Unavailable [phone] Encounter Details Date Type Department Care Team (Late st Contact Info) Description 03/12/2022 Orders Only [facility] Pediatric Cardiology One [facility] 2nd [place] [address] [place] [address] Ethel Casanova MD 1 [facility] [address] [place], [place] [id number] Social History Tobacco Use Types Packs/Day Years Used Date Smoking Tobacco: Light Smoker Cigarettes Vaping Smokeless Tobacco: Never Comments:smokes/vapes only o ccasionally with friends Alcohol Use Standard Drinks/Week Comments Not Currently 0 (1 standard drink = 0.6 oz pur e alcohol) Comments No Sex and Gender Information Value Date Recorded Sex Assigned at Not on file Legal Sex Female 11:23 AM HOSPICE/HOME HEALTH AIDE Gender Identity Not on file Sexual Orientation [...] Leads (BL) Normal battery parameters Presenting Rhythm (NE) Noise Oversensing noted on presenting rhythm Sinus Tachycardia Arrhythmic events (AE) No new arrhythmic events in monitoring period Transmission Information (TI) Device Summary Report Follow Up (FU) Continue remote monitoring with monthly reporting Procedure Note Ethel Casanova MD - 03/15/2022 Interpretation Summary: Battery and Leads (BL) Normal battery parameters Presenting Rhythm (NE) Noise Oversensing noted on presenting rhythm Sinus Tachycardia Arrhythmic events (AE) No new arrhythmic events in monitoring period Transmission Information (TI) Device Summary Report Follow Up (FU) Continue remote monitoring with monthly reporting us Ethel Casanova MD CV CARDIAC SERVICES PROCEDU RES Final Result documented in this encounter Visit Diagnoses Not on filedocumented in this encounter Care Teams Professor Of Theatre Relationship Specialty Start Date End Date Anthony Bruno MD PCP - General 05/16/17 Ethel Casanova MD 1 [facility] [place] [address] Referring Physician Cardiology 05/12/21 documented as of this encounter
--- OUTSIDE RECORDS SUMMARY | 2024-06-11 10:33 | XMS_ITS | Encounter Summary ---
Author Organization [facility] Address [address] [place] [address] Phone Care Team Providers Care Shank Cementer Hand Name Role Phone Anthony Bruno MD Primary Care Provider [phone] Bebe Casanova MD Unavailable [phone] Reason for Referral * Cardiology (Routine) - Closed Specialty Diagnoses / Procedures Referred By Adrianoac t Referred To Contact Diagnoses Long QT syndrome Procedures ECG 12 lead Bebe Casanova MD [address] [address] Phone: tel: fax: [facility] (All Locations) Referral ID Status Reason Start Date Expiration Date Visits Re quested Visits Authorized [id number] Closed 04/25/2023 05/24/2024 1 1 NG AND ASSEMBLY SUPERVISOR Reason for Visit * Cardiology (Routine) - Closed Specialty Diagnoses / Procedures Referred By Cristopher sims Referred To Contact Diagnoses Long QT syndrome Procedures ECG 12 lead Bebe Casanova MD [address] [address] Phone: tel: fax: [facility] (All Locations) Referral ID Status Reason Start Date Expiration Date Visits Re quested Visits Authorized [id number] Closed 04/25/2023 05/24/2024 1 1 Encounter Details Date Type Department Care Team (Latest Contact Info) Description 05/03/2023 2:53 PM SAWING AND ASSEMBLY SUPERVISOR - 05/03/2023 11:59 PM SAWING AND ASSEMBLY SUPERVISOR Hospital Encounter [facility] Pediatric Cardiology One [facility] [address] [place] [address] Long QT syndrome Discharge Disposition: Discharge to [...] on file Legal Sex Female 11:23 AM SAWING AND ASSEMBLY SUPERVISOR Gender Identity Not on file Sexual [...] Comments ECG 12-LEAD Routine 05/03/2023 3:00 PM SAWING AND ASSEMBLY SUPERVISOR Long QT syndrome documented in this encounter Results * ECG 12 lead (05/03/2023 3:00 PM SAWING AND ASSEMBLY SUPERVISOR) Ventricular Rate EKG/Min 83 BPM [facility] Atrial Rate 83 BPM [facility] [place]-Interval (MSEC) 146 ms [facility] QRS-Interval (MSEC) 78 ms [facility] QT-Interval (MSEC) 350 ms [facility] QTc 415 ms [facility] P [place] 71 degrees [facility] R [place] 56 degrees [facility] T [place] 57 degrees [facility] Diagnosis Normal sinus rhythm with sinus arrhythmia When compared with ECG of 02-MAR-2022 13:04, No significant change was found Confirmed by MD ELLIOT, BEBE ([id number]) on 05/03/2023 3:20:55 PM [facility] 05/03/2023 2:58 PM SAWING AND ASSEMBLY SUPERVISOR 05/03/2023 3:20 PM SAWING AND ASSEMBLY SUPERVISOR us Bebe Casanova MD ECG ORDERABLES Final Resul t [facility] documented in this encounter Visit Diagnoses Diagnosis Long QT syndrome documented in this encounter Care Teams Shank Cementer Hand Relationship Specialty Start Date End Date Anthony Bruno MD PCP - General 05/16/17 Bebe Casanova MD 1 [facility] [address] Referring Physician Cardiology 05/12/21 documented as of this encounter
--- OUTSIDE RECORDS SUMMARY | 2024-06-11 10:33 | XMS_ITS | Encounter Summary ---
Author Organization [facility] Address [address] [place] [address] Phone Care Team Providers Care Environment Friendly Landscape Designer Name Role Phone Anthony Bruno MD Primary Care Provider Ethel Casanova MD Unavailable [phone] Encounter Details Date Type Department Care Team (Late st Contact Info) Description 01/11/2022 Orders Only [facility] Pediatric Cardiology One [facility] 2nd [place] [address] [place] [address] Alyson Conner PA 1 [facility] [address] [place], [place] [id number] Social History Tobacco Use Types Packs/Day Years Used Date Smoking Tobacco: Light Smoker Cigarettes Vaping Smokeless Tobacco: Never Comments:smokes/vapes only o ccasionally with friends Alcohol Use Standard Drinks/Week Comments Not Currently 0 (1 standard drink = 0.6 oz pur e alcohol) Comments No Sex and Gender Information Value Date Recorded Sex Assigned at Not on file Legal Sex Female 11:23 AM RADIOLOGY PHYSICIAN ASSISTANT Gender Identity Not on file Sexual [...] Leads (BL) Normal battery parameters Presenting Rhythm (RI) Normal sinus rhythm Arrhythmic events (AE) No [...] Leads (BL) Normal battery parameters Presenting Rhythm (RI) Normal sinus rhythm Arrhythmic events (AE) No [...] on filedocumented in this encounter Care Teams Environment Friendly Landscape Designer Relationship Specialty Start Date End Date Anthony Bruno MD PCP - General 05/16/17 Ethel Casanova MD 1 [facility] [place] [address] Referring Physician Cardiology 05/12/21 documented as of this encounter
--- OUTSIDE RECORDS SUMMARY | 2024-06-11 10:33 | XMS_ITS | Encounter Summary ---
Author Organization [facility] Address [address] [place] [address] Phone Care Team Providers Care Manager Loan Name Role Phone Anthony Bruno MD Primary Care Provider [phone] Ethel Casanova MD Unavailable [phone] Encounter Details Date Type Department Care Team (Late st Contact Info) Description 09/13/2021 Orders Only [facility] Pediatric Cardiology One [facility] 2nd [place] [address] [place] [address] Alyson Conner PA 1 [facility] [address] [place], [place] [id number] Social History Tobacco Use Types Packs/Day Years Used Date Smoking Tobacco: Light Smoker Cigarettes Vaping Smokeless Tobacco: Never Comments:smokes/vapes only o ccasionally with friends Alcohol Use Standard Drinks/Week Comments Not Currently 0 (1 standard drink = 0.6 oz pur e alcohol) Comments No Sex and Gender Information Value Date Recorded Sex Assigned at Not on file Legal Sex Female 11:23 AM SOCIAL WELFARE CLERK Gender Identity Not on file Sexual [...] filedocumented in this encounter Care Teams Manager Loan Relationship Specialty Start Date End Date Anthony Bruno MD PCP - General 05/16/17 Ethel Casanova MD 1 [facility] [place] [address] Referring Physician Cardiology 05/12/21 documented as of this encounter
--- OUTSIDE RECORDS SUMMARY | 2024-06-11 10:33 | XMS_ITS | Encounter Summary ---
Author Organization [facility] Address [address] [place] [address] Phone Care Team Providers Care Restaurant Area Director Name Role Phone Anthony Bruno MD Primary Care Provider [phone] Ethel Casanova MD Unavailable [phone] Encounter Details Date Type Department Care Team (Late st Contact Info) Description 12/12/2021 Orders Only [facility] Pediatric Cardiology One [facility] 2nd [place] [address] [place] [address] Alyson Conner PA 1 [facility] [address] [place], [place] [id number] Social History Tobacco Use Types Packs/Day Years Used Date Smoking Tobacco: Light Smoker Cigarettes Vaping Smokeless Tobacco: Never Comments:smokes/vapes only o ccasionally with friends Alcohol Use Standard Drinks/Week Comments Not Currently 0 (1 standard drink = 0.6 oz pur e alcohol) Comments No Sex and Gender Information Value Date Recorded Sex Assigned at Not on file Legal Sex Female 11:23 AM APPLICATION ARCHITECT Gender Identity Not on file Sexual Orientation [...] on filedocumented in this encounter Care Teams Restaurant Area Director Relationship Specialty Start Date End Date Anthony Bruno MD PCP - General 05/16/17 Ethel Casanova MD 1 [facility] [address] Referring Physician Cardiology 05/12/21 documented as of this encounter
--- OUTSIDE RECORDS SUMMARY | 2024-06-11 10:33 | XMS_ITS | Encounter Summary ---
Author Organization [facility] Address [address] [place] [address] Phone Care Team Providers Care Power Ballast Machine Operator Name Role Phone Anthony Bruno MD Primary Care Provider [phone] Ethel Casanova MD Unavailable [phone] Reason for Referral * Cardiology (Routine) - Closed Specialty Diagnoses / Procedures Referred By Adrianoac t Referred To Contact Diagnoses Long Q-T syndrome Palpitations Procedures Pediatric Device Check - In Office Ethel Casanova MD [address] [address] Phone: tel: fax: [facility] (All Locations) Referral ID Status Reason Start Date Expiration Date Visits Re quested Visits Authorized [id number] Closed 02/27/2022 03/29/2023 1 1 * Cardiology (Routine) - Closed Specialty Diagnoses / Procedures Referred By Contgeorgina sims Referred To Contact Diagnoses Long Q-T syndrome Palpitations Procedures ECG 12 lead Ethel Casanova MD [address] [address] Phone: tel: fax: [facility] (All Locations) Referral ID Status Reason Start Date Expiration Date Visits Re quested Visits Authorized [id number] Closed 02/27/2022 03/29/2023 1 1 Reason for Visit * Cardiology (Routine) - Closed Specialty Diagnoses / Procedures Referred By Cristopher t Referred To Contact Diagnoses Long Q-T syndrome Palpitations Procedures ECG 12 lead Ethel Casanova MD [address] [place] [address] [address] [place] [address] Phone: tel: fax: [facility] (All Locations) Referral ID Status Reason Start Date Expiration Date Visits Re quested Visits Authorized [id number] Closed 02/27/2022 03/29/2023 1 1 Encounter Details Date Type Department Care Team (Latest Contact Info) Description 03/02/2022 1:00 PM CDT - 03/02/2022 11:59 PM CDT Hospital Encounter [facility] Pediatric Cardiology One [facility] [address] [place] [address] Long Q-T syndrome; Palpitations Discharge Disposition: Discharge [...] on file Legal Sex Female 11:23 AM TOOL ANALYST Gender Identity Not on file Sexual [...] PM CDT) Ventricular Rate EKG/Min 64 BPM [facility] Atrial Rate 64 BPM [facility] [place]-Interval (MSEC) 136 ms [facility] QRS-Interval (MSEC) 82 ms [facility] QT-Interval (MSEC) 420 ms [facility] QTc 445 ms [facility] P [place] 64 degrees [facility] R [place] 66 degrees [facility] T [place] 51 degrees [facility] Diagnosis Normal sinus rhythm with sinus arrhythmia Normal ECG When compared with ECG of 03-MAR-2021 14:57, No significant change was found Confirmed by MD CASANOVA JENNIFER ([id number]) on 03/02/2022 1:29:57 PM [facility] 03/02/2022 1:04 PM CDT 03/02/2022 1:29 PM CDT us Ethel Casanova MD ECG ORDERABLES Final Resul t [facility] * Pediatric Device Check - In Office (03/02/2022 1:15 PM CDT) Anatomical Region Laterality Modality Other 03/02/2022 2:00 AM CDT Narrative 03/02/2022 1:21 PM CDT Interpretation Summary: Provider Comments: MODEL: Medtronic, LINQ SERIAL:[id number] /IMPLANTED ON: 01/31/[address] Ethel Casanova [...] Interpretation Summary: Provider Comments: MODEL: Medtronic, LINQ SERIAL:[id number] /IMPLANTED ON: 01/31/[address] Ethel Casanova [...] Palpitations documented in this encounter Care Teams Power Ballast Machine Operator Relationship Specialty Start Date End Date Anthony Bruno MD PCP - General 05/16/17 Ethel Casanova MD 1 [facility] [place] [address] Referring Physician Cardiology 05/12/21 documented as of this encounter
--- OUTSIDE RECORDS SUMMARY | 2024-06-11 10:33 | XMS_ITS | Encounter Summary ---
Author Organization [facility] Address [address] [place] [address] Phone Care Team Providers Care Linoleum Tile Layer Name Role Phone Anthony Bruno MD Primary Care Provider [phone] Ethel Casanova MD Unavailable [phone] Encounter Details Date Type Department Care Team (Late st Contact Info) Description 02/10/2022 Orders Only [facility] Pediatric Cardiology One [facility] 2nd [place] [address] [place] [address] Alyson Conner PA 1 [facility] [address] [place], [place] [id number] Social History Tobacco Use Types Packs/Day Years Used Date Smoking Tobacco: Light Smoker Cigarettes Vaping Smokeless Tobacco: Never Comments:smokes/vapes only o ccasionally with friends Alcohol Use Standard Drinks/Week Comments Not Currently 0 (1 standard drink = 0.6 oz pur e alcohol) Comments No Sex and Gender Information Value Date Recorded Sex Assigned at Not on file Legal Sex Female 11:23 AM STAGE PRODUCER Gender Identity Not on file Sexual Orientation [...] Leads (BL) Normal battery parameters Presenting Rhythm ([place]) Indeterminate rhythm due to baseline noise Arrhythmic [...] Leads (BL) Normal battery parameters Presenting Rhythm ([place]) Indeterminate rhythm due to baseline noise Arrhythmic [...] on filedocumented in this encounter Care Teams Linoleum Tile Layer Relationship Specialty Start Date End Date Anthony Bruno MD PCP - General 05/16/17 Ethel Casanova MD 1 [facility] [place] [address] Referring Physician Cardiology 05/12/21 documented as of this encounter
--- OUTSIDE RECORDS SUMMARY | 2024-06-11 10:34 | XMS_ITS | Encounter Summary ---
Author Organization [facility] Address [address] [place] [address] Phone Care Team Providers Care Etcher Apprentice Photoengraving Name Role Phone Anthony Bruno MD Primary Care Provider [phone] Reason for Visit * (Routine) - Closed Specialty Diagnoses / Procedures Referred By Cristopher sims Referred To Contact Diagnoses Long Q-T syndrome Procedures Pediatric Device Check - Remote Alyson Conner PA [address] [facility] [address] [place] [address] Phone: tel: fax: [facility] (All Locations) Referral ID Status Reason Start Date Expiration Date Visits Re quested Visits Authorized [id number] Closed 11/24/2019 06/04/2021 1 1 Encounter Details Date Type Department Care Team (Latest Contact Info) Description 11/24/2019 8:15 AM CDT Ancillary Procedure [facility] Pediatric Cardiology [address] [place] [address] Long Q-T syndrome Social History Tobacco Use Types Packs/Day Years Used Date Smoking Tobacco: Never Comments Unknown Sex and Gender Information Value Date Recorded Sex Assigned at Not on file Legal Sex Female 11:23 AM SUPERVISOR PRODUCT INSPECTION Gender Identity Not on file Sexual Orientation [...] REMOTE ILR SUMMARY REPORT MODEL: Medtronic, LINQ SERIAL:[id number] /IMPLANTED ON: 01/31/[address] Ethel Casanova?? [...] REMOTE ILR SUMMARY REPORT MODEL: Medtronic, LINQ SERIAL:[id number] /IMPLANTED ON: 01/31/[address] Ethel Casanova?? [...] in this encounter Care Teams Etcher Apprentice Photoengraving Relationship Specialty Start Date End Date Anthony Bruno MD PCP - General 05/16/17 documented as of this encounter
--- OUTSIDE RECORDS SUMMARY | 2024-06-11 10:34 | XMS_ITS | Encounter Summary ---
Author Organization [facility] Address [address] [place] [address] Phone Care Team Providers Care Director Of Rooms Name Role Phone Anthony Bruno MD Primary Care Provider [phone] Reason for Visit * Cardiology (Routine) - Closed Specialty Diagnoses / Procedures Referred By Contgeorgina t Referred To Contact Diagnoses Long Q-T syndrome Procedures Pediatric Device Check - Remote Alyson Conner PA 1 [facility] [address] [place] [address] Phone: tel: fax: [facility] (All Locations) Referral ID Status Reason Start Date Expiration Date Visits Re quested Visits Authorized [id number] Closed 12/31/2020 01/30/2022 1 1 Encounter Details Date Type Department Care Team (Latest Contact Info) Description 12/31/2020 12:50 PM CDT Ancillary Procedure [facility] Pediatric Cardiology [address] [place] [address] Long Q-T syndrome Social History [...] on file Legal Sex Female 11:23 AM CHIP CRUSHER OPERATOR Gender Identity Not on file Sexual [...] 30 DAY SUMMARY REPORT MODEL: Medtronic, LINQ SERIAL:[id number] /IMPLANTED ON: 01/31/[address] Ethel Casanova?? [...] 30 DAY SUMMARY REPORT MODEL: Medtronic, LINQ SERIAL:[id number] /IMPLANTED ON: 01/31/[address] Ethel Casanova?? [...] in this encounter Care Teams Director Of Rooms Relationship Specialty Start Date End Date Anthony Bruno MD PCP - General 05/16/17 documented as of this encounter
--- OUTSIDE RECORDS SUMMARY | 2024-06-11 10:34 | XMS_ITS | Encounter Summary ---
Author Organization [facility] Address [address] [place] [address] Phone Care Team Providers Care Ssn/Ssbn Assistant Navigator Name Role Phone Anthony Bruno MD Primary Care Provider [phone] Reason for Referral * Cardiology (Routine) - Closed Specialty Diagnoses / Procedures Referred By Contac t Referred To Contact Diagnoses Long Q-T syndrome Procedures Pediatric Device Check - In Office Ethel Casanova MD 1 [place] [address] Phone: tel: fax: [facility] (All Locations) Referral ID Status Reason Start Date Expiration Date Visits Re quested Visits Authorized [id number] Closed 02/28/2021 03/30/2022 1 1 * Cardiology (Routine) - Closed Specialty Diagnoses / Procedures Referred By Contac t Referred To Contact Diagnoses Long Q-T syndrome Procedures ECG 12 lead Ethel Casanova MD [address] [address] Phone: tel: fax: [facility] (All Locations) Referral ID Status Reason Start Date Expiration Date Visits Re quested Visits Authorized [id number] Closed 02/28/2021 03/30/2022 1 1 Reason for Visit * Cardiology (Routine) - Closed Specialty Diagnoses / Procedures Referred By Contac t Referred To Contact Diagnoses Long Q-T syndrome Procedures ECG 12 lead Ethel Casanova MD 1 [facility] [address] [place] [address] Phone: tel: fax: [facility] (All Locations) Referral ID Status Reason Start Date Expiration Date Visits Re quested Visits Authorized [id number] Closed 02/28/2021 03/30/2022 1 1 Encounter Details Date Type Department Care Team (Latest Contact Info) Description 03/03/2021 2:59 PM CDT - 03/03/2021 11:59 PM CDT Hospital Encounter [facility] Pediatric Cardiology [facility] [address] [place] [address] Long Q-T syndrome Discharge Disposition: Discharge to [...] on file Legal Sex Female 11:23 AM CREDIT CARD SPECIALIST Gender Identity Not on file Sexual [...] PM CDT) Ventricular Rate EKG/Min 70 BPM [facility] Atrial Rate 70 BPM [facility] NC-Interval (MSEC) 138 ms [facility] QRS-Interval (MSEC) 82 ms [facility] QT-Interval (MSEC) 402 ms [facility] QTc 433 ms [facility] P [place] 56 degrees [facility] R [place] 67 degrees [facility] T [place] 46 degrees [facility] Diagnosis Normal sinus rhythm When compared with ECG of 28-JUN-2020 11:57, No significant change was found Confirmed by MD CASANOVA JENNIFER ([id number]) on 03/03/2021 3:31:16 PM [facility] 03/03/2021 2:57 PM CDT 03/03/2021 3:31 PM CDT Ethel Casanova MD ECG ORDERABLES Final Resul t [facility] * Pediatric Device Check - In Office (03/03/2021 2:59 PM CDT) Anatomical Region Laterality Modality Other Narrative 03/03/2021 4:48 PM CDT REMOTE ILR 30 DAY SUMMARY REPORT MODEL: Medtronic, LINQ SERIAL:[id number] /IMPLANTED ON: 01/31/[address] Ethel Casanova?? [...] syndrome documented in this encounter Care Teams Ssn/Ssbn Assistant Navigator Relationship Specialty Start Date End Date Anthony Bruno MD PCP - General 05/16/17 documented as of this encounter
--- OUTSIDE RECORDS SUMMARY | 2024-06-11 10:34 | XMS_ITS | Encounter Summary ---
Author Organization [facility] Address [address] [place] [address] Phone Care Team Providers Care Pet Sitting Name Role Phone Anthony Bruno MD Primary Care Provider [phone] Reason for Visit * Cardiology (Routine) - Canceled Specialty Diagnoses / Procedures Referred By Cristopher sims Referred To Contact Diagnoses Long Q-T syndrome Procedures Pediatric Device Check - Remote Alyson Conner PA 1 [facility] [address] [place] [address] Phone: tel: fax: [facility] (All Locations) Referral ID Status Reason Start Date Expiration Date V isits Requested Visits Authorized [id number] Canceled 09/22/2019 04/02/2021 12 12 Encounter Details Date Type Department Care Team (Latest Contact Info) Description 02/24/2020 8:30 AM CDT Ancillary Procedure [facility] Pediatric Cardiology [address] [place] [address] Long Q-T syndrome Social History Tobacco Use Types Packs/Day Years Used Date Smoking Tobacco: Never Comments Unknown Sex and Gender Information Value Date Recorded Sex Assigned at Not on file Legal Sex Female 11:23 AM PRINT WASHER Gender Identity Not on file Sexual Orientation [...] REMOTE ILR SUMMARY REPORT MODEL: Medtronic, LINQ SERIAL:[id number] /IMPLANTED ON: 01/31/[address] Ethel Casanova?? [...] REMOTE ILR SUMMARY REPORT MODEL: Medtronic, LINQ SERIAL:[id number] /IMPLANTED ON: 01/31/[address] Ethel Casanova?? [...] syndrome documented in this encounter Care Teams Pet Sitting Relationship Specialty Start Date End Date Anthony Bruno MD PCP - General 05/16/17 documented as of this encounter
--- OUTSIDE RECORDS SUMMARY | 2024-06-11 10:34 | XMS_ITS | Encounter Summary ---
Author Organization [facility] Address [address] [place] [address] Phone Care Team Providers Care A&P Mechanic Name Role Phone Anthony Bruno MD Primary Care Provider [phone] Reason for Referral * Cardiology (Routine) - Closed Specialty Diagnoses / Procedures Referred By Contgeorgina t Referred To Contact Diagnoses Palpitations Long Q-T syndrome Procedures Pediatric Device Check - Remote Alyson Conner PA [address] [facility] [address] [place] [address] Phone: tel: fax: [facility] (All Locations) Referral ID Status Reason Start Date Expiration Date Visits Re quested Visits Authorized [id number] Closed 04/04/2021 05/04/2022 1 1 Encounter Details Date Type Department Care Team (Late st Contact Info) Description 04/04/2021 Orders Only [facility] Pediatric Cardiology [facility] [address] [place] [address] [place] [address] Alyson Conner PA [address] [facility] [address] [place], [place] [id number] Palpitations (Primary Dx); Long Q-T syndrome Social [...] on file Legal Sex Female 11:23 AM RENAL SOCIAL WORKER Gender Identity Not on file Sexual Orientation Not on file documented as of this encounter Plan of Treatment Not on file documented as of this encounter Results * Pediatric Device Check - Remote (04/04/2021 9:11 AM CDT) Anatomical Region Laterality Modality Other Narrative 04/04/2021 1:20 PM CDT REMOTE ILR 30 DAY SUMMARY REPORT MODEL: Medtronic, LINQ SERIAL:[id number] /IMPLANTED ON: 01/31/[address] Ethel Casanova?? [...] syndrome documented in this encounter Care Teams A&P Mechanic Relationship Specialty Start Date End Date Anthony Bruno MD PCP - General 05/16/17 documented as of this encounter
--- OUTSIDE RECORDS SUMMARY | 2024-06-11 10:34 | XMS_ITS | Encounter Summary ---
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 Procedures Pediatric Device Check - In Office Ethel Casanova MD [address] [address] Phone: tel: fax: [facility] (All Locations) Referral ID Status Reason Start Date Expiration Date Visits Re quested Visits Authorized [id number] Closed 01/21/2020 02/19/2021 1 1 * (Routine) - Closed Specialty Diagnoses / Procedures Referred By Contac t Referred To Contact Diagnoses 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 Procedures ECG 12 lead Ethel Casanova MD [address] [address] Phone: tel: fax: [facility] (All Locations) Referral ID Status Reason Start Date Expiration Date Visits Re quested Visits Authorized [id number] Closed 01/21/2020 02/19/2021 1 1 Reason for Visit * Pediatric (Routine) - Closed Specialty Diagnoses / Procedures Referred By Contac t Referred To Contact Pediatric Cardiology Diagnoses Long Q-T syndrome Anthony Bruno MD Phone: tel: fax: Ethel Casanova MD 1 [facility] [address] [place] [address] Phone: tel: fax: Referral ID Status Reason Start Date Expiration Date V isits Requested Visits Authorized [id number] Closed Continuity of Care 01/22/2020 02/20/2021 99 99 Encounter Details Date Type Department Care Team (Late st Contact Info) Description 01/22/2020 1:40 PM CDT Office Visit [facility] Pediatric Cardiology [facility] 2nd [place] [address] [place] [address] Ethel Casanova MD [id number] [place] [address] 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 (Primary Dx); Long Q-T syndrome Social History Tobacco Use Types Packs/Day Years Used Date Smoking Tobacco: Never Comments Unknown Sex and Gender Information Value Date Recorded Sex Assigned at Not on file Legal Sex 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 2. DEVICE CHECK. MODEL: Medtronic, LINQ SERIAL:[id number] /IMPLANTED ON: 01/31/[address] Ethel Casanova?? [...] Note: Added automatically from request for surgery [id number] ??? Long QT syndrome 07/14/2015 Class: Chronic [...] not hesitate to call our office at [phone]. ?? Cardiovascular instructions and follow-up: SBE Prophylaxis [...] Grecia was seen today, 01/22/20 at the [facility]. She is here today with her parents. Please allow me to review for my records. Grecia's family recently relocated to the [facility] from [place]. Sadly, her brother suddenly in July 2014 [...] had an extensive cardiac evaluation at [facility] in [facility] last September. Anechocardiogram showed a structurally [...] 6 months. Here in [facility], she has had serially abnormal ECGs demosntrating [...] and was surgically repaired. PGF had an NM at age 42 and had hypercholesterolemia; he [...] file Gets together: Not on file Attends yazdanism service: Not on file Active member of [...] 457msec). 2. DEVICE CHECK. MODEL: Medtronic, LINQ SERIAL:[id number] /IMPLANTED ON: 01/31/[address] Ethel Casanova?? [...] Note: Added automatically from request for surgery [id number] ??? Long QT syndrome 07/14/2015 Class: Chronic [...] not hesitate to call our office at [phone]. ?? Cardiovascular instructions and follow-up: SBE Prophylaxis [...] BPM [facility] Atrial Rate 64 BPM [facility] DE-Interval (MSEC) 146 ms [facility] QRS-Interval (MSEC) 78 ms [facility] QT-Interval (MSEC) 418 ms [facility] QTc 431 ms [facility] P [place] 64 degrees [facility] R [place] 49 degrees [facility] T [place] 39 degrees [facility] Diagnosis Normal sinus rhythm with sinus arrhythmia When compared with ECG of 20-FEB-2019 13:10, No significant change was found Confirmed by MD CASANOVA JENNIFER ([id number]) on 01/22/2020 1:40:44 PM [facility] 01/22/2020 1:33 PM CDT 01/22/2020 1:40 PM CDT us Ethel Casanova MD ECG ORDERABLES Final Resul t [facility] * Pediatric Device Check - In Office (01/22/2020 1:30 PM CDT) Anatomical Region Laterality Modality Other Narrative 01/22/2020 2:05 PM CDT IN-CLINIC ILR INTERROGATION MODEL: Medtronic, LINQ SERIAL:[id number] /IMPLANTED ON: 01/31/[address] Ethel Casanova?? [...] 01/03 documented in this encounter Care Teams Plant Operator Helper Relationship Specialty Start Date End Date Anthony Bruno MD PCP - General 05/16/17 documented as of this encounter
--- OUTSIDE RECORDS SUMMARY | 2024-06-11 10:34 | XMS_ITS | Encounter Summary ---
Author Organization [facility] Address [address] [place] [address] Phone Care Team Providers Care Pitting Machine Operator Name Role Phone Anthony Bruno MD Primary Care Provider [phone] Reason for Visit * Cardiology (Routine) - Closed Specialty Diagnoses / Procedures Referred By Contgeorgina t Referred To Contact Diagnoses Long Q-T syndrome Procedures Pediatric Device Check - Remote Alyson Conner PA 1 [facility] [address] [place] [address] Phone: tel: fax: [facility] (All Locations) Referral ID Status Reason Start Date Expiration Date Visits Re quested Visits Authorized [id number] Closed 05/03/2021 06/02/2022 1 1 Encounter Details Date Type Department Care Team (Latest Contact Info) Description 05/03/2021 2:20 PM CORRECTION OFFICER HEAD Ancillary Procedure [facility] Pediatric Cardiology [address] [place] [address] Long Q-T syndrome Social History [...] on file Legal Sex Female 11:23 AM CORRECTION OFFICER HEAD Gender Identity Not on file Sexual Orientation Not on file documented as of this encounter Plan of Treatment Not on file documented as of this encounter Procedures Procedure Name Priority Date/Time Associated Diagnosis Comments PED DEVICE CHECK - REMOTE Routine 05/03/2021 2:18 PM CORRECTION OFFICER HEAD Long Q-T syndrome documented in this encounter Results * Pediatric Device Check - Remote (05/03/2021 2:18 PM CORRECTION OFFICER HEAD) Anatomical Region Laterality Modality Other Narrative 05/03/2021 3:40 PM CORRECTION OFFICER HEAD REMOTE ILR 30 DAY SUMMARY REPORT MODEL: Medtronic, LINQ SERIAL:[id number] /IMPLANTED ON: 01/31/[address] Ethel Casanova?? [...] syndrome documented in this encounter Care Teams Pitting Machine Operator Relationship Specialty Start Date End Date Anthony Bruno MD PCP - General 05/16/17 documented as of this encounter
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
--- OUTSIDE RECORDS SUMMARY | 2024-06-11 10:34 | XMS_ITS | Encounter Summary ---
Author Organization [facility] Address [address] [place] [address] Phone Care Team Providers Care Caddy/Caddie Supervisor Name Role Phone Anthony Bruno MD Primary Care Provider [phone] Reason for Referral * Cardiology (Routine) - Closed Specialty Diagnoses / Procedures Referred By Contgeorgina t Referred To Contact Diagnoses Long Q-T syndrome Procedures Pediatric Device Check - Remote Alyson Conner PA 1 [facility] [address] [place] [address] Phone: tel: fax: [facility] (All Locations) Referral ID Status Reason Start Date Expiration Date Visits Re quested Visits Authorized [id number] Closed 11/02/2020 12/02/2021 1 1 Encounter Details Date Type Department Care Team (Late st Contact Info) Description 11/02/2020 Orders Only [facility] Pediatric Cardiology One [facility] 2nd [place] [address] [place] [phone] Alyson Conner PA 1 [facility] [address] [place], [place] [id number] Long Q-T syndrome (Primary Dx) Social History [...] on file Legal Sex Female 11:23 AM LUMBER KILN OPERATOR Gender Identity Not on file Sexual Orientation Not on file documented as of this encounter Plan of Treatment Not on file documented as of this encounter Results * Pediatric Device Check - Remote (11/02/2020 2:17 PM CDT) Anatomical Region Laterality Modality Other Narrative 11/02/2020 2:34 PM CDT REMOTE ILR 30 DAY SUMMARY REPORT MODEL: Medtronic, LINQ SERIAL:[id number] /IMPLANTED ON: 01/31/[address] Ethel Casanova?? [...] 30 DAY SUMMARY REPORT MODEL: Medtronic, LINQ SERIAL:[id number] /IMPLANTED ON: 01/31/[address] Ethel Casanova?? [...] syndrome documented in this encounter Care Teams Caddy/Caddie Supervisor Relationship Specialty Start Date End Date Anthony Bruno MD PCP - General 05/16/17 documented as of this encounter
--- OUTSIDE RECORDS SUMMARY | 2024-06-11 10:34 | XMS_ITS | Encounter Summary ---
Author Organization [facility] Address [address] [place] [address] Phone Care Team Providers Care Photogrammetrist Name Role Phone Anthony Bruno MD Primary Care Provider [phone] Encounter Details Date Type Department Care Team (Late st Contact Info) Description 06/23/2020 Documentation [facility] Pediatric Cardiology One [facility] 2nd [place] [address] [place] [id number] Khadar Montesinos MD [address] [place] [address] [address] [place] [address] Social History Tobacco Use Types Packs/Day Years Used Date Smoking Tobacco: Never Comments Unknown Sex and Gender Information Value Date Recorded Sex Assigned at Not on file Legal Sex Female 11:23 AM FURNITURE REMOVALIST'S ASSISTANT Gender Identity Not on file Sexual Orientation Not on file documented as of this encounter Progress Notes * Khadar Montesinos MD - 06/23/2020 5:28 PM CST Received call from referring hospital regarding patient with history of likely Long QT on beta evelyne therapy with Betaxolol. Patient was brought to an ER for Acetaminophen ingestion. call center supervisor with children's direct and Toxicology, patient is stable enough to admit to general pediatric floor. Acetaminophen and NAC are not known to cause QT prolongation. ER obtained ECG which showed a QTc of 431 by report. From cardiac standpoint patient is stable to admit to general pediatrics and be placed on pipe manufacture supervisor. There is no telemetry within the hospital including the cardiac unit as it would imply there is a provider watching continuously. The hospital is equipped to allow review of continuous pipe manufacture supervisor as needed by cardiology anywhere in the hospital. Therefore we recommend admissionto general pediatrics, with cardiology consult as needed. Would recommend ECG on arrival to [facility] Khadar Montesinos MD Discussed with attending Dr. Warner. ITURE REMOVALIST'S ASSISTANT documented in this encounter Plan of Treatment Not on file documented as of this encounter Visit Diagnoses Not on filedocumented in this encounter Care Teams Photogrammetrist Relationship Specialty Start Date End Date Anthony Bruno MD PCP - General 05/16/17 documented as of this encounter
--- OUTSIDE RECORDS SUMMARY | 2024-06-11 10:34 | XMS_ITS | Encounter Summary ---
Author Organization [facility] Address [address] [place] [address] Phone Care Team Providers Care Gas Roller Operator Name Role Phone Anthony Bruno MD Primary Care Provider [phone] Reason for Referral * Cardiology (Routine) - Closed Specialty Diagnoses / Procedures Referred By Contac t Referred To Contact Diagnoses Long Q-T syndrome Procedures Pediatric Device Check - Remote Ethel Casanova MD 1 [facility] [address] [place] [address] Phone: tel: fax: [facility] (All Locations) Referral ID Status Reason Start Date Expiration Date Visits Re quested Visits Authorized [id number] Closed 05/31/2020 06/30/2021 1 1 TOBACCO BULKER Encounter Details Date Type Department Care Team (Late st Contact Info) Description 05/31/2020 Orders Only [facility] Pediatric Cardiology [facility] 2nd [place] [address] [place] [address] Dakota Shoemaker, RN Long Q-T syndrome (Primary Dx) Social History Tobacco Use Types Packs/Day Years Used Date Smoking Tobacco: Never Comments Unknown Sex and Gender Information Value Date Recorded Sex Assigned at Not on file Legal Sex Female 11:23 AM CUT TOBACCO BULKER Gender Identity Not on file Sexual Orientation Not on file documented as of this encounter Plan of Treatment Not on file documented as of this encounter Results * Pediatric Device Check - Remote (05/31/2020 5:13 PM CUT TOBACCO BULKER) Anatomical Region Laterality Modality Other Narrative 06/02/2020 7:42 AM CUT TOBACCO BULKER REMOTE ILR 30 DAY SUMMARY REPORT MODEL: Medtronic, LINQ SERIAL:[id number] /IMPLANTED ON: 01/31/[address] Ethel Casanova?? [...] syndrome documented in this encounter Care Teams Gas Roller Operator Relationship Specialty Start Date End Date Anthony Bruno MD PCP - General 05/16/17 documented as of this encounter
--- OUTSIDE RECORDS SUMMARY | 2024-06-11 10:34 | XMS_ITS | Encounter Summary ---
Author Organization [facility] Address [address] [place] [address] Phone Care Team Providers Care Biofuels Engineering Manager Name Role Phone Anthony Bruno MD Primary Care Provider [phone] Reason for Referral * (Routine) - Closed Specialty Diagnoses / Procedures Referred By Contgeorgina t Referred To Contact Diagnoses Long Q-T syndrome Procedures Pediatric Device Check - Remote [facility]lyson Conner PA 1 [facility] [address] [place] [address] Phone: tel: fax: [facility] (All Locations) Referral ID Status Reason Start Date Expiration Date Visits Re quested Visits Authorized [id number] Closed 12/24/2019 01/22/2021 1 1 Encounter Details Date Type Department Care Team (Late st Contact Info) Description 12/24/2019 Orders Only [facility] Pediatric Cardiology One [facility] 2nd [place] [address] [place] [phone] Alyson Conner PA 1 [facility] [address] [place] [address] Long Q-T syndrome (Primary Dx) Social History Tobacco Use Types Packs/Day Years Used Date Smoking Tobacco: Never Comments Unknown Sex and Gender Information Value Date Recorded Sex Assigned at Not on file Legal Sex Female 11:23 AM PAYROLL CONSULTANT Gender Identity Not on file Sexual Orientation Not on file documented as of this encounter Plan of Treatment Not on file documented as of this encounter Results * Pediatric Device Check - Remote (12/24/2019 8:39 AM CDT) Anatomical Region Laterality Modality Other Narrative 12/24/2019 9:19 AM CDT REMOTE ILR SUMMARY REPORT MODEL: Medtronic, LINQ SERIAL:[id number] /IMPLANTED ON: 01/31/[address] Ethel Casanova?? [...] REMOTE ILR SUMMARY REPORT MODEL: Medtronic, LINQ SERIAL:[id number] /IMPLANTED ON: 01/31/[address] Ethel Casanova?? [...] by: CHAD Tang Reviewed with: Dr. Keara Rsahid Alyson BONILLA [facility] PROCEDU RES Final Result documented in this encounter Visit Diagnoses Diagnosis Long Q-T syndrome- Primary Long QT syndrome Long Q-T syndrome Long QT syndrome documented in this encounter Care Teams Biofuels Engineering Manager Relationship Specialty Start Date End Date Anthony Brnuo MD PCP - General 05/16/17 documented as of this encounter
--- OUTSIDE RECORDS SUMMARY | 2024-06-11 10:34 | XMS_ITS | Encounter Summary ---
Author Organization [facility] Address [address] [place] [address] Phone Care Team Providers Care Check Processor Name Role Phone Anthony Bruno MD Primary Care Provider [phone] Reason for Referral * (Routine) - Closed Specialty Diagnoses / Procedures Referred By Contgeorgina t Referred To Contact Diagnoses Long Q-T syndrome Procedures Pediatric Device Check - Remote [facility] Conner PA 1 [facility] [address] [place] [address] Phone: tel: fax: [facility] (All Locations) Referral ID Status Reason Start Date Expiration Date Visits Re quested Visits Authorized [id number] Closed 11/24/2019 06/04/2021 1 1 Encounter Details Date Type Department Care Team (Late st Contact Info) Description 11/24/2019 Orders Only [facility] Pediatric Cardiology One [facility] 2nd [place] [address] [place] [phone] Alyson Conner PA 1 [facility] [place] [address] [place] [address] Long Q-T syndrome (Primary Dx) Social History Tobacco Use Types Packs/Day Years Used Date Smoking Tobacco: Never Comments Unknown Sex and Gender Information Value Date Recorded Sex Assigned at Not on file Legal Sex Female 11:23 AM MS SQL SERVER DEVELOPER Gender Identity Not on file Sexual Orientation Not on file documented as of this encounter Plan of Treatment Not on file documented as of this encounter Results * Pediatric Device Check - Remote (11/24/2019 7:38 AM CDT) Anatomical Region Laterality Modality Other Narrative 11/24/2019 4:09 PM CDT REMOTE ILR SUMMARY REPORT MODEL: Medtronic, LINQ SERIAL:[id number] /IMPLANTED ON: 01/31/[address] Ethel Casanova?? [...] REMOTE ILR SUMMARY REPORT MODEL: Medtronic, LINQ SERIAL:[id number] /IMPLANTED ON: 01/31/[address] Ethel Casanova?? [...] syndrome documented in this encounter Care Teams Check Processor Relationship Specialty Start Date End Date Anthony Bruno MD PCP - General 05/16/17 documented as of this encounter
--- OUTSIDE RECORDS SUMMARY | 2024-06-11 10:34 | XMS_ITS | Encounter Summary ---
Author Organization [facility] Address [address] [place] [address] Phone Care Team Providers Care Instructional Technology Teacher Name Role Phone Anthony Bruno MD Primary Care Provider [phone] Reason for Referral * Cardiology (Routine) - Closed Specialty Diagnoses / Procedures Referred By Cristopher t Referred To Contact Diagnoses Long Q-T syndrome Procedures Pediatric Device Check - Remote Alyson Conner PA 1 [facility] [address] [place] [address] Phone: tel: fax: [facility] (All Locations) Referral ID Status Reason Start Date Expiration Date Visits Re quested Visits Authorized [id number] Closed 01/31/2021 03/02/2022 1 1 Encounter Details Date Type Department Care Team (Late st Contact Info) Description 01/31/2021 Orders Only [facility] Pediatric Cardiology One [facility] 2nd [place] [address] [place] [phone] Alyson Conner PA 1 [facility] [address] [place], [place] [id number] Long Q-T syndrome (Primary Dx) Social History [...] on file Legal Sex Female 11:23 AM RNP Gender Identity Not on file Sexual Orientation Not on file documented as of this encounter Plan of Treatment Not on file documented as of this encounter Results * Pediatric Device Check - Remote (01/31/2021 9:26 AM CDT) Anatomical Region Laterality Modality Other Narrative 01/31/2021 1:59 PM CDT REMOTE ILR 30 DAY SUMMARY REPORT MODEL: Medtronic, LINQ SERIAL:[id number] /IMPLANTED ON: 01/31/[address] Ethel Casanova?? [...] 30 DAY SUMMARY REPORT MODEL: Medtronic, LINQ SERIAL:[id number] /IMPLANTED ON: 01/31/[address] Ethel Casanova?? [...] syndrome documented in this encounter Care Teams Instructional Technology Teacher Relationship Specialty Start Date End Date Anthony Bruno MD PCP - General 05/16/17 documented as of this encounter
--- OUTSIDE RECORDS SUMMARY | 2024-06-11 10:34 | XMS_ITS | Encounter Summary ---
Author Organization [facility] Address [address] [place] [address] Phone Care Team Providers Care Survey Instrument Operator Name Role Phone Anthony Bruno MD Primary Care Provider Reason for Visit * (Routine) - Closed Specialty Diagnoses / Procedures Referred By Cristopher sims Referred To Contact Diagnoses Long Q-T syndrome Procedures Pediatric Device Check - Remote Alyson Conner PA 1 [facility] [address] [place] [address] Phone: tel: fax: [facility] (All Locations) Referral ID Status Reason Start Date Expiration Date Visits Re quested Visits Authorized [id number] Closed 12/24/2019 01/22/2021 1 1 Encounter Details Date Type Department Care Team (Latest Contact Info) Description 12/24/2019 9:00 AM CDT Ancillary Procedure [facility] Pediatric Cardiology [address] [place] [address] Long Q-T syndrome Social History Tobacco Use Types Packs/Day Years Used Date Smoking Tobacco: Never Comments Unknown Sex and Gender Information Value Date Recorded Sex Assigned at Not on file Legal Sex Female 11:23 AM EMPLOYMENT LAW ATTORNEY Gender Identity Not on file Sexual Orientation [...] REMOTE ILR SUMMARY REPORT MODEL: Medtronic, LINQ SERIAL:[id number] /IMPLANTED ON: 01/31/[address] Ethel Casanova?? [...] REMOTE ILR SUMMARY REPORT MODEL: Medtronic, LINQ SERIAL:[id number] /IMPLANTED ON: 01/31/[address] Ethel Casanova?? [...] syndrome documented in this encounter Care Teams Survey Instrument Operator Relationship Specialty Start Date End Date Anthony Bruno MD PCP - General 05/16/17 documented as of this encounter
--- OUTSIDE RECORDS SUMMARY | 2024-06-11 10:34 | XMS_ITS | Encounter Summary ---
Author Organization [facility] Healthcare Address [address] [place] [address] Care Team Providers Care Purse Seiner Name Role Phone Anthony Bruno MD Primary Care Provider [phone] Reason for Visit * Reason Comments Psychiatric Evaluation Encounter Details Date Type Department Care Team (Late st Contact Info) Description 11/17/2020 1:53 PM CDT - 11/17/2020 5:52 PM CDT Emergency [facility] [place] [address] Ren Caba MD [address] [address] Estelle Rios MD [address] [address] PTSD (post-traumatic stress disorder) (Primary Dx) Discharge [...] on file Legal Sex Female 11:23 AM TURNING MACHINE OPERATOR HELPER Gender Identity Not on file Sexual [...] Traumatic Stress Disorder in Children ([facility](R) Instructions(ER/ED)) (Liberian) documented in this encounter Medications at Time [...] ago. Patient reports that she is going [id number] grade and does not have too many [...] obtained from parents might and phone number [phone]- mother states that patient told her father [...] Conv) ??? Self-injurious behavior ??? Suicide attempt ([facility]) History reviewed. No pertinent surgical history. [...] Psychiatric History: Diagnoses: MDD Inpatient: inpt at [facility] Jun 2020 Outpatient: Dr. Carlisle Therapy: will [...] Conv) ??? Self-injurious behavior ??? Suicide attempt ([facility]) History reviewed. No pertinent surgical history. [...] and oriented to person, place, and time. [facility] Medical Decision Making Differential Diagnosis or [...] discuss with her psychiatrist and then consulting [facility] psychiatry. Denies SI/HI. PRN's given/Behavior challenges during [...] arrival: Car Comments: Luda Cruz RN 11/17/20 [id number] * Nirmal Bryant RN - 11/17/2020 1:38 PM CDT Pt admitted to [facility] in June of 2020 s/p suicide attempt. [...] 2020 documented in this encounter Care Teams Purse Seiner Relationship Specialty Start Date End Date Anthony Bruno MD PCP - General 05/16/17 documented as of this encounter
--- OUTSIDE RECORDS SUMMARY | 2024-06-11 10:34 | XMS_ITS | Encounter Summary ---
Author Organization [facility] Address [address] [place] [address] Phone Care Team Providers Care Heel Stainer Name Role Phone Anthony Bruno MD Primary Care Provider [phone] Encounter Details Date Type Department Care Team (Late st Contact Info) Description 06/28/2020 Orders Only [facility] Pediatric Cardiology One [facility] 2nd [place] [address] [place] [address] Alyson Conner PA [address] [facility] [address] [place] [address] Social History Tobacco Use Types Packs/Day Years Used Date Smoking Tobacco: Light Smoker Cigarettes Vaping Smokeless Tobacco: Never Comments:smokes/vapes only o ccasionally with friends Alcohol Use Standard Drinks/Week Comments Not Currently 0 (1 standard drink = 0.6 oz pur e alcohol) Comments No Sex and Gender Information Value Date Recorded Sex Assigned at Not on file Legal Sex Female 11:23 AM INSIDE PLANT SUPERVISOR Gender Identity Not on file Sexual Orientation Not on file documented as of this encounter Plan of Treatment Not on file documented as of this encounter Visit Diagnoses Not on filedocumented in this encounter Care Teams Heel Stainer Relationship Specialty Start Date End Date Anthony Bruno MD PCP - General 05/16/17 documented as of this encounter
--- OUTSIDE RECORDS SUMMARY | 2024-06-11 10:34 | XMS_ITS | Encounter Summary ---
Author Organization [facility] Address [address] [place] [address] Phone Care Team Providers Care Forging Press Setter Up Name Role Phone Anthony Bruno MD Primary Care Provider [phone] Ethel Casanova MD Unavailable [phone] Encounter Details Date Type Department Care Team (Late st Contact Info) Description 06/15/2021 Orders Only [facility] Pediatric Cardiology One [facility] 2nd [place] [address] [place] [address] Alyson Conner PA 1 [facility] [address] [place] [address] Social History Tobacco Use Types Packs/Day Years Used Date Smoking Tobacco: Light Smoker Cigarettes Vaping Smokeless Tobacco: Never Comments:smokes/vapes only o ccasionally with friends Alcohol Use Standard Drinks/Week Comments Not Currently 0 (1 standard drink = 0.6 oz pur e alcohol) Comments No Sex and Gender Information Value Date Recorded Sex Assigned at Not on file Legal Sex Female 11:23 AM PROJECT DEVELOPMENT DIRECTOR Gender Identity Not on file Sexual Orientation Not on file documented as of this encounter Plan of Treatment Not on file documented as of this encounter Procedures Procedure Name Priority Date/Time Associated Diagnosis Comments PED DEVICE CHECK - REMOTE Routine 06/15/2021 3:38 AM PROJECT DEVELOPMENT DIRECTOR documented in this encounter Results * Pediatric Device Check - Remote (06/15/2021 3:38 AM PROJECT DEVELOPMENT DIRECTOR) Anatomical Region Laterality Modality Other 06/15/2021 3:38 AM PROJECT DEVELOPMENT DIRECTOR Narrative 06/16/2021 12:45 PM PROJECT DEVELOPMENT DIRECTOR see PDF for result Procedure Note Alyson Conner PA - 06/16/2021 see PDF for result us Alyson BONILLA [facility] C[facility]AC [facility] PROCEDU RES Final Result documented in this encounter Visit Diagnoses Not on filedocumented in this encounter Care Teams Forging Press Setter Up Relationship Specialty Start Date End Date Anthony Bruno MD PCP - General 05/16/17 Ethel Casanova MD 1 [facility] [place] [address] Referring Physician Cardiology 05/12/21 documented as of this encounter
--- OUTSIDE RECORDS SUMMARY | 2024-06-11 10:34 | XMS_ITS | Encounter Summary ---
Author Organization [facility] Address [address] [place] [address] Phone Care Team Providers Care Oriental Rug Repairer Name Role Phone Anthony Bruno MD Primary Care Provider [phone] Reason for Visit * Cardiology (Routine) - Closed Specialty Diagnoses / Procedures Referred By Contgeorgina t Referred To Contact Diagnoses Long Q-T syndrome Procedures Pediatric Device Check - Remote Alyson Conner PA 1 [facility] [address] [place] [address] Phone: tel: fax: [facility] (All Locations) Referral ID Status Reason Start Date Expiration Date Visits Re quested Visits Authorized [id number] Closed 01/31/2021 03/02/2022 1 1 Encounter Details Date Type Department Care Team (Latest Contact Info) Description 01/31/2021 9:30 AM CDT Ancillary Procedure [facility] Pediatric Cardiology [address] [place] [address] Long Q-T syndrome Social History [...] on file Legal Sex Female 11:23 AM TEMPERER Gender Identity Not on file Sexual Orientation [...] 30 DAY SUMMARY REPORT MODEL: Medtronic, LINQ SERIAL:[id number] /IMPLANTED ON: 01/31/[address] Ethel Casanova?? [...] 30 DAY SUMMARY REPORT MODEL: Medtronic, LINQ SERIAL:[id number] /IMPLANTED ON: 01/31/[address] Ethel Casanova?? [...] syndrome documented in this encounter Care Teams Oriental Rug Repairer Relationship Specialty Start Date End Date Anthony Bruno MD PCP - General 05/16/17 documented as of this encounter
--- OUTSIDE RECORDS SUMMARY | 2024-06-11 10:34 | XMS_ITS | Encounter Summary ---
Author Organization [facility] Address [address] [place] [address] Phone Care Team Providers Care Analytical Scientist Name Role Phone Anthony Bruno MD Primary Care Provider [phone] Reason for Referral * Cardiology (Routine) - Closed Specialty Diagnoses / Procedures Referred By Contgeorgina t Referred To Contact Diagnoses Long Q-T syndrome Procedures Pediatric Device Check - Remote Alyson Conner PA 1 [facility] [address] [place] [address] Phone: tel: fax: [facility] (All Locations) Referral ID Status Reason Start Date Expiration Date Visits Re quested Visits Authorized [id number] Closed 08/30/2020 09/29/2021 1 1 Encounter Details Date Type Department Care Team (Late st Contact Info) Description 08/30/2020 Orders Only [facility] Pediatric Cardiology [address] [facility] [address]nd [place] [address] [place] [address] Alyson Conner PA 1 [facility] [address] [place], [place] [id number] Long Q-T syndrome (Primary Dx) Social History [...] file Legal Sex Female 11:23 AM FLIGHT FOLLOWER Gender Identity Not on file Sexual Orientation Not on file documented as of this encounter Plan of Treatment Not on file documented as of this encounter Results * Pediatric Device Check - Remote (08/30/2020 1:01 PM CDT) Anatomical Region Laterality Modality Other Narrative 08/30/2020 4:30 PM CDT REMOTE ILR 30 DAY SUMMARY REPORT MODEL: Medtronic, LINQ SERIAL:[id number] /IMPLANTED ON: 01/31/[address] Ethel Casanova?? [...] PARENT INFORMATION: No events Interrogated by: CHAD Tagn Reviewed with: Dr. Ethel Casanova Procedure Note Alyson Conner PA - 08/30/2020 REMOTE ILR 30 DAY SUMMARY REPORT MODEL: Medtronic, LINQ SERIAL:[id number] /IMPLANTED ON: 01/31/[address] Ethel Casanova?? [...] syndrome documented in this encounter Care Teams Analytical Scientist Relationship Specialty Start Date End Date Anthony Bruno MD PCP - General 05/16/17 documented as of this encounter
--- OUTSIDE RECORDS SUMMARY | 2024-06-11 10:34 | XMS_ITS | Encounter Summary ---
Author Organization [facility] Address [address] [place] [address] Phone Care Team Providers Care Aerospace Engineer Name Role Phone Anthony Bruno MD Primary Care Provider [phone] Reason for Visit * Cardiology (Routine) - Canceled Specialty Diagnoses / Procedures Referred By Contgeorgina t Referred To Contact Diagnoses Long Q-T syndrome Procedures Pediatric Device Check - Remote Alyson Conner PA 1 [facility] [address] [place] [address] Phone: tel: fax: [facility] (All Locations) Referral ID Status Reason Start Date Expiration Date V isits Requested Visits Authorized [id number] Canceled 09/22/2019 04/02/2021 12 12 Encounter Details Date Type Department Care Team (Latest Contact Info) Description 07/28/2020 12:15 PM SHIRT MAKER Ancillary Procedure [facility] Pediatric Cardiology [address] [place] [address] Long Q-T syndrome Social History [...] on file Legal Sex Female 11:23 AM SHIRT MAKER Gender Identity Not on file Sexual Orientation Not on file documented as of this encounter Plan of Treatment Not on file documented as of this encounter Procedures Procedure Name Priority Date/Time Associated Diagnosis Comments PED DEVICE CHECK - REMOTE Routine 07/28/2020 12:10 PM SHIRT MAKER Long Q-T syndrome documented in this encounter Results * Pediatric Device Check - Remote (07/28/2020 12:10 PM SHIRT MAKER) Anatomical Region Laterality Modality Other Narrative 07/28/2020 12:32 PM SHIRT MAKER REMOTE ILR 30 DAY SUMMARY REPORT ?? MODEL: Medtronic, LINQ SERIAL:[id number] /IMPLANTED ON: 01/31/[address] Ethel Casanova?? [...] DAY SUMMARY REPORT ?? MODEL: Medtronic, LINQ SERIAL:[id number] /IMPLANTED ON: 01/31/[address] Ethel Casanova?? [...] syndrome documented in this encounter Care Teams Aerospace Engineer Relationship Specialty Start Date End Date Anthony Bruno MD PCP - General 05/16/17 documented as of this encounter
--- OUTSIDE RECORDS SUMMARY | 2024-06-11 10:34 | XMS_ITS | Encounter Summary ---
Author Organization [facility] Address [address] [place] [address] Phone Care Team Providers Care Steel Floor Pan Placing Supervisor Name Role Phone Anthony Bruno MD Primary Care Provider [phone] Reason for Visit * Cardiology (Routine) - Canceled Specialty Diagnoses / Procedures Referred By Contgeorgina t Referred To Contact Diagnoses Long Q-T syndrome Procedures Pediatric Device Check - Remote Alyson Conner PA 1 [facility] [address] [place] [address] Phone: tel: fax: [facility] (All Locations) Referral ID Status Reason Start Date Expiration Date V isits Requested Visits Authorized [id number] Canceled 09/22/2019 04/02/2021 12 12 Encounter Details Date Type Department Care Team (Latest Contact Info) Description 06/28/2020 10:45 AM GRIP WRAPPER Ancillary Procedure [facility] Pediatric Cardiology [address] [place] [address] Long Q-T syndrome Social History [...] on file Legal Sex Female 11:23 AM GRIP WRAPPER Gender Identity Not on file Sexual Orientation Not on file documented as of this encounter Plan of Treatment Not on file documented as of this encounter Procedures Procedure Name Priority Date/Time Associated Diagnosis Comments PED DEVICE CHECK - REMOTE Routine 06/28/2020 10:04 AM GRIP WRAPPER Long Q-T syndrome documented in this encounter Results * Pediatric Device Check - Remote (06/28/2020 10:04 AM GRIP WRAPPER) Anatomical Region Laterality Modality Other Narrative 06/28/2020 10:41 AM GRIP WRAPPER REMOTE ILR 30 DAY SUMMARY REPORT MODEL: Medtronic, LINQ SERIAL:[id number] /IMPLANTED ON: 01/31/[address] Ethel Casanova?? [...] 30 DAY SUMMARY REPORT MODEL: Medtronic, LINQ SERIAL:[id number] /IMPLANTED ON: 01/31/[address] Ethel Casanova?? [...] Tang Reviewed with: Dr. Keara Rashid Alyson BONLILA CV CARDIAC SERVICES PROCEDU RES Final Result documented in this encounter Visit Diagnoses Diagnosis Long Q-T syndrome Long QT syndrome documented in this encounter Care Teams Steel Floor Pan Placing Supervisor Relationship Specialty Start Date End Date Anthony Bruno MD PCP - General 05/16/17 documented as of this encounter
--- OUTSIDE RECORDS SUMMARY | 2024-06-11 10:34 | XMS_ITS | Encounter Summary ---
Author Organization [facility] Address [address] [place] [address] Phone Care Team Providers Care Cutting Tool Sharpener Name Role Phone Anthony Bruno MD Primary Care Provider [phone] Reason for Referral * Cardiology (Routine) - Closed Specialty Diagnoses / Procedures Referred By Contgeorgina t Referred To Contact Diagnoses Long Q-T syndrome Procedures Pediatric Device Check - Remote Alyson Conner PA 1 [facility] [address] [place] [address] Phone: tel: fax: [facility] (All Locations) Referral ID Status Reason Start Date Expiration Date Visits Re quested Visits Authorized [id number] Closed 09/28/2020 10/28/2021 1 1 Encounter Details Date Type Department Care Team (Late st Contact Info) Description 09/28/2020 Orders Only [facility] Pediatric Cardiology One [facility] 2nd [place] [address] [place] [address] Alyson Conner PA 1 [facility] [address] [place], [place] [id number] Long Q-T syndrome (Primary Dx) Social History [...] file Legal Sex Female 11:23 AM DIRECTOR CARDIOVASCULAR Gender Identity Not on file Sexual Orientation Not on file documented as of this encounter Plan of Treatment Not on file documented as of this encounter Results * Pediatric Device Check - Remote (09/30/2020 8:02 AM CDT) Anatomical Region Laterality Modality Other Narrative 09/30/2020 10:10 AM CDT REMOTE ILR 30 DAY SUMMARY REPORT MODEL: Medtronic, LINQ SERIAL:[id number] /IMPLANTED ON: 01/31/[address] Ethel Casanova?? [...] 30 DAY SUMMARY REPORT MODEL: Medtronic, LINQ SERIAL:[id number] /IMPLANTED ON: 01/31/[address] Ethel Casanova?? [...] syndrome documented in this encounter Care Teams Cutting Tool Sharpener Relationship Specialty Start Date End Date Anthony Bruno MD PCP - General 05/16/17 documented as of this encounter
--- OUTSIDE RECORDS SUMMARY | 2024-06-11 10:34 | XMS_ITS | Encounter Summary ---
Author Organization [facility] Address [address] [place] [address] Phone Care Team Providers Care Sweeping Compound Blender Name Role Phone Anthony Bruno MD Primary Care Provider [phone] Reason for Referral * Cardiology (Routine) - Closed Specialty Diagnoses / Procedures Referred By Contgeorgina t Referred To Contact Diagnoses Long Q-T syndrome Procedures Pediatric Device Check - Remote Alyson Conner PA 1 [facility] [address] [place] [address] Phone: tel: fax: [facility] (All Locations) Referral ID Status Reason Start Date Expiration Date Visits Re quested Visits Authorized [id number] Closed 11/30/2020 12/30/2021 1 1 Encounter Details Date Type Department Care Team (Late st Contact Info) Description 11/30/2020 Orders Only [facility] Pediatric Cardiology One [facility] 2nd [place] [address] [place] [address] Alyson Conner PA 1 [facility] [address] [place], [place] [id number] Long Q-T syndrome (Primary Dx) Social History [...] on file Legal Sex Female 11:23 AM MICROBIOLOGICAL ANALYST Gender Identity Not on file Sexual Orientation Not on file documented as of this encounter Plan of Treatment Not on file documented as of this encounter Results * Pediatric Device Check - Remote (11/30/2020 8:02 AM CDT) Anatomical Region Laterality Modality Other Narrative 11/30/2020 2:12 PM CDT REMOTE ILR 30 DAY SUMMARY REPORT MODEL: Medtronic, LINQ SERIAL:[id number] /IMPLANTED ON: 01/31/[address] Ethel Casanova?? [...] syndrome documented in this encounter Care Teams Sweeping Compound Blender Relationship Specialty Start Date End Date Anthony Bruno MD PCP - General 05/16/17 documented as of this encounter
--- OUTSIDE RECORDS SUMMARY | 2024-06-11 10:34 | XMS_ITS | Encounter Summary ---
Author Organization [facility] Address [address] [place] [address] Phone Care Team Providers Care Operations Director Name Role Phone Anthony Bruno MD Primary Care Provider [phone] Encounter Details Date Type Department Care Team (Late st Contact Info) Description 04/19/[address] [facility] Pediatric Cardiology [address] [facility] 2nd [place] [address] [place] [address] Salma Olivarez Social History Tobacco Use Types Packs/Day Years Used Date Smoking Tobacco: Never Comments Unknown Sex and Gender Information Value Date Recorded Sex Assigned at Not on file Legal Sex Female 11:23 AM SURETY BOND AGENT Gender Identity Not on file Sexual Orientation Not on file documented as of this encounter Miscellaneous Notes * Telephone Encounter - Alyson Conner PA - 04/19/2020 2:29 PM SURETY BOND AGENT Spoke with patient's mother regarding data transmission that was sent overnight. The rhythm strip shows sinus rhythm and there were no events recorded. I advised them to record symptoms with the patient activator for our review should she have the palpitations again. Mother expressed understanding.No further questions. TY BOND AGENT * Telephone Encounter - Kiley Menon - 04/19/2020 2:01 PM CST Talia Please follow up with mom TY BOND AGENT * Telephone Encounter - Salma Olivarez - [...] was going on. Please call mom at [phone]. Thank you. TY BOND AGENT documented in this encounter Plan of Treatment Not on file documented as of this encounter Visit Diagnoses Not on filedocumented in this encounter Care Teams Operations Director Relationship Specialty Start Date End Date Anthony Bruno MD PCP - General 05/16/17 documented as of this encounter
--- OUTSIDE RECORDS SUMMARY | 2024-06-11 10:34 | XMS_ITS | Encounter Summary ---
Author Organization [facility] Address [address] [place] [address] Phone Care Team Providers Care Desk Operator Name Role Phone Anthony Bruno MD Primary Care Provider [phone] Encounter Details Date Type Department Care Team (Late st Contact Info) Description 07/28/2020 Orders Only [facility] Pediatric Cardiology One [facility] 2nd [place] [address] [place] [address] Alyson Conner PA 1 [facility] [address] [place] [address] Social History Tobacco Use Types Packs/Day Years Used Date Smoking Tobacco: Light Smoker Cigarettes Vaping Smokeless Tobacco: Never Comments:smokes/vapes only o ccasionally with friends Alcohol Use Standard Drinks/Week Comments Not Currently 0 (1 standard drink = 0.6 oz pur e alcohol) Comments No Sex and Gender Information Value Date Recorded Sex Assigned at Not on file Legal Sex Female 11:23 AM THERMAL ENGINEER Gender Identity Not on file Sexual Orientation Not on file documented as of this encounter Plan of Treatment Not on file documented as of this encounter Visit Diagnoses Not on filedocumented in this encounter Care Teams Desk Operator Relationship Specialty Start Date End Date Anthony Bruno MD PCP - General 05/16/17 documented as of this encounter
--- OUTSIDE RECORDS SUMMARY | 2024-06-11 10:34 | XMS_ITS | Encounter Summary ---
Author Organization [facility] Address [address] [place] [address] Phone Care Team Providers Care Professor Of Practice Name Role Phone Anthony Bruno MD Primary Care Provider [phone] Encounter Details Date Type Department Care Team (Late st Contact Info) Description 08/20/2020 Telephone [facility] Pediatric Cardiology [address] [facility] 2nd [place] [address] [place] [address] Ethel Casanova MD [address] [place] [address] [address] [place] [address] Social History Tobacco Use Types Packs/Day Years Used Date Smoking Tobacco: Light Smoker Cigarettes Vaping Smokeless Tobacco: Never Comments:smokes/vapes only o ccasionally with friends Alcohol Use Standard Drinks/Week Comments Not Currently 0 (1 standard drink = 0.6 oz pur e alcohol) Comments No Sex and Gender Information Value Date Recorded Sex Assigned at Not on file Legal Sex Female 11:23 AM RUBY ON RAILS DEVELOPER Gender Identity Not on file Sexual [...] follow up EKG???s. Her personal cell is [phone]. Message sent to Dr. Casanova in re: [...] in this encounter Care Teams Professor Of Practice Relationship Specialty Start Date End Date Anthony Bruno MD PCP - General 05/16/17 documented as of this encounter
--- OUTSIDE RECORDS SUMMARY | 2024-06-11 10:34 | XMS_ITS | Encounter Summary ---
Author Organization [facility] Address [address] [place] [address] Phone Care Team Providers Care Check Out Clerk Name Role Phone Anthony Bruno MD Primary Care Provider [phone] Reason for Referral * Cardiology (Routine) - Closed Specialty Diagnoses / Procedures Referred By Cristopher t Referred To Contact Diagnoses Long Q-T syndrome Procedures Pediatric Device Check - Remote Alyson Conner PA 1 [facility] [address] [place] [address] Phone: tel: fax: [facility] (All Locations) Referral ID Status Reason Start Date Expiration Date Visits Re quested Visits Authorized [id number] Closed 12/31/2020 01/30/2022 1 1 Encounter Details Date Type Department Care Team (Late st Contact Info) Description 12/31/2020 Orders Only [facility] Pediatric Cardiology One [facility] 2nd [place] [address] [place] [address] Alyson Conner PA 1 [facility] [address] [place], [place] [phone] Long Q-T syndrome (Primary Dx) Social History [...] on file Legal Sex Female 11:23 AM CORRECTIONAL COOK Gender Identity Not on file Sexual Orientation Not on file documented as of this encounter Plan of Treatment Not on file documented as of this encounter Results * Pediatric Device Check - Remote (12/31/2020 12:46 PM CDT) Anatomical Region Laterality Modality Other Narrative 12/31/2020 1:03 PM CDT REMOTE ILR 30 DAY SUMMARY REPORT MODEL: Medtronic, LINQ SERIAL:[id number] /IMPLANTED ON: 01/31/[address] Ethel Casanova?? [...] 30 DAY SUMMARY REPORT MODEL: Medtronic, LINQ SERIAL:[id number] /IMPLANTED ON: 01/31/[address] Ethel Casanova?? [...] documented in this encounter Care Teams Check Out Clerk Relationship Specialty Start Date End Date Anthony Bruno MD PCP - General 05/16/17 documented as of this encounter
--- OUTSIDE RECORDS SUMMARY | 2024-06-11 10:34 | XMS_ITS | Encounter Summary ---
Author Organization [facility] Address [address] [place] [address] Phone Care Team Providers Care Golf Club Assembler Name Role Phone Anthony Bruno MD Primary Care Provider [phone] Reason for Visit * Cardiology (Routine) - Closed Specialty Diagnoses / Procedures Referred By Contgeorgina t Referred To Contact Diagnoses Palpitations Long Q-T syndrome Procedures Pediatric Device Check - Remote Alyson Conner PA 1 [facility] [address] [place] [address] Phone: tel: fax: [facility] (All Locations) Referral ID Status Reason Start Date Expiration Date Visits Re quested Visits Authorized [id number] Closed 04/04/2021 05/04/2022 1 1 Encounter Details Date Type Department Care Team (Latest Contact Info) Description 04/04/2021 9:15 AM CDT Ancillary Procedure [facility] Pediatric Cardiology [address] [place] [address] Palpitations; Long Q-T syndrome Social [...] on file Legal Sex Female 11:23 AM EXPLOSIVE ORDNANCE DISPOSAL TECHNICIAN Gender Identity Not on file Sexual [...] 30 DAY SUMMARY REPORT MODEL: Medtronic, LINQ SERIAL:[id number] /IMPLANTED ON: 01/31/[address] Ethel Casanova?? [...] syndrome documented in this encounter Care Teams Golf Club Assembler Relationship Specialty Start Date End Date Anthony Bruno MD PCP - General 05/16/17 documented as of this encounter
--- OUTSIDE RECORDS SUMMARY | 2024-06-11 10:34 | XMS_ITS | Encounter Summary ---
Author Organization [facility] Address [address] [place] [address] Phone Care Team Providers Care Hall Worker Name Role Phone Anthony Bruno MD Primary Care Provider [phone] Encounter Details Date Type Department Care Team (Late st Contact Info) Description 12/31/2020 Telephone [facility] Pediatric Cardiology One [facility] 2nd [place] [address] [place] [address] Salma Olivarez Social History Tobacco [...] on file Legal Sex Female 11:23 AM WINDSMITH Gender Identity Not on file Sexual Orientation [...] documented as of this encounter Care Teams Hall Worker Relationship Specialty Start Date End Date Anthony Bruno MD PCP - General 05/16/17 documented as of this encounter
--- OUTSIDE RECORDS SUMMARY | 2024-06-11 10:34 | XMS_ITS | Encounter Summary ---
Author Organization [facility] Address [address] [place] [address] Phone Care Team Providers Care Casino Banker Name Role Phone Anthony Bruno MD Primary Care Provider [phone] Reason for Visit * Cardiology (Routine) - Canceled Specialty Diagnoses / Procedures Referred By Cristopher sims Referred To Contact Diagnoses Long Q-T syndrome Procedures Pediatric Device Check - Remote Alyson Conner PA 1 [facility] [address] [place] [address] Phone: tel: fax: [facility] (All Locations) Referral ID Status Reason Start Date Expiration Date V isits Requested Visits Authorized [id number] Canceled 09/22/2019 04/02/2021 12 12 Encounter Details Date Type Department Care Team (Latest Contact Info) Description 04/26/2020 1:00 PM [employer]RB[employer]EVELOP[employer] SPECIALIST Ancillary Procedure [facility] Pediatric Cardiology [address] [place] [address] Long Q-T syndrome Social History Tobacco Use Types Packs/Day Years Used Date Smoking Tobacco: Never Comments Unknown Sex and Gender Information Value Date Recorded Sex Assigned at Not on file Legal Sex Female 11:23 AM [employer]RBAN REDEVELOP[employer] SPECIALIST Gender Identity Not on file Sexual Orientation Not on file documented as of this encounter Plan of Treatment Not on file documented as of this encounter Procedures Procedure Name Priority Date/Time Associated Diagnosis Comments PED DEVICE CHECK - REMOTE Routine 04/26/2020 12:18 PM [employer]RB[employer]EVELOPMENT SPECIALIST Long Q-T syndrome documented in this encounter Results * Pediatric Device Check - Remote (04/26/2020 12:18 PM URBAN REDEVELOPMENT SPECIALIST) Anatomical Region Laterality Modality Other Narrative 04/26/2020 12:21 PM URBAN REDEVELOPMENT SPECIALIST REMOTE ILR 30 DAY SUMMARY REPORT MODEL: [employer], LINQ SERIAL:[id number] /IMPLANTED ON: 01/31/[address] Ethel Casanova?? [...] 30 DAY SUMMARY REPORT MODEL: [employer], LINQ SERIAL:[id number] /IMPLANTED ON: 01/31/[address] Ethel Casanova?? [...] syndrome documented in this encounter Care Teams Casino Banker Relationship Specialty Start Date End Date Anthony Bruno MD PCP - General 05/16/17 documented as of this encounter
--- OUTSIDE RECORDS SUMMARY | 2024-06-11 10:34 | XMS_ITS | Encounter Summary ---
Author Organization [facility] Healthcare Address [address] [place] [address] Care Team Providers Care Chemist Water Purification Name Role Phone Anthony Bruno MD Primary Care Provider [phone] Encounter Details Date Type Department Care Team (Latest Contact Info) Description 06/26/2020 1:10 AM SOUND ART INSTRUCTOR - 07/01/2020 11:43 AM SOUND ART INSTRUCTOR Hospital Encounter [facility] [address] [place] [address] Joshua Arreola MD [phone] [id number] Xavier Galvan MD [address] [id number] Discharge Disposition: Discharge to home or self [...] on file Legal Sex Female 11:23 AM SOUND ART INSTRUCTOR Gender Identity Not on file Sexual Orientation Not on file documented as of this encounter Last Filed Vital Signs Vital Sign Reading Time Taken Comments Blood Pressure 88/48 07/01/2020 6:49 AM SOUND ART INSTRUCTOR Runs low in AM Pulse 67 07/01/2020 6:49 AM SOUND ART INSTRUCTOR Temperature 36.7 ??C (98.1 ??F) 07/01/2020 6 :49 AM SOUND ART INSTRUCTOR Respiratory Rate 18 07/01/2020 6:49 AM SOUND ART INSTRUCTOR Oxygen Saturation 100% 07/01/2020 6:4 9 AM SOUND ART INSTRUCTOR Inhaled Oxygen Concentration - - Weight 54.6 kg (120 lb 5.9 oz) 06/27/2020 6:46 PM SOUND ART INSTRUCTOR Height 165.1 cm (5' 5 ) 06/26/2020 1:45 AM SOUND ART INSTRUCTOR Body Mass Index 20.03 06/26/2020 1:45 AM SOUND ART INSTRUCTOR Body Mass Index Percentile 44.87% 06/27 6:46 PM SOUND ART INSTRUCTOR Growth Chart: [facility] (Girls, 2- 20 Years) documented in [...] - FAMILY HISTORY OF SUDDEN CARDIAC Other custodial (current) drug therapy - OTHER ASSOCIATE MERCHANDISE PLANNER (CURRENT) DRUG THERAPY documented in this encounter Discharge Summaries * Joshua Arreola MD - 07/01/2020 11:43 AM CST Discharge Summary BRIEF OVERVIEW Admitting Provider: Xavier Galvan MD Discharge Provider: Joshua Arreola MD Primary Care Physician at Discharge: Anthony Bruno MD [phone] Admission Date: 06/26/2020 Discharge Date: 07/01/2020 Primary [...] She received NAC, and was transferred to [facility], where her NAC treatment was continued, [...] was setup to start RO-DBTresearch group at [facility]. Specific review of rebollar details/elements of hospitalization [...] Management Summary ?? Patient was engaged in [facility] programming focused around Dialectic Behavioral Therapy oriented programing and psychoeducation on emotional regulation. They were also engaged in 1:1 therapy with assigned HOUSE MANAGER/Provider, milieu therapy, and various group-related therapies (recreational, [...] appropriate to conversation/situation, stable and mood-congruent Insight: [id number]-jc-qetylqx Judgment: fair Sensorium Discharge Disposition: Patient was discharged from the [facility] to home with guardian Code Status [...] Medicine Relationship: PCP - General [address] [address] Next Steps: Follow up D ART INSTRUCTOR documented in this encounter Discharge Instructions * Appointments* Lakshmi Christine - 06/28/2020 4:09 PM SOUND ART INSTRUCTOR Psychiatry: Dr. Cayla Carlisle first appointment on 07/19/20 Family therapists within network with Joel: Kari Garcia [facility] [place], [place] September [facility] [employer] [facility]. [address] [place], [place] [address], [place] [address] [facility] [address] [place] [address] [facility] [address] [place] [address] [place] [address] DBT programs: (they typically have long waitlist but it would be worth it to get on the list) [facility]: [email or web address]://Vanna's [facility] miamisburgApplied Quantum [email or web address]/ ??? [address] [place] [address] phone: [phone] [facility]: [email or web address] ??? [address] [address] phone: [phone] fax: [phone] [facility] [place] ([facility]): [email or web address] ??? [address] [place] [address] phone: [phone] [facility]: [email or web address]/[email or web address]-services/ ??? [address] [place] [address] phone: [phone] Individual therapist with Mary Board of Certification- Certified DBT Clinician: (call to verify insurance coverage) Kacy Nunn [employer], [place] [address] D ART INSTRUCTOR D ART INSTRUCTOR D ART INSTRUCTOR documented in this encounter Medications at Time [...] of DBT groupand individual therapy study through [facility]. Discussed mom's focus on increasing her listening [...] address psychosocial and family/parent issues and concerns.?? D ART INSTRUCTOR * Joshua Arreola MD - 06/30/2020 5:52 [...] 500 mg, oral, Q6H PRN, Eloina Chow, COURT ASSISTANT ??? benzocaine-menthoL (CEPACOL) lozenge 1 lozenge, 1 lozenge, oral, Q2H PRN, LanEloina aguila, COURT ASSISTANT ??? benztropine (COGENTIN) tablet 1 mg, 1 [...] appropriate to conversation/situation, stable and mood-congruent Insight: [id number]-zwcdqvk Judgment: fair Sensorium: alert, awake and oriented x 3 Assessment/Plan Primary Diagnosis: Major depression Assessment: Grecia Villa is a 14 y.o. female with a primary psychiatric diagnosis of Major depressionwho was admitted to the [facility] due to concerns for suicide attempt and continued suicidal ideation. Diagnostically do note a developing pattern of unstable interpersonal relationship, unstable sense of self, inappropriate gibehrufpz-kw-crvj/mutilation that is concerning for Borderline Personality Di [...] Behavioral Management: -Continue 1:1 therapy sessions with HOUSE MANAGER -Engage in the therapeutic milieu of the [facility]. -Continue group skills learning focusing on [...] care and coordinating with patient guardian through HOUSE MANAGER Disposition: -Continued admission to the [facility] for management of Major depression, with chief safety concerns at this time including suicide attempt and continued suicidal ideation Joshua Arreola MD Instructor in Psychiatry (Child) Department of Psychiatry [facility] [phone] D ART INSTRUCTOR * Ethel Acosta ATR - 06/30/2020 4:10 PM CST Art Therapy Note for Session Type: Group 06/30/20 1315 Group Documentation Manager Cancer (credentials) Ethel Acosta MA, EVELIN Group Start Time 1315 Group End Time 1400 Total Time (min) 45 Group/Topics (Art Therapy) Attendance Did Not Attend Directive/Goals: Other: none Notes: Grecia did not attend group art therapy. Ethel Acosta MA, EVELIN, LEAD INVESTIGATOR, NCC Board Certified Art Therapist Ph. [phone] D ART INSTRUCTOR * Lakshmi Christine - 06/30/2020 3:26 PM [...] mom and pt. Lakshmi Christine LCSW 06/30/2020 D ART INSTRUCTOR * Lakshmi Christine - 06/30/2020 3:23 PM [...] address psychosocial and family/parent issues and concerns. D ART INSTRUCTOR * Sepideh Alicia MT-BC - 06/29/2020 4:36 PM CST Music Therapy Progress Note OBJECTIVE/GROUP NOTE: 06/29/20 1315 Group Documentation Manager Cancer (credentials) DIVINE Eagle MT-BC Group Start Time 1315 Group End Time 1400 Total Time (min) 45 Group/Topics Music therapy Attendance Did Not Attend PLAN OF CARE: Group music therapy 3x/week; PRN for individual therapeutic needs. Continue music therapy treatment for length of stay. If last note, consider discharge summary. DIVINE Eagle MT-BC Board Certified Music Therapist [phone] D ART INSTRUCTOR * Lakshmi Christine - 06/29/2020 3:51 PM CST Pediatric Behavioral Health Case Management *SAYDA and spoke with pt's mom on the phone. Discussed Radically Open DBT study and treatment. Mom expressed openness to this. Team gave mom clinical update on pt. Discussed recommendation for familytherapy, mom asked for resources on family therapists. *SW emailed mom information for [facility] study on Radically Open DBT treatment. *SW called Kari Garcia at [facility] in [place], [place] and left a message asking about availability for family therapy. Kari Garcia [facility] [place], [place] September [facility] [employer]. [address] [place] [address] [address] [place], [place] [id number] [facility] [address] [place] [address] [facility] [address] [place] [address] [place] [address] Lakhsmi Christine LCSW 06/29/2020 D ART INSTRUCTOR D ART INSTRUCTOR * Lakshmi Christine - 06/29/2020 3:46 PM [...] address psychosocial and family/parent issues and concerns. D ART INSTRUCTOR * Joshua Arreola MD - 06/29/2020 11:55 AM CST Psychiatry Inpatient Treatment: Daily Progress Note Interval History: Met with patient in the AM along with HOUSE MANAGER, Grecia reported that she continues to feel [...] have patient enter new group starting through [facility]. Did discuss that patient's eating disorder history [...] 500 mg, oral, Q6H PRN, Eloina Chow, COURT ASSISTANT ??? benzocaine-menthoL (CEPACOL) lozenge 1 lozenge, 1 lozenge, oral, Q2H PRN, Eloina Chow NP ??? benztropine (COGENTIN) tablet 1 mg, 1 mg, oral, PRN OR benztropine (COGENTIN) injection 1 mg, 1 mg, intramuscular, PRN, Eloina Chow NP ??? betaxoloL (KERLONE) tablet 5 mg, 5 mg, oral, Nightly, Eloina Chow, COURT ASSISTANT, 5 mg at 06/28/202049 ??? calcium carbonate [...] (Dosing Weight), oral, Q6H PRN, Eloina Chow, COURT ASSISTANT ??? melatonin tablet 3 mg, 3 mg, [...] appropriate to conversation/situation, stable and mood-congruent Insight: qnvo-sd-gliaytb Judgment: fair Sensorium: alert, awake and oriented x 3 Assessment/Plan Primary Diagnosis: Major depression Assessment: Grecia Villa is a 14 y.o. female with a primary psychiatric diagnosis of Major depressionwho was admitted to the Psych[facility] Behavioral Health Unit due to concerns for suicide attempt and continued suicidal ideation. Diagnostically do note a developing pattern of unstable interpersonal relationship, unstable sense of self, inappropriate cetlekqqfg-as-yxdw/mutilation that is concerning for Borderline Personality Di [...] Behavioral Management: -Continue 1:1 therapy sessions with HOUSE MANAGER -Engage in the therapeutic milieu of the [facility]. -Continue group skills learning focusing on [...] care and coordinating with patient guardian through HOUSE MANAGER Disposition: -Continued admission to the [facility] for management of Major depression, with chief safety concerns at this time including suicide attempt and continued suicidal ideation Joshua Arreola MD Instructor in Psychiatry (Child) Department of Psychiatry [facility] [phone] D ART INSTRUCTOR * Joshua Arreola MD - 06/28/2020 5:34 [...] 500 mg, oral, Q6H PRN, Eloina Chow, COURT ASSISTANT ??? benzocaine-menthoL (CEPACOL) lozenge 1 lozenge, 1 lozenge, oral, Q2H PRN, Eloina Chow, COURT ASSISTANT ??? benztropine (COGENTIN) tablet 1 mg, 1 mg, oral, PRN OR benztropine (COGENTIN) injection 1 mg, 1 mg, intramuscular, PRN, Eloina Chow, COURT ASSISTANT ??? betaxoloL (KERLONE) tablet 5 mg, 5 mg, oral, Nightly, Eloina Chow, COURT ASSISTANT, 5 mg at 06/27/20 2105 ??? calcium carbonate (TUMS) chewable tablet 500 mg, 200 mg of elemental calcium, oral, Q4H PRN, Eloina Chow, COURT ASSISTANT ??? diphenhydrAMINE (BENADRYL) tab/cap 12.5 mg, 12.5 mg, oral, Q6H PRN OR diphenhydrAMINE (BENADRYL) injection 12.5 mg, 12.5 mg, intramuscular, Q6H PRN, Xavier Galvan MD ??? hydrOXYzine (ATARAX) tablet 12.5 mg, 12.5 mg, oral, Q6H PRN, Eloina Chow, SERJIO ??? ibuprofen (ADVIL,MOTRIN) 20 mg/mL oral suspension 540 mg, 10 mg/kg (Dosing Weight), oral, Q6H PRN, EfremzoEloina aguilar, COURT ASSISTANT ??? melatonin tablet 3 mg, 3 mg, oral, Nightly PRN, Eloina Chow, COURT ASSISTANT, 3 mg at 06/27/202101 ??? OLANZapine (ZyPREXA) [...] appropriate to conversation/situation, stable and mood-congruent Insight: wqng-fx-nnajmtp Judgment: fair Sensorium: alert, awake and oriented x 3 Assessment/Plan Primary Diagnosis: Major depression Assessment: Grecia Villa is a 14 y.o. female with a primary psychiatric diagnosis of Major depressionwho was admitted to the [facility] Unit due to concerns for suicide attempt and continued suicidal ideation. Diagnostically do note a developing pattern of unstable interpersonal relationship, unstable sense of self, inappropriate doxksiqnjr-ax-adnk/mutilation that is concerning for Borderline Personality Di [...] Behavioral Management: -Continue 1:1 therapy sessions with HOUSE MANAGER -Engage in the therapeutic milieu of the [facility]. -Continue group skills learning focusing on [...] care and coordinating with patient guardian through HOUSE MANAGER Disposition: -Continued admission to the [facility] for management of Major depression, with chief safety concerns at this time including suicide attempt and continued suicidal ideation Joshua Arreola MD Instructor in Psychiatry (Child) Department of Psychiatry [facility] [phone] D ART INSTRUCTOR * Ethel Acosta ATR - 06/28/2020 4:55 PM CST Art Therapy Note for Session Type: Group 06/28/20 1400 Group Documentation Manager Cancer (credentials) Ethel Acosta MA, EVELIN Group Start Time 1400 Group End Time 1445 Total Time (min) 45 Group/Topics (Art Therapy) Attendance Did Not Attend Directive/Goals: Other: none Notes: Grecia did not attend art therapy. Ethel Acosta MA, EVELIN, LEAD INVESTIGATOR, NCC Board Certified Art Therapist Ph. [phone] D ART INSTRUCTOR * Jack Christinet - 06/28/2020 9:52 AM CST Pediatric Behavioral Health Social Work Admission Note Reason for Current Hospitalization/Precipitating Event: Pt was admitted to the [facility] for suicide attempt via ingestion of acetaminophen. Pt ingested 15 650mg of Tynelol after an argument with her mom. Pt initially presented to [facility] then was transferred to [facility] ED. Pt was admitted to [facility] medical floor on 06/23/20. Pt reports [...] negative. 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 School is fully virtual due to pandemic. [...] details see note on 06/24/20 by MD aPnchal). Contacts at Admission: Kacy Villa (mom) [phone] / [phone] Joshua Johnjoe (dad) [phone] Clinical Impression Regarding Abuse/Neglect: Pt denied neglect [...] individual to address safety and treatments goals. Paleontology Teacher Goals: Pt will be able to function at school, home, and the community. Pt will maintain safety and be ableto communicate when pt is feeling unsafe. Pt should continue with outpatient psychotherapy to address symptoms that interfere with functioning. Pt should receive continue psychiatric consultations and medication management as needed. D ART INSTRUCTOR * Xavier Galvan MD - 06/27/2020 2:59 [...] 500 mg, oral, Q6H PRN, Eloina Chow, COURT ASSISTANT ??? benzocaine-menthoL (CEPACOL) lozenge 1 lozenge, 1 lozenge, oral, Q2H PRN, Eloina Chow, COURT ASSISTANT ??? benztropine (COGENTIN) tablet 1 mg, 1 mg, oral, PRN OR benztropine (COGENTIN) injection 1 mg, 1 mg, intramuscular, PRN, Eloina Chow, COURT ASSISTANT ??? betaxoloL (KERLONE) tablet 5 mg, 5 mg, oral, Nightly, Eloina Chow, COURT ASSISTANT, 5 mg at 06/26/202131 ??? calcium carbonate (TUMS) chewable tablet 500 mg, 200 mg of elemental calcium, oral, Q4H PRN, Eloina Chow, COURT ASSISTANT ??? diphenhydrAMINE (BENADRYL) tab/cap 12.5 mg, 12.5 mg, oral, Q6H PRN OR diphenhydrAMINE (BENADRYL) injection 12.5 mg, 12.5 mg, intramuscular, Q6H PRN, Xavier Galvan MD ??? hydrOXYzine (ATARAX) tablet 12.5 mg, 12.5 mg, oral, Q6H PRN, EfremzoEloina aguilar, COURT ASSISTANT ??? ibuprofen (ADVIL,MOTRIN) 20 mg/mL oral suspension 540 mg, 10 mg/kg (Dosing Weight), oral, Q6H PRN, Efremzolauren, Eloina Collazo, COURT ASSISTANT ??? melatonin tablet 3 mg, 3 mg, oral, Nightly PRN, EfremzoEloina aguilar, COURT ASSISTANT, 3 mg at 06/26/202131 ??? OLANZapine (ZyPREXA) tablet 2.5 mg, 2.5 mg, oral, Q12H PRN OR OLANZapine (ZyPREXA) intramuscular 2.5 mg, 2.5 mg, intramuscular, Q12H PRN, Xavier Galvan MD ??? PARoxetine (PAXIL) tablet 20 mg, 20 mg, oral, Nightly, Lanzojosei, Eloina Collazo, COURT ASSISTANT, 20 mg at 06/26/202131 ??? polyethylene glycol (MIRALAX) packet 17 g, 17 g, oral, Q12H PRN, Eloina Chow, COURT ASSISTANT Nutrition and Sleep: Sleep hours 6pm-6am: Hours [...] Behavioral Management: -Continue 1:1 therapy sessions with HOUSE MANAGER -Engage in the therapeutic milieu of the [facility]. -Continue group skills learning focusing on the escalation cycle, distress tolerance, social problem solving, emotion regulation, and sleep hygiene Non-Psychiatric Medical Management: -Checking ECG tomorrow (06/28), which is 5 days after increasing paroxetine, given h/o QTc prolongation syndrome Social Management: -No major social concerns at this time; continued management of establishing outpatient care and coordinating with patient guardian through HOUSE MANAGER Disposition: -Continued admission to the [facility] for management of Major depression, with chief safety concerns at this time including suicide attempt and continued suicidal ideation Xavier Galvan MD Instructor in Psychiatry (Child) Department of Psychiatry [facility] [phone] D ART INSTRUCTOR * Xavier Galvan MD - 06/26/2020 1:00 PM CST Phone Note Reached mom via telephone. Informed her, as per HPI, we were having diphenhydramine as part of her order set only as a PRN, and only after ok'ed by the Cardiology consult team. Mom voiced understanding and appreciation. No other questions/concerns. Xavier Galvan MD Instructor in Psychiatry (Child) Department of Psychiatry [facility] [phone] D ART INSTRUCTOR documented in this encounter H&P Notes * [...] She received NAC, and was transferred to [facility], where her NAC treatment was continued, and was seen by both Toxiciology and Psychiatry, and [facility] admission was recommended. She was diagnosed [...] Conv) ??? Self-injurious behavior ??? Suicide attempt ([facility]) Past Surgical History: No past surgical history [...] prolongation. She is in 10th grade at [employer], usually As, but given worsening depression and [...] stability and control. -Patient to engage in [facility] programming, group therapy, and 1:1 supportive [...] versus police report Disposition: -Admit patient to [facility] for further care. Treatment goals to [...] daily basis, [facility] [...] Instructor in Psychiatry (Child) Department of Psychiatry [employer] [phone] D ART INSTRUCTOR documented in this encounter Nursing Notes * Laura Chi, RN - 07/01/2020 12:03 PM CST Grecia was discharged to home in the care of her mother and father. Safety plan reviewed by social work with family and copies provided. AVS provided and reviewed with family. All belongings returned. She was calm and cooperative during discharge and left the unit on 07/01/20 at 1143 D ART INSTRUCTOR * Mary Slater RN - 06/30/2020 10:26 PM CST 06/30/20201306/30/20210906/30/202225 PRN Medications PRN Administered melatonin 3mg for sleep -- -- Response to PRN -- not effective (in room, not in bed or sleeping yet) (Resting in bed with eyes closed, resps even/unlabored) D ART INSTRUCTOR * Mary Slater RN - 06/26/2020 9:49 PM CST 06/26/20213106/26/202148 PRN Medications PRN Administered melatonin 3mg for sleep promotion -- Response to PRN -- effective (Resting in bed with eyes closed, resps even/unlabored) D ART INSTRUCTOR documented in this encounter Miscellaneous Notes * [...] Checklist Score: Broset Score: 0 C-SSRS assessment: [place] Suicide Severity Rating Scale 1. Wish to [...] of newly ordered medications Grecia was given. D ART INSTRUCTOR * Plan of Care - Mary Slater [...] Assessing Overt Behavior For SKYE: None noted [place] Suicide Severity Rating Scale 1. Wish to [...] new medications. Reviewed current medications with Grecia. D ART INSTRUCTOR * Plan of Care - Sepideh De [...] 2020. We discussed following up with an METAL MOVER provider about this after discharge. This RN [...] Checklist Score: Broset Score: 0 C-SSRS assessment: [place] Suicide Severity Rating Scale 1. Wish to [...] good dinner and prepare to discharge home D ART INSTRUCTOR * Plan of Care - Cindy Bhatia RN - 06/30/2020 6:10 AM SOUND ART INSTRUCTOR SHIFT NOTE Shift Narrative: Upon arrival onto the unit, Grecia was in attendance and per [facility] report, actively/ appropriately participated in skills group/ [...] Assessing Overt Behavior For SKYE: None noted [place] Suicide Severity Rating Scale 1. Wish to [...] promote a restful evening Cindy Bhatia RN D ART INSTRUCTOR * Plan of Care - Shannen Parisi [...] Checklist Score: Broset Score: 0 C-SSRS assessment: [place] Suicide Severity Rating Scale 1. Wish to [...] did not receive new medications this shift. D ART INSTRUCTOR * Plan of Care - Cindy Bhatia RN - 06/29/2020 6:12 AM SOUND ART INSTRUCTOR SHIFT NOTE Shift Narrative: Upon arrival onto [...] Assessing Overt Behavior For SKYE: None noted [place] Suicide Severity Rating Scale 1. Wish to [...] promote a restful evening Cindy Bhatia RN D ART INSTRUCTOR * Plan of Care - Shannen Parisi RN - 06/28/2020 5:55 PM CST SHIFT NOTE Shift Narrative: Demeanor and behaviors that led to charting a variance or goal not met. NA Other pertinent shift information: Pt was open and honest with process description writer during assessment. Endorsed depression and anxiety [...] Checklist Score: Broset Score: 0 C-SSRS assessment: [place] Suicide Severity Rating Scale 1. Wish to [...] did not receive new medications this shift. D ART INSTRUCTOR * Plan of Care - Fanny Espino [...] Checklist Score: Broset Score: 0 C-SSRS assessment: [place] Suicide Severity Rating Scale 1. Wish to [...] did not receive new medications this shift. D ART INSTRUCTOR * Plan of Care - Mary Slater [...] Assessing Overt Behavior For SKYE: None noted [place] Suicide Severity Rating Scale 1. Wish to [...] new medications. Reviewed current medications with Grecia. D ART INSTRUCTOR * Plan of Care - Fanny Espino [...] Checklist Score: Broset Score: 0 C-SSRS assessment: [place] Suicide Severity Rating Scale 1. Wish to [...] of newly ordered medications Grecia was given. D ART INSTRUCTOR D ART INSTRUCTOR * Plan of Care - Mary Slater RN - 06/26/2020 2:00 AM CST ADMISSION NOTE Arrival date and time to the floor: 06/26/2020, 0110 Accompanied by: [facility] [address] Unit Staff, Public Safety Legal Status on Admission: Pt has been admitted voluntarily per interlibrary loan services librarian Chief Complaint/Reason for Admission: Patient stated reason [...] have providers review prn list with patient's cafe or restaurant manager. Plan: TBD Staff will continue to monitor [...] Assessing Overt Behavior For SKYE: None noted [place] Suicide Severity Rating Scale 1. Wish to [...] Safety precautions initiated: Precautions: Level 1, Suicide D ART INSTRUCTOR documented in this encounter Plan of Treatment Not on file documented as of this encounter Procedures Procedure Name Priority Date/Time Associated Diagnosis Comments ECG 12-LEAD Routine 06/28/2020 11:57 AM SOUND ART INSTRUCTOR documented in this encounter Results * ECG 12 lead (06/28/2020 11:57 AM SOUND ART INSTRUCTOR) Pathologist [facility] Ventricular Rate EKG/Min 67 BPM [facility] Atrial Rate 67 BPM [facility] [place]-Interval (MSEC) 156 ms [facility] QRS-Interval (MSEC) 80 ms [facility] QT-Interval (MSEC) 400 ms [facility] QTc 431 ms [facility] P [place] 74 degrees [facility] R [place] 61 degrees [facility] T [place] 44 degrees [facility] Diagnosis * Pediatric ECG Analysis * Normal sinus rhythm Low voltage QRS When compared with ECG of 24-JUN-2020 00:47, No significant change was found Confirmed by fellow MD Jaguar, Khadar ([id number]) on 06/28/2020 12:04:27 PM I have personally reviewed the study and I agree with the above findings Confirmed by EDWARD REYES MD, GEORGE ([id number]) on 06/28/2020 1:49:12 PM [facility] 06/28/2020 11:5 7 AM SOUND ART INSTRUCTOR 06/28/2020 1:49 PM SOUND ART INSTRUCTOR us Xavier Galvan MD ECG ORDERABLES Final Result [facility] documented in this encounter Visit [...] 2100, Indications: hypertensionIndications:hypertension Given 06/30/2020 8:13 PM SOUND ART INSTRUCTOR 5 mg Given 06/29/2020 8:53 PM SOUND ART INSTRUCTOR 5 mg Given 06/28/2020 8:50 PM SOUND ART INSTRUCTOR 5 mg calcium carbonate (TUMS) chewable tablet [...] hour if necessary Given 06/30/2020 8:14 PM SOUND ART INSTRUCTOR 3 mg Given 06/29/2020 8:53 PM SOUND ART INSTRUCTOR 3 mg Given 06/28/2020 8:47 PM SOUND ART INSTRUCTOR 3 mg OLANZapine (ZyPREXA) intramuscular 2.5 mg [...] 06/26/20 at 2100 Given 06/30/2020 8:13 PM SOUND ART INSTRUCTOR 20 mg Given 06/29/2020 8:52 PM SOUND ART INSTRUCTOR 20 mg Given 06/28/2020 8:47 PM SOUND ART INSTRUCTOR 20 mg polyethylene glycol (MIRALAX) packet 17 [...] Recently Administered Medications Times are shown in SOUND ART INSTRUCTOR. Scheduled Medication Order 06/29/2020 06/30/2020 07/01/2020 betaxoloL [...] 06/26/2020 documented in this encounter Care Teams Chemist Water Purification Relationship Specialty Start Date End Date Anthony Bruno MD PCP - General 05/16/17 documented as of this encounter
--- OUTSIDE RECORDS SUMMARY | 2024-06-11 10:34 | XMS_ITS | Encounter Summary ---
Author Organization [facility] Address [address] [place] [address] Phone Care Team Providers Care Metal Model Maker Name Role Phone Anthony Bruno MD Primary Care Provider [phone] Encounter Details Date Type Department Care Team (Late st Contact Info) Description 12/22/2020 Telephone [facility] Pediatric Cardiology One [facility] 2nd [place] [address] [place] [id number] Ethel Casanova MD [address] [place] [address] [address] [place] [address] Social History Tobacco Use Types Packs/Day Years Used Date Smoking Tobacco: Light Smoker Cigarettes Vaping Smokeless Tobacco: Never Comments:smokes/vapes only o ccasionally with friends Alcohol Use Standard Drinks/Week Comments Not Currently 0 (1 standard drink = 0.6 oz pur e alcohol) Comments No Sex and Gender Information Value Date Recorded Sex Assigned at Not on file Legal Sex Female 11:23 AM SCREEN PRINTER HELPER Gender Identity Not on file Sexual [...] 12/23/2020 9:02 AM CDT Order faxed to [facility] at [phone]. Message left on mom's voicemail asking her [...] increase. I will fax the order to [facility]. * Telephone Encounter - Leonie Bryant B.A. [...] syndrome documented in this encounter Care Teams Metal Model Maker Relationship Specialty Start Date End Date Anthony Bruno MD PCP - General 05/16/17 documented as of this encounter
--- OUTSIDE RECORDS SUMMARY | 2024-06-11 10:34 | XMS_ITS | Encounter Summary ---
Author Organization [facility] Address [address] [place] [address] Phone Care Team Providers Care Supervisor Model Making Name Role Phone Anthony Bruno MD Primary Care Provider [phone] Encounter Details Date Type Department Care Team (Late st Contact Info) Description 03/11/[address]phone [facility] Pediatric Cardiology One [facility] 2nd [place] [address] [place] [address] Ethel Casanova MD [address] [place] [address] [address] [place] [address] Social History Tobacco Use Types Packs/Day Years Used Date Smoking Tobacco: Never Comments Unknown Sex and Gender Information Value Date Recorded Sex Assigned at Not on file Legal Sex Female 11:23 AM GRAPHICS PRODUCTION SPECIALIST Gender Identity Not on file Sexual [...] filedocumented in this encounter Care Teams Supervisor Model Making Relationship Specialty Start Date End Date Anthony Bruno MD PCP - General 05/16/17 documented as of this encounter
--- OUTSIDE RECORDS SUMMARY | 2024-06-11 10:34 | XMS_ITS | Encounter Summary ---
Author Organization [facility] Address [address] [place] [address] Phone Care Team Providers Care Operations Expert Name Role Phone Anthony Bruno MD Primary Care Provider [phone] Reason for Visit * Reason Onset Date Comments prescreen 01/21/2020 Encounter Details Date Type Department Care Team (Late st Contact Info) Description 01/21/2020 Telephone [facility] Pediatric Cardiology [facility] [address] [place] [address] [place] [address] Azra Medina CMA prescreen Social History Tobacco Use Types Packs/Day Years Used Date Smoking Tobacco: Never Comments Unknown Sex and Gender Information Value Date Recorded Sex Assigned at Not on file Legal Sex Female 11:23 AM SAND CLEANING MACHINE OPERATOR Gender Identity Not on file [...] filedocumented in this encounter Care Teams Operations Expert Relationship Specialty Start Date End Date Anthony Bruno MD PCP - General 05/16/17 documented as of this encounter
--- OUTSIDE RECORDS SUMMARY | 2024-06-11 10:34 | XMS_ITS | Encounter Summary ---
Author Organization [facility] Address [address] [place] [address] Phone Care Team Providers Care Attic Fans Mechanic Name Role Phone Anthony Bruno MD Primary Care Provider [phone] Encounter Details Date Type Department Care Team (Late st Contact Info) Description 04/18/2021 Telephone [facility] Pediatric Cardiology One [facility] 2nd [place] [address] [place] [address] Salma Olivarez Social History Tobacco [...] on file Legal Sex Female 11:23 AM LIEUTENANT FIRE FIGHTER Gender Identity Not on file Sexual Orientation [...] PM CST Refill sent through as requested TENANT FIRE FIGHTER * Telephone Encounter - Salma Olivarez - 04/18/2021 2:43 PM CST This patients mother called asking to speak with Dr. Casanova's nurse regarding a refill on betaxolol.Please call a refill in to [facility]. If you have questions, mom can be reached [phone]. Thank you. TENANT FIRE FIGHTER documented in this encounter Plan of Treatment Not on file documented as of this encounter Visit Diagnoses Not on filedocumented in this encounter Discontinued Medications Medication Sig Discontinue Reason Start Date End Da te betaxoloL (KERLONE) 10 mg tabletIndications:hypert ension Take 0.5 tablets (5 mg total) by mouth nightly Reorder 03/03/2021 04/18/2021 documented as of this encounter Care Teams Attic Fans Mechanic Relationship Specialty Start Date End Date Anthony Bruno MD PCP - General 05/16/17 documented as of this encounter
--- OUTSIDE RECORDS SUMMARY | 2024-06-11 10:34 | XMS_ITS | Encounter Summary ---
Author Organization [facility] Address [address] [place] [address] Phone Care Team Providers Care Carbon Coating Machine Operator Name Role Phone Anthony Bruno MD Primary Care Provider [phone] Reason for Visit * Cardiology (Routine) - Closed Specialty Diagnoses / Procedures Referred By Contgeorgina t Referred To Contact Diagnoses Long Q-T syndrome Procedures Pediatric Device Check - Remote Alyson Conner PA [address] [facility] [address] [place] [address] Phone: tel: fax: [facility] (All Locations) Referral ID Status Reason Start Date Expiration Date Visits Re quested Visits Authorized [id number] Closed 08/30/2020 09/29/2021 1 1 Encounter Details Date Type Department Care Team (Latest Contact Info) Description 08/30/2020 2:00 PM CDT Ancillary Procedure [facility] Pediatric Cardiology [address] [place] [address] Long Q-T syndrome Social History [...] file Legal Sex Female 11:23 AM SUPERVISOR TELEPHONE CLERKS Gender Identity Not on file Sexual Orientation [...] 30 DAY SUMMARY REPORT MODEL: Medtronic, LINQ SERIAL:[id number] /IMPLANTED ON: 01/31/[address] Ethel Casanova?? [...] 30 DAY SUMMARY REPORT MODEL: Medtronic, LINQ SERIAL:[id number] /IMPLANTED ON: 01/31/[address] Ethel Casanova?? [...] syndrome documented in this encounter Care Teams Carbon Coating Machine Operator Relationship Specialty Start Date End Date Anthony Bruno MD PCP - General 05/16/17 documented as of this encounter
--- OUTSIDE RECORDS SUMMARY | 2024-06-11 10:34 | XMS_ITS | Encounter Summary ---
Author Organization [facility] Address [address] [place] [address] Phone Care Team Providers Care Supervising Producer Name Role Phone Anthony Bruno MD Primary Care Provider [phone] Reason for Referral * Cardiology (Routine) - Closed Specialty Diagnoses / Procedures Referred By Contac t Referred To Contact Diagnoses Long Q-T syndrome Procedures Pediatric Device Check - In Office Ethel Casanova MD 1 [place] [address] Phone: tel: fax: [facility] (All Locations) Referral ID Status Reason Start Date Expiration Date Visits Re quested Visits Authorized [id number] Closed 02/28/2021 03/30/2022 1 1 * Cardiology (Routine) - Closed Specialty Diagnoses / Procedures Referred By Contac t Referred To Contact Diagnoses Long Q-T syndrome Procedures ECG 12 lead Ethel Casanova MD [address] [address] Phone: tel: fax: [facility] (All Locations) Referral ID Status Reason Start Date Expiration Date Visits Re quested Visits Authorized [id number] Closed 02/28/2021 03/30/2022 1 1 Reason for Visit * Cardiology (Routine) - Closed Specialty Diagnoses / Procedures Referred By Contac t Referred To Contact Pediatric Cardiology Diagnoses Long Q-T syndrome 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 Palpitations Abnormal electrocardiography Long QT syndrome Anthony Bruno MD Phone: tel: fax: [facility] Pediatric Cardiology One [facility] 2nd [place] [address] [place] [address] Phone: tel: fax: Referral ID Status Reason Start Date Expiration Date V isits Requested Visits Authorized [id number] Closed Continuity of Care 02/25/2021 03/27/2022 4 4 Encounter Details Date Type Department Care Team (Late st Contact Info) Description 03/03/2021 3:00 PM CDT Office Visit [facility] Pediatric Cardiology [facility] 2nd [place] [address] [place] [address] Ethel Casanova MD 1 [facility] [address] [place] [address] Long Q-T syndrome (Primary Dx); [...] file Legal Sex Female 11:23 AM PRODUCT DEVELOPMENT ASSISTANT Gender Identity Not on file Sexual [...] 03/03/2021 2:5 8 PM CDT Growth Chart: [facility] (Girls, 2- 20 Years) documented in [...] QTc of 457msec). 2. DEVICE CHECK. MODEL: Omnisio, LINQ SERIAL:[id number] /IMPLANTED ON: 01/31/[address] Ethel Casanova?? [...] not hesitate to call our office at [phone]. ?? Cardiovascular instructions and follow-up: SBE Prophylaxis [...] Grecia was seen today, 03/03/[address] [facility]. She is here today with her parents. Please allow me to review for my records. Grecia's family relocated to the [facility] from [place]. Sadly, her brother [...] Grecia had an extensive cardiac evaluation at [facility] in [facility] last September. Anechocardiogram showed a [...] was recommended in 6 months. Here in [facility], she has had serially abnormal ECGs [...] Conv) ??? Self-injurious behavior ??? Suicide attempt ([facility]) ([facility]) History reviewed. No pertinent surgical history. Family [...] and was surgically repaired. PGF had an PR at age 42 and had hypercholesterolemia; he [...] QTc of 457msec). 2. DEVICE CHECK. MODEL: MedOpen [employer], LINQ SERIAL:[id number] /IMPLANTED ON: 01/31/[address] Ethel Casanova?? [...] not hesitate to call our office at [phone]. ?? Cardiovascular instructions and follow-up: SBE Prophylaxis [...] HEALTHCARE Atrial Rate 70 BPM [facility] CO-Interval (MSEC) 138 ms [facility] QRS-Interval (MSEC) 82 ms [facility] QT-Interval (MSEC) 402 ms [facility] QTc 433 ms [facility] P [place] 56 degrees [facility] R [place] 67 degrees [facility] T [place] 46 degrees [facility] Diagnosis Normal sinus rhythm When compared with ECG of 25-MITCHEL-2021 11:57, No significant change was found Confirmed by MD CASANOVA JENNIFER ([id number]) on 03/03/2021 3:31:16 PM [facility] 03/03/2021 2:57 PM CDT 03/03/2021 3:31 PM CDT Ethel Casanova MD ECG ORDERABLES Final Resul t [facility] * Pediatric Device Check - In Office (03/03/2021 2:59 PM CDT) Anatomical Region Laterality Modality Other Narrative 03/03/2021 4:48 PM CDT REMOTE ILR 30 DAY SUMMARY REPORT MODEL: Omnisio, LINQ SERIAL:[id number] /IMPLANTED ON: 01/31/[address] Ethel Casanova?? [...] 02/04 documented in this encounter Care Teams Supervising Producer Relationship Specialty Start Date End Date Anthony Bruno MD PCP - General 05/16/17 documented as of this encounter
--- OUTSIDE RECORDS SUMMARY | 2024-06-11 10:34 | XMS_ITS | Encounter Summary ---
Author Organization [facility] Address [address] [place] [address] Phone Care Team Providers Care Golf Club Assembler Name Role Phone Anthony Bruno MD Primary Care Provider Ethel Casanova MD Unavailable [phone] Encounter Details Date Type Department Care Team (Late st Contact Info) Description 06/03/2021 Orders Only [facility] Pediatric Cardiology One [facility] 2nd [place] [address] [place] [address] Alyson Conner PA 1 [facility] [address] [place], [place] [id number] Social History Tobacco Use Types Packs/Day Years Used Date Smoking Tobacco: Light Smoker Cigarettes Vaping Smokeless Tobacco: Never Comments:smokes/vapes only o ccasionally with friends Alcohol Use Standard Drinks/Week Comments Not Currently 0 (1 standard drink = 0.6 oz pur e alcohol) Comments No Sex and Gender Information Value Date Recorded Sex Assigned at Not on file Legal Sex Female 11:23 AM SHOWROOM SALESPERSON Gender Identity Not on file Sexual Orientation Not on file documented as of this encounter Plan of Treatment Not on file documented as of this encounter Procedures Procedure Name Priority Date/Time Associated Diagnosis Comments PED DEVICE CHECK - REMOTE Routine 06/03/2021 2:18 PM SHOWROOM SALESPERSON documented in this encounter Results * Pediatric Device Check - Remote (06/03/2021 2:18 PM SHOWROOM SALESPERSON) Anatomical Region Laterality Modality Other 06/03/2021 2:18 PM SHOWROOM SALESPERSON Narrative 06/09/2021 12:19 PM SHOWROOM SALESPERSON see PDF for result Procedure Note Alyson Conner PA - 06/13/2021 see PDF for result us Alyson BONILLA [facility] PROCEDU RES Final Result documented in this encounter Visit Diagnoses Not on filedocumented in this encounter Care Teams Golf Club Assembler Relationship Specialty Start Date End Date Anthony Bruno MD PCP - General 05/16/17 Ethel Casanova MD 1 [facility] [place] [address] Referring Physician Cardiology 05/12/21 documented as of this encounter
--- OUTSIDE RECORDS SUMMARY | 2024-06-11 10:34 | XMS_ITS | Encounter Summary ---
Author Organization [facility] Address [address] [place] [address] Phone Care Team Providers Care Pocket Grinder Operator Name Role Phone Anthony Bruno MD Primary Care Provider [phone] Reason for Visit * Cardiology (Routine) - Closed Specialty Diagnoses / Procedures Referred By Contac t Referred To Contact Diagnoses Long Q-T syndrome Procedures Pediatric Device Check - Remote Ethel Casanova MD 1 [facility] [address] [place] [address] Phone: tel: fax: [facility] (All Locations) Referral ID Status Reason Start Date Expiration Date Visits Re quested Visits Authorized [id number] Closed 05/31/2020 06/30/2021 1 1 Encounter Details Date Type Department Care Team (Latest Contact Info) Description 05/31/2020 5:15 PM UNDERWATER TRAPPER Ancillary Procedure [facility] Pediatric Cardiology [address] [place] [address] Long Q-T syndrome Social History Tobacco Use Types Packs/Day Years Used Date Smoking Tobacco: Never Comments Unknown Sex and Gender Information Value Date Recorded Sex Assigned at Not on file Legal Sex Female 11:23 AM UNDERWATER TRAPPER Gender Identity Not on file Sexual Orientation Not on file documented as of this encounter Plan of Treatment Not on file documented as of this encounter Procedures Procedure Name Priority Date/Time Associated Diagnosis Comments PED DEVICE CHECK - REMOTE Routine 05/31/2020 5:13 PM UNDERWATER TRAPPER Long Q-T syndrome documented in this encounter Results * Pediatric Device Check - Remote (05/31/2020 5:13 PM UNDERWATER TRAPPER) Anatomical Region Laterality Modality Other Narrative 06/02/2020 7:42 AM UNDERWATER TRAPPER REMOTE ILR 30 DAY SUMMARY REPORT MODEL: Medtronic, LINQ SERIAL:[id number] /IMPLANTED ON: 01/31/[address] Ethel Casanova?? [...] syndrome documented in this encounter Care Teams Pocket Grinder Operator Relationship Specialty Start Date End Date Anthony Bruno MD PCP - General 05/16/17 documented as of this encounter
--- OUTSIDE RECORDS SUMMARY | 2024-06-11 10:34 | XMS_ITS | Encounter Summary ---
Author Organization [facility] Address [address] [place] [address] Phone Care Team Providers Care Associate Dean Of Students Name Role Phone Anthony Bruno MD Primary Care Provider [phone] Reason for Visit * Cardiology (Routine) - Closed Specialty Diagnoses / Procedures Referred By Contgeorgina t Referred To Contact Diagnoses Long Q-T syndrome Procedures Pediatric Device Check - Remote Alyson Conner PA 1 [facility] [address] [place] [address] Phone: tel: fax: [facility] (All Locations) Referral ID Status Reason Start Date Expiration Date Visits Re quested Visits Authorized [id number] Closed 11/30/2020 12/30/2021 1 1 Encounter Details Date Type Department Care Team (Latest Contact Info) Description 11/30/2020 8:05 AM CDT Ancillary Procedure [facility] Pediatric Cardiology [address] [place] [address] Long Q-T syndrome Social History [...] file Legal Sex Female 11:23 AM FURNITURE INSPECTOR Gender Identity Not on file Sexual [...] 30 DAY SUMMARY REPORT MODEL: Medtronic, LINQ SERIAL:[id number] /IMPLANTED ON: 01/31/[address] Ethel Casanova?? [...] syndrome documented in this encounter Care Teams Associate Dean Of Students Relationship Specialty Start Date End Date Anthony Bruno MD PCP - General 05/16/17 documented as of this encounter
--- OUTSIDE RECORDS SUMMARY | 2024-06-11 10:34 | XMS_ITS | Encounter Summary ---
Author Organization [facility] Address [address] [place] [address] Phone Care Team Providers Care Parts Counter Specialist Name Role Phone Anthony Bruno MD Primary Care Provider [phone] Reason for Referral * (Routine) - Closed Specialty Diagnoses / Procedures Referred By Contac t Referred To Contact Diagnoses 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 Procedures Pediatric Device Check - In Office Bebe Casanova MD [address] [address] Phone: tel: fax: [facility] (All Locations) Referral ID Status Reason Start Date Expiration Date Visits Re quested Visits Authorized [id number] Closed 01/21/2020 02/19/2021 1 1 * (Routine) - Closed Specialty Diagnoses / Procedures Referred By Contac t Referred To Contact Diagnoses 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 Procedures ECG 12 lead Bebe Casanova MD [address] [address] Phone: tel: fax: [facility] (All Locations) Referral ID Status Reason Start Date Expiration Date Visits Re quested Visits Authorized [id number] Closed 01/21/2020 02/19/2021 1 1 Reason for Visit * (Routine) - Closed Specialty Diagnoses / Procedures Referred By Contac t Referred To Contact Diagnoses 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 Procedures ECG 12 lead Bebe Casanova MD 1 [facility] [address] [place] [address] Phone: tel: fax: [facility] (All Locations) Referral ID Status Reason Start Date Expiration Date Visits Re quested Visits Authorized [id number] Closed 01/21/2020 02/19/2021 1 1 Encounter Details Date Type Department Care Team (Latest Contact Info) Description 01/22/2020 1:30 PM CDT - 01/22/2020 11:59 PM CDT Hospital Encounter [facility] Pediatric Cardiology One [facility] [address] [place] [address] 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; Long Q-T syndrome Discharge Disposition: Discharge to home or self care Social History Tobacco Use Types Packs/Day Years Used Date Smoking Tobacco: Never Comments Unknown Sex and Gender Information Value Date Recorded Sex Assigned at Not on file Legal Sex Female 11:23 AM SUPERVISOR LABORATORY ANIMAL FACILITY Gender Identity Not on file Sexual Orientation [...] BPM [facility] Atrial Rate 64 BPM [facility] MS-Interval (MSEC) 146 ms [facility] QRS-Interval (MSEC) 78 ms [facility] QT-Interval (MSEC) 418 ms [facility] QTc 431 ms [facility] P [place] 64 degrees [facility] R [place] 49 degrees [facility] T [place] 39 degrees [facility] Diagnosis Normal sinus rhythm with sinus arrhythmia When compared with ECG of 20-FEB-2019 13:10, No significant change was found Confirmed by MD ELLIOT, BEBE ([id number]) on 01/22/2020 1:40:44 PM [facility] 01/22/2020 1:33 PM CDT 01/22/2020 1:40 PM CDT us Bebe Casanova MD ECG ORDERABLES Final Resul t [facility] * Pediatric Device Check - In Office (01/22/2020 1:30 PM CDT) Anatomical Region Laterality Modality Other Narrative 01/22/2020 2:05 PM CDT IN-CLINIC ILR INTERROGATION MODEL: [employer], LINQ SERIAL:[id number] /IMPLANTED ON: 01/31/[address] Bebe Casanova?? [...] syndrome documented in this encounter Care Teams Parts Counter Specialist Relationship Specialty Start Date End Date Anthony Bruno MD PCP - General 05/16/17 documented as of this encounter
--- OUTSIDE RECORDS SUMMARY | 2024-06-11 10:34 | XMS_ITS | Encounter Summary ---
Author Organization [facility] Address [address] [place] [address] Phone Care Team Providers Care Machine Heel Sprayer Name Role Phone Anthony Bruno MD Primary Care Provider [phone] Reason for Visit * Cardiology (Routine) - Canceled Specialty Diagnoses / Procedures Referred By Cristopher sims Referred To Contact Diagnoses Long Q-T syndrome Procedures Pediatric Device Check - Remote Alyson Conner PA 1 [facility] [address] [place] [address] Phone: tel: fax: [facility] (All Locations) Referral ID Status Reason Start Date Expiration Date V isits Requested Visits Authorized [id number] Canceled 09/22/2019 04/02/2021 12 12 Encounter Details Date Type Department Care Team (Latest Contact Info) Description 03/26/2020 1:30 PM CDT Ancillary Procedure [facility] Pediatric Cardiology [address] [place] [address] Long Q-T syndrome Social History Tobacco Use Types Packs/Day Years Used Date Smoking Tobacco: Never Comments Unknown Sex and Gender Information Value Date Recorded Sex Assigned at Not on file Legal Sex Female 11:23 AM GAS STATION CASHIER Gender Identity Not on file Sexual Orientation [...] ILR SUMMARY REPORT ?? MODEL: Medtronic, LINQ SERIAL:[id number] /IMPLANTED ON: 01/31/[address] Ethel Casanova?? [...] ILR SUMMARY REPORT ?? MODEL: Medtronic, LINQ SERIAL:[id number] /IMPLANTED ON: 01/31/[address] Ethel Casanova?? [...] syndrome documented in this encounter Care Teams Machine Heel Sprayer Relationship Specialty Start Date End Date Anthony Bruno MD PCP - General 05/16/17 documented as of this encounter
--- OUTSIDE RECORDS SUMMARY | 2024-06-11 10:34 | XMS_ITS | Encounter Summary ---
Author Organization [facility] Address [address] [place] [address] Phone Care Team Providers Care Pathology Technician Name Role Phone Anthony Bruno MD Primary Care Provider [phone] Encounter Details Date Type Department Care Team (Late st Contact Info) Description 02/24/2020 Orders Only [facility] Pediatric Cardiology One [facility] 2nd [place] [address] [place] [address] Alyson Conner PA [address] [place] [address] [address] [place] [address] Social History Tobacco Use Types Packs/Day Years Used Date Smoking Tobacco: Never Comments Unknown Sex and Gender Information Value Date Recorded Sex Assigned at Not on file Legal Sex Female 11:23 AM REVENUE ENFORCEMENT COLLECTION AGENT Gender Identity Not on file Sexual Orientation Not on file documented as of this encounter Plan of Treatment Not on file documented as of this encounter Visit Diagnoses Not on filedocumented in this encounter Care Teams Pathology Technician Relationship Specialty Start Date End Date Anthony Bruno MD PCP - General 05/16/17 documented as of this encounter
--- OUTSIDE RECORDS SUMMARY | 2024-06-11 10:34 | XMS_ITS | Encounter Summary ---
Author Organization [facility] Address [address] [place] [address] Phone Care Team Providers Care Dental Mechanic Name Role Phone Anthony Bruno MD Primary Care Provider [phone] Reason for Visit * Cardiology (Routine) - Closed Specialty Diagnoses / Procedures Referred By Contgeorgina t Referred To Contact Diagnoses Long Q-T syndrome Procedures Pediatric Device Check - Remote Alyson Conner PA 1 [facility] [address] [place] [address] Phone: tel: fax: [facility] (All Locations) Referral ID Status Reason Start Date Expiration Date Visits Re quested Visits Authorized [id number] Closed 11/02/2020 12/02/2021 1 1 Encounter Details Date Type Department Care Team (Latest Contact Info) Description 11/02/2020 3:45 PM CDT Ancillary Procedure [facility] Pediatric Cardiology [address] [place] [address] Long Q-T syndrome Social History [...] on file Legal Sex Female 11:23 AM ENTRY LEVEL ACCOUNTANT Gender Identity Not on file Sexual Orientation [...] 30 DAY SUMMARY REPORT MODEL: Medtronic, LINQ SERIAL:[id number] /IMPLANTED ON: 01/31/[address] Ethel Casanova?? [...] 30 DAY SUMMARY REPORT MODEL: Medtronic, LINQ SERIAL:[id number] /IMPLANTED ON: 01/31/[address] Ethel Casanova?? [...] syndrome documented in this encounter Care Teams Dental Mechanic Relationship Specialty Start Date End Date Anthony Bruno MD PCP - General 05/16/17 documented as of this encounter
--- OUTSIDE RECORDS SUMMARY | 2024-06-11 10:34 | XMS_ITS | Encounter Summary ---
Author Organization [facility] Address [address] [place] [address] Phone Care Team Providers Care Wrapper Cashier Name Role Phone Anthony Bruno MD Primary Care Provider [phone] Reason for Visit * Cardiology (Routine) - Closed Specialty Diagnoses / Procedures Referred By Contgeorgina t Referred To Contact Diagnoses Long Q-T syndrome Procedures Pediatric Device Check - Remote Alyson Conner PA 1 [facility] [address] [place] [address] Phone: tel: fax: [facility] (All Locations) Referral ID Status Reason Start Date Expiration Date Visits Re quested Visits Authorized [id number] Closed 09/28/2020 10/28/2021 1 1 Encounter Details Date Type Department Care Team (Latest Contact Info) Description 09/30/2020 8:30 AM CDT Ancillary Procedure [facility] Pediatric Cardiology [address] [place] [address] Long Q-T syndrome Social History [...] on file Legal Sex Female 11:[address] Gender Identity Not on file Sexual [...] 30 DAY SUMMARY REPORT MODEL: Medtronic, LINQ SERIAL:[id number] /IMPLANTED ON: 01/31/[address] Ethel Casanova?? [...] 30 DAY SUMMARY REPORT MODEL: Medtronic, LINQ SERIAL:[id number] /IMPLANTED ON: 01/31/[address] Ethel Casanova?? [...] syndrome documented in this encounter Care Teams Wrapper Cashier Relationship Specialty Start Date End Date Anthony Bruno MD PCP - General 05/16/17 documented as of this encounter
--- OUTSIDE RECORDS SUMMARY | 2024-06-11 10:34 | XMS_ITS | Encounter Summary ---
Author Organization [facility] Address [address] [place] [address] Phone Care Team Providers Care Marine Equipment Preservation Inspector Name Role Phone Anthony Bruno MD Primary Care Provider [phone] Reason for Referral * Cardiology (Routine) - Closed Specialty Diagnoses / Procedures Referred By Cristopher t Referred To Contact Diagnoses Long Q-T syndrome Procedures Pediatric Device Check - Remote Alyson Conner PA 1 [facility] [address] [place] [address] Phone: tel: fax: [facility] (All Locations) Referral ID Status Reason Start Date Expiration Date Visits Re quested Visits Authorized [id number] Closed 05/03/2021 06/02/2022 1 1 IN DUMPER Encounter Details Date Type Department Care Team (Late st Contact Info) Description 05/03/2021 Orders Only [facility] Pediatric Cardiology One [facility] 2nd [place] [address] [place] [address] Alyson Conner PA 1 [facility] [address] [place], [place] [id number] Long Q-T syndrome (Primary Dx) Social History [...] on file Legal Sex Female 11:23 AM BOBBIN DUMPER Gender Identity Not on file Sexual Orientation Not on file documented as of this encounter Plan of Treatment Not on file documented as of this encounter Results * Pediatric Device Check - Remote (05/03/2021 2:18 PM BOBBIN DUMPER) Anatomical Region Laterality Modality Other Narrative 05/03/2021 3:40 PM BOBBIN DUMPER REMOTE ILR 30 DAY SUMMARY REPORT MODEL: Medtronic, LINQ SERIAL:[id number] /IMPLANTED ON: 01/31/[address] Ethel Casanova?? [...] syndrome documented in this encounter Care Teams Marine Equipment Preservation Inspector Relationship Specialty Start Date End Date Anthony Bruno MD PCP - General 05/16/17 documented as of this encounter
--- OUTSIDE RECORDS SUMMARY | 2024-06-11 10:35 | XMS_ITS | Encounter Summary ---
Author Organization [facility] Address [address] [place] [address] Phone Care Team Providers Care Iv Therapy Nurse Name Role Phone Anthony Bruno MD Primary Care Provider [phone] Encounter Details Date Type Department Care Team (Late st Contact Info) Description 10/15/2018 Telephone [facility] Pediatric Cardiology One [facility] [address] 2nd [place] [address] [place] [address] Khadijah Higgins CPhT Social History Tobacco Use Types Packs/Day Years Used Date Smoking Tobacco: Never Comments Unknown Sex and Gender Information Value Date Recorded Sex Assigned at Not on file Legal Sex Female 11:23 AM TOOL AND DIE ASSEMBLER Gender Identity Not on file Sexual Orientation [...] Higgins CPhT - 10/15/2018 3:01 PM CDT [facility] called requesting patient most recent office visit notes to be fax to [phone] documented in this encounter Plan of Treatment Not on file documented as of this encounter Visit Diagnoses Not on filedocumented in this encounter Care Teams Iv Therapy Nurse Relationship Specialty Start Date End Date Anthony Bruno MD PCP - General 05/16/17 documented as of this encounter
--- OUTSIDE RECORDS SUMMARY | 2024-06-11 10:35 | XMS_ITS | Encounter Summary ---
Author Organization [facility] Address [address] [place] [address] Phone Care Team Providers Care Clothing Worker Name Role Phone Anthony Bruno MD Primary Care Provider [phone] Encounter Details Date Type Department Care Team (Late st Contact Info) Description 01/21/2019 Telephone [facility] Pediatric Cardiology One [facility] 2nd [place] [address] [place] [address] Ethel Casanova MD [address] [place] [address] [address] [place] [address] Social History Tobacco Use Types Packs/Day Years Used Date Smoking Tobacco: Never Comments Unknown Sex and Gender Information Value Date Recorded Sex Assigned at Not on file Legal Sex Female 11:23 AM FOOD SAFETY DIRECTOR Gender Identity Not on file Sexual [...] Long QT. Mom states that yesterday the accounting teacher told Grecia that she had to do the state pacer test and run a mile as fast as she could. Grecia told the accounting teacher that she is not allowed to do that dueto her underlying heart condition. Grecia was then sent up to the school nurse. The school nurse then walked back down to the gym with Grecia and all the paperwork that had beensent to the principal, accounting teacher, and school nurse and reminded the accounting teacher of Grecia's underlying heart condition. Mom states that the accounting teacher then told Grecia if you had [...] and her activity restrictions for dad to picking crew supervisor this afternoon. * Telephone Encounter - Klarissa [...] on filedocumented in this encounter Care Teams Clothing Worker Relationship Specialty Start Date End Date Anthony Bruno MD PCP - General 05/16/17 documented as of this encounter
--- OUTSIDE RECORDS SUMMARY | 2024-06-11 10:35 | XMS_ITS | Encounter Summary ---
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); Long Q-T syndrome Social History Tobacco Use Types Packs/Day Years Used Date Smoking Tobacco: Never Comments Unknown Sex and Gender Information Value Date Recorded Sex Assigned at Not on file Legal Sex Female 11:23 AM MOLD MAKER Gender Identity Not on file Sexual Orientation Not on file documented as of this encounter Plan of Treatment Not on file documented as of this encounter Visit Diagnoses Diagnosis 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- Primary Genetic susceptibility to other disease Long Q-T syndrome Long QT syndrome documented in this encounter Orders Case Request Count Last Ordered Date First Orde red Date CASE REQUEST RESIDENT CARE DIRECTOR 1 12/18/2018 documented in this encounter Care Teams Metal Mockup Maker Relationship Specialty Start Date End Date Anthony Bruno MD PCP - General 05/16/17 documented as of this encounter
--- OUTSIDE RECORDS SUMMARY | 2024-06-11 10:35 | XMS_ITS | Encounter Summary ---
Author Organization [facility] Address [address] [place] [address] Phone Care Team Providers Care Exercise Scientist Name Role Phone Anthony Bruno MD Primary Care Provider [phone] Reason for Visit * (Routine) - Closed Specialty Diagnoses / Procedures Referred By Contgeorgina t Referred To Contact Diagnoses Long Q-T syndrome Procedures ECG 12 lead Keara Rashid DO Phone: tel: fax: [facility] [place] Referral ID Status Reason Start Date Expiration Date Visits Re quested Visits Authorized [id number] Closed 05/16/2018 11/25/2019 1 1 Encounter Details Date Type Department Care Team (Latest Contact Info) Description 08/14/2018 10:45 AM CDT Ancillary Procedure [facility] Pediatric Cardiology [facility] [address] [place] [address] [address] [place] [address] Long Q-T syndrome Social History Tobacco Use Types Packs/Day Years Used Date Smoking Tobacco: Never Comments Unknown Sex and Gender Information Value Date Recorded Sex Assigned at Not on file Legal Sex Female 11:23 AM ENTERTAINMENT REPORTER Gender Identity Not on file Sexual Orientation Not on file documented as of this encounter Plan of Treatment Not on file documented as of this encounter Procedures Procedure Name Priority Date/Time Associated Diagnosis Comments ECG 12-LEAD Routine 08/14/2018 11:54 AM CDT Long Q-T syndrome documented in this encounter Results * ECG 12 lead (08/14/2018 11:54 AM CDT) Ventricular Rate EKG/Min Ventricular Rate:78 BPM [facility] Atrial Rate Atrial Rate:78 BPM [facility] VA-Interval (MSEC) P-R Interval:144 ms [facility] QRS-Interval (MSEC) QRS Duration:82 ms [facility] QT-Interval (MSEC) Q-T Interval:394 ms [facility] QTc QTC Calculation(Be zet):449 ms [facility] P Altus P Altus:72 degrees [facility] R Altus R Altus:40 degrees [facility] T Altus T Altus:34 degrees [facility] Diagnosis Diagnosis: * Pediatric ECG Analysis * Normal sinus rhythm Low voltage QRS Borderline QT interval Borderline ECG PEDIATRIC ANALYSIS - MANUAL COMPARISON REQUIRED When compared with ECG of 15-MAY-2018 12:14, No significant change was found Confirmed by EDWARD REYES MD, GEORGE ([id number]) on 08/15/2018 7:25:24 AM [facility] 08/14/2018 10:2 2 AM CDT 08/15/2018 7:25 AM CDT us Keara Rashid DO ECG ORDERABLES Final Resu lt [facility] documented in this encounter Visit Diagnoses Diagnosis Long Q-T syndrome Long QT syndrome documented in this encounter Care Teams Exercise Scientist Relationship Specialty Start Date End Date Anthony Bruno MD PCP - General 05/16/17 documented as of this encounter
--- OUTSIDE RECORDS SUMMARY | 2024-06-11 10:35 | XMS_ITS | Encounter Summary ---
Author Organization [facility] Address [address] [place] [address] Phone Care Team Providers Care Mill Turner Name Role Phone Anthony Bruno MD Primary Care Provider [phone] Encounter Details Date Type Department Care Team (Late st Contact Info) Description 08/19/2018 Telephone [facility] Pediatric Cardiology One [facility] 2nd [place] [address] [place] [address] Khadijah Higgins CPhT Social History Tobacco Use Types Packs/Day Years Used Date Smoking Tobacco: Never Comments Unknown Sex and Gender Information Value Date Recorded Sex Assigned at Not on file Legal Sex Female 11:23 AM JIG FILLER Gender Identity Not on file Sexual Orientation Not on file documented as of this encounter Miscellaneous Notes * Telephone Encounter - Ethel Casanova MD - 08/26/2018 10:35 AM CDT 12 months would be great! I thought this family was moving to [place]? * Telephone Encounter - Juani Jaquez NP [...] on filedocumented in this encounter Care Teams Mill Turner Relationship Specialty Start Date End Date Anthony Bruno MD PCP - General 05/16/17 documented as of this encounter
--- OUTSIDE RECORDS SUMMARY | 2024-06-11 10:35 | XMS_ITS | Encounter Summary ---
Author Organization [facility] Address [address] [place] [address] Phone Care Team Providers Care Layup Worker Name Role Phone Anthony Bruno MD Primary Care Provider [phone] Encounter Details Date Type Department Care Team (Late st Contact Info) Description 11/07/2018 Telephone [facility] Pediatric Cardiology One [facility] [address]nd [place] [address] [place] [address] Khadijah Higgins CPhT Social History Tobacco Use Types Packs/Day Years Used Date Smoking Tobacco: Never Comments Unknown Sex and Gender Information Value Date Recorded Sex Assigned at Not on file Legal Sex Female 11:23 AM SCRAP METAL PROCESSING WORKER Gender Identity Not on file Sexual [...] during PE class for the school year 0670-5434 please fax letter to [phone] att: school nurse school [employer]. documented in this encounter Plan of Treatment Not on file documented as of this encounter Visit Diagnoses Not on filedocumented in this encounter Care Teams Layup Worker Relationship Specialty Start Date End Date Anthony Bruno MD PCP - General 05/16/17 documented as of this encounter
--- OUTSIDE RECORDS SUMMARY | 2024-06-11 10:35 | XMS_ITS | Encounter Summary ---
Author Organization [facility] Address [address] [place] [address] Phone Care Team Providers Care Nut Grader Name Role Phone Anthony Bruno MD Primary Care Provider [phone] Encounter Details Date Type Department Care Team (Late st Contact Info) Description 07/09/2018 Telephone [facility] Pediatric Cardiology One [facility] 2nd [place] [address] [place] [address] Berna Villalobos NP [address] [place] [address] [address] [place] [address] Social History Tobacco Use Types Packs/Day Years Used Date Smoking Tobacco: Never Comments Unknown Sex and Gender Information Value Date Recorded Sex Assigned at Not on file Legal Sex Female 11:23 AM MANAGER BUSINESS MANAGEMENT Gender Identity Not on file Sexual Orientation Not on file documented as of this encounter Miscellaneous Notes * Telephone Encounter - Berna Villalobos NP - 07/09/2018 4:35 PM CST Remote ilr download has no new events recorded. Battery life good. Called home # and LM GER BUSINESS MANAGEMENT documented in this encounter Plan of Treatment Not on file documented as of this encounter Visit Diagnoses Not on filedocumented in this encounter Care Teams Nut Grader Relationship Specialty Start Date End Date Anthony Bruno MD PCP - General 05/16/17 documented as of this encounter
--- OUTSIDE RECORDS SUMMARY | 2024-06-11 10:35 | XMS_ITS | Encounter Summary ---
Author Organization [facility] Address [address] [place] [address] Phone Care Team Providers Care Shield Cleaner Name Role Phone Anthony Bruno MD Primary Care Provider [phone] Encounter Details Date Type Department Care Team (Late st Contact Info) Description 09/29/2019 Telephone [facility] Pediatric Cardiology One [facility] 2nd [place] [address] [place] [address] Khadijah Higgins CPhT Social History Tobacco Use Types Packs/Day Years Used Date Smoking Tobacco: Never Comments Unknown Sex and Gender Information Value Date Recorded Sex Assigned at Not on file Legal Sex Female 11:23 AM FARROWING MANAGER Gender Identity Not on file Sexual [...] encounter Miscellaneous Notes * Telephone Encounter - Leyd Camejo - 10/15/2019 10:57 AM CDT I [...] on this med. Pharmacy is [facility] in [facility]. Confirmed that Wellbutrin is only med allergy(hives). [...] syndrome documented in this encounter Care Teams Shield Cleaner Relationship Specialty Start Date End Date Anthony Bruno MD PCP - General 05/16/17 documented as of this encounter
--- OUTSIDE RECORDS SUMMARY | 2024-06-11 10:35 | XMS_ITS | Encounter Summary ---
Author Organization [facility] Address [address] [place] [address] Phone Care Team Providers Care Special Education Coordinator Name Role Phone Anthony Bruno MD Primary Care Provider [phone] Encounter Details Date Type Department Care Team (Late st Contact Info) Description 08/12/2019 Telephone [facility] Pediatric Cardiology One [facility] 2nd [place] [address] [place] [address] Ethel Casanova MD [address] [place] [address] [address] [place] [address] Social History Tobacco Use Types Packs/Day Years Used Date Smoking Tobacco: Never Comments Unknown Sex and Gender Information Value Date Recorded Sex Assigned at Not on file Legal Sex Female 11:23 AM PARTITION MAKING MACHINE OPERATOR Gender Identity Not on file [...] the reportson Welbutrin and give her recommendations). [employer] search for Wellbutrin shows: Wellbutrin (Bupropion) - Not Classified: This drug has been reviewed by [employer] but the evidence available at this time [...] on filedocumented in this encounter Care Teams Special Education Coordinator Relationship Specialty Start Date End Date Anthony Bruno MD PCP - General 05/16/17 documented as of this encounter
--- OUTSIDE RECORDS SUMMARY | 2024-06-11 10:35 | XMS_ITS | Encounter Summary ---
Author Organization [facility] Address [address] [place] [address] Phone Care Team Providers Care Yarn Washer Name Role Phone Anthony Bruno MD Primary Care Provider [phone] Reason for Referral * Cardiology (Routine) - Closed Specialty Diagnoses / Procedures Referred By Contac t Referred To Contact Diagnoses 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 Abnormal electrocardiography Procedures Pediatric Device Check - Remote Berna Villalobos NP Phone: tel: fax: [facility] (All Locations) Referral ID Status Reason Start Date Expiration Date Visits Re quested Visits Authorized [id number] Closed 10/10/2018 04/20/2020 1 1 Encounter Details Date Type Department Care Team (Late st Contact Info) Description 10/10/2018 Telephone [facility] Pediatric Cardiology [facility] 2nd [place] [address] [place] [address] Berna Villalobos NP [address] [place] [address] [address] [place] [address] Social History Tobacco Use Types Packs/Day Years Used Date Smoking Tobacco: Never Comments Unknown Sex and Gender Information Value Date Recorded Sex Assigned at Not on file Legal Sex Female 11:23 AM TORCH BURNER Gender Identity Not on file Sexual Orientation [...] electrocardiography documented in this encounter Care Teams Yarn Washer Relationship Specialty Start Date End Date Anthony Bruno MD PCP - General 05/16/17 documented as of this encounter
--- OUTSIDE RECORDS SUMMARY | 2024-06-11 10:35 | XMS_ITS | Encounter Summary ---
Author Organization [facility] Address [address] [place] [address] Phone Care Team Providers Care Software Architect Name Role Phone Anthony Bruno MD Primary Care Provider [phone] Reason for Visit * (Routine) - Closed Specialty Diagnoses / Procedures Referred By Cristopher sims Referred To Contact Diagnoses Palpitations Procedures Pediatric Device Check - Remote Berna Villalobos NP Phone: tel: fax: [facility] (All Locations) Referral ID Status Reason Start Date Expiration Date Visits Re quested Visits Authorized [id number] Closed 06/17/2018 12/27/2019 1 1 Encounter Details Date Type Department Care Team (Late st Contact Info) Description 06/18/2018 10:15 AM TAXI DRIVER Ancillary Procedure [facility] Pediatric Cardiology [address] [place] [address] Palpitations Social History Tobacco Use Types Packs/Day Years Used Date Smoking Tobacco: Never Comments Unknown Sex and Gender Information Value Date Recorded Sex Assigned at Not on file Legal Sex Female 11:23 AM TAXI DRIVER Gender Identity Not on file Sexual Orientation Not on file documented as of this encounter Plan of Treatment Not on file documented as of this encounter Procedures Procedure Name Priority Date/Time Associated Diagnosis Comments PED DEVICE CHECK - REMOTE Routine 06/18/2018 8:35 AM TAXI DRIVER Palpitations documented in this encounter Results * Pediatric Device Check - Remote (06/18/2018 8:35 AM TAXI DRIVER) Anatomical Region Laterality Modality Other Narrative 06/18/2018 9:50 AM TAXI DRIVER See documents scanned into media us Berna Villalobos NP CV CARDIAC SERVICES PROCEDURE S Final Result documented in this encounter Visit Diagnoses Diagnosis Palpitations documented in this encounter Care Teams Software Architect Relationship Specialty Start Date End Date nAthony Bruno MD PCP - General 05/16/17 documented as of this encounter
--- OUTSIDE RECORDS SUMMARY | 2024-06-11 10:35 | XMS_ITS | Encounter Summary ---
Author Organization [facility] Address [address] [place] [address] Phone Care Team Providers Care Certified Alcohol Drug Counselor Name Role Phone Anthony Bruno MD Primary Care Provider Reason for Visit * (Routine) - Closed Specialty Diagnoses / Procedures Referred By Cristopher sims Referred To Contact Diagnoses Long Q-T syndrome Procedures Pediatric Device Check - Remote Alyson Conner PA 1 [facility] [address] [place] [address] Phone: tel: fax: [facility] (All Locations) Referral ID Status Reason Start Date Expiration Date Visits Re quested Visits Authorized [id number] Closed 10/23/2019 05/03/2021 1 1 Encounter Details Date Type Department Care Team (Latest Contact Info) Description 10/23/2019 8:15 AM CDT Ancillary Procedure [facility] Pediatric Cardiology [address] [place] [address] Long Q-T syndrome Social History Tobacco Use Types Packs/Day Years Used Date Smoking Tobacco: Never Comments Unknown Sex and Gender Information Value Date Recorded Sex Assigned at Not on file Legal Sex Female 11:23 AM PROGRAMS ASSISTANT Gender Identity Not on file Sexual [...] REMOTE ILR SUMMARY REPORT MODEL: Medtronic, LINQ SERIAL:[id number] /IMPLANTED ON: 01/31/[address] Ethel Casanova [...] syndrome documented in this encounter Care Teams Certified Alcohol Drug Counselor Relationship Specialty Start Date End Date Anthony Bruno MD PCP - General 05/16/17 documented as of this encounter
--- OUTSIDE RECORDS SUMMARY | 2024-06-11 10:35 | XMS_ITS | Encounter Summary ---
Author Organization [facility] Address [address] [place] [address] Care Team Providers Care Fitter And Turner Name Role Phone Anthony Bruno MD Primary Care Provider [phone] Encounter Details Date Type Department Care Team (Latest Contact Info) Description 01/31/2019 9:16 AM CDT - 01/31/2019 2:34 PM CDT Hospital Encounter [facility] [place] [address] Ethel Casanova MD [address] 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 Rashid [facility] Information: Hospital Course/Procedures/Consults: Hospital Procedures ILR explant/implant with general anesthesia Follow Up Appointments: Follow-Up Appointment/Test #1: ?? Clinic Name [facility] Pediatric Cardiology Clinic ?? MD/HYDROGEOLOGY PROFESSOR Name Dr. Casanova ?? Name of Test Office Visit 2 week follow up wound check post device implant ?? Date/Time of Appointment February 20 at 1:00pm ?? Location: [facility] Pediatric Cardiology Clinic ?? Instructions: Diet [...] pm. After hours and on weekends call [facility] Pilot Plant Operator Helper at and ask for the Housing Relocation welding machine operator ultrasonic. Teaching Tools Cardiac Cath Discharge Tool Activity: [...] Villa :2005 Date of Service: 01/31/19 Location: [facility] Electrophysiology Lab Procedural Attending: Sharif Rashid DO [...] EBL: <5 mL Condition on discharge from Dough Machine Operator: stable Follow up plan: Admit to Cardiac recovery. ECG prior to discharge. Follow up with referring physician: Ethel Casanova MD in 2 weeks for wound check Nate Stephens MD Fellow, Division of Pediatric Cardiology [facility] Pager #: [phone] Cosigned by Sharif Rashid DO at 01/31/2019 12:27 PM CDT documented in this encounter H&P Notes * Patrica Stephens MD - 01/31/2019 8:47 AM CDT Images from the original note were not included. Electrophysiology pre-procedural Brief History and Physical Patient Name: Grecia Villa : 2005 Date: 01/31/19 Referring dehydrogenation operator head: Jocelyne HPI: Grecia Villa who is a 13 y.o. female with a history of phenotype positive, genotype unknown Long QT Syndrome with family history notable for sudden arrhythmic of her brother. [facility] was [facility], which included a normal echocar [...] Stephens MD Fellow, Division of Pediatric Cardiology [facility] Pager #: [phone] Cosigned by Sharif Rashid DO at 01/31/2019 [...] CDT) Ventricular Rate EKG/Min Ventricular Rate:59 BPM [facility] Atrial Rate Atrial Rate:59 BPM [facility] MT-Interval (MSEC) P-R Interval:140 ms [facility] QRS-Interval (MSEC) QRS Duration:80 ms [facility] QT-Interval (MSEC) Q-T Interval:440 ms [facility] QTc QTC Calculation(Ba zett):420 ms [facility] P [place] P [place]:62 degrees [facility] R [place] R [place]:53 degrees [facility] T [place] T [place]:45 degrees [facility] Diagnosis Diagnosis:Sinu s bradycardia with sinus arrhythmia Low voltage QRS When compared with ECG of 14-AUG-2018 10:22, Confirmed by SHARIF RASHDI ([id number]) on 01/31/2019 2:21:16 PM [facility] 01/31/2019 2:06 PM CDT 01/31/2019 2:21 PM CDT us Notinfile Unknown ECG ORDERABLES Final Result [facility] * LOOP RECORDER REMOVAL (01/31/2019 12:05 PM CDT) Anatomical Region Laterality Modality X-Ray Angiograph y Narrative 02/04/2019 1:10 PM CDT Location of Procedure: [facility] Electrophysiology Lab Date of procedure: ??01/31/19 Proceduralist: Sharif Rashid, DO Manager Marketing Sales: ??Peter Shoemaker RN; ??Nate Stephens MD HISTORY OF PRESENT ILLNESS: ?? Grecia Villa is a 13 y.o. female with a history of phenotype positive, genotype unknown Long QT Syndrome with family history notable for sudden arrhythmic of her brother. She was originally evaluated at [facility] in 2014, which included a normal echocardiogram, [...] old device was a LNQ11 Reveal LINQ, [id number], implanted 06/22/15 ([facility], Jocelyne) Using the custom insertion tool, the ILR device was inserted into the previous site. ?? 10mL of local ropivicaine was infused. ?? The subcutaneous tissue was approximated using 3-0 Vicryl suture. ??The skin was then further approximated with Steri-strips. ??The implanted device was a Medtronic LINQ, model # LNQ11, serial # [id number]. ?? The settings on the device were [...] She will follow up with her primary dehydrogenation operator head, Dr. Casanova, for wound check in 1-2 weeks. ?? Prior to discharge, the family was instructed on how to use the implantable loop recorder and all tracings will be sent to and followed by [facility]. Sharif Rashid, Ethel Casanova MD CV ELECTROPHYSIOLOGY PROCS Final Result * hCG, urine, qualitative (01/31/2019 9:36 AM CDT) HCG, ur Negative Negative [facility] Urine 01/31/2019 9:36 AM CDT 01/31/2019 9:48 AM CDT us Berna Villalobos INPATIENT NURSING AIDE LAB URINE ORDERABLES Final Re sult [facility] Department [place] [address] documented in this encounter Visit Diagnoses Diagnosis [...] 01/31/2019 documented in this encounter Care Teams Fitter And Turner Relationship Specialty Start Date End Date Anthony Bruno MD PCP - General 05/16/17 documented as of this encounter
--- OUTSIDE RECORDS SUMMARY | 2024-06-11 10:35 | XMS_ITS | Encounter Summary ---
Author Organization [facility] Address [address] [place] [address] Phone Care Team Providers Care Crop Or Livestock Tenant Farmer Name Role Phone Anthony Bruno MD Primary Care Provider [phone] Encounter Details Date Type Department Care Team (Late st Contact Info) Description 09/22/2019 Orders Only [facility] Pediatric Cardiology [facility] 2nd [place] [address] [place] [address] Alyson Conner PA [address] [place] [address] [address] [place] [address] Long Q-T syndrome (Primary Dx) Social History Tobacco Use Types Packs/Day Years Used Date Smoking Tobacco: Never Comments Unknown Sex and Gender Information Value Date Recorded Sex Assigned at Not on file Legal Sex Female 11:23 AM 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
--- OUTSIDE RECORDS SUMMARY | 2024-06-11 10:35 | XMS_ITS | Encounter Summary ---
Author Organization [facility] Address [address] [place] [address] Care Team Providers Care Polysilicon Preparation Worker Name Role Phone Anthony Bruno MD Primary Care Provider [phone] Encounter Details Date Type Department Care Team (Late st Contact Info) Description 01/31/2019 10:30 AM CDT - 01/31/2019 12:30 PM CDT Surgery [facility] [place] [address] Sharif Rashid DO 1 [facility] [address] [place] [address] IMPLANTABLE CARDIAC EVENT MONITOR REMOVAL 77259 AND IMPLANT OF A NEW ILR Surgery Details Date/Time Status Location OR Service Patient Class Case Class Case Type Trauma Case? 01/31/2019 10:30 AM Posted [facility] EP LAB Lab B Cardiovascular Outpatient Elective Panel 1 Procedure LRB Anes Op Region Wound Class Comments IMPLANTABLE CARDIAC EVENT MONITOR REMOVAL 18011 AND IMPLANT OF A NEW ILR N/A Cardiac left message for mom to call and schedule Surgeon Surgeon Role Service Panel Sharif Rashid DO Primary Cardiovascular 1 documented in this encounter Social History Tobacco Use Types Packs/Day Years Used Date Smoking Tobacco: Never Comments Unknown Sex and Gender Information Value Date Recorded Sex Assigned at Not on file Legal Sex Female 11:23 AM VARITYPIST Gender Identity Not on file Sexual Orientation [...] 01/31/2019 9:4 9 AM CDT Growth Chart: [facility] (Girls, 2- 20 Years) documented in this encounter Discharge Instructions * Discharge Instructions* Alize Nam, RT - 01/31/2019 1:41 PM CDT Patient Information: ?? DATE/TIME PATIENT WAS ADMITTED TO UNIT 01/31/2019 ?? Attending MD (at time of discharge) Dr. Rashid [facility] Information: Hospital Course/Procedures/Consults: Hospital Procedures ILR explant/implant with general anesthesia Follow Up Appointments: Follow-Up Appointment/Test #1: ?? Clinic Name [facility] Pediatric Cardiology Clinic ?? MD/WELLNESS EDUCATOR Name Dr. Casanova ?? Name of Test Office Visit 2 week follow up wound check post device implant ?? Date/Time of Appointment February 20 at 1:00pm ?? Location: [facility] Pediatric Cardiology Clinic ?? Instructions: [...] pm. After hours and on weekends call [facility] Bottle Washer at and ask for the Van Owner Operator referral management liaison. Teaching Tools Cardiac Cath Discharge Tool Activity: [...] Villa :2005 Date of Service: 01/31/19 Location: [facility] Electrophysiology Lab Procedural Attending: Sharif [...] EBL: <5 mL Condition on discharge from Title I Paraprofessional: stable Follow up plan: Admit to Cardiac recovery. ECG prior to discharge. Follow up with referring physician: Ethel Casanova MD in 2 weeks for wound check Nate Stephens MD Fellow, Division of Pediatric Cardiology [facility] Pager #: [phone] Cosigned by Sharif Rashid DO at 01/31/2019 12:27 PM CDT documented in this encounter H&P Notes * Patrica Stephens MD - 01/31/2019 8:47 AM CDT Images from the original note were not included. Electrophysiology pre-procedural Brief History and Physical Patient Name: Grecia Villa : 2005 Date: 01/31/19 Referring warehouse worker 2nd shift: Jocelyne HPI: Grecia Villa who is a 13 y.o. female with a history of phenotype positive, genotype unknown Long QT Syndrome with family history notable for sudden arrhythmic of her brother. She was originally evaluated at [facility] in 2014, which included a normal echocar [...] Medtronic LINQ ILR removal and re-implantation Access: [facility] Meds: Ancef Anesthesia: per cardiac anesthesia Fire Risk Assessment Score: 1 Post: CCLR, then home Nate Stephens MD Fellow, Division of Pediatric Cardiology [facility] Pager #: [phone] Cosigned by Sharif Rashid DO at 01/31/2019 [...] CDT) Ventricular Rate EKG/Min Ventricular Rate:59 BPM [facility] Atrial Rate Atrial Rate:59 BPM [facility] AL-Interval (MSEC) P-R Interval:140 ms [facility] QRS-Interval (MSEC) QRS Duration:80 ms [facility] QT-Interval (MSEC) Q-T Interval:440 ms [facility] QTc QTC Calculation(Ba zett):420 ms [facility] P [place] P [place]:62 degrees [facility] R [place] R [place]:53 degrees [facility] T [place] T [place]:45 degrees [facility] Diagnosis Diagnosis:Sinu s bradycardia with sinus arrhythmia Low voltage QRS When compared with ECG of 14-AUG-2018 10:22, Confirmed by SHARIF RASHID ([id number]) on 01/31/2019 2:21:16 PM [facility] 01/31/2019 2:06 PM CDT 01/31/2019 2:21 PM CDT us Notinfile Unknown ECG ORDERABLES Final Result [facility] * LOOP RECORDER REMOVAL (01/31/2019 12:05 PM CDT) Anatomical Region Laterality Modality X-Ray Angiograph y Narrative 02/04/2019 1:10 PM CDT Location of Procedure: [facility] Electrophysiology Lab Date of procedure: ??01/31/19 Proceduralist: Sharif Rashid, DO Manufacturer: ??Peter Shoemaker RN; ??Nate Stephens MD HISTORY OF PRESENT ILLNESS: ?? Grecia Villa is a 13 y.o. female with a history of phenotype positive, genotype unknown Long QT Syndrome with family history notable for sudden arrhythmic of her brother. She was originally evaluated at [facility] in 2014, which included a normal echocardiogram, [...] old device was a LNQ11 Reveal LINQ, [id number], [facility] Using the custom insertion tool, the ILR device was inserted into the previous site. ?? 10mL of local ropivicaine was infused. ?? The subcutaneous tissue was approximated using 3-0 Vicryl suture. ??The skin was then further approximated with Steri-strips. ??The implanted device was a Medtronic LINQ, model # LNQ11, serial # [id number]. ?? The settings on the device were [...] She will follow up with her primary warehouse worker 2nd shift, Dr. Casanova, for wound check in 1-2 weeks. ?? Prior to discharge, the family was instructed on how to use the implantable loop recorder and all tracings will be sent to and followed by [facility]. Sharif Rashid, us Ethel Casanova MD CV ELECTROPHYSIOLOGY PROCS Final Result * hCG, urine, qualitative (01/31/2019 9:36 AM CDT) HCG, ur Negative Negative [facility] Urine 01/31/2019 9:36 AM CDT 01/31/2019 9:48 AM CDT us Berna Villalobos NP LAB URINE ORDERABLES Final Re sult [facility] Department [place] [address] documented in this encounter Visit Diagnoses Diagnosis [...] 01/31/2019 documented in this encounter Care Teams Polysilicon Preparation Worker Relationship Specialty Start Date End Date Anthony Bruno MD PCP - General 05/16/17 documented as of this encounter
--- OUTSIDE RECORDS SUMMARY | 2024-06-11 10:35 | XMS_ITS | Encounter Summary ---
Author Organization [facility] Healthcare Address [facility] [place] [address] Care Team Providers Care Yarn Hauler Name Role Phone Anthony Bruno MD Primary Care Provider [phone] Encounter Details Date Type Department Care Team (Late st Contact Info) Description 08/22/2019 Documentation [facility] Ped [place]rophys[place] [address] Dakota Shoemaker, RN Social History Tobacco Use Types Packs/Day Years Used Date Smoking Tobacco: Never Comments Unknown Sex and Gender Information Value Date Recorded Sex Assigned at Not on file Legal Sex Female 11:23 AM JOINTER MACHINE OPERATOR Gender Identity Not on file Sexual Orientation Not on file documented as of this encounter Progress Notes * Dakota Shoemaker, RN - 08/22/2019 1:55 PM CDT Images from the original note were not included. REMOTE ILR INTERROGATION Carelink transmission: 08/21/2019 Note date: 08/22/2019 MODEL: Medtronic, LINQ SERIAL: [id number] /IMPLANTED ON: 01/31/[address] Keara Rashid [...] on filedocumented in this encounter Care Teams Yarn Hauler Relationship Specialty Start Date End Date Anthony Bruno MD PCP - General 05/16/17 documented as of this encounter
--- OUTSIDE RECORDS SUMMARY | 2024-06-11 10:35 | XMS_ITS | Encounter Summary ---
Author Organization [facility] Healthcare Address [address] [place] [address] Care Team Providers Care Industrial Engineering Technician Name Role Phone Anthony Bruno MD Primary Care Provider [phone] Encounter Details Date Type Department Care Team (Late st Contact Info) Description 01/31/2019 11:06 AM CDT Anesthesia Event [facility] Ped [place]rophys[place] [address] Malick Valenzuela MD [address] [place] [address] Berna Villalobos NP 1 [facility] [address] [place] [address] Anesthesia Record Procedure Summary Procedure Name Responsible Anesthesiologist Anesthesia Start Time Anesthesia Stop Time IMPLANTABLE CARDIAC EVENT MONITOR REMOVAL 07524 AND IMPLANT OF A NEW ILR Malick [...] on file Legal Sex Female 11:23 AM JOB TRAINER Gender Identity Not on file Sexual Orientation Not on file documented as of this encounter OR Notes * Anesthesia Postprocedure Evaluation - Malick Valenzuela MD - 01/31/2019 2:00 PM CDT Patient: Grecia Villa Procedure Summary Date: 01/31/19 Room / Location: [facility] LAB B / [facility] EP LAB Anesthesia Start: 1106 Anesthesia Stop: 1218 Procedure: IMPLANTABLE CARDIAC EVENT MONITOR REMOVAL 86720 AND IMPLANT OF A NEW ILR (N/A [...] Supervising provider: Malick Valenzuela MD Placed by: PRODUCT SUPPORT ANALYST: Sorin Coello CRNA Emergent airway documentation: Risks [...] RAD. Procedure(s): IMPLANTABLE CARDIAC EVENT MONITOR REMOVAL 85622 AND IMPLANT OF A NEW ILR Pre-Op [...] Medication protocol when under care of a PRODUCT SUPPORT ANALYST Planned anesthesia: General Team communication plan: LMA Induction: Induction: intravenous. Postoperative Plan: No postoperative mechanical ventilation intended. Patient's planned disposition post procedure is Obs. unit. Informed Consent: Discussed plan with PRODUCT SUPPORT ANALYST. Anesthesia plan and risks discussed with mother, [...] Procedure Name Priority Date/Time Associated Diagnosis Comments NH AN PROCEDURE PLACEHOLDER Routine 01/31/2019 11:31 AM CDT Procedure Note - Sorin Coello CRNA - 01/31/2019 11:31 AM CDTThis note is in progress. Airway Patient location: OR Urgency: elective Indications for airway management: anesthesia Difficult airway: no Staff: Supervising provider: Malick Valenzuela MD Placed by: PRODUCT SUPPORT ANALYST: Sorin Coello CRNA Emergent airway documentation: Risks and benefits discussed: yes Consent obtained: yes Consent given by: parent Airway prep: Preoxygenated: yes Patient position: sniffing Mask difficulty assessment: 1 - vent by mask Sedation level during airway: GA Final airway details: Final airway type: supraglottic airway Final supraglottic airway: classic SGA size: 4 Number of attempts: 2 NH AN ELECTIVE SUPRAGLOTTIC AIRWAY Routine 01/31/2019 11:31 AM CDT Procedure Note - Sorin Coello CRNA - 01/31/2019 11:31 AM CDTThis note is in progress. Airway Patient location: OR Urgency: elective Indications for airway management: anesthesia Difficult airway: no Staff: Supervising provider: Malick Valenzuela MD Placed by: PRODUCT SUPPORT ANALYST: Sorin Coello CRNA Emergent airway documentation: Risks [...] 01/31/2019 documented in this encounter Care Teams Industrial Engineering Technician Relationship Specialty Start Date End Date Anthony Bruno MD PCP - General 05/16/17 documented as of this encounter
--- OUTSIDE RECORDS SUMMARY | 2024-06-11 10:35 | XMS_ITS | Encounter Summary ---
Author Organization [facility] Address [address] [place] [address] Phone Care Team Providers Care Frontend Engineer Name Role Phone Anthony Bruno MD Primary Care Provider [phone] Reason for Visit * (Routine) - Closed Specialty Diagnoses / Procedures Referred By Cristopher sims Referred To Contact Diagnoses Long QT syndrome Procedures Pediatric Device Check - Remote Berna Villalobos NP Phone: tel: fax: [facility] (All Locations) Referral ID Status Reason Start Date Expiration Date Visits Re quested Visits Authorized [id number] Closed 08/15/2018 02/24/2020 1 1 Encounter Details Date Type Department Care Team (Latest Contact Info) Description 08/15/2018 3:30 PM CDT Ancillary Procedure [facility] Pediatric Cardiology [address] [place] [address] Long QT syndrome Social History Tobacco Use Types Packs/Day Years Used Date Smoking Tobacco: Never Comments Unknown Sex and Gender Information Value Date Recorded Sex Assigned at Not on file Legal Sex Female 11:23 AM ACCOUNTING COORDINATOR Gender Identity Not on file Sexual [...] documents scanned into Media. us Berna Villalobos FUNDING COORDINATOR CV CARDIAC SERVICES PROCEDURE S Final Result documented in this encounter Visit Diagnoses Diagnosis Long QT syndrome documented in this encounter Care Teams Frontend Engineer Relationship Specialty Start Date End Date Anthony Bruno MD PCP - General 05/16/17 documented as of this encounter
--- OUTSIDE RECORDS SUMMARY | 2024-06-11 10:35 | XMS_ITS | Encounter Summary ---
Author Organization [facility] Address [address] [place] [address] Phone Care Team Providers Care Shell Shop Supervisor Name Role Phone Anthony Bruno MD Primary Care Provider [phone] Encounter Details Date Type Department Care Team (Late st Contact Info) Description 10/08/2018 Telephone [facility] Pediatric Cardiology One [facility] 2nd [place] [address] [place] [address] Ethel Casanova MD [address] [place] [address] [address] [place] [address] Social History Tobacco Use Types Packs/Day Years Used Date Smoking Tobacco: Never Comments Unknown Sex and Gender Information Value Date Recorded Sex Assigned at Not on file Legal Sex Female 11:23 AM RN ACUTE DIALYSIS Gender Identity Not on file Sexual Orientation [...] documented as of this encounter Care Teams Shell Shop Supervisor Relationship Specialty Start Date End Date Anthony Bruno MD PCP - General 05/16/17 documented as of this encounter
--- OUTSIDE RECORDS SUMMARY | 2024-06-11 10:35 | XMS_ITS | Encounter Summary ---
Author Organization [facility] Address [address] [place] [address] Phone Care Team Providers Care Door Frame Assembler Machine Name Role Phone Anthony Bruno MD Primary Care Provider [phone] Encounter Details Date Type Department Care Team (Late st Contact Info) Description 02/06/2019 Telephone [facility] Pediatric Cardiology [address] [facility] [address]nd [place] [address] [place] [address] Khadijah Higgins CPhT Social History Tobacco Use Types Packs/Day Years Used Date Smoking Tobacco: Never Comments Unknown Sex and Gender Information Value Date Recorded Sex Assigned at Not on file Legal Sex Female 11:23 AM SUPERVISOR PICKING CREW Gender Identity Not on file Sexual Orientation Not on file documented as of this encounter Miscellaneous Notes * Telephone Encounter - Evie Morrison RN - 02/06/2019 9:48 AM CDT Mom contacted and reports that the HS has both the letter sent 01/21/19 and the recent ILR discharge instructions. Sepideh @ the HS stated on the phone to the project scheduler answering calls that the information was misplaced. Nurse team will fax both again to the fax number given. Mom aware. * Telephone Encounter - Khadijah Higgins CPhT - 02/06/2019 9:03 AM CDT [facility] called requesting a letter stating patient PE retrictions please fax letter to [phone] documented in this encounter Plan of Treatment Not on file documented as of this encounter Visit Diagnoses Not on filedocumented in this encounter Care Teams Door Frame Assembler Machine Relationship Specialty Start Date End Date Anthony Bruno MD PCP - General 05/16/17 documented as of this encounter
--- OUTSIDE RECORDS SUMMARY | 2024-06-11 10:35 | XMS_ITS | Encounter Summary ---
Author Organization [facility] Address [address] [place] [address] Phone Care Team Providers Care Senior Process Control Tech Name Role Phone Anthony Bruno MD Primary Care Provider [phone] Reason for Referral * (Routine) - Closed Specialty Diagnoses / Procedures Referred By Cristopher sims Referred To Contact Diagnoses Long QT syndrome Procedures Pediatric Device Check - Remote Berna Villalobos NP Phone: tel: fax: [facility] (All Locations) Referral ID Status Reason Start Date Expiration Date Visits Re quested Visits Authorized [id number] Closed 08/15/2018 02/24/2020 1 1 Encounter Details Date Type Department Care Team (Late st Contact Info) Description 08/15/2018 Orders Only [facility] Pediatric Cardiology [facility] 2nd [place] [address] [place] [address] Berna Villalobos NP [address] [place] [address] [address] [place] [address] Long QT syndrome (Primary Dx) Social History Tobacco Use Types Packs/Day Years Used Date Smoking Tobacco: Never Comments Unknown Sex and Gender Information Value Date Recorded Sex Assigned at Not on file Legal Sex Female 11:23 AM SHIP/REC/DOC CONTROL Gender Identity Not on file Sexual Orientation Not on file documented as of this encounter Plan of Treatment Not on file documented as of this encounter Results * Pediatric Device Check - Remote (08/15/2018 2:04 PM CDT) Anatomical Region Laterality Modality Other Narrative 08/15/2018 4:30 PM CDT See documents scanned into Media. us Berna Villalobos WEAVE ROOM SUPERVISOR CV CARDIAC SERVICES PROCEDURE S Final Result documented in this encounter Visit Diagnoses Diagnosis Long QT syndrome- Primary Long QT syndrome documented in this encounter Care Teams Senior Process Control Tech Relationship Specialty Start Date End Date Anthony Bruno MD PCP - General 05/16/17 documented as of this encounter
--- OUTSIDE RECORDS SUMMARY | 2024-06-11 10:35 | XMS_ITS | Encounter Summary ---
Author Organization [facility] Address [address] [place] [address] Phone Care Team Providers Care Souvenir Street Vendor Name Role Phone Anthony Bruno MD Primary Care Provider Encounter Details Date Type Department Care Team (Late st Contact Info) Description 07/12/2018 Orders Only [facility] Pediatric Cardiology [facility] 2nd [place] [address] [place] [address] Ledy Camejo Long Q-T syndrome Social History Tobacco Use Types Packs/Day Years Used Date Smoking Tobacco: Never Comments Unknown Sex and Gender Information Value Date Recorded Sex Assigned at Not on file Legal Sex Female 11:23 AM ORDER DISPATCHER CHIEF Gender Identity Not on file Sexual Orientation [...] documented as of this encounter Care Teams Souvenir Street Vendor Relationship Specialty Start Date End Date Anthony Bruno MD PCP - General 05/16/17 documented as of this encounter
--- OUTSIDE RECORDS SUMMARY | 2024-06-11 10:35 | XMS_ITS | Encounter Summary ---
Author Organization [facility] Address [address] [place] [address] Phone Care Team Providers Care Stagecraft Teacher Name Role Phone Anthony Bruno MD Primary Care Provider [phone] Encounter Details Date Type Department Care Team (Late st Contact Info) Description 10/28/2019 Telephone [facility] Pediatric Cardiology One [facility] 2nd [place] [address] [place] [address] Ethel Casanova MD [address] [place] [address] [address] [place] [address] Social History Tobacco Use Types Packs/Day Years Used Date Smoking Tobacco: Never Comments Unknown Sex and Gender Information Value Date Recorded Sex Assigned at Not on file Legal Sex Female 11:23 AM PLUMBING MANAGER Gender Identity Not on file Sexual [...] the January appt. The pharmacy's name is [email or web address] in [place], [place]. [phone] documented in this encounter Plan of Treatment [...] documented as of this encounter Care Teams Stagecraft Teacher Relationship Specialty Start Date End Date Anthony Bruno MD PCP - General 05/16/17 documented as of this encounter
--- OUTSIDE RECORDS SUMMARY | 2024-06-11 10:35 | XMS_ITS | Encounter Summary ---
Author Organization [facility] Address [address] [place] [address] Phone Care Team Providers Care Kai Whakaruruhau Name Role Phone Anthony Bruno MD Primary Care Provider [phone] Encounter Details Date Type Department Care Team (Late st Contact Info) Description 08/07/2019 Telephone [facility] Pediatric Cardiology One [facility] 2nd [place] [address] [place] [address] Ethel Casanova MD [address] [place] [address] [address] [place] [address] Social History Tobacco Use Types Packs/Day Years Used Date Smoking Tobacco: Never Comments Unknown Sex and Gender Information Value Date Recorded Sex Assigned at Not on file Legal Sex Female 11:23 AM FOAM RUBBER FABRICATOR Gender Identity Not on file Sexual Orientation [...] recommendations. Mom agreeable and will call back. RUBBER FABRICATOR * Telephone Encounter - Leonie Bryant B.A. - 08/07/2019 10:27 AM CST Patient's mom called and said the patient has been suffering from a lot of anxiety and depression. She's going to the PCP tomorrow and mom wants to know if she can or can not take any medication or what she can take. RUBBER FABRICATOR documented in this encounter Plan of Treatment Not on file documented as of this encounter Visit Diagnoses Not on filedocumented in this encounter Care Teams Kai Whakar[place]au Relationship Specialty Start Date End Date Anthony Bruno MD PCP - General 05/16/17 documented as of this encounter
--- OUTSIDE RECORDS SUMMARY | 2024-06-11 10:35 | XMS_ITS | Encounter Summary ---
Author Organization [facility] Address [address] [place] [address] Phone Care Team Providers Care Roving Or Yarn Color Checker Name Role Phone Anthony Bruno MD Primary Care Provider [phone] Reason for Referral * (Routine) - Closed Specialty Diagnoses / Procedures Referred By Contac t Referred To Contact Diagnoses Abnormal electrocardiogram Procedures Pediatric Device Check - Remote Berna Villalobos NP Phone: tel: fax: [facility] (All Locations) Referral ID Status Reason Start Date Expiration Date Visits Re quested Visits Authorized [id number] Closed 07/09/2018 01/18/2020 1 1 EL CLIPPER Encounter Details Date Type Department Care Team (Late st Contact Info) Description 07/09/2018 Orders Only [facility] Pediatric Cardiology One [facility] 2nd [place] [address] [place] [address] Berna Villalobos NP [address] [place] [address] [address] [place] [address] Abnormal electrocardiogram (Primary Dx) Social History Tobacco Use Types Packs/Day Years Used Date Smoking Tobacco: Never Comments Unknown Sex and Gender Information Value Date Recorded Sex Assigned at Not on file Legal Sex Female 11:23 AM TASSEL CLIPPER Gender Identity Not on file Sexual Orientation Not on file documented as of this encounter Plan of Treatment Not on file documented as of this encounter Results * Pediatric Device Check - Remote (07/10/2018 10:39 AM TASSEL CLIPPER) Anatomical Region Laterality Modality Other Narrative 07/10/2018 12:19 PM TASSEL CLIPPER See documents scanned into Media. us Berna Villalobos REPAIRER PUMP CV CARDIAC SERVICES PROCEDURE S Final Result documented in this encounter Visit Diagnoses Diagnosis Abnormal electrocardiogram- Primary Nonspecific abnormal electrocardiogram (ECG) (EKG) Abnormal electrocardiogram Nonspecific abnormal electrocardiogram (ECG) (EKG) documented in this encounter Care Teams Roving Or Yarn Color Checker Relationship Specialty Start Date End Date Anthony Bruno MD PCP - General 05/16/17 documented as of this encounter
--- OUTSIDE RECORDS SUMMARY | 2024-06-11 10:35 | XMS_ITS | Encounter Summary ---
Author Organization [facility] Address [address] [place] [address] Phone Care Team Providers Care Automotive Service Consultant Name Role Phone Anthony Bruno MD Primary Care Provider [phone] Reason for Referral * (Routine) - Closed Specialty Diagnoses / Procedures Referred By Contac t Referred To Contact Diagnoses Long Q-T syndrome Procedures ECG 12 lead Ethel Casanova MD Phone: tel: fax: [facility] (All Locations) Referral ID Status Reason Start Date Expiration Date Visits Re quested Visits Authorized [id number] Closed 02/14/2019 08/25/2020 1 1 Reason for Visit * Cardiology (Routine) - Closed Specialty Diagnoses / Procedures Referred By Contac t Referred To Contact Cardiology / Pediatric Cardiology Diagnoses F/U Long QT Procedures RETURN Anthony Bruno MD Phone: tel: fax: Ethel Casanova MD [address] [place] [address] [address] [place] [address] Phone: tel: fax: Referral ID Status Reason Start Date Expiration Date Visits Re quested Visits Authorized [id number] Closed 02/20/2019 08/31/2020 1 1 Encounter Details Date Type Department Care Team (Late st Contact Info) Description 02/20/2019 1:00 PM CDT Office Visit [facility] Pediatric Cardiology One [facility] 2nd [place] [address] [place] [address] Ethel Casanova MD [address] [place] [address] Long Q-T syndrome (Primary Dx) Social History Tobacco Use Types Packs/Day Years Used Date Smoking Tobacco: Never Tobacco Cessation:Counseling Given: No Comments Unknown Sex and Gender Information Value Date Recorded Sex Assigned at Not on file Legal Sex Female 11:23 AM INSTRUCTOR TAP DANCING Gender Identity Not on file Sexual Orientation [...] 02/20/2019 1:1 1 PM CDT Growth Chart: [facility] (Girls, 2- 20 Years) documented [...] not hesitate to call our office at [phone]. ?? Cardiovascular instructions and follow-up: SBE Prophylaxis [...] [facility], [facility]. She is here today with her parents. Please allow me to review for my records. Grecia's family recently relocated to the [facility] from [place]. Sadly, her brother suddenly in July 2014 [...] Grecia had an extensive cardiac evaluation at [facility] in [facility] last September. Anechocardiogram showed a [...] was recommended in 6 months. Here in [facility], she has had serially [...] and was surgically repaired. PGF had an CA at age 42 and had hypercholesterolemia; he [...] Note: Added automatically from request for surgery [id number] ??? Long QT syndrome 07/14/2015 Class: Chronic [...] not hesitate to call our office at [phone]. ?? Cardiovascular instructions and follow-up: SBE Prophylaxis [...] CDT) Ventricular Rate EKG/Min Ventricular Rate:74 BPM [facility] Atrial Rate Atrial Rate:74 BPM [facility] WI-Interval (MSEC) P-R Interval:144 ms [facility] QRS-Interval (MSEC) QRS Duration:76 ms [facility] QT-Interval (MSEC) Q-T Interval:404 ms [facility] QTc QTC Calculation(Ba zett):448 ms [facility] P Layton P Layton:63 degrees [facility] R Layton R Layton:55 degrees [facility] T Layton T Layton:48 degrees [facility] Diagnosis Diagnosis:Norm al sinus rhythm When compared with ECG of 31-JAN-2019 14:06, No significant change was found Confirmed by MD CASANOVA JENNIFER ([id number]) on 02/20/2019 1:35:09 PM [facility] 02/20/2019 1:10 PM CDT 02/20/2019 1:35 PM CDT us Ethel Casanova MD ECG ORDERABLES Final Resul t [facility] documented in this encounter Visit Diagnoses Diagnosis Long Q-T syndrome- Primary Long QT syndrome documented in this encounter Discontinued Medications Medication Sig Discontinue Reason Start Date End Da te nadolol (CORGARD) 40 mg tabletIndications:Long Q-T syndrome Take 1 tablet (40 mg total) by mouth daily Reorder 10/08/2018 02/20/2019 documented as of this encounter Care Teams Automotive Service Consultant Relationship Specialty Start Date End Date Anthony Bruno MD PCP - General 05/16/17 documented as of this encounter
--- OUTSIDE RECORDS SUMMARY | 2024-06-11 10:35 | XMS_ITS | Encounter Summary ---
Author Organization [facility] Address [address] [place] [address] Phone Care Team Providers Care Automobile Tester Name Role Phone Anthony Bruno MD Primary Care Provider [phone] Encounter Details Date Type Department Care Team (Late st Contact Info) Description 07/31/2019 Telephone [facility] Pediatric Cardiology One [facility] [address]nd [place] [address] [place] [address] Khadijah Higgins CPhT Social History Tobacco Use Types Packs/Day Years Used Date Smoking Tobacco: Never Comments Unknown Sex and Gender Information Value Date Recorded Sex Assigned at Not on file Legal Sex Female 11:23 AM PARTS COUNTERPERSON Gender Identity Not on file Sexual Orientation Not on file documented as of this encounter Miscellaneous Notes * Telephone Encounter - Evie Morrison RN - 07/31/2019 10:54 AM PARTS COUNTERPERSON Sent through a voice mail tree to [facility] PCP's, Anthony Bruno MD office. Left the messagemarci Paige is not restricted from driving a care. Left request for c/b for any further questions. S COUNTERPERSON * Telephone Encounter - Keara Rashid DO - 07/31/2019 10:20 AM PARTS COUNTERPERSON It looks like this pause occurred during sleep. (10:30pm?) Looks like she was asymptomatic. She shouldn't need to be restricted from driving. S COUNTERPERSON * Telephone Encounter - Alyson Conner PA - 07/31/2019 10:18 AM PARTS COUNTERPERSON Images from the original note were not [...] Patient has not had any syncopal episodes. S COUNTERPERSON * Telephone Encounter - Evie Morrison RN - 07/31/2019 9:[address] Casanova, Is Grecia restricted from driving a car? S COUNTERPERSON * Telephone Encounter - Khadijah Higgins CPhT - 07/31/2019 9:05 AM CST pcp office called requesting clarity on if its safe for patient to drive? S COUNTERPERSON documented in this encounter Plan of Treatment Not on file documented as of this encounter Visit Diagnoses Not on filedocumented in this encounter Care Teams Automobile Tester Relationship Specialty Start Date End Date Anthony Bruno MD PCP - General 05/16/17 documented as of this encounter
--- OUTSIDE RECORDS SUMMARY | 2024-06-11 10:35 | XMS_ITS | Encounter Summary ---
Author Organization [facility] Address [address] [place] [address] Phone Care Team Providers Care Architect In Training Name Role Phone Anthony Bruno MD Primary Care Provider [phone] Encounter Details Date Type Department Care Team (Late st Contact Info) Description 07/12/2018 Telephone [facility] Pediatric Cardiology [facility] 2nd [place] [address] [place] [address] Klarissa Gievns Social History Tobacco Use Types Packs/Day Years Used Date Smoking Tobacco: Never Comments Unknown Sex and Gender Information Value Date Recorded Sex Assigned at Not on file Legal Sex Female 11:23 AM ENGINEER SOILS Gender Identity Not on file Sexual Orientation Not on file documented as of this encounter Miscellaneous Notes * Telephone Encounter - Ledy Camejo - 07/12/2018 3:13 PM CST Mom states that she received a letter today from [employer] that they have been unable to refill her medication because they have not received authorization from her MD. Letter stated that it could be submitted electronically or called to [phone]. Mom aware that we have not received any information but that I would resend the prescription through now. NEER SOILS * Telephone Encounter - Klarissa Givens - 07/12/2018 2:48 PM CST Mom is calling because patient needs a new rx for medication and the last rx wasn't filled because auth was needed NEER SOILS documented in this encounter Plan of Treatment Not on file documented as of this encounter Visit Diagnoses Not on filedocumented in this encounter Care Teams Architect In Training Relationship Specialty Start Date End Date Anthony Bruno MD PCP - General 05/16/17 documented as of this encounter
--- OUTSIDE RECORDS SUMMARY | 2024-06-11 10:35 | XMS_ITS | Encounter Summary ---
Author Organization [facility] Address [address] [place] [address] Phone Care Team Providers Care Wall Washer Name Role Phone Anthony Bruno MD Primary Care Provider [phone] Reason for Referral * (Routine) - Closed Specialty Diagnoses / Procedures Referred By Contgeorgina t Referred To Contact Diagnoses Long Q-T syndrome Procedures Pediatric Device Check - Remote Alyson Conner PA 1 [facility] [address] [place] [address] Phone: tel: fax: [facility] (All Locations) Referral ID Status Reason Start Date Expiration Date Visits Re quested Visits Authorized [id number] Closed 10/23/2019 05/03/2021 1 1 Encounter Details Date Type Department Care Team (Late st Contact Info) Description 10/23/2019 Orders Only [facility] Pediatric Cardiology [facility] [address]nd [place] [address] [place] [phone] Alyson Conner PA 1 [facility] [address] [place] [address] Long Q-T syndrome (Primary Dx) Social History Tobacco Use Types Packs/Day Years Used Date Smoking Tobacco: Never Comments Unknown Sex and Gender Information Value Date Recorded Sex Assigned at Not on file Legal Sex Female 11:23 AM BLENDING TANK TENDER HELPER Gender Identity Not on file Sexual Orientation Not on file documented as of this encounter Plan of Treatment Not on file documented as of this encounter Results * Pediatric Device Check - Remote (10/23/2019 8:01 AM CDT) Anatomical Region Laterality Modality Other Narrative 10/23/2019 4:10 PM CDT REMOTE ILR SUMMARY REPORT MODEL: Medtronic, LINQ SERIAL:[id number] /IMPLANTED ON: 01/31/[address] Ethel Casanova [...] syndrome documented in this encounter Care Teams Wall Washer Relationship Specialty Start Date End Date Anthony Bruno MD PCP - General 05/16/17 documented as of this encounter
--- OUTSIDE RECORDS SUMMARY | 2024-06-11 10:35 | XMS_ITS | Encounter Summary ---
Author Organization [facility] Address [address] [place] [address] Phone Care Team Providers Care Assistant Distribution Manager Name Role Phone Anthony Bruno MD Primary Care Provider [phone] Reason for Referral * (Routine) - Closed Specialty Diagnoses / Procedures Referred By Contac t Referred To Contact Diagnoses Long Q-T syndrome Procedures ECG 12 lead Bebe Casanova MD Phone: tel: fax: [facility] (All Locations) Referral ID Status Reason Start Date Expiration Date Visits Re quested Visits Authorized [id number] Closed 02/14/2019 08/25/2020 1 1 Reason for Visit * (Routine) - Closed Specialty Diagnoses / Procedures Referred By Contac t Referred To Contact Diagnoses Long Q-T syndrome Procedures ECG 12 lead Bebe Casanova MD Phone: tel: fax: [facility] (All Locations) Referral ID Status Reason Start Date Expiration Date Visits Re quested Visits Authorized [id number] Closed 02/14/2019 08/25/2020 1 1 Encounter Details Date Type Department Care Team (Latest Contact Info) Description 02/20/2019 1:00 PM CDT - 02/20/2019 11:59 PM CDT Hospital Encounter [facility] Pediatric Cardiology One [facility] [address] [place] [address] Long Q-T syndrome Discharge Disposition: Discharge to home or self care Social History Tobacco Use Types Packs/Day Years Used Date Smoking Tobacco: Never Comments Unknown Sex and Gender Information Value Date Recorded Sex Assigned at Not on file Legal Sex Female 11:23 AM PULMONARY CARE NURSE Gender Identity Not on file Sexual [...] CDT) Ventricular Rate EKG/Min Ventricular Rate:74 BPM [facility] Atrial Rate Atrial Rate:74 BPM [facility] DC-Interval (MSEC) P-R Interval:144 ms [facility] QRS-Interval (MSEC) QRS Duration:76 ms [facility] QT-Interval (MSEC) Q-T Interval:404 ms [facility] QTc QTC Calculation(Ba zett):448 ms [facility] P [place] P [place]:63 degrees [facility] R [place] R [place]:55 degrees [facility] T [place] T [place]:48 degrees [facility] Diagnosis Diagnosis:Norm al sinus rhythm When compared with ECG of 31-JAN-2019 14:06, No significant change was found Confirmed by MD ELLIOT, BEBE ([id number]) on 02/20/2019 1:35:09 PM [facility] 02/20/2019 1:10 PM CDT 02/20/2019 1:35 PM CDT us Bebe Casanova MD ECG ORDERABLES Final Resul t [facility] documented in this encounter Visit Diagnoses Diagnosis Long Q-T syndrome Long QT syndrome documented in this encounter Care Teams Assistant Distribution Manager Relationship Specialty Start Date End Date Anthony Bruno MD PCP - General 05/16/17 documented as of this encounter
--- OUTSIDE RECORDS SUMMARY | 2024-06-11 10:35 | XMS_ITS | Encounter Summary ---
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 (All Locations) Referral ID Status Reason Start Date Expiration Date Visits Re quested Visits Authorized [id number] Closed 10/10/2018 04/20/2020 1 1 Encounter Details Date Type Department Care Team (Latest Contact Info) Description 10/10/2018 5:15 PM CDT Ancillary Procedure [facility] Pediatric Cardiology [address] [place] [address] 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; Abnormal electrocardiography Social History Tobacco Use Types Packs/Day Years Used Date Smoking Tobacco: Never Comments Unknown Sex and Gender Information Value Date Recorded Sex Assigned at Not on file Legal Sex Female 11:23 AM CARGO AND RAMP SERVICES MANAGER Gender Identity Not on file Sexual [...] electrocardiography documented in this encounter Care Teams Bundle Tier Relationship Specialty Start Date End Date Anthony Bruno MD PCP - General 05/16/17 documented as of this encounter
--- OUTSIDE RECORDS SUMMARY | 2024-06-11 10:35 | XMS_ITS | Encounter Summary ---
Author Organization [facility] Address [address] [place] [address] Phone Care Team Providers Care Women'S Ministry Director Name Role Phone Anthony Bruno MD Primary Care Provider [phone] Reason for Visit * (Routine) - Closed Specialty Diagnoses / Procedures Referred By Cristopher sims Referred To Contact Diagnoses Abnormal electrocardiogram Procedures Pediatric Device Check - Remote Berna Villalobos NP Phone: tel: fax: [facility] (All Locations) Referral ID Status Reason Start Date Expiration Date Visits Re quested Visits Authorized [id number] Closed 07/09/2018 01/18/2020 1 1 Encounter Details Date Type Department Care Team (Latest Contact Info) Description 07/10/2018 10:45 AM TEST BORING CREW CHIEF Ancillary Procedure [facility] Pediatric Cardiology [address] [place] [address] Abnormal electrocardiogram Social History Tobacco Use Types Packs/Day Years Used Date Smoking Tobacco: Never Comments Unknown Sex and Gender Information Value Date Recorded Sex Assigned at Not on file Legal Sex Female 11:23 AM TEST BORING CREW CHIEF Gender Identity Not on file Sexual Orientation Not on file documented as of this encounter Plan of Treatment Not on file documented as of this encounter Procedures Procedure Name Priority Date/Time Associated Diagnosis Comments PED DEVICE CHECK - REMOTE Routine 07/10/2018 10:39 AM TEST BORING CREW CHIEF Abnormal electrocardiogram documented in this encounter Results * Pediatric Device Check - Remote (07/10/2018 10:39 AM TEST BORING CREW CHIEF) Anatomical Region Laterality Modality Other Narrative 07/10/2018 12:19 PM TEST BORING CREW CHIEF See documents scanned into Media. us Berna Villalobos NP CV CARDIAC SERVICES PROCEDURE S Final Result documented in this encounter Visit Diagnoses Diagnosis Abnormal electrocardiogram Nonspecific abnormal electrocardiogram (ECG) (EKG) documented in this encounter Care Teams Women'S Ministry Director Relationship Specialty Start Date End Date Anthony Bruno MD PCP - General 05/16/17 documented as of this encounter
--- OUTSIDE RECORDS SUMMARY | 2024-06-11 10:35 | XMS_ITS | Encounter Summary ---
Author Organization [facility] [place] Address [address] [place] [address] Phone Care Team Providers Care Tool Sharpener Name Role Phone Anthony Bruno MD Primary Care Provider [phone] Reason for Visit * Cardiology (Routine) - Canceled Specialty Diagnoses / Procedures Referred By Cristopher sims Referred To Contact Diagnoses Long Q-T syndrome Procedures Pediatric Device Check - Remote Alyson Conner PA [address] [facility] [address] [place] [address] Phone: tel: fax: [facility] (All Locations) Referral ID Status Reason Start Date Expiration Date V isits Requested Visits Authorized [id number] Canceled 09/22/2019 04/02/2021 12 12 Encounter Details Date Type Department Care Team (Latest Contact Info) Description 09/22/2019 9:15 AM CDT Ancillary Procedure [facility] Pediatric Cardiology [address] [place] [address] Long Q-T syndrome Social History Tobacco Use Types Packs/Day Years Used Date Smoking Tobacco: Never Comments Unknown Sex and Gender Information Value Date Recorded Sex Assigned at Not on file Legal Sex Female 11:23 AM OIM ARCHITECT Gender Identity Not on file Sexual [...] REMOTE ILR SUMMARY REPORT MODEL: Medtronic, LINQ SERIAL:[id number] /IMPLANTED ON: 01/31/[address] Ethel Casanova [...] syndrome documented in this encounter Care Teams Tool Sharpener Relationship Specialty Start Date End Date Anthony Bruno MD PCP - General 05/16/17 documented as of this encounter
--- OUTSIDE RECORDS SUMMARY | 2024-06-11 10:36 | XMS_ITS | Encounter Summary ---
Author Organization [facility] Address [address] [place] [address] Phone Care Team Providers Care Hotel And Dining Room Cashier Name Role Phone Anthony Bruno MD Primary Care Provider [phone] Reason for Visit * (Routine) - Closed Specialty Diagnoses / Procedures Referred By Cristopher sims Referred To Contact Diagnoses Abnormal EKG Procedures Pediatric Device Check - Remote Berna Villalobos NP Phone: tel: fax: [facility] (All Locations) Referral ID Status Reason Start Date Expiration Date Visits Re quested Visits Authorized [id number] Closed 04/22/2018 11/01/2019 1 1 Encounter Details Date Type Department Care Team (Late st Contact Info) Description 04/23/2018 9:30 AM DIESEL PILE DRIVER OPERATOR Ancillary Procedure [facility] Pediatric Cardiology [address] [place] [address] Abnormal EKG Social History Tobacco Use Types Packs/Day Years Used Date Smoking Tobacco: Never Comments Unknown Sex and Gender Information Value Date Recorded Sex Assigned at Not on file Legal Sex Female 11:23 AM DIESEL PILE DRIVER OPERATOR Gender Identity Not on file Sexual Orientation Not on file documented as of this encounter Plan of Treatment Not on file documented as of this encounter Procedures Procedure Name Priority Date/Time Associated Diagnosis Comments PED DEVICE CHECK - REMOTE Routine 04/23/2018 8:03 AM DIESEL PILE DRIVER OPERATOR Abnormal EKG documented in this encounter Results * Pediatric Device Check - Remote (04/23/2018 8:03 AM DIESEL PILE DRIVER OPERATOR) Anatomical Region Laterality Modality Other Narrative 04/23/2018 8:43 AM DIESEL PILE DRIVER OPERATOR See documents scanned into media. us Berna Villalobos NP CV CARDIAC SERVICES PROCEDURE S Final Result documented in this encounter Visit Diagnoses Diagnosis Abnormal EKG Nonspecific abnormal electrocardiogram (ECG) (EKG) documented in this encounter Care Teams Hotel And Dining Room Cashier Relationship Specialty Start Date End Date Anthony Bruno MD PCP - General 05/16/17 documented as of this encounter
--- OUTSIDE RECORDS SUMMARY | 2024-06-11 10:36 | XMS_ITS | Encounter Summary ---
Author Organization [facility] Address [address] [place] [address] Phone Care Team Providers Care Coordinate Measuring Machine Technician Name Role Phone Anthony Bruno MD Primary Care Provider [phone] Reason for Visit * (Routine) - Closed Specialty Diagnoses / Procedures Referred By Contgeorgina t Referred To Contact Diagnoses Long QT syndrome Procedures Pediatric Device Check - In Office Ethel Casanova MD Phone: tel: fax: [facility] (All Locations) Referral ID Status Reason Start Date Expiration Date Visits Re quested Visits Authorized [id number] Closed 05/13/2018 11/22/2019 1 1 Encounter Details Date Type Department Care Team (Latest Contact Info) Description 05/15/2018 10:45 AM DEPUTY K 9 Ancillary Procedure [facility] Pediatric Cardiology [facility] [address] [place] [address] [address] [place] [address] Long QT syndrome Social History Tobacco Use Types Packs/Day Years Used Date Smoking Tobacco: Never Comments Unknown Sex and Gender Information Value Date Recorded Sex Assigned at Not on file Legal Sex Female 11:23 AM DEPUTY K 9 Gender Identity Not on file Sexual Orientation Not on file documented as of this encounter Plan of Treatment Pending Results Name Type Priority Associated Diagnoses Date /Time Pediatric Device Check - In Office Cardiac Services Routine Long QT syndrome 05/15/2018 10:29 AM DEPUTY K 9 documented as of this encounter Visit Diagnoses Diagnosis Long QT syndrome documented in this encounter Care Teams Coordinate Measuring Machine Technician Relationship Specialty Start Date End Date Anthony Bruno MD PCP - General 05/16/17 documented as of this encounter
--- OUTSIDE RECORDS SUMMARY | 2024-06-11 10:36 | XMS_ITS | Encounter Summary ---
Author Organization [facility] Address [address] [place] [address] Phone Care Team Providers Care Store Group Manager Name Role Phone Anthony Bruno MD Primary Care Provider [phone] Encounter Details Date Type Department Care Team (Late st Contact Info) Description 12/10/2017 Telephone [facility] Pediatric Cardiology [address] [facility] [address] [place] [address] [place] [address] Klarissa Givens Social History Tobacco Use Types Packs/Day Years Used Date Smoking Tobacco: Never Comments Unknown Sex and Gender Information Value Date Recorded Sex Assigned at Not on file Legal Sex Female 11:23 AM SKIDDER RUNNER Gender Identity Not on file Sexual Orientation [...] on filedocumented in this encounter Care Teams Store Group Manager Relationship Specialty Start Date End Date Anthony Bruno MD PCP - General 05/16/17 documented as of this encounter
--- OUTSIDE RECORDS SUMMARY | 2024-06-11 10:36 | XMS_ITS | Encounter Summary ---
Author Organization [facility] Care Team Providers Care Manager Mental Health Name Role Phone Unavailable Primary Care Provider Unavailabl e Encounter Details Date Type Department Care Team (Latest Contact Info) Description 06/22/2015 9:44 AM MANAGEMENT TRAINEE MARKETING - 06/22/2015 5:00 PM MANAGEMENT TRAINEE MARKETING Hospital Encounter [facility]CON[facility] Long QT syndrome; Family history of sudden cardiac Social History Tobacco Use Types Packs/Day Years Used Date Smoking Tobacco: Never Comments Unknown Sex and Gender Information Value Date Recorded Sex Assigned at Not on file Legal Sex Female 11:23 AM MANAGEMENT TRAINEE MARKETING Gender Identity Not on file Sexual Orientation Not on file documented as of this encounter Last Filed Vital Signs Vital Sign Reading Time Taken Comments Blood Pressure - - Pulse - - Temperature - - Respiratory Rate - - Oxygen Saturation - - Inhaled Oxygen Concentration - - Weight 55 kg (121 lb 4.1 oz) 06/17/2015 3:29 PM MANAGEMENT TRAINEE MARKETING Height 155 cm (5' 1.02 ) 06/17/2015 3:29 PM MANAGEMENT TRAINEE MARKETING Body Mass Index 22.89 06/17/2015 3:29 PM MANAGEMENT TRAINEE MARKETING Body Mass Index Percentile 92.84% 06/17/2015 3:2 9 PM MANAGEMENT TRAINEE MARKETING Growth Chart: CDC (Girls, 2- 20 Years) documented in this encounter Plan of Treatment Not on file documented as of this encounter Procedures Procedure Name Priority Date/Time Associated Diagnosis Comments SPECIMEN TRACKING Routine 06/22/2015 2:2 4 PM MANAGEMENT TRAINEE MARKETING URINE CHORIONIC GONADOTROPIN (HCG) Routine 06/22/2015 10:11 AM MANAGEMENT TRAINEE MARKETING DISCHARGE LABORATORY CUMULATIVE REPORT 06/22/2015 DIAGNOSTIC ELECTROPHYSIOLOGY (EP) STUDIES Routine 06/22/2015 12:00 AM MANAGEMENT TRAINEE MARKETING CYTOGENETICS AND GENOMICS 06/11/2015 documented in this encounter Results * Specimen Tracking (06/22/2015 2:24 PM MANAGEMENT TRAINEE MARKETING) Specimen type Blood HISTOR ICAL RESULTS Specimen sent Cytogenetics HIS TORICAL RESULTS Collection Date 06/22/2015 HISTORICAL RESULTS Miscellaneous 06/22/2015 2:2 4 PM MANAGEMENT TRAINEE MARKETING [facility] Provider MD LAB BLOOD ORDERABLES Cherry l Result HISTORICAL RESULTS * Urine chorionic gonadotropin (HCG) (06/22/2015 10:11 AM MANAGEMENT TRAINEE MARKETING) HCG, ur Negative Negative HISTORICAL RESULTS Urine 06/22/2015 10:1 1 AM MANAGEMENT TRAINEE MARKETING [facility] Provider MD LAB BLOOD ORDERABLES Cherry l Result Performing Organization Address [facility]/ZIP Co de Phone Number HISTORICAL RESULTS * DISCHARGE LABORATORY CUMULATIVE REPORT (06/22/2015) Narrative 06/22/2015 Ordered by an unspecified provider. [facility] Provider MD LAB BLOOD ORDERABLES Cherry l Result * Diagnostic Electrophysiology (EP) Studies (06/22/2015 12:00 AM MANAGEMENT TRAINEE MARKETING) Anatomical Region Laterality Modality Cardiac Electrop hysiology 06/22/2015 Narrative 07/04/2015 10:55 AM MANAGEMENT TRAINEE MARKETING PATIENT NAME: ??HERMELINDO VILLA : ? 2005 [facility] #: ?[id number] ?DATE OF STUDY: ?06/22/2015 ELECTROPHYSIOLOGY REPORT HISTORY: [...] such, she is brought today to the cath lab technologist for IV epinephrine challenge and a loop recorder implantation. PROCEDURE: Hermelindo was brought to the cardiac cath lab technologist in a fasting state. ??An IV epinephrine challenge was performed using the [place] protocol with escalating doses of intravenous epinephrine [...] draped in the usual sterile manner. ??A Bevy Reveal LINQ [id number] serial #[id number] was implanted in the left prepectoral area. [...] 10:55 A BILLY:keturah D: ??06/22/2015 02:11 P [id number] T: ??06/23/2015 11:25 [id number] Procedure Note Provider, MD Breann - 10/03/2016 PATIENT NAME: HERMELINDO VILLA : 2005 [facility] #: [id number] DATE OF STUDY: 06/22/2015 ELECTROPHYSIOLOGY REPORT HISTORY: [...] Assuch, she is brought today to the cath lab technologist for IV epinephrine challenge and aloop recorder implantation. PROCEDURE: Hermelindo was brought to the cardiac cath lab technologist in a fasting state. An IV epinephrine challenge was performed using the [place] protocol withescalating doses of intravenous epinephrine starting [...] manner. A Medtronic Reveal LINQ LNQ11 serial #[id number] was implanted in the left prepectoral area. [...] Casanova MD 07/04/2015 10:55 A JNS:rebollar P [id number] [id number] Historical Provider CV ELECTROPHYSIOLOGY PROC S Final Result * CLINICAL AND TRANSLATIONAL GENOMICS (06/11/2015) Narrative 06/11/2015 Ordered by an unspecified provider. Historical Provider LAB GENETIC TESTING Final Result documented in this encounter Visit Diagnoses Diagnosis Long QT syndrome Family history of sudden cardiac documented in this encounter
--- OUTSIDE RECORDS SUMMARY | 2024-06-11 10:36 | XMS_ITS | Encounter Summary ---
Author Organization [facility] Address [address] [place] [address] Phone Care Team Providers Care Assembler And Tester Electronics Name Role Phone Anthony Bruno MD Primary Care Provider [phone] Encounter Details Date Type Department Care Team (Late st Contact Info) Description 02/22/2018 Orders Only [facility] Pediatric Cardiology [facility] [address]nd [place] [address] [place] [phone] Evie Morrison RN Long Q-T syndrome (Primary Dx) Social History Tobacco Use Types Packs/Day Years Used Date Smoking Tobacco: Never Comments Unknown Sex and Gender Information Value Date Recorded Sex Assigned at Not on file Legal Sex Female 11:23 AM SECONDARY MARKET MANAGER Gender Identity Not on file Sexual [...] syndrome documented in this encounter Care Teams Assembler And Tester Electronics Relationship Specialty Start Date End Date Anthony Bruno MD PCP - General 05/16/17 documented as of this encounter
--- OUTSIDE RECORDS SUMMARY | 2024-06-11 10:36 | XMS_ITS | Encounter Summary ---
Author Organization [facility] Address [address] [place] [address] Phone Care Team Providers Care Air Twist Operator Name Role Phone Anthony Bruno MD Primary Care Provider [phone] Reason for Visit * (Routine) - Closed Specialty Diagnoses / Procedures Referred By Contac t Referred To Contact Diagnoses Long QT syndrome Procedures ECG 12 lead Bebe Casanova MD Phone: tel: fax: Referral ID Status Reason Start Date Expiration Date Visits Re quested Visits Authorized [id number] Closed 05/13/2018 11/22/2019 1 1 Encounter Details Date Type Department Care Team (Latest Contact Info) Description 05/15/2018 10:45 AM SPRAY PAINTER HELPER Ancillary Procedure [facility] Pediatric Cardiology [facility] [address] [place] [address] [address] [place] [address] Long QT syndrome Social History Tobacco Use Types Packs/Day Years Used Date Smoking Tobacco: Never Comments Unknown Sex and Gender Information Value Date Recorded Sex Assigned at Not on file Legal Sex Female 11:23 AM SPRAY PAINTER HELPER Gender Identity Not on file Sexual Orientation Not on file documented as of this encounter Plan of Treatment Not on file documented as of this encounter Procedures Procedure Name Priority Date/Time Associated Diagnosis Comments ECG 12-LEAD Routine 05/15/2018 11:17 AM SPRAY PAINTER HELPER Long QT syndrome documented in this encounter Results * ECG 12 lead (05/15/2018 11:17 AM SPRAY PAINTER HELPER) Ventricular Rate EKG/Min Ventricular Rate:83 BPM [facility] Atrial Rate Atrial Rate:83 BPM [facility] [place]-Interval (MSEC) P-R Interval:142 ms [facility] QRS-Interval (MSEC) QRS Duration:74 ms [facility] QT-Interval (MSEC) Q-T Interval:398 ms [facility] QTc QTC Calculation(Be zet):457 ms [facility] P [place] P [place]:69 degrees [facility] R [place] R [place]:39 degrees [facility] T [place] T [place]:23 degrees [facility] Diagnosis Diagnosis:Norm al sinus rhythm Low voltage QRS Borderline Prolonged QT Nonspecific T wave abnormality When compared with ECG of 16-MAY-2017 11:49, QT has lengthened Confirmed by MD ELLIOT, BEBE ([id number]) on 05/15/2018 11:24:43 AM [facility] 05/15/2018 12:1 4 PM SPRAY PAINTER HELPER 05/15/2018 11:24 AM SPRAY PAINTER HELPER us Bebe Casanova MD ECG ORDERABLES Final Resul t [facility] documented in this encounter Visit Diagnoses Diagnosis Long QT syndrome documented in this encounter Care Teams Air Twist Operator Relationship Specialty Start Date End Date Anthony Bruno MD PCP - General 05/16/17 documented as of this encounter
--- OUTSIDE RECORDS SUMMARY | 2024-06-11 10:36 | XMS_ITS | Encounter Summary ---
Author Organization [facility] Address [address] [place] [address] Phone Care Team Providers Care Event Technician Name Role Phone Anthony Bruno MD Primary Care Provider [phone] Reason for Referral * (Routine) - Closed Specialty Diagnoses / Procedures Referred By Cristopher sims Referred To Contact Diagnoses Abnormal EKG Procedures Pediatric Device Check - Remote Berna Villalobos NP Phone: tel: fax: [facility] (All Locations) Referral ID Status Reason Start Date Expiration Date Visits Re quested Visits Authorized [id number] Closed 04/22/2018 11/01/2019 1 1 UTER TRAIN OPERATOR Encounter Details Date Type Department Care Team (Late st Contact Info) Description 04/22/[address] [facility] Pediatric Cardiology One [facility] 2nd [place] [address] [place] [address] Berna Villalobos NP [address] [place] [address] [address] [place] [address] Abnormal EKG (Primary Dx) Social History Tobacco Use Types Packs/Day Years Used Date Smoking Tobacco: Never Comments Unknown Sex and Gender Information Value Date Recorded Sex Assigned at Not on file Legal Sex Female 11:23 AM COMMUTER TRAIN OPERATOR Gender Identity Not on file Sexual Orientation Not on file documented as of this encounter Plan of Treatment Not on file documented as of this encounter Results * Pediatric Device Check - Remote (04/23/2018 8:03 AM COMMUTER TRAIN OPERATOR) Anatomical Region Laterality Modality Other Narrative 04/23/2018 8:43 AM COMMUTER TRAIN OPERATOR See documents scanned into media. us Berna Villalobos TUFTING MACHINE OPERATOR SINGLE NEEDLE [facility] PROCEDURE S Final Result documented in this encounter Visit Diagnoses Diagnosis Abnormal EKG- Primary Nonspecific abnormal electrocardiogram (ECG) (EKG) Abnormal EKG Nonspecific abnormal electrocardiogram (ECG) (EKG) documented in this encounter Care Teams Event Technician Relationship Specialty Start Date End Date Anthony Bruno MD PCP - General 05/16/17 documented as of this encounter
--- OUTSIDE RECORDS SUMMARY | 2024-06-11 10:36 | XMS_ITS | Encounter Summary ---
Author Organization [facility] Address [address] [place] [address] Phone Care Team Providers Care Wood Flour Miller Name Role Phone Anthony Bruno MD Primary Care Provider [phone] Encounter Details Date Type Department Care Team (Late st Contact Info) Description 06/11/2018 Telephone [facility] Pediatric Cardiology One [facility] 2nd [place] [address] [place] [id number] Ethel Casanova MD [address] [place] [address] [address] [place] [address] Social History Tobacco Use Types Packs/Day Years Used Date Smoking Tobacco: Never Comments Unknown Sex and Gender Information Value Date Recorded Sex Assigned at Not on file Legal Sex Female 11:23 AM ASSISTANT AUTO CENTER MANAGER Gender Identity Not on file Sexual [...] to [facility]. Mom called and notified. STANT AUTO CENTER MANAGER * Telephone Encounter - Leonie Bryant - 06/11/2018 9:13 AM CST Patient's mom called and said they need the Prescription refilled through [facility]...[id number] mg STANT AUTO CENTER MANAGER documented in this encounter Plan of Treatment [...] documented as of this encounter Care Teams Wood Flour Miller Relationship Specialty Start Date End Date Anthony Bruno MD PCP - General 05/16/17 documented as of this encounter
--- OUTSIDE RECORDS SUMMARY | 2024-06-11 10:36 | XMS_ITS | Encounter Summary ---
Author Organization [facility] Address [address] [place] [address] Phone Care Team Providers Care Wind Turbine Mechanical Engineer Name Role Phone Anthony Bruno MD Primary Care Provider [phone] Reason for Referral * (Routine) - Closed Specialty Diagnoses / Procedures Referred By Cristopher sims Referred To Contact Diagnoses Palpitations Procedures Pediatric Device Check - Remote Berna Villalobos NP Phone: tel: fax: [facility] (All Locations) Referral ID Status Reason Start Date Expiration Date Visits Re quested Visits Authorized [id number] Closed 06/17/2018 12/27/2019 1 1 TRA OPENER Encounter Details Date Type Department Care Team (Late st Contact Info) Description 06/17/2018 Orders Only [facility] Pediatric Cardiology [facility] [address]nd [place] [address] [place] [address] Berna Villalobos NP [address] [place] [address] [address] [place] [address] Palpitations (Primary Dx) Social History Tobacco Use Types Packs/Day Years Used Date Smoking Tobacco: Never Comments Unknown Sex and Gender Information Value Date Recorded Sex Assigned at Not on file Legal Sex Female 11:23 AM SUMATRA OPENER Gender Identity Not on file Sexual Orientation Not on file documented as of this encounter Plan of Treatment Not on file documented as of this encounter Results * Pediatric Device Check - Remote (06/18/2018 8:35 AM SUMATRA OPENER) Anatomical Region Laterality Modality Other Narrative 06/18/2018 9:50 AM SUMATRA OPENER See documents scanned into media us Berna Villalobos TALEND DEVELOPER CV CARDIAC SERVICES PROCEDURE S Final Result documented in this encounter Visit Diagnoses Diagnosis Palpitations- Primary Palpitations documented in this encounter Care Teams Wind Turbine Mechanical Engineer Relationship Specialty Start Date End Date Anthony Bruno MD PCP - General 05/16/17 documented as of this encounter
--- OUTSIDE RECORDS SUMMARY | 2024-06-11 10:36 | XMS_ITS | Encounter Summary ---
Author Organization [facility] Address [address] [place] [address] Phone Care Team Providers Care Seo Manager Name Role Phone Anthony Bruno MD Primary Care Provider [phone] Encounter Details Date Type Department Care Team (Late st Contact Info) Description 05/20/2018 Telephone [facility] Pediatric Cardiology [address] [facility] [address] 2nd [place] [address] [place] [address] Klarissa Givens Social History Tobacco Use Types Packs/Day Years Used Date Smoking Tobacco: Never Comments Unknown Sex and Gender Information Value Date Recorded Sex Assigned at Not on file Legal Sex Female 11:23 AM VP INTEGRATION Gender Identity Not on file Sexual Orientation Not on file documented as of this encounter Miscellaneous Notes * Telephone Encounter - Kiley Menon - 05/20/2018 4:[address] Casanova, this note is okay to send. Mom aware I have faxed this note off to the school. INTEGRATION * Telephone Encounter - Kiley Menon - [...] and I will get back with mom. INTEGRATION * Telephone Encounter - Klarissa Givens - 05/20/2018 12:33 PM CST MOM IS CALLING TO LET THE DOCTOR KNOW SHE NEEDS A NOTE FAXED TO THE SCHOOL TO GIVE ALL RESTRICTIONSFOR WHAT SHE CAN AND CAN'T DO IN GYM [phone] [place] Medium INTEGRATION documented in this encounter Plan of Treatment Not on file documented as of this encounter Visit Diagnoses Not on filedocumented in this encounter Care Teams Seo Manager Relationship Specialty Start Date End Date Anthony Bruno MD PCP - General 05/16/17 documented as of this encounter
--- OUTSIDE RECORDS SUMMARY | 2024-06-11 10:36 | XMS_ITS | Encounter Summary ---
Author Organization [facility] Address [address] [place] [address] Phone Care Team Providers Care Lead Embedded Software Engineer Name Role Phone Anthony Bruno MD Primary Care Provider [phone] Encounter Details Date Type Department Care Team (Late st Contact Info) Description 02/22/2018 Telephone [facility] Pediatric Cardiology One [facility] 2nd [place] [address] [place] [address] Ethel Casanova MD [address] [place] [address] [address] [place] [address] Social History Tobacco Use Types Packs/Day Years Used Date Smoking Tobacco: Never Comments Unknown Sex and Gender Information Value Date Recorded Sex Assigned at Not on file Legal Sex Female 11:23 AM OPERATIONS EXECUTIVE Gender Identity Not on file Sexual Orientation [...] on filedocumented in this encounter Care Teams Lead Embedded Software Engineer Relationship Specialty Start Date End Date Anthony Bruno MD PCP - General 05/16/17 documented as of this encounter
--- OUTSIDE RECORDS SUMMARY | 2024-06-11 10:36 | XMS_ITS | Encounter Summary ---
Author Organization [facility] Address [address] [place] [address] Phone Care Team Providers Care Cnc Milling Machine Operator Name Role Phone Anthony Bruno MD Primary Care Provider [phone] Reason for Referral * (Routine) - Closed Specialty Diagnoses / Procedures Referred By Contac t Referred To Contact Diagnoses Long QT syndrome Procedures Pediatric Device Check - In Office Ethel Casanova MD Phone: tel: fax: [facility] (All Locations) Referral ID Status Reason Start Date Expiration Date Visits Re quested Visits Authorized [id number] Closed 05/13/2018 11/22/2019 1 1 CHASER * (Routine) - Closed Specialty Diagnoses / Procedures Referred By Contac t Referred To Contact Diagnoses Long QT syndrome Procedures ECG 12 lead Ethel Casanova MD Phone: tel: fax: Referral ID Status Reason Start Date Expiration Date Visits Re quested Visits Authorized [id number] Closed 05/13/2018 11/22/2019 1 1 CHASER Encounter Details Date Type Department Care Team (Latest Contact Info) Description 05/15/2018 10:40 AM PIN CHASER Office Visit [facility] Pediatric Cardiology [address] [facility] 2[address] [place] [address] Ethel Casanova MD [address] [facility] [address] [place] [address] Long QT syndrome (Primary Dx); 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; Abnormal electrocardiography Social History Tobacco Use Types Packs/Day Years Used Date Smoking Tobacco: Never Comments Unknown Sex and Gender Information Value Date Recorded Sex Assigned at Not on file Legal Sex Female 11:23 AM PIN CHASER Gender Identity Not on file Sexual Orientation Not on file documented as of this encounter Last Filed Vital Signs Vital Sign Reading Time Taken Comments Blood Pressure 100/70 05/15/2018 10:59 AM PIN CHASER Pulse 80 05/15/2018 10:59 AM PIN CHASER Temperature 36.6 ??C (97.9 ??F) 05/15/2018 1 0:59 AM PIN CHASER Respiratory Rate 16 05/15/2018 10:5 9 AM PIN CHASER Oxygen Saturation - - Inhaled Oxygen Concentration - - Weight 61.3 kg (135 lb 2.3 oz) 05/15/20 18 10:59 AM PIN CHASER Height 164.8 cm (5' 4.88 ) 05/15/2018 1 0:59 AM PIN CHASER Body Mass Index 22.57 05/15/2018 10:59 AM PIN CHASER Body Mass Index Percentile 81.81% 05/15 10:59 AM PIN CHASER Growth Chart: [facility] (Girls, 2- 20 Years) documented in this encounter Patient Instructions * Patient Instructions* Ethel Casanova MD - 05/15/2018 10:40 AM PIN CHASER Plan: Grecia is a now 12 yr [...] not hesitate to call our office at [phone]. ?? Cardiovascular instructions and follow-up: SBE Prophylaxis (antibiotics): No RSV Prophylaxis Recommended: N/A Patient Cleared For: Anesthesia, Dental Work and Surgery--continue to avoid drugs that push out theQT interval Activity: May participate in entire physical education program but restricted from varsity athletics and strenuous activity Pending Tests: None Tests Next Visit: EKG and ILR download Does patient qualify for adolescent management protocol: No CHASER documented in this encounter Progress Notes * [...] records. Grecia's family recently relocated to the [facility] from [place]. Sadly, her brother suddenly in July 2014 [...] Grecia had an extensive cardiac evaluation at [facility] last September. Anechocardiogram showed a structurally [...] was recommended in 6 months. Here in [facility], she has had serially abnormal ECGs demosntrating [...] and was surgically repaired. PGF had an SC at age 42 and had hypercholesterolemia; he [...] not hesitate to call our office at [phone]. ?? Cardiovascular instructions and follow-up: SBE Prophylaxis (antibiotics): No RSV Prophylaxis Recommended: N/A Patient Cleared For: Anesthesia, Dental Work and Surgery--continue to avoid drugs that push out theQT interval Activity: May participate in entire physical education program but restricted from varsity athletics and strenuous activity Pending Tests: None Tests Next Visit: EKG and ILR download Does patient qualify for adolescent management protocol: No CHASER documented in this encounter Plan of Treatment Pending Results Name Type Priority Associated Diagnoses Date /Time Pediatric Device Check - In Office Cardiac Services Routine Long QT syndrome 05/15/2018 10:29 AM PIN CHASER Scheduled Orders Name Type Priority Associated Diagnoses Orde r Schedule Pediatric Device Check - In Office Cardiac Services Routine Long QT syndrome Expected: 05/15/2018, Expires: 05/13/2019 documented as of this encounter Results * ECG 12 lead (05/15/2018 11:17 AM PIN CHASER) Ventricular Rate EKG/Min Ventricular Rate:83 BPM [facility] Atrial Rate Atrial Rate:83 BPM [facility] [place]-Interval (MSEC) P-R Interval:142 ms [facility] QRS-Interval (MSEC) QRS Duration:74 ms [facility] QT-Interval (MSEC) Q-T Interval:398 ms [facility] QTc QTC Calculation(Be zet):457 ms [facility] P [place] P [place]:69 degrees [facility] R [place] R [place]:39 degrees [facility] T [place] T [place]:23 degrees [facility] Diagnosis Diagnosis:Norm al sinus rhythm Low voltage QRS Borderline Prolonged QT Nonspecific T wave abnormality When compared with ECG of 16-MAY-2017 11:49, QT has lengthened Confirmed by MD CASANOVA JENNIFER ([id number]) on 05/15/2018 11:24:43 AM [facility] 05/15/2018 12:1 4 PM PIN CHASER 05/15/2018 11:24 AM PIN CHASER us Ethel Casanova MD ECG ORDERABLES Final Resul t [facility] documented in this encounter Visit Diagnoses Diagnosis Long QT syndrome- Primary 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 Genetic susceptibility to other disease Abnormal electrocardiography documented in this encounter Care Teams Cnc Milling Machine Operator Relationship Specialty Start Date End Date Anthony Bruno MD PCP - General 05/16/17 documented as of this encounter
--- OUTSIDE RECORDS SUMMARY | 2024-06-11 10:36 | XMS_ITS | Encounter Summary ---
Author Organization [facility] Address [address] [place] [address] Phone Care Team Providers Care Prepper Name Role Phone Anthony Bruno MD Primary Care Provider [phone] Reason for Referral * (Routine) - Closed Specialty Diagnoses / Procedures Referred By Contac t Referred To Contact Diagnoses Long Q-T syndrome Procedures ECG 12 lead Keara Rashid DO Phone: tel: fax: [facility] Specialty [facility] Referral ID Status Reason Start Date Expiration Date Visits Re quested Visits Authorized [id number] Closed 05/16/2018 11/25/2019 1 1 DEVELOPMENT DIRECTOR Encounter Details Date Type Department Care Team (Late st Contact Info) Description 05/16/2018 Telephone [facility] Pediatric Cardiology One [facility] 2nd [place] [address] [place] [address] Klarissa Givens Social History Tobacco Use Types Packs/Day Years Used Date Smoking Tobacco: Never Comments Unknown Sex and Gender Information Value Date Recorded Sex Assigned at Not on file Legal Sex Female 11:23 AM WEB DEVELOPMENT DIRECTOR Gender Identity Not on file Sexual Orientation Not on file documented as of this encounter Miscellaneous Notes * Telephone Encounter - Kiley Menon - 05/16/2018 10:43 AM CST Grecia needs to have an EKG done at the [facility]. Mom states any day in August is fine except August 21. Per Trang, they can walk in on any day and get an EKG done. I called mom, she asked for the EKG to be done on August 14. Mom aware I will put order in and she should just go to the front end wheel loader operator on August 14 and tell them she is there for an EKG only. DEVELOPMENT DIRECTOR * Telephone Encounter - Klarissa Givens - 05/16/2018 10:08 AM CST MOM IS CALLING TO ASK IF HER EKG CAN BE DONE AT THE [facility] TOMORROW DEVELOPMENT DIRECTOR documented in this encounter Plan of Treatment Not on file documented as of this encounter Results * ECG 12 lead (08/14/2018 11:54 AM CDT) Ventricular Rate EKG/Min Ventricular Rate:78 BPM [facility] Atrial Rate Atrial Rate:78 BPM [facility] [place]-Interval (MSEC) P-R Interval:144 ms [facility] QRS-Interval (MSEC) QRS Duration:82 ms [facility] QT-Interval (MSEC) Q-T Interval:394 ms [facility] QTc QTC Calculation(Be zet):449 ms [facility] P [place] P [place]:72 degrees [facility] R [place] R [place]:40 degrees [facility] T [place] T [place]:34 degrees [facility] Diagnosis Diagnosis: * Pediatric ECG Analysis * Normal sinus rhythm Low voltage QRS Borderline QT interval Borderline ECG PEDIATRIC ANALYSIS - MANUAL COMPARISON REQUIRED When compared with ECG of 15-MAY-2018 12:14, No significant change was found Confirmed by EDWARD REYES MD, GEORGE ([id number]) on 08/15/2018 7:25:24 AM [facility] 08/14/2018 10:2 2 AM CDT 08/15/2018 7:25 AM CDT us Keara Rashid DO ECG ORDERABLES Final Resu lt [facility] documented in this encounter Visit Diagnoses Diagnosis Long Q-T syndrome- Primary Long QT syndrome documented in this encounter Care Teams Prepper Relationship Specialty Start Date End Date Anthony Bruno MD PCP - General 05/16/17 documented as of this encounter
== END 2024-06-04 14:05 | disposition home or self-care (01) ==
PROVIDERS: Emergency Provider Emergency Medicine; PCP Internal Medicine
DX: J21.0 Acute bronchiolitis due to respiratory syncytial virus (principal); J02.8 Acute pharyngitis due to other specified organisms; I45.81 Long QT syndrome; Z20.822 Contact with and (suspected) exposure to COVID-19
CPT/HCPCS: 87637; 87651; 99283; J7512